=== PATIENT | female | born 1940 | race Caucasian/White ===

== ENCOUNTER 2019-02-19 18:24 | Emergency (ER) | payer OTHER ==
[2019-02-19] MEDS ORDERED: FENTANYL CITR 100 MCG/2 ML ONE (19:33)
--- NOTE | 2019-02-19 19:38 | RAD REPORT ---
EXAM DESCRIPTION: RAD - Knee Right 3 View - 02/19/2019 7:27 pm CLINICAL HISTORY: PAIN COMPARISON: <Comparisons> FINDINGS: No acute fracture or dislocation seen. No joint effusion evident. Vascular calcification n oted.
--- NOTE | 2019-02-19 19:40 | RAD REPORT ---
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 No fracture or dislocation. No significant joint effusion. Atherosclerosis.
--- NOTE | 2019-02-19 20:20 | RAD REPORT ---
EXAM DESCRIPTION: CT - CTFB CLINICAL HISTORY: FACIAL PAIN Fall, trauma to face with pain COMPARISON: No comparisons TECHNIQUE: Axial 2 mm thick images of the face were obtained with sagittal and coronal reconstructio n images. All CT scans are performed using dose optimization technique as appropriate and may include automated exposure control or mA/KV adjustment according to patient size. FINDINGS: Soft tissue swelling is seen adjacent to the left zygoma and zygomatic arch. Subtle buckli ng of the zygomatic arch and lateral orbital rim is present which is suspicious for a minimal fractur e. A fracture is seen involving the posterolateral wall of the left maxillary antrum inferiorly with moderate hemorrhagic fluid in the left maxillary antrum.The right sphenoid sinus also demonstrates mo derate thick fluid, however has a more typical appearance for chronic sinus disease.The mandible is i ntact. IMPRESSION: Minimal nondisplaced fracture of the left zygomatic arch and left lateral orbital rim iniguez spected. Mildly inwardly displaced fracture of the posterolateral inferior maxillary sinus wall with moderate hemorrhagic fluid in the left maxillary antrum.
--- NOTE | 2019-02-19 20:45 | RAD REPORT ---
EXAM DESCRIPTION: CT - Head C Spine Cap Wo Con - 02/19/2019 7:57 pm CLINICAL HISTORY: Trauma, head and neck injury. Chest, abdomen and pelvis pain. Fall injury, pain to upper back and bilateral hips COMPARISON: No comparisons TECHNIQUE: CT head without contrast. CT cervical spine without contrast with coronal and sagittal reformatted images. CT chest, abdomen and pelvis without contrast with coronal and sagittal reformatted images of the spi ne. All CT scans are performed using dose optimization technique as appropriate and may include automated exposure control or mA/KV adjustment according to patient size. FINDINGS: CT HEAD WITHOUT CONTRAST: No intracranial hemorrhage, hydrocephalus or extra-axial fluid collection. Moderate brain atrophy. No areas of brain edema or midline shift. Fluid is present in the left maxillary antrum suspicious for hemorrhage. Please refer to dedicated CT facial bone study. The calvarium is intact. CT CERVICAL SPINE WITHOUT CONTRAST: No fracture or subluxation. The prevertebral soft tissues are normal in thickness. CT CHEST, ABDOMEN, PELVIS WITHOUT CONTRAST: NOTE: Lack of contrast is a significant limitation in the assessment of trauma related findings. Spec ifically, solid organ, vascular and bowel evaluation is significantly limited. Diffuse COPD is present with areas of scarring in both lung bases in the right apex.No mediastinal he matoma.No pneumothorax or pericardial/pleural fluid. No evidence of intra-abdominal visceral injury, free fluid or free air is seen within the above detai led limitations. Numerous gallstones are present gallbladder. Several right renal calculi are seen wi thout hydronephrosis. Prominent diverticulosis coli without diverticulitis. Acute fracture is not seen. Multiple compression deformities are seen in the lumbar spine, the majori ty of these have a chronic appearance and were present on the 2017 comparative plain radiograph. IMPRESSION: Multiple chronic appearing compression deformities throughout the lumbar spine. If furth er assessment of the lumbar spine fractures is needed clinically, MR imaging would be recommended for followup. Hemorrhagic fluid is apparent in the left maxillary antrum likely indicating subtle facial bone fract ure is present. Please refer to dedicated CT face study for further detail.
--- NOTE | 2019-02-19 21:25 | EDPHYS ---
Physician Documentation [facility] Name: Judah Caceres Age: 79 yrs Sex: Female : 1940 Arrival Date: 02/19/2019 Time: 18:36 Bed 27 Private MD: ED Physician Crispin Ferris HPI: 02/19 19:05 This 79 yrs old Female presents to ER via EMS with complaints of fall injury. pm1 19:05 Details of fall: The patient fell from an upright position, while walking. Onset: The pm1 symptoms/episode began/occurred just prior to arrival, today. Associated injuries: The patient sustained injury to the head, contusion, upper back injury, pain, injury to the chest, specifically the mid-sternal area, tenderness, right iliac crest and left iliac crest, abrasion, tenderness. The patient has not recently seen a physician. Patient was walking out of the shower and she tripped and landed forward. Presenting with bilateral knee pain, abrasion and pain to bilateral iliac crest, chest pain from landing on her chest, upper back pain, and bruising to left eye and cheek. Historical: - Allergies: 18:47 Codeine; rv 18:47 Sulfa (Sulfonamide Antibiotics); rv - Home Meds: 18:47 Xarelto 10 mg oral tab 1 tab once daily [Active]; tramadol 50 mg Oral tab 1 tab every 4 rv hours [Active]; spironolactone 25 mg Oral tab 1 tab 4 times per day [Active]; glimepiride 2 mg Oral tab 1 tab once daily [Active]; - PMHx: 18:47 Diabetes - NIDDM; back injury; rv - PSHx: 18:47 Appendectomy; Tonsillectomy; rv - Immunization history:: Adult Immunizations up to date. - Social history:: Smoking status: Patient/guardian denies using tobacco. - Ebola Screening: : No symptoms or risks identified at this time. ROS: 19:05 Constitutional: Negative for fever, chills, and weight loss, Eyes: Negative for injury, pm1 pain, redness, and discharge, ENT: Negative for injury, pain, and discharge, Neck: Negative for injury, pain, and swelling. 19:05 Respiratory: Negative for shortness of breath, cough, wheezing, and pleuritic chest pain, Abdomen/GI: Negative for abdominal pain, nausea, vomiting, diarrhea, and constipation. 19:05 : Negative for injury, bleeding, discharge, and swelling. 19:05 Neuro: Negative for headache, weakness, numbness, tingling, and seizure. 19:05 Cardiovascular: Positive for chest pain from the fall. No chest pain, shortness of breath, or chest pain equivalents prior to fall, Negative for edema, palpitations. 19:05 Back: Positive for of the thoracic area, pain. 19:05 MS/extremity: Positive for pain, of the right knee and left knee, Negative for decreased range of motion, deformity, paresthesias, swelling. 19:05 Skin: Positive for abrasion(s), of the left iliac crest and right iliac crest. Exam: 19:05 Constitutional: This is a well developed, well nourished patient who is awake, alert, pm1 and in no acute distress. 19:05 Eyes: Pupils equal round and reactive to light, extra-ocular motions intact. Lids and lashes normal. Conjunctiva and sclera are non-icteric and not injected. Cornea within normal limits. Periorbital areas with no swelling, redness, or edema. ENT: Nares patent. No nasal discharge, no septal abnormalities noted. Tympanic membranes are normal and external auditory canals are clear. Oropharynx with no redness, swelling, or masses, exudates, or evidence of obstruction, uvula midline. Mucous membranes moist. Neck: Trachea midline, no thyromegaly or masses palpated, and no cervical lymphadenopathy. Supple, full range of motion without nuchal rigidity, or vertebral point tenderness. No Meningismus. 19:05 Cardiovascular: Regular rate and rhythm with a normal S1 and S2. No gallops, murmurs, or rubs. Normal PMI, no JVD. No pulse deficits. Respiratory: Lungs have equal breath sounds bilaterally, clear to auscultation and percussion. No rales, rhonchi or wheezes noted. No increased work of breathing, no retractions or nasal flaring. Abdomen/GI: Soft, non-tender, with normal bowel sounds. No distension or tympany. No guarding or rebound. No evidence of tenderness throughout. 19:05 Head/face: Exam is negative for kay signs, raccoon eyes, Noted is no obvious of injury or deformity except contusion, of the left cheek and left eye. 19:05 Chest/axilla: Inspection: normal, no deformity, no ecchymosis, no evidence of flail chest, Palpation: crepitus, is not appreciated, tenderness, that is mild, of the mid-sternal area, that totally reproduces the patient's complaints. 19:05 Back: normal spinal alignment noted, vertebral tenderness, is appreciated at thoracic spine. 19:05 Skin: Appearance: normal except for affected area, injury, abrasion(s), very small abrasion noted, of the left iliac crest and right iliac crest. 19:05 Neuro: Orientation: is normal, Motor: is normal, moves all fours, Sensation: is normal, no obvious gross deficits, Gait: is steady, at a normal pace, without difficulty. Vital Signs: 19:07 BP 111 / 46; Pulse 93; Resp 19; Temp 98.4(O); Pulse Ox 97% ; lt1 20:00 BP 123 / 56; Pulse 92; Resp 16; Pulse Ox 96% ; rv 20:00 BP 116 / 56; Pulse 93; Resp 16; Pulse Ox 93% on R/A; rv 20:25 Pulse Ox 99% on 2 lpm NC; rv 22:21 BP 119 / 56; Pulse 93; Resp 16; Temp 98.3; Pulse Ox 99% ; rv MDM: 18:59 Patient medically screened. pm1 21:19 Data reviewed: vital signs. Data interpreted: Pulse oximetry: on room air is 99 %. pm1 Interpretation: normal. Counseling: I had a detailed discussion with the patient and/or guardian regarding: the historical points, exam findings, and any diagnostic results supporting the discharge/admit diagnosis, radiology results, the need for outpatient follow up, an ENT specialist, to return to the emergency department if symptoms worsen or persist or if there are any questions or concerns that arise at home. 02/19 18:55 Order name: Glucose, Ancillary Testing; Complete Time: 18:59 EDMS 02/19 19:04 Order name: CT Facial Bones W/O Con; Complete Time: 20:27 pm1 02/19 19:04 Order name: Knee Right 3 View XRAY; Complete Time: 19:48 pm1 02/19 19:04 Order name: Knee Left 3 View XRAY; Complete Time: 19:48 pm1 02/19 19:04 Order name: CT Traumagram (Head C Spine CAP wo con); Complete Time: 21:05 pm1 EC:06 Rate is 89 beats/min. Rhythm is regular. No Q waves. T waves are Normal. No ST changes pm1 noted. Clinical impression: Normal ECG. Administered Medications: 19:26 Drug: fentaNYL (PF) 25 mcg Route: IVP; Site: right antecubital; rv 20:26 Follow up: Response: Pain is decreased rv Disposition: 02/19/19 21:24 Discharged to Home. Impression: Maxillary fracture, unspecified - mildly displaced fracture of left posterolateral inferior maxillary sinus wall, Fall on same level from slipping, tripping and stumbling, Contusion of left knee, Contusion of right knee, Contusion of unspecified front wall of thorax, Zygomatic fracture, unspecified - Minimal nondisplaced fracture left zygomatic arch and left lateral orbital rim. - Condition is Stable. - Discharge Instructions: Contusion, Fall Prevention in the Home. - Prescriptions for Augmentin 875- 125 mg Oral Tablet - take 1 tablet by ORAL route every 12 hours for 10 days; 20 tablet. Tramadol 50 mg Oral Tablet - take 1 tablet by ORAL route every 8 hours as needed; 20 tablet. - Medication Reconciliation Form, Thank You Letter, Antibiotic Education, Prescription Opioid Use form. - Follow up: Emergency Department; When: As needed; Reason: Worsening of condition. Follow up: Peyton Jaimes MD; When: 2 - 3 days; Reason: Recheck today's complaints, Continuance of care, Re-evaluation by your physician. - Problem is new. - Symptoms have improved. Addendum: 02/21/2019 06:29 Co-signature as Attending Physician, Crispin Ferris MD I agree with the assessment and k dr plan of care. Signatures: Dispatcher [employer] EDMS Crispin Ferris MD MD kdr Mickail, Joel, PA PA jmm Boogie Cerda, MEDICAL ASSISTING PROGRAM DIRECTOR MEDICAL ASSISTING PROGRAM DIRECTOR pm1 Yair Moreau RN RN rv Corrections: (The following items were deleted from the chart) 02/19 22:22 21:24 02/19/2019 21:24 Discharged to Home. Impression: Maxillary fracture, unspecified rv - mildly displaced fracture of left posterolateral inferior maxillary sinus wallFall on same level from slipping, tripping and stumbling; Contusion of left knee; Contusion of right knee; Contusion of unspecified front wall of thorax; Zygomatic fracture, unspecified - Minimal nondisplaced fracture left zygomatic arch and left lateral orbital rim. Condition is Stable. Forms are Medication Reconciliation Form, Thank You Letter, Antibiotic Education, Prescription Opioid Use. Follow up: Emergency Department; When: As needed; Reason: Worsening of condition. Follow up: Peyton Jaimes; When: 2 - 3 days; Reason: Recheck today's complaints, Continuance of care, Re-evaluation by your physician. Problem is new. Symptoms have improved. pm1
--- NOTE | 2019-02-19 21:25 | ER ---
Nurse's Notes [facility] Name: Judah Caceres Age: 79 yrs Sex: Female : 1940 Arrival Date: 02/19/2019 Time: 18:36 Bed 27 Private MD: Diagnosis: Fall on same level from slipping, tripping and stumbling;Contusion of left knee;Contusion of right knee;Contusion of unspecified front wall of thorax;Zygomatic fracture, unspecified-Minimal nondisplaced fracture left zygomatic arch and left lateral orbital rim;Maxillary fracture, unspecified-mildly displaced fracture of left posterolateral inferior maxillary sinus wall Presentation: 02/19 18:36 Presenting complaint: Patient states: complains of back pain, worse than the usual. EMS rv states: patient had a shower and walking out of the bathroom when she tripped and hit her right side of the face. no LOC. patient takes Xarelto. No Dizziness, N/V. history of chronic back pain. Transition of care: patient was not received from another setting of care. Onset of symptoms was February 19, 2019 at 18:00. Risk Assessment: Do you want to hurt yourself or someone else? Patient reports no desire to harm self or others. Initial Sepsis Screen: Does the patient meet any 2 criteria? No. Patient's initial sepsis screen is negative. Does the patient have a suspected source of infection? No. Patient's initial sepsis screen is negative. Care prior to arrival: None. 18:36 Method Of Arrival: EMS: [facility] rv 18:36 Acuity: AMY 3 rv Triage Assessment: 19:00 General: Appears in no apparent distress. uncomfortable, Behavior is calm, cooperative. rv 19:00 Pain: Complains of pain in face and back. EENT: No signs and/or symptoms were reported rv regarding the EENT system. Neuro: Level of Consciousness is awake, alert, obeys commands, Oriented to person, place, time, situation. Cardiovascular: Patient's skin is warm and dry. Respiratory: Airway is patent. GI: No signs and/or symptoms were reported involving the gastrointestinal system. : No signs and/or symptoms were reported regarding the genitourinary system. Derm: Bruising that is dark purple, on left eye. Musculoskeletal: Reports pain in back. Historical: - Allergies: 18:47 Codeine; rv 18:47 Sulfa (Sulfonamide Antibiotics); rv - Home Meds: 18:47 Xarelto 10 mg oral tab 1 tab once daily [Active]; tramadol 50 mg Oral tab 1 tab every 4 rv hours [Active]; spironolactone 25 mg Oral tab 1 tab 4 times per day [Active]; glimepiride 2 mg Oral tab 1 tab once daily [Active]; - PMHx: 18:47 Diabetes - NIDDM; back injury; rv - PSHx: 18:47 Appendectomy; Tonsillectomy; rv - Immunization history:: Adult Immunizations up to date. - Social history:: Smoking status: Patient/guardian denies using tobacco. - Ebola Screening: : No symptoms or risks identified at this time. Screenin:59 Abuse screen: Denies threats or abuse. Denies injuries from another. Nutritional rv screening: No deficits noted. Tuberculosis screening: No symptoms or risk factors identified. Fall Risk None identified. Assessment: 19:56 Reassessment: Patient appears in no apparent distress at this time. Patient and/or rv family updated on plan of care and expected duration. Pain level reassessed. Patient is alert, oriented x 3, equal unlabored respirations, skin warm/dry/pink. patient brought back to room from CT scan. Vital Signs: 19:07 BP 111 / 46; Pulse 93; Resp 19; Temp 98.4(O); Pulse Ox 97% ; lt1 20:00 BP 123 / 56; Pulse 92; Resp 16; Pulse Ox 96% ; rv 20:00 BP 116 / 56; Pulse 93; Resp 16; Pulse Ox 93% on R/A; rv 20:25 Pulse Ox 99% on 2 lpm NC; rv 22:21 BP 119 / 56; Pulse 93; Resp 16; Temp 98.3; Pulse Ox 99% ; rv ED Course: 18:36 Patient arrived in ED. rv 18:39 Triage completed. rv 18:48 Boogie Cerda NP is PHCP. pm1 18:48 Crispin Ferris MD is Attending Physician. pm1 19:00 Maintain EMS IV. Dressing intact. Good blood return noted. Site clean \T\ dry. Gauge \T\ rv site: g20 right AC. Flushed right antecubital 10ml NS. 19:00 Patient has correct armband on for positive identification. Placed in gown. Bed in low rv position. Call light in reach. Side rails up X2. Adult w/ patient. dinkey locomotive operator on. Pulse ox on. NIBP on. 19:13 Yair Moreau, RN is Primary Nurse. rv 19:25 Knee Right 3 View XRAY In Process Unspecified. EDMS 19:26 Knee Left 3 View XRAY In Process Unspecified. EDMS 19:41 CT completed. Patient tolerated procedure well. Patient moved back from CT. mw3 19:44 CT Facial Bones W/O Con In Process Unspecified. EDMS 19:57 CT Traumagram (Head C Spine CAP wo con) In Process Unspecified. EDMS 20:00 Arm band placed on Patient placed in an exam room, on a stretcher, on ladies suit operator, rv on pulse oximetry, Patient notified of wait time. 20:51 No provider procedures requiring assistance completed. IV discontinued, intact, rv bleeding controlled, No redness/swelling at site. Pressure dressing applied. 21:19 Peyton Jaimes MD is Referral Physician. pm1 Administered Medications: 19:26 Drug: fentaNYL (PF) 25 mcg Route: IVP; Site: right antecubital; rv 20:26 Follow up: Response: Pain is decreased rv Outcome: 21:24 Discharge ordered by MD. pm1 22:19 Discharged to home via wheelchair. rv 22:19 Condition: good 22:19 Discharge instructions given to patient, family, Instructed on discharge instructions, follow up and referral plans. medication usage, Demonstrated understanding of instructions, follow-up care, medications, Prescriptions given X 2. 22:22 Patient left the ED. rv Signatures: Dispatcher [employer] EDWY Boogie Cerda, DEE DEE TELEVISION REPAIRER pm1 Kristal Bell mw3 Yair Moreau, JEREMI RN rv Brisa Johnson lt1
--- NOTE | 2019-02-20 09:47 | EKG ---
Test Date: 2019-02-19 Test Time: 18:41:06 Cabinet Builder: JONHT MEASUREMENT RESULTS: Intervals: Rate: 89 [place]: 184 QRSD: 88 QT: 374 QTc: 455 [place]: P: 38 [place]: 184 QRS: -17 T: 35 INTERPRETIVE STATEMENTS: Normal sinus rhythm Normal ECG Compared to ECG 03/05/2015 16:35:40 Atrial premature complex(es) no longer present Left ventricular hypertrophy no longer present Electronically Signed On 02-20-19 09:46:44 CDT by Ryder Dutton
== END 2019-02-19 22:22 | disposition home or self-care (01) ==
LOC: ER 18:24
DX: S02.40DA Maxillary fracture, left side, initial encounter for closed fracture (principal); S02.609A Fracture of mandible, unspecified, initial encounter for closed fracture; S02.40FA Zygomatic fracture, left side, initial encounter for closed fracture; S02.82XA Fracture of other specified skull and facial bones, left side, initial encounter for closed fracture; W18.2XXA Fall in (into) shower or empty bathtub, initial encounter; E11.9 Type 2 diabetes mellitus without complications; Z79.01 Long term (current) use of anticoagulants; Z88.5 Allergy status to narcotic agent; Z88.2 Allergy status to sulfonamides
CPT/HCPCS: 70450; 70486; 71250; 72125; 76377; 82962; 93005; 96374; 99285; J3010

== ENCOUNTER 2019-02-20 14:06 | Inpatient (IN) | payer OTHER ==
[2019-02-20] MEDS ORDERED: FENTANYL CITR 100 MCG/2 ML ONE (14:56)
[2019-02-20] MEDS ORDERED: NA CHLORIDE 0.9% 1,000 ML ONE (14:56)
[2019-02-20] MEDS ORDERED: ONDANSETRON 4 MG/2 ML VIAL ONE (14:56)
[2019-02-20] MEDS ORDERED: FAMOTIDINE 20 MG/2 ML VIAL IV ONE (14:56)
[2019-02-20] MEDS ORDERED: CEFTRIAXONE/SWI 1gm 1 GM/10 ML SYR ONE (14:57)
[2019-02-20 15:28] LABS: Absolute Lymphocytes (CBC) 1.4 K/uL (0.7-4.9); Absolute Monocytes 0.7 K/uL (0.1-1.3); Absolute Neutrophil 3.3 K/uL (1.8-8.0); Basophils % 0.9 % (0-1.3); Eosinophils % 4.6 % (0-4.4); Hematocrit 41.2 % (36.0-45.0); Lymphocytes % 25.4 % (15.3-44.8); MPV 7.8 fL (7.6-11.3); Monocytes % 11.8 % (3.3-12.3); RBC Red Blood Cell Count 4.35 M/uL (3.86-4.86)
[2019-02-20 15:29] LABS: Protime INR 1.09
[2019-02-20 15:52] LABS: ALT/SGPT 19 U/L (12-78); AST/SGOT 20 U/L (15-37); Albumin 3.4 g/dL (3.4-5.0); Alkaline Phosphatase 77 U/L (45-117); BUN Blood Urea Nitrogen 19 mg/dL (7-18); Bicarbonate 30 mmol/L (21-32); Bilirubin Direct 0.2 mg/dL (0-0.2); Bilirubin Total 0.7 mg/dL (0.2-1.0); Glucose Level 171 mg/dL (74-106); Lipase 53 U/L (73-393); Magnesium 2.1 mg/dL (1.8-2.4); NT PRO-BNP 81 pg/mL (<450); Potassium 3.8 mmol/L (3.5-5.1); Protein, Total 6.9 g/dL (6.4-8.2); Sodium Level 138 mmol/L (136-145); Troponin (Emerg Dept Use Only) < 0.02 ng/mL (0.0-0.045)
--- NOTE | 2019-02-20 16:34 | ER ---
Nurse's Notes [facility] Name: Judah Caceres Age: 79 yrs Sex: Female : 1940 Arrival Date: 02/20/2019 Time: 14:07 Bed 4 Private MD: Unknown, Unknown Diagnosis: Chest pain on breathing;Strain of muscle and tendon of front wall of thorax;Strain of muscle and tendon of back wall of thorax;Unspecified fracture of facial bones-zygoma, maxillary antrum, left;Type 2 diabetes mellitus;Vomiting Presentation: 02/20 14:13 Presenting complaint: Child states: She was here last night after a fall and hitting la1 her head. This morning she has been vomiting and having some blood coming out of her nose. Also C/O of pain in chest when breathing. Transition of care: patient was not received from another setting of care. Mechanism of Injury: resulted from a fall, last nightr. Onset of symptoms was February 19, 2019. Risk Assessment: Do you want to hurt yourself or someone else? Patient reports no desire to harm self or others. Initial Sepsis Screen: Does the patient meet any 2 criteria? No. Patient's initial sepsis screen is negative. Does the patient have a suspected source of infection? No. Patient's initial sepsis screen is negative. Care prior to arrival: None. 14:13 Method Of Arrival: Wheelchair la1 14:13 Acuity: AMY 3 la1 Historical: - Allergies: 14:16 Codeine; la1 14:16 Sulfa (Sulfonamide Antibiotics); la1 - Home Meds: 17:25 glimepiride 2 mg Oral tab 1 tab once daily [Active]; spironolactone 25 mg Oral tab 1 la1 tab 4 times per day [Active]; tramadol 50 mg Oral tab 1 tab every 4 hours [Active]; Xarelto 10 mg Oral tab 1 tab once daily [Active]; - PMHx: 14:16 Back injury; Diabetes - NIDDM; la1 - Immunization history:: Adult Immunizations up to date. - Social history:: Smoking status: Patient/guardian denies using tobacco. - Ebola Screening: : No symptoms or risks identified at this time. Screenin:19 Abuse screen: Denies threats or abuse. Nutritional screening: No deficits noted. la1 Tuberculosis screening: No symptoms or risk factors identified. Fall Risk Fall in past 12 months (25 points). No secondary diagnosis (0 pts). IV access (20 points). Ambulatory Aid- Crutches/Cane/Walker (15 pts). Gait- Weak (10 pts.). Mental Status- Oriented to own ability (0 pts). Total Graham Fall Scale indicates High Risk Score (45 or more points). Family Present and informed to notify staff if the need to leave the bedside. Assessment: 14:17 General: Appears in no apparent distress. Behavior is calm, cooperative. Pain: la1 Complains of pain in chest, head, face. Neuro: Level of Consciousness is awake, alert, obeys commands, Oriented to person, place, time, situation. Cardiovascular: Capillary refill < 3 seconds Patient's skin is warm and dry. Respiratory: Airway is patent Respiratory effort is even, unlabored, Respiratory pattern is regular, symmetrical. GI: Reports nausea, vomiting. Musculoskeletal: bruising noted to face. Pt had CT traumagram without head bleed. Vomiting began this morning. 17:16 Reassessment: Patient appears in no apparent distress at this time. No changes from la1 previously documented assessment. Patient and/or family updated on plan of care and expected duration. Pain level reassessed. Vital Signs: 14:16 Pulse 100; Resp 16; Pulse Ox 88% on R/A; la1 14:22 BP 141 / 67; la1 14:22 Pulse Ox 97% on 2 lpm NC; la1 14:58 Temp 97.5(O); la1 15:38 BP 134 / 66; Pulse 97; Resp 16; Pulse Ox 98% on 2 lpm NC; la1 16:57 BP 124 / 60; Pulse 99; Resp 16; Pulse Ox 98% on 2 lpm NC; la1 17:26 BP 116 / 54; Pulse 98; Resp 16; Pulse Ox 98% on 2 lpm NC; la1 [place] Coma Score: 14:13 Eye Response: spontaneous(4). Verbal Response: oriented(5). Motor Response: obeys la1 commands(6). Total: 15. ED Course: 14:07 Patient arrived in ED. ag5 14:07 Unknown, Unknown is Private Physician. ag5 14:07 Adolph Wilkerson MD is Attending Physician. mikey 14:15 Triage completed. la1 14:16 Arm band placed on right wrist. la1 14:19 Placed in gown. Bed in low position. Call light in reach. la1 14:56 Baldemar Rivero, RN is Primary Nurse. la1 14:56 Inserted saline lock: 22 gauge in left antecubital area, using aseptic technique. Blood la1 collected. 15:05 XRAY Chest (1 view) In Process Unspecified. EDMS 16:21 CT Head Brain wo Cont In Process Unspecified. EDMS 16:25 CT Chest, Abdomen, Pelvis - W/Contrast In Process Unspecified. EDMS 16:25 CT completed. Patient tolerated procedure well. Patient moved back from CT. mw3 16:29 Geoff Pierre MD is Hospitalizing Provider. mikey 18:11 No provider procedures requiring assistance completed. Patient admitted, IV remains in la1 place. Administered Medications: 15:20 Drug: NS 0.9% 500 ml Route: IV; Rate: bolus; Site: left antecubital; la1 16:05 Follow up: IV Status: Completed infusion la1 15:20 Not Given (Other Intervention Used): Rocephin - (cefTRIAXone) 1 grams IVPB once over 30 la1 mins; (mix in 50 mL NS) 15:22 Drug: Zofran 4 mg Route: IVP; Site: left antecubital; la1 15:41 Follow up: Response: No adverse reaction la1 15:22 Drug: fentaNYL (PF) 25 mcg Route: IVP; Site: left antecubital; la1 15:40 Follow up: Response: No adverse reaction; Pain is decreased la1 15:23 Drug: Pepcid 20 mg Route: IVP; Site: left antecubital; la1 15:40 Follow up: Response: No adverse reaction la1 15:23 Drug: Rocephin 1 grams Route: IV; Rate: calculated rate; Site: left antecubital; la1 15:41 Follow up: IV Status: Completed infusion la1 16:05 Drug: NS 0.9% 1000 ml Route: IV; Rate: 125 ml/hr; Site: left antecubital; la1 17:17 Follow up: IV Status: Infusion continued upon admission la1 16:53 Drug: NS 0.9% 500 ml Route: IV; Rate: bolus; Site: left antecubital; la1 16:53 Follow up: IV Status: Infusion continued upon admission la1 17:17 Follow up: IV Status: Completed infusion la1 17:50 Drug: Mucomyst - Acetylcysteine 600 mg Route: PO; la1 18:11 Follow up: Response: No adverse reaction la1 Outcome: 16:33 Decision to Hospitalize by Provider. mikey 18:11 Admitted to Tele accompanied by tech, via wheelchair, room 427, with chart. la1 18:11 Condition: stable 18:11 Instructed on the need for admit. 18:12 Patient left the ED. la1 Signatures: Dispatcher [employer] EDMS Adolph Wilkerson MD MD cha Attema, Lee RN RN la1 Kristal Bell mw3 Elsa Meyer ag5 Corrections: (The following items were deleted from the chart) 14:22 14:16 Pulse 100bpm; Resp 16bpm; Pulse Ox 96% RA; la1 la1
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
[2019-02-20] MEDS ORDERED: ACETYLCYST 6,000 MG/30 ML VIAL ONE (16:36)
--- NOTE | 2019-02-20 16:45 | RAD REPORT ---
EXAM DESCRIPTION: CT - Head Brain Wo Cont - 02/20/2019 4:21 pm CLINICAL HISTORY: Headache COMPARISON: February 19 TECHNIQUE: Computed axial tomography of the head was obtained. IV contrast was not requested. All CT scans are performed using dose optimization technique as appropriate and may include automated exposure control or mA/KV adjustment according to patient size. FINDINGS: An intracranial bleed is not seen . The ventricles are normal in caliber. No extra-axial fluid collection is noted. Mild low-density areas within periventricular, deep and sub cortical white matter likely represent ischemic changes secondary to small vessel disease. Fracture involving the left maxillary wall again demonstrated. Blood is present within the left maxil carleen sinus. Fluid is present within the sphenoid sinus IMPRESSION: No acute intracranial abnormality is seen. If patient's symptoms persist MRI of the bra in would be recommended.
--- NOTE | 2019-02-20 16:59 | RAD REPORT ---
EXAM DESCRIPTION: CT - Chest Abdomen Pelvis W Cont - 02/20/2019 4:25 pm CLINICAL HISTORY: Chest and abdominal pain status post fall COMPARISON: CT February 19, 2019 TECHNIQUE: Computed axial tomography of the chest, abdomen and pelvis was obtained. 100 cc Isovue-30 0 was administered intravenously. Oral contrast was not requested. This limits evaluation of bowel. All CT scans are performed using dose optimization technique as appropriate and may include automated exposure control or mA/KV adjustment according to patient size. FINDINGS: A pleural effusion is not present. A pulmonary contusion is not seen. A mediastinal hematoma is not present. The liver, spleen, pancreas, adrenals, kidneys and bladder do not demonstrate a traumatic injury. Gallstones. Nonobstructing right renal calculus. Old compression fractures lumbar spine Cortical irregularity involves the anterior aspect of the mid sternum. IMPRESSION: Cortical irregularity involving the anterior aspect of the sternum. Given the lack of so ft tissue swelling this probably is chronic. Clinical correlation is needed to see if the patient has point tenderness to suggest an acute fracture. No acute traumatic injury involving the abdomen/pelvis. .
[2019-02-20] MEDS ORDERED: ACETYLCYST 20% 800 MG/4 ML VIAL PO ONE (17:00)
--- NOTE | 2019-02-20 17:02 | RAD REPORT ---
EXAM DESCRIPTION: Imelda Single View02/20/2019 3:07 pm CLINICAL HISTORY: Chest pain COMPARISON: February 03, 2019 FINDINGS: The lungs appear clear of acute infiltrate. The heart is normal size IMPRESSION: No acute abnormalities displayed
[2019-02-20] MEDS ORDERED: GLUCAGON 1 MG/VIAL IM PRN (17:55)
[2019-02-20] MEDS ORDERED: D50W 25 GM/50 ML SYRINGE IV PRN (17:55)
[2019-02-20] MEDS ORDERED: ACETAMINOPHEN 325 MG TABLET PO PRN (17:55)
[2019-02-20] MEDS ORDERED: FENTANYL CITR 100 MCG/2 ML IV PRN (17:55)
[2019-02-20] MEDS ORDERED: ONDANSETRON 4 MG/2 ML VIAL IV PRN (17:55)
[2019-02-20] MEDS: NA CHLORIDE 0.9% 1,000 ML IV SCH ×2 (19:04→22:34)
[2019-02-20] MEDS: IPRATROPIUM BROM 0.5MG/2.5ML NEB SCH (19:35)
[2019-02-20] MEDS: ALBUTEROL 2.5 MG/3 ML NEB SOL NEB SCH (19:35)
[2019-02-20] MEDS: INSULIN -REGULAR HUMAN 50 UNIT/0.5 ML ML SQ SCH (20:35)
[2019-02-20 21:29] VITALS: BMI 24.1
[2019-02-20] MEDS: FAMOTIDINE 20 MG/2 ML VIAL IV SCH (22:33)
[2019-02-21] MEDS: IPRATROPIUM BROM 0.5MG/2.5ML NEB SCH ×4 (01:50→20:00)
[2019-02-21] MEDS: ALBUTEROL 2.5 MG/3 ML NEB SOL NEB SCH ×4 (01:50→20:00)
[2019-02-21 04:44] LABS: Absolute Lymphocytes (CBC) 2.3 K/uL (0.7-4.9); Absolute Monocytes 0.6 K/uL (0.1-1.3); Absolute Neutrophil 2.1 K/uL (1.8-8.0); Eosinophils % 4.1 % (0-4.4); Hematocrit 35.9 % (36.0-45.0); Lymphocytes % 43.4 % (15.3-44.8); MPV 7.8 fL (7.6-11.3); Monocytes % 11.2 % (3.3-12.3); Potassium 3.5 mmol/L (3.5-5.1); RBC Red Blood Cell Count 3.77 M/uL (3.86-4.86)
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
--- NOTE | 2019-02-21 06:29 | EKG ---
Test Date: 2019-02-20 Test Time: 15:32:01 Glass Worker: TR MEASUREMENT RESULTS: Intervals: Rate: 96 [place]: 202 QRSD: 90 QT: 352 QTc: 444 [place]: P: 57 [place]: 202 QRS: -19 T: 68 INTERPRETIVE STATEMENTS: Normal sinus rhythm Possible Anterior infarct, age undetermined Abnormal ECG Compared to ECG 02/19/2019 18:41:06 Myocardial infarct finding now present Electronically Signed On 02-21-19 06:28:52 CDT by Ryder Dutton
[2019-02-21] MEDS: INSULIN -REGULAR HUMAN 50 UNIT/0.5 ML ML SQ SCH ×4 (07:30→21:00)
[2019-02-21] MEDS ORDERED: TRAMADOL HCL 50 MG TAB PO PRN (08:00)
[2019-02-21] MEDS ORDERED: METHOCARBAMOL 500 MG TAB PO PRN (08:00)
--- NOTE | 2019-02-21 08:37 | RAD REPORT ---
EXAM DESCRIPTION: RAD - Chest Single View - 02/21/2019 6:32 am CLINICAL HISTORY: Chest Pain Chest pain. COMPARISON: Chest Single View dated 02/20/2019; Chest Pa And Lat (2 Views) dated 02/03/2019; CHEST SING LE VIEW dated 03/05/2015; CHEST SINGLE VIEW dated 10/15/2014; Chest Abdomen Pelvis W Cont dated 9 FINDINGS: Portable technique limits examination quality. Mild interstitial opacities bilaterally. The heart is normal in size. No displaced fractures. IMPRESSION: Mild interstitial pneumonitis versus interstitial pulmonary edema.
[2019-02-21] MEDS: CEFTRIAXONE/SWI 1gm 1 GM/10 ML SYR IVP SCH (09:00)
[2019-02-21] MEDS: methylPREDNISolone 4 MG TAB PO SCH (10:05)
[2019-02-21] MEDS: FAMOTIDINE 20 MG/2 ML VIAL IV SCH ×2 (10:05→20:32)
[2019-02-21] MEDS: SPIRONOLACTONE 25 MG TABLET PO SCH (10:08)
--- NOTE | 2019-02-21 12:16 | EKG ---
Test Date: 2019-02-21 Test Time: 07:33:40 Paper Hanger: ARIAN MEASUREMENT RESULTS: Intervals: Rate: 93 LA: 200 QRSD: 92 QT: 360 QTc: 447 Marland: P: 44 LA: 200 QRS: -19 T: 8 INTERPRETIVE STATEMENTS: Normal sinus rhythm Normal ECG Compared to ECG 02/20/2019 15:32:01 Myocardial infarct finding no longer present Electronically Signed On 02-21-19 12:15:56 CDT by Ryder Dutton
[2019-02-21] MEDS ORDERED: ATORVASTATIN 20 MG TAB PO SCH (21:00)
[2019-02-22] MEDS: ALBUTEROL 2.5 MG/3 ML NEB SOL NEB SCH ×2 (02:00→08:00)
[2019-02-22] MEDS: IPRATROPIUM BROM 0.5MG/2.5ML NEB SCH ×2 (02:00→08:00)
[2019-02-22 04:25] VITALS: O2SAT 94
--- NOTE | 2019-02-22 05:10 | HP ---
Date of Admission: 02/20/2019 Chief Complaint: Fall. History Of Present Illness: This is a 79-year-old female patient, who lives at home by herself. She is in process of moving to [facility]. The patient says that she fell down at home and she does not know actually how she fell, but she was in the shower and as she was trying to get out of the shower, she lost her balance and fell down. She fell forward and her chest area jacobo lyn ended up hitting against some metal frame of the shower on the floor. She came into the emergenc y room. She also hit her head. CAT scan per trauma protocol was done in the emergency room. This w as on 02/19/2019 and CAT scan revealed presence of fracture of the facial bone as well as some possib ility of blood in the maxillary sinus. She was discharged to go home. The patient came back to the emergency room yesterday with some nosebleed type of problem. Along with that, significant pain in h er sternal area and pain on the left side of her face. She has experienced extreme difficulty with h er activities of daily life. Normally, she uses a walker, but with this fall and injury, she has not been able to do even those kind of activities including getting up and moving around with a walker o n her own like she normally did prior to this fall. Denies any fever, chills, nausea, vomiting. Aft er she came into emergency room yesterday, CAT scan of the chest done in the emergency room, which re vealed abnormality consistent with fracture of the sternal bone. The patient was admitted to the [facility] with IV pain medication. Past Medical History: Significant for type 2 diabetes mellitus, hypertension, long-term anticoagulat ion therapy due to hypercoagulable state with prior history of DVT, osteoarthritis at multiple sites, hyperlipidemia, hypertension, rheumatoid arthritis, on chronic steroid therapy for rheumatoid arthri tis, restless leg syndrome, polymyalgia rheumatica. 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 Allergies: ALLERGIC TO CEFACLOR ARE CAUSING DIARRHEA AND ABDOMINAL CRAMPS, CEPHALEXIN, DETAILS UNKNO WN; CODEINE CAUSING VOMITING; DEMEROL, WHICH IS MEPERIDINE, CAUSING VOMITING; NONSTEROIDAL ANTI-INFLA MMATORY MEDICATION CAUSING DIARRHEA AND ABDOMINAL CRAMPS; SULFA, DETAILS UNKNOWN. Family History: Significant for hypertension, pacemaker, DVT, coronary artery disease. Social History: Negative for smoking or alcohol use. Medications: 1.Caltrate plus D 1 tablet 2 times a day. 2.Glimepiride 2 mg 1 tablet by mouth daily with breakfast. 3.Imodium A-D 2 mg and she takes 1 tablet by mouth 2 times a day as needed for diarrhea. 4.Medrol 4 mg and she takes 1 tablet by mouth daily. 5.Methocarbamol 500 mg, takes 1 tablet by mouth 3 times a day. 6.Nexium oaok-cga-qfgcujl 22.3 mg 1 capsule by mouth daily. 7.Simvastatin 40 mg p.o. daily in the evening time. 8.Spironolactone 25 mg, she takes 2 tablets by mouth daily. 9.Xarelto 10 mg by mouth daily. 10.Tylenol 500 mg takes 2 tablets by mouth 2 times a day as needed. Physical Examination: Vital Signs: Initial vital signs when she came into emergency room, oxygen saturation 88%, respirato ry rate 16, pulse rate 100, height 5 feet 5 inches, weight 145 pounds. Last vital signs this morning , temperature 98.6, pulse 102, respiratory rate 14, blood pressure 116/54, oxygen saturation 95% on 2 L nasal cannula oxygen. General: Awake, alert, oriented, not in distress. HEENT: Head atraumatic, normocephalic. Conjunctivae nonerythematous. Sclerae white. Mouth: No th gavin or edema noted. Ears/Nose: No mass, lesion, discharge noted. On face examination, the patient has extensive bruising on the left side of the face. Neck: Supple. No JVD, lymph nodes, bruit, thyromegaly noted. Lungs: Bilateral good equal air entry. Clear to auscultation. No rhonchi. No rales. Heart: Normal heart sounds. No murmur or gallop. Abdomen: Soft. Bowel sounds normal. No guarding, rigidity, tenderness, mass, hepatosplenomegaly, d istention, or bruit noted. Extremities: No leg edema. No calf tenderness. Skin: No rash, ulcer, cellulitis. Lymphatics: No lymph node enlargement in neck, supraclavicular, infraclavicular region. Neurologic: No focal neurological deficit. Chest: The patient has extreme tenderness in the lower center sternal area and mild bruising noted. External Genitalia: Deferred. Rectal: Deferred. Laboratory Data: Yesterday, white count 5.7, hemoglobin 13.6, platelets 177. This morning, white co unt 5.3, hemoglobin 12, platelets 169. Yesterday, sodium 138, potassium 3.8, chloride 102, bicarb 30 , BUN 19, creatinine 0.96, glucose 171. Liver function tests unremarkable. Troponin less than 0.02. This morning, sodium 142, potassium 3.5, chloride 106, bicarb 27, BUN 12, creatinine 0.90, glucose 132. Chest x-ray, no acute abnormality noted. CAT scan of chest, abdomen, pelvis with contrast show ing irregularity involving anterior aspect of the sternum. CAT scan of the brain, no evidence of acu te intracranial changes. 02/19/2019, her CAT scan of the face shows minimal nondisplaced fracture of left zygomatic arch and left lateral orbital rim and mildly inwardly displaced fracture of the poste rolateral inferior maxillary sinus wall with moderate hemorrhagic fluid in the left maxillary antrum. Impression: 1.Fracture, sternum. 2.Fracture, left maxillary sinus, zygomatic arch, and orbital wall. 3.Hypoxia. 4.Chronic steroid therapy. 5.Rheumatoid arthritis. 6.Polymyalgia rheumatica. 7.Type 2 diabetes mellitus. 8.Hypercoagulable state. 9.Hypotension. 10.Hyperlipidemia. 11.Osteoarthritis, multiple sites. Plan: We will go ahead and admit the patient to hospital for further evaluation and management of th is problem. The patient is appropriate for inpatient and is expected to spend 2 midnights in [facility]. The patient is at increased risk of having pneumonia and we will monitor her closely in the [facility] for any need of surgical implication. Aggressive pain management will be provided per order with pain medication. Home medications will be continued per order. Diabetes will be managed with slidi ng scale insulin. We will consult Physical Therapy to start ambulating the patient and consultation was requested from Dr. Brown, general surgeon, and Dr. Jaimes from ENT service. It was recommend ed to patient that upon discharge from the hospital, she should go to assisted care facility instead of going back home and she informs me that, that is exactly what she has in her mind and she already has her room at this facility and her family already has moved her furniture, so she should be ready to go there upon discharge from the hospital. I will see her tomorrow for followup. ARSALAN/MARIA LUISA Voice ID: [id number]
[2019-02-22] MEDS: INSULIN -REGULAR HUMAN 50 UNIT/0.5 ML ML SQ SCH ×2 (07:30→11:30)
[2019-02-22] MEDS ORDERED: MAGNESIUM HYDROXIDE 8% 30 ML PO ONE (08:20)
[2019-02-22] MEDS: SPIRONOLACTONE 25 MG TABLET PO SCH (09:27)
[2019-02-22] MEDS: FAMOTIDINE 20 MG/2 ML VIAL IV SCH (09:28)
[2019-02-22] MEDS: methylPREDNISolone 4 MG TAB PO SCH (09:28)
[2019-02-22] MEDS: CEFTRIAXONE/SWI 1gm 1 GM/10 ML SYR IVP SCH (09:35)
--- NOTE | 2019-02-22 11:12 | P.PN ---
Subjective Date of Service: 02/21/19 Subjective: Tolerating diet, Improving Review of Systems 10-point ROS is otherwise unremarkable General: Fever (no) Eyes: Vision Change (no), As per HPI ENT: Ear Discharge (o), Nose Pain (n), Nose Discharge (o) Respiratory: Cough (no), Shortness of Breath (no), Hemoptysis (no) Cardiovascular: Chest Pain (no) Gastrointestinal: Nausea (no), Abdominal Pain (no), Diarrhea (no), No Distention , Constipation (n), Hematochezia (no) Genitourinary: Dysuria (no) Integumentary: As per HPI Physical Examination - Vital Signs Temperature: 98.0 F Blood Pressure: 121/62 Pulse: 91 Respirations: 18 Pulse Ox (%): 90 - Physical Exam General: Alert, Oriented x3 HEENT: PERRLA, EOMI Gastrointestinal: Soft and benign, No masses, No rebound, No guarding Musculoskeletal: No erythema, No tenderness, No warmth Integumentary: No erythema, No warmth, No cyanosis Neurological: Normal speech Assessment And Plan - Plan diet f/u official Ct results fall precautions
--- NOTE | 2019-02-22 11:22 | P.PN ---
Subjective Date of Service: 02/22/19 Subjective: Tolerating diet, Ambulating, Improving, Doing well Review of Systems 10-point ROS is otherwise unremarkable Physical Examination - Vital Signs Temperature: 98.0 F Blood Pressure: 121/62 Pulse: 91 Respirations: 18 Pulse Ox (%): 90 - Physical Exam General: Alert, In no apparent distress, Oriented x3, Cooperative HEENT: PERRLA, EOMI, Sclerae nonicteric Neck: Supple Respiratory: Normal air movement Gastrointestinal: Soft and benign, No rebound, No guarding Musculoskeletal: No erythema, No tenderness, No warmth Integumentary: No rashes Neurological: Normal speech Assessment And Plan - Plan f/u office one week f/u with her ENT or [facility] fall precautions
[2019-02-22 11:43] VITALS: BP 129/58; TEMP 97.8
--- NOTE | 2019-02-22 17:24 | P.CNS ---
Date of Consult: 02/22/19 Consulted regarding facial fractures. Patient was discharged prior to in- person visit. I reviewed her CT findings - there was no indicated for surgery on the minimally displaced fractures. I attempted to call the patient via telephone and relayed my opinion via voicemail.
--- NOTE | 2019-02-23 02:13 | DS ---
Date of Discharge: 02/22/2019 Disposition: Discharged to go to [facility]. Physical Examination: HEENT: Unremarkable. Lungs: Clear to auscultation. Heart: Sounds normal. Abdomen: Soft. Bowel sounds normal. No guarding, rigidity, tenderness, distention. Extremities: No leg edema. Laboratory Data: Labs done during this hospitalization upon admission, white count 5.7, hemoglobin 1 3.6, platelets 177. Yesterday, white count 5.3, hemoglobin 12, platelets 161. On admission, sodium 138, potassium 3.8, chloride 102, bicarb 30, BUN 19, creatinine 0.96, glucose 171. Liver function te sts unremarkable. Yesterday, sodium 142, potassium 3.5, chloride 106, bicarb 27, BUN 12, creatinine 0.90, glucose 132. Discharge Medications And Instructions: 1.Continue prior home medication except do not take any Xarelto for next 5 days and then resume Xare lto 10 mg daily. 2.Follow up at my office in 1 week. 3.The patient to use incentive spirometer 10 times every hour. Hospital Course: A 79-year-old female patient who was living at home, fell down as she was trying to get out of the shower and she came into emergency room. Please look at dictated H and P for more de tails. After she was evaluated in the ER, she was admitted to the hospital. The patient has fractur e of her sternum and facial bones. She did require IV pain medications for pain management. Incenti ve spirometer was ordered and she was encouraged to use that on at least while she is awake. Physica l Therapy was consulted. ENT consultation was requested from Dr. Jaimes, who was not available, but she will review the patient's CAT scan films and then if she needs to see the patient on outpatient basis for followup, then she will advise to do so. The patient had some constipation issue during hospitalization and milk of magnesia was ordered time x1 dose. On her outpatient basis, she was i n the process of moving into [facility] and she informed me that her family eric grande has moved all of her furniture, so I recommended to her that she should go to this facility upon discharge instead of going home and the patient informed me that that is exactly what her family told her and she will do so. Social Service consultation was requested to help make arrangements for [facility] and home physical therapy. Final Diagnoses: 1.Fracture, sternum. 2.Fracture, left maxillary sinus, zygomatic arch, and orbital wall hypoxia. 3.Chronic steroid therapy. 4.Rheumatoid arthritis. 5.Hypercoagulable state. 6.Polymyalgia rheumatica. 7.Type 2 diabetes mellitus. 8.Hyperlipidemia. 9.Osteoarthritis, multiple sites. ARSALAN/MODL Voice ID: [id number] Report ID: [id number]
== END 2019-02-22 12:04 | disposition home health service (06) | DRG 565 ==
LOC: ER 14:06 → ERHOLD 16:35 → 4TH 17:44
PROVIDERS: ADMIT Internal Medicine; ATTEND Internal Medicine
DX: S22.20XA Unspecified fracture of sternum, initial encounter for closed fracture (principal); S02.40DA Maxillary fracture, left side, initial encounter for closed fracture; S02.40FA Zygomatic fracture, left side, initial encounter for closed fracture; S02.82XA Fracture of other specified skull and facial bones, left side, initial encounter for closed fracture; D68.59 Other primary thrombophilia; W18.2XXA Fall in (into) shower or empty bathtub, initial encounter; Y93.E1 Activity, personal bathing and showering; Y92.012 Bathroom of single-family (private) house as the place of occurrence of the external cause; R09.02 Hypoxemia; M06.9 Rheumatoid arthritis, unspecified; M35.3 Polymyalgia rheumatica; E11.9 Type 2 diabetes mellitus without complications; I95.9 Hypotension, unspecified; E78.5 Hyperlipidemia, unspecified; M15.9 Polyosteoarthritis, unspecified; G25.81 Restless legs syndrome; K59.00 Constipation, unspecified; Z79.01 Long term (current) use of anticoagulants; Z79.52 Long term (current) use of systemic steroids; Z86.718 Personal history of other venous thrombosis and embolism; Z88.6 Allergy status to analgesic agent; Z88.1 Allergy status to other antibiotic agents; Z88.5 Allergy status to narcotic agent; Z88.2 Allergy status to sulfonamides
CPT/HCPCS: 36415; 70450; 70486; 71045; 71250; 71260; 72125; 74177; 76377; 80048; 80076; 82962; 83690; 83735; 83880; 84484; 85025; 85610; 87086; 87088; 93005; 96361; 96365; 96374; 96375; 97162; 99285; J0696; J2405; J3010; J7030; J7509; Q9967

== ENCOUNTER 2019-04-27 14:44 | Emergency (ER) | payer OTHER ==
--- NOTE | 2019-04-27 16:01 | RAD REPORT ---
EXAM DESCRIPTION: RAD - Knee Left 3 View - 04/27/2019 3:52 pm CLINICAL HISTORY: Left knee pain status post injury FINDINGS: No fracture or dislocation is seen. Osteoporosis. Osteoarthritis. If patient continues have symptoms to suggest an occult fracture, ligamentous or meniscal injury then MRI would recommended
--- NOTE | 2019-04-27 16:06 | ER ---
Nurse's Notes 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 Reports abrasion to aj left knee and left elbow. 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 Care prior to arrival: None. Mechanism of Injury: Fall from standing position. Trauma event details: Injury occurred in the [facility], Injury occurred: at home. Injury occurred: April 27, 2019. 14:51 Acuity: AMY 4 aj 14:51 Method Of Arrival: Wheelchair aj 14:56 Transition of care: patient was not received from another setting of care. Onset of tw2 symptoms was April 27, 2019. Risk Assessment: Do you want to hurt yourself or someone else? Patient reports no desire to harm self or others. Initial Sepsis Screen: Does the patient meet any 2 criteria? No. Patient's initial sepsis screen is negative. Does the patient have a suspected source of infection? No. Patient's initial sepsis screen is negative. Trauma Activation: Not Applicable Physician: ED Physician; Name: ; Notified At: ; Arrived At: Physician: General Surgeon; Name: ; Notified At: ; Arrived At: Physician: Radiology; Name: ; Notified At: ; Arrived At: Physician: Respiratory; Name: ; Notified At: ; Arrived At: Physician: Lab; Name: ; Notified At: ; Arrived At: Historical: - Allergies: 14:53 Codeine; aj 14:53 Sulfa (Sulfonamide Antibiotics); aj - Home Meds: 14:54 glimepiride 2 mg Oral tab 1 tab once daily [Active]; tramadol 50 mg Oral tab 1 tab aj every 4 hours [Active]; spironolactone 25 mg Oral tab 1 tab 4 times per day [Active]; Xarelto 10 mg Oral tab 1 tab once daily [Active]; - PMHx: 14:54 Back injury; Diabetes - NIDDM; aj - Immunization history: Last tetanus immunization: - up to date. - Social history:: Smoking status: Patient/guardian denies using tobacco. - Ebola Screening: : Patient negative for fever greater than or equal to 101.5 degrees Fahrenheit, and additional compatible Ebola Virus Disease symptoms Patient denies exposure to infectious person Patient denies travel to an Ebola-affected area in the 21 days before illness onset No symptoms or risks identified at this time. Screenin:56 Abuse screen: Denies threats or abuse. Nutritional screening: No deficits noted. tw2 Tuberculosis screening: No symptoms or risk factors identified. Fall Risk Secondary diagnosis (15 points) impaired mobility. Primary Survey: 14:51 NO uncontrolled hemorrhage observed. A: Airway: patent. Breathing/Chest: Respiratory aj pattern: regular, Respiratory effort: spontaneous, unlabored. Circulation: Skin color: pink. Disability Alert. 14:57 Exposure/Environment: All clothing and personal items were removed. Forensic evidence tw2 collection is not deemed to be indicated at this time. Items placed in patient belonging bag. 15:48 Reassessment Breathing/Chest Respiratory pattern Regular Respiratory effort Spontaneous wh Breath sounds Clear Chest inspection Symmetrical. Assessment: 14:51 General: Appears in no apparent distress. comfortable, Behavior is calm, cooperative, aj appropriate for age. Pain: Complains of pain in palmar aspect of left forearm and left knee. 15:48 Reassessment: Patient appears in no apparent distress at this time. Patient and/or wh family updated on plan of care and expected duration. Pain level reassessed. Patient is alert, oriented x 3, equal unlabored respirations, skin warm/dry/pink. Patient denies pain at this time. Vital Signs: 14:51 BP 119 / 80; Pulse 97; Resp 16; Temp 97.7; Pulse Ox 98% on R/A; Weight 63.5 kg; Height aj 5 ft. 5 in. (165.10 cm); 15:52 BP 115 / 59; Pulse 99; Resp 18; Pulse Ox 97% on R/A; wh 14:51 Body Mass Index 23.30 (63.50 kg, 165.10 cm) aj Dermott Coma Score: 14:51 Eye Response: spontaneous(4). Verbal Response: oriented(5). Motor Response: obeys aj commands(6). Total: 15. Trauma Score (Adult): 14:51 Eye Response: spontaneous(1); Verbal Response: oriented(1); Motor Response: obeys aj commands(2); Systolic BP: > 89 mm Hg(4); Respiratory Rate: 10 to 29 per min(4); Dermott Score: 15; Trauma Score: 12 ED Course: 14:48 Patient arrived in ED. as 14:52 Triage completed. aj 14:54 Shakira Lafleur FNP-C is [facility]. kb 14:54 Adolph Wilkesron MD is Attending Physician. kb 14:54 Arm band placed on left wrist. aj 14:56 Bed in low position. Call light in reach. Adult w/ patient. tw2 14:56 Patient maintains SpO2 saturation greater than 95% on room air. tw2 14:57 Thermoregulation: warm blanket given to patient. tw2 15:08 Tanya Bustillos is Primary Nurse. 15:53 Knee Left 3 View XRAY In Process Unspecified. EDMS Administered Medications: 16:15 Drug: Tetanus-Diphtheria Toxoid Adult 0.5 ml {Biological Scientist: [email or web address]. Exp: hb 12/11/2020. Lot #: [id number]. } Route: IM; Site: left deltoid; Outcome: 16:05 Discharge ordered by . kb 16:41 Patient left the ED. Signatures: Dispatcher [employer] EDMS Shakira Lafleur FNP-C FNP-Ckb Myers, Amanda, Terri Noble RN, Heather, RN RN hb Wise, Tara, RN RN [facility] Tanya Bustillos
--- NOTE | 2019-04-27 16:06 | EDPHYS ---
Physician Documentation [facility] Name: Judah Caceres Age: 79 yrs Sex: Female : 1940 Arrival Date: 04/27/2019 Time: 14:48 Bed 13 Private MD: ED Physician Adolph Wilkerson HPI: 04/27 15:37 This 79 yrs old Female presents to ER via Wheelchair with complaints of Fall kb Injury. 15:37 Details of fall: The patient fell from an upright position. Onset: The symptoms/episode kb began/occurred just prior to arrival. Associated injuries: The patient sustained left knee, ecchymosis, painful injury, swelling, left forearm, skin tear. Severity of symptoms: At their worst the symptoms were moderate, in the emergency department the symptoms are unchanged. The patient has not experienced similar symptoms in the past. The patient has not recently seen a physician. Pt states she was walking through the hallway quickly because she was in a hurry to get to [facility] and she tripped over the threshold and fell. Came to ER because the nursing staff were concerned about her knee swelling. Pt also has a skin tear to right forearm/elbow. Historical: - Allergies: 14:53 Codeine; aj 14:53 Sulfa (Sulfonamide Antibiotics); aj - Home Meds: 14:54 glimepiride 2 mg Oral tab 1 tab once daily [Active]; tramadol 50 mg Oral tab 1 tab aj every 4 hours [Active]; spironolactone 25 mg Oral tab 1 tab 4 times per day [Active]; Xarelto 10 mg Oral tab 1 tab once daily [Active]; - PMHx: 14:54 Back injury; Diabetes - NIDDM; aj - Immunization history: Last tetanus immunization: - up to date. - Social history:: Smoking status: Patient/guardian denies using tobacco. - Ebola Screening: : Patient negative for fever greater than or equal to 101.5 degrees Fahrenheit, and additional compatible Ebola Virus Disease symptoms Patient denies exposure to infectious person Patient denies travel to an Ebola-affected area in the 21 days before illness onset No symptoms or risks identified at this time. ROS: 15:37 Constitutional: Negative for fever, chills, and weight loss, ENT: Negative for injury, kb pain, and discharge, Neck: Negative for injury, pain, and swelling, Cardiovascular: Negative for chest pain, palpitations, and edema, Respiratory: Negative for shortness of breath, cough, wheezing, and pleuritic chest pain, Abdomen/GI: Negative for abdominal pain, nausea, vomiting, diarrhea, and constipation, Back: Negative for injury and pain, Neuro: Negative for headache, weakness, numbness, tingling, and seizure. 15:37 MS/extremity: Positive for injury or acute deformity, ecchymosis, pain, swelling, tenderness, of the left knee. 15:37 Skin: Positive for of the left forearm, skintear. Exam: 15:37 Constitutional: This is a well developed, well nourished patient who is awake, alert, kb and in no acute distress. Head/Face: Normocephalic, atraumatic. Chest/axilla: Normal chest wall appearance and motion. Nontender with no deformity. No lesions are appreciated. Cardiovascular: Regular rate and rhythm with a normal S1 and S2. No gallops, murmurs, or rubs. Normal PMI, no JVD. No pulse deficits. Respiratory: Lungs have equal breath sounds bilaterally, clear to auscultation and percussion. No rales, rhonchi or wheezes noted. No increased work of breathing, no retractions or nasal flaring. Abdomen/GI: Soft, non-tender, with normal bowel sounds. No distension or tympany. No guarding or rebound. No evidence of tenderness throughout. Neuro: Awake and alert, GCS 15, oriented to person, place, time, and situation. Cranial nerves II-XII grossly intact. Motor strength 5/5 in all extremities. Sensory grossly intact. Cerebellar exam normal. Normal gait. 15:37 Musculoskeletal/extremity: Extremities: grossly normal except: noted in the left knee: ecchymosis, pain, swelling, tenderness, ROM: intact in all extremities, Circulation is intact in all extremities. Sensation intact. 15:37 Skin: injury, skin tear left forearm. Vital Signs: 14:51 BP 119 / 80; Pulse 97; Resp 16; Temp 97.7; Pulse Ox 98% on R/A; Weight 63.5 kg; Height aj 5 ft. 5 in. (165.10 cm); 15:52 BP 115 / 59; Pulse 99; Resp 18; Pulse Ox 97% on R/A; wh 14:51 Body Mass Index 23.30 (63.50 kg, 165.10 cm) aj [place] Coma Score: 14:51 Eye Response: spontaneous(4). Verbal Response: oriented(5). Motor Response: obeys aj commands(6). Total: 15. Trauma Score (Adult): 14:51 Eye Response: spontaneous(1); Verbal Response: oriented(1); Motor Response: obeys aj commands(2); Systolic BP: > 89 mm Hg(4); Respiratory Rate: 10 to 29 per min(4); Roxy Score: 15; Trauma Score: 12 MDM: 14:54 Patient medically screened. kb 16:04 Data reviewed: vital signs, nurses notes. Data interpreted: Pulse oximetry: on room air kb is 97 %. Interpretation: normal. Counseling: I had a detailed discussion with the patient and/or guardian regarding: the historical points, exam findings, and any diagnostic results supporting the discharge/admit diagnosis, radiology results, the need for outpatient follow up, a family practitioner, to return to the emergency department if symptoms worsen or persist or if there are any questions or concerns that arise at home. 04/27 15:10 Order name: Knee Left 3 View XRAY; Complete Time: 16:04 kb 04/27 15:10 Order name: Wound Care; Complete Time: 15:24 kb Administered Medications: 16:15 Drug: Tetanus-Diphtheria Toxoid Adult 0.5 ml {Help Desk Operator: App[employer]. Exp: hb 12/11/2020. Lot #: [id number]. } Route: IM; Site: left deltoid; Disposition: 04/28 09:12 Co-signature as Attending Physician, Adolph Wilkerson MD I agree with the assessment and mikey plan of care. Disposition: 04/27/19 16:05 Discharged to Home. Impression: Fall on same level from slipping, tripping and stumbling, Pain in left knee, Abrasion of left forearm - skin tear. - Condition is Stable. - Discharge Instructions: Skin Tear Care, [id number], Fall Prevention in the Home, [id number], Knee Pain, [id number]. - Medication Reconciliation Form, Thank You Letter, Antibiotic Education, Prescription Opioid Use form. - Follow up: Emergency Department; When: As needed; Reason: Worsening of condition. Follow up: Private Physician; When: 2 - 3 days; Reason: Recheck today's complaints, Continuance of care, Re-evaluation by your physician. Signatures: Dispatcher [employer] Shakira August, CAIN-Ema BARLOW-Kellee Blanco, RN Adolph Gong MD MD cha Baxter, Heather, RN RN hb Corrections: (The following items were deleted from the chart) 04/27 16:41 16:05 04/27/2019 16:05 Discharged to Home. Impression: Fall on same level from hb slipping, tripping and stumbling; Pain in left knee; Abrasion of left forearm - skin tear. Condition is Stable. Forms are Medication Reconciliation Form, Thank You Letter, Antibiotic Education, Prescription Opioid Use. Follow up: Emergency Department; When: As needed; Reason: Worsening of condition. Follow up: Private Physician; When: 2 - 3 days; Reason: Recheck today's complaints, Continuance of care, Re-evaluation by your physician. kb
[2019-04-27] MEDS ORDERED: TETANUS & DIPHTHERIA TOX,ADULT 0.5 ML VIAL ONE (16:13)
[2019-04-27 16:54] VITALS: TEMP 97.7
[2019-04-27 16:55] VITALS: BP 115/59; O2SAT 97
== END 2019-04-27 16:41 | disposition home or self-care (01) ==
LOC: ER 14:44
DX: M25.562 Pain in left knee (principal); S50.812A Abrasion of left forearm, initial encounter; W01.0XXA Fall on same level from slipping, tripping and stumbling without subsequent striking against object, initial encounter; Y93.01 Activity, walking, marching and hiking; Z23 Encounter for immunization; E11.9 Type 2 diabetes mellitus without complications; Z79.01 Long term (current) use of anticoagulants; Z88.5 Allergy status to narcotic agent; Z88.2 Allergy status to sulfonamides
CPT/HCPCS: 90471; 90714; 99284

== ENCOUNTER 2019-05-17 10:52 | Emergency (ER) | payer OTHER ==
--- NOTE | 2019-05-17 11:28 | RAD REPORT ---
EXAM DESCRIPTION: CT - CTHCSPWOC - 05/17/2019 11:15 am CLINICAL HISTORY: Fall, head and neck injury COMPARISON: None. TECHNIQUE: Axial 5 mm thick images of the head were obtained. Axial 2 mm thick images of the cervic al spine were obtained with sagittal and coronal reconstruction images generated and reviewed. All CT scans are performed using dose optimization technique as appropriate and may include automated exposure control or mA/KV adjustment according to patient size. FINDINGS: No intracranial hemorrhage, mass, edema or acute intracranial finding. No acute cortical based infarc tion. Moderate severity atrophy and chronic ischemic changes are present. Ventricles are in proportio n to volume loss. No extra-axial fluid collections. Mastoid air cells are clear. Chronic right-sided sphenoid sinusitis present. No globe or orbit abnormality seen. Patient has a small scalp hematoma le ft parietal region with underlying bone intact. No foreign body. Cervical body height and alignment are normal. No significant disc space narrowing. No fracture or ac annemarie bony abnormality. Central canal detail is inherently limited. Facet joint degenerative change is mild for age. No foraminal stenosis. No paraspinal mass or hematoma. Patient has dense calcification around the right carotid bulb and proximal right internal carotid art marzena likely clinically significant stenosis. This can be followed with outpatient carotid sonography a s warranted. IMPRESSION: Atrophy and chronic ischemic changes are present with no acute intracranial finding seen . Cervical spine degenerative change present without acute finding seen. Dense right carotid calcification was cysts affected stenosis. Follow-up outpatient carotid sonograph y may be helpful. Negative CT cervical spine examination for acute or significant finding.
--- NOTE | 2019-05-17 11:32 | RAD REPORT ---
EXAM DESCRIPTION: CT - Thorax Wo Con - 05/17/2019 11:15 am CLINICAL HISTORY: Fall, left-sided rib and shoulder pain COMPARISON: CT chest February 2019 TECHNIQUE: Axial 5 mm thick images of the chest were obtained without IV contrast. All CT scans are performed using dose optimization technique as appropriate and may include automated exposure control or mA/KV adjustment according to patient size. FINDINGS: No suspicious mass or infiltrate of the lung parenchyma. Stranding is seen in each posteri or gutter. This pattern is similar or slightly less pronounced than the comparison. Patient could hav e fibrotic change, minimal interstitial edema or a combination. No pleural effusion or pleural based mass. No pneumothorax or pulmonary contusion. No abnormal mediastinal or hilar masses or lymphadenopathy seen. No gross aortic or pulmonary artery finding suspected. Assessment is limited in the absence of IV contrast. No pericardial effusion. There is an oblique fracture through the lateral aspect of the left clavicle at the AC joint. No scap giuseppe fracture seen. No fracture or dislocation of the proximal left humerus. The clavicle fracture lina ws no significant displacement. No pathologic changes seen. No displaced rib fractures are present in the mid and upper chest. Inferior most aspect of the ribcag e is not imaged. The lateral left fifth rib as a very subtle cortical contour change that may be mini mal fracture. No chest wall mass or abnormal axillary lymphadenopathy. IMPRESSION: No pneumothorax, pulmonary contusion or emergent CT chest finding. Left clavicle is fractured near the AC joint. This is further detailed on separate shoulder report. Possible nondisplaced fracture lateral left fifth rib.
[2019-05-17 12:05] LABS: Absolute Lymphocytes (CBC) 1.4 K/uL (0.7-4.9); Basophils % 0.5 % (0-1.3); Hematocrit 36.3 % (36.0-45.0); Lymphocytes % 31.3 % (15.3-44.8); MPV 7.7 fL (7.6-11.3); RBC Red Blood Cell Count 3.78 M/uL (3.86-4.86)
--- NOTE | 2019-05-17 12:07 | RAD REPORT ---
EXAM DESCRIPTION: RAD - Humerus Left - 05/17/2019 12:00 pm CLINICAL HISTORY: Fall, left shoulder and left arm pain COMPARISON: None. FINDINGS: No fracture of the humerus identified. There is no dislocation or periosteal reaction not ed. No foreign body or other soft tissue abnormality. Clavicle finding is separately detailed. IMPRESSION: Negative left humerus examination.
[2019-05-17 12:09] LABS: Protime INR 1.5
--- NOTE | 2019-05-17 12:09 | RAD REPORT ---
EXAM DESCRIPTION: RAD - Shoulder Left 2 View - 05/17/2019 12:00 pm CLINICAL HISTORY: Fall, left shoulder pain COMPARISON: CT imaging same date TECHNIQUE: Internal and external rotation views of the left shoulder were obtained. FINDINGS: Oblique fracture is present through the lateral aspect of the left clavicle. This extends in close proximity to the articular surface of the clavicle head. Main shaft of the clavicle is displ aced superiorly. Articular surface of the clavicle head maintains positioning to the AC joint. No pat hologic bone process. Degenerative changes are present along the undersurface of the acromion. No fra cture or dislocation of the humeral head. IMPRESSION: Oblique fracture through the lateral aspect of the clavicle. The shaft of the clavicle i s displaced approximately 1 shaft width superior to the lateral fracture fragment.
[2019-05-17 12:15] LABS: Potassium 4.1 mmol/L (3.5-5.1)
--- NOTE | 2019-05-17 12:51 | ER ---
Nurse's Notes [facility] Name: Judah Caceres Age: 79 yrs Sex: Female : 1940 Arrival Date: 05/17/2019 Time: 11:02 Bed 2 Private MD: Diagnosis: Fracture of one rib, left side;Fracture of lateral end of clavicle Presentation: 05/17 11:00 Presenting complaint: EMS states: Pt slipped and fell in the shower. Pt c/o pain to aa5 left shoulder, left scapula, and left lateral aspect of chest. EMS reports pt takes Xarelto, negative LOC. 11:00 Acuity: AMY 2 aa5 11:00 Care prior to arrival: Medication(s) given: Toradol 30 mg IVP IV initiated. 20 GA, in aa5 the right antecubital area, Glucose check: 215. 11:00 Mechanism of Injury: Fall from standing position. Trauma event details: Injury occurred aa5 in the [facility], Injury occurred: at home. Injury occurred: May 17, 2019. 11:00 Method Of Arrival: EMS: [facility] aa5 11:00 Transition of care: patient was received from another setting of care (long-term care [facility] facility), [facility]. Onset of symptoms was May 17, 2019. 11:00 Risk Assessment: Do you want to hurt yourself or someone else? Patient reports no aa5 desire to harm self or others. Initial Sepsis Screen: Does the patient meet any 2 criteria? No. Patient's initial sepsis screen is negative. Does the patient have a suspected source of infection? No. Patient's initial sepsis screen is negative. Trauma Activation: Alert Physician: ED Physician; Name: ; Notified At: ; Arrived At: Physician: General Surgeon; Name: ; Notified At: ; Arrived At: Physician: Radiology; Name: ; Notified At: ; Arrived At: Physician: Respiratory; Name: ; Notified At: ; Arrived At: Physician: Lab; Name: ; Notified At: ; Arrived At: Historical: - Allergies: 11:00 Codeine; aa5 11:00 Sulfa (Sulfonamide Antibiotics); aa5 11:00 Amoxicillin; aa5 11:00 Cephalexin; aa5 11:00 Cefaclor; aa5 11:00 Meperidine; aa5 - Home Meds: 11:21 esomeprazole magnesium 20 mg oral cpDR once daily [Active]; glimepiride 2 mg Oral tab aa5 once daily [Active]; methylprednisolone 4 mg Oral DsPk daily [Active]; simvastatin 40 mg Oral tab once daily [Active]; spironolactone 25 mg Oral tab once daily [Active]; Xarelto 10 mg Oral tab 1 tab once daily [Active]; zinc sulfate 220 mg oral tab daily [Active]; calcium vitamin D3 [Active]; methocarbamol 500 mg Oral tab 3 times a day as needed for muscle spasms [Active]; tramadol 50 mg Oral tab every 6 hours for Pain [Active]; - PMHx: 11:00 Back injury; Diabetes - NIDDM; aa5 11:00 DVT; Hypertension; aa5 - PSHx: 11:00 back sx; Tonsillectomy; Appendectomy; aa5 - Ebola Screening: : No symptoms or risks identified at this time. - Family history:: not pertinent. - Hospitalizations: : No recent hospitalization is reported. Screenin:02 Abuse screen: Denies threats or abuse. Nutritional screening: No deficits noted. aa5 Tuberculosis screening: No symptoms or risk factors identified. Fall Risk Fall in past 12 months (25 points). IV access (20 points). Total Graham Fall Scale indicates High Risk Score (45 or more points). Fall prevention measures have been instituted. Side Rails Up X 2 Placed Close to Nursing Station. Primary Survey: 11:00 NO uncontrolled hemorrhage observed. A: The patient is alert. Breathing/Chest: Chest aa5 inspection: symmetrical rise and fall of the chest. Circulation: Skin color: pink. Disability Alert. Exposure/Environment: A warming method has been applied: A warm blanket has been provided to the patient. 11:45 Reassessment Airway Airway Patent Breathing/Chest Respiratory pattern Regular aa5 Respiratory effort Spontaneous Unlabored Chest inspection Symmetrical Circulation Color [place] Disability Alert. Secondary Survey: 11:00 HEENT: Head Other Hematoma noted to left side of head. Gastrointestinal: No deficits aa5 noted. : No deficits noted. Musculoskeletal: Reports pain in left shoulder. Assessment: 11:02 General: Appears uncomfortable, Behavior is calm, cooperative. Pain: Complains of pain aa5 in left lateral posterior chest, left scapular area, and left shoulder Pain does not radiate. Pain currently is 5 out of 10 on a pain scale. Quality of pain is described as sharp, Is continuous, Aggravated by repositioning, Noted to be resistant to movement. Neuro: Level of Consciousness is awake, alert, obeys commands, Oriented to person, place, time, situation, Moves all extremities. Speech is normal, Facial symmetry appears normal, Pupils are PERRLA. EENT: No signs and/or symptoms were reported regarding the EENT system. Cardiovascular: Capillary refill < 3 seconds is brisk in bilateral fingers Patient's skin is warm and dry. Respiratory: Airway is patent Respiratory effort is even, unlabored, Respiratory pattern is regular, symmetrical, Breath sounds are clear bilaterally. GI: No signs and/or symptoms were reported involving the gastrointestinal system. : No signs and/or symptoms were reported regarding the genitourinary system. Derm: Skin is pink, warm \T\ dry. Hematoma noted to left parietal area. Musculoskeletal: Bony deformity noted of left shoulder. 11:03 Reassessment: Pt taken to radiology via stretcher . aa5 11:45 Reassessment: Patient is alert, oriented x 3, equal unlabored respirations, skin aa5 warm/dry/pink. Pt back from radiology via stretcher. . Pain: Pain currently is 3 out of 10 on a pain scale. 12:40 Reassessment: Dr. Jorge at bedside . aa5 12:50 Reassessment: Patient is alert, oriented x 3, equal unlabored respirations, skin aa5 warm/dry/pink. Vital Signs: 11:01 BP 148 / 79; Pulse 97; Resp 18 S; Temp 97.9(O); Pulse Ox 97% on R/A; aa5 12:00 BP 123 / 68; Pulse 92; Resp 16 S; Pulse Ox 97% on R/A; Pain 3/10; aa5 13:00 BP 135 / 65; Pulse 93; Resp 16 S; Temp 98.0(TE); Pulse Ox 96% on R/A; Pain 3/10; aa5 [place] Coma Score: 11:01 Eye Response: spontaneous(4). Verbal Response: oriented(5). Motor Response: obeys aa5 commands(6). Total: 15. 12:00 Eye Response: spontaneous(4). Verbal Response: oriented(5). Motor Response: obeys aa5 commands(6). Total: 15. 13:00 Eye Response: spontaneous(4). Verbal Response: oriented(5). Motor Response: obeys aa5 commands(6). Total: 15. Trauma Score (Adult): 11:01 Eye Response: spontaneous(1); Verbal Response: oriented(1); Motor Response: obeys aa5 commands(2); Systolic BP: > 89 mm Hg(4); Respiratory Rate: 10 to 29 per min(4); Roxy Score: 15; Trauma Score: 12 12:00 Eye Response: spontaneous(1); Verbal Response: oriented(1); Motor Response: obeys aa5 commands(2); Systolic BP: > 89 mm Hg(4); Respiratory Rate: 10 to 29 per min(4); Roxy Score: 15; Trauma Score: 12 13:00 Eye Response: spontaneous(1); Verbal Response: oriented(1); Motor Response: obeys aa5 commands(2); Systolic BP: > 89 mm Hg(4); Respiratory Rate: 10 to 29 per min(4); Roxy Score: 15; Trauma Score: 12 ED Course: 11:00 Patient arrived in ED. aa5 11:00 Arm band placed on Patient placed in an exam room, on a stretcher. aa5 11:00 Patient has correct armband on for positive identification. Placed in gown. Bed in low aa5 position. Call light in reach. Side rails up X2. 11:02 Jessee Jorge MD is Attending Physician. rn 11:02 Patient maintains SpO2 saturation greater than 95% on room air. Thermoregulation: warm aa5 blanket given to patient. 11:03 Mary Ennis, RN is Primary Nurse. aa5 11:04 Triage completed. aa5 11:21 CT Head C Spine In Process Unspecified. EDMS 11:21 CT Chest Wo Con In Process Unspecified. EDMS 11:52 Initial lab(s) drawn, by me, sent to lab. jb1 12:04 XRAY Shoulder LEFT 2 view In Process Unspecified. EDMS 12:04 XRAY Humerus LEFT In Process Unspecified. EDMS 13:20 No provider procedures requiring assistance completed. IV discontinued, intact, aa5 bleeding controlled, No redness/swelling at site. Pressure dressing applied. Administered Medications: No medications were administered Intake: 12:50 Pt assisted with bedpan aa5 Output: 12:50 Urine: 200ml (Voided); Total: 200ml. aa5 12:50 Pt assisted with bedpan aa5 Outcome: 12:50 Discharge ordered by . rn 12:50 Patient's length of stay in the Emergency Department was greater than 2 hours. Due to aa5 awaiting lab results. Pt was taken to radiology for extended amount of time and blood was drawn after pt came back from radiology. Patient's length of stay extended due to 13:20 Discharged to home via wheelchair, with family, via [place] transportation aa5 13:20 Condition: stable 13:20 Discharge instructions given to patient, family, Instructed on discharge instructions, follow up and referral plans. medication usage, Incentive spirometer use Demonstrated understanding of instructions, follow-up care, medications, Incentive spirometer use Prescriptions given X 1. 13:41 Patient left the ED. aa5 Signatures: Dispatcher [employer] EDMS [employer] jb1 Jessee Joreg MD MD rn Calderon, Audri, RN RN aa5 Corrections: (The following items were deleted from the chart) 11:03 11:02 Patient arrived in ED. aa5 aa5 11:13 11:00 Presenting complaint: EMS states: Pt slipped and fell in the shower. Pt c/o pain aa5 to left shoulder, left scapula, and left lateral aspect of chest. aa5 11:28 11:02 Derm: Skin is pink, warm \T\ dry. aa5 aa5 11:47 11:02 Pain: Complains of pain in left lateral posterior chest, left scapular area, and aa5 left shoulder Pain does not radiate. Pain Quality of pain is described as sharp, Is continuous, Aggravated by repositioning, Noted to be resistant to movement, aa5 11:48 11:02 Reassessment: Pt taken to radiology via stretcher . aa5 aa5
--- NOTE | 2019-05-17 12:52 | EDPHYS ---
Physician Documentation [facility] Name: Judah Caceres Age: 79 yrs Sex: Female : 1940 Arrival Date: 05/17/2019 Time: 11:02 Bed 2 Private MD: ED Physician Jessee Jorge HPI: 05/17 11:18 This 79 yrs old Female presents to ER via EMS with complaints of Fall Injury. rn 11:18 Details of fall: The patient fell from an upright position, while standing. Onset: The rn symptoms/episode began/occurred just prior to arrival. Associated injuries: The patient sustained injury to the head, injury to the chest, left shoulder. Severity of symptoms: At their worst the symptoms were moderate, in the emergency department the symptoms are unchanged. The patient has experienced similar episodes in the past. Reports multiple falls recently, today in shower, fell while trying to get out, slipped, on xarelto, hit head but no LOC or vomiting. Reports majority of pain to left shoulder with painful ROM. EMS states was using affected arm to try and get up. Denies abd or pelvic pain.. Historical: - Allergies: 11:00 Codeine; aa5 11:00 Sulfa (Sulfonamide Antibiotics); aa5 11:00 Amoxicillin; aa5 11:00 Cephalexin; aa5 11:00 Cefaclor; aa5 11:00 Meperidine; aa5 - Home Meds: 11:21 esomeprazole magnesium 20 mg oral cpDR once daily [Active]; glimepiride 2 mg Oral tab aa5 once daily [Active]; methylprednisolone 4 mg Oral DsPk daily [Active]; simvastatin 40 mg Oral tab once daily [Active]; spironolactone 25 mg Oral tab once daily [Active]; Xarelto 10 mg Oral tab 1 tab once daily [Active]; zinc sulfate 220 mg oral tab daily [Active]; calcium vitamin D3 [Active]; methocarbamol 500 mg Oral tab 3 times a day as needed for muscle spasms [Active]; tramadol 50 mg Oral tab every 6 hours for Pain [Active]; - PMHx: 11:00 Back injury; Diabetes - NIDDM; aa5 11:00 DVT; Hypertension; aa5 - PSHx: 11:00 back sx; Tonsillectomy; Appendectomy; aa5 - Ebola Screening: : No symptoms or risks identified at this time. - Family history:: not pertinent. - Hospitalizations: : No recent hospitalization is reported. ROS: 11:18 Constitutional: Negative for fever, chills, and weight loss, Eyes: Negative for injury, rn pain, redness, and discharge, ENT: No oral trauma Neck: Negative for injury, pain, and swelling, Cardiovascular: Negative for chest pain, palpitations, and edema, Respiratory: Negative for shortness of breath, cough, wheezing, and pleuritic chest pain, Abdomen/GI: Negative for abdominal pain, nausea, vomiting, diarrhea, and constipation, Back: Negative for injury and pain, : Negative for injury, bleeding, discharge, and swelling, MS/Extremity: + left shoulder injury and pain Skin: Negative for injury, rash, and discoloration, Neuro: Negative for headache, weakness, numbness, tingling, and seizure. Exam: 11:18 Constitutional: This is a well developed, well nourished patient who is awake, alert, rn and in no acute distress. Head/Face: Normocephalic, atraumatic. Eyes: Pupils equal round and reactive to light, extra-ocular motions intact. Lids and lashes normal. Conjunctiva and sclera are non-icteric and not injected. Cornea within normal limits. Periorbital areas with no swelling, redness, or edema. ENT: No oral trauma Neck: Trachea midline, no thyromegaly or masses palpated, and no cervical lymphadenopathy. Supple, full range of motion without nuchal rigidity, or vertebral point tenderness. No Meningismus. Chest/axilla: Normal chest wall appearance and motion. No crepitus, + left lateral rib tenderness. Cardiovascular: Regular rate and rhythm. No pulse deficits. Respiratory: Lungs have equal breath sounds bilaterally, clear to auscultation. No increased work of breathing, no retractions or nasal flaring. Abdomen/GI: soft, non-tender Back: No spinal tenderness. No costovertebral tenderness. Full range of motion. MS/ Extremity: Pulses equal, no cyanosis. Neurovascular intact. + painful ROM left shoulder and scapula, + tenderness along left collarbone. Humerus present in glenoid. No elbow/wrist/hand tenderness or deformity. Able to flex knees/legs up towards abdomen without pain. Neuro: Awake and alert, GCS 15. Motor strength 5/5 in all extremities. Sensory grossly intact. Cerebellar exam normal. Vital Signs: 11:01 BP 148 / 79; Pulse 97; Resp 18 S; Temp 97.9(O); Pulse Ox 97% on R/A; aa5 12:00 BP 123 / 68; Pulse 92; Resp 16 S; Pulse Ox 97% on R/A; Pain 3/10; aa5 13:00 BP 135 / 65; Pulse 93; Resp 16 S; Temp 98.0(TE); Pulse Ox 96% on R/A; Pain 3/10; aa5 Sibley Coma Score: 11:01 Eye Response: spontaneous(4). Verbal Response: oriented(5). Motor Response: obeys aa5 commands(6). Total: 15. 12:00 Eye Response: spontaneous(4). Verbal Response: oriented(5). Motor Response: obeys aa5 commands(6). Total: 15. 13:00 Eye Response: spontaneous(4). Verbal Response: oriented(5). Motor Response: obeys aa5 commands(6). Total: 15. Trauma Score (Adult): 11:01 Eye Response: spontaneous(1); Verbal Response: oriented(1); Motor Response: obeys aa5 commands(2); Systolic BP: > 89 mm Hg(4); Respiratory Rate: 10 to 29 per min(4); Sibley Score: 15; Trauma Score: 12 12:00 Eye Response: spontaneous(1); Verbal Response: oriented(1); Motor Response: obeys aa5 commands(2); Systolic BP: > 89 mm Hg(4); Respiratory Rate: 10 to 29 per min(4); Sibley Score: 15; Trauma Score: 12 13:00 Eye Response: spontaneous(1); Verbal Response: oriented(1); Motor Response: obeys aa5 commands(2); Systolic BP: > 89 mm Hg(4); Respiratory Rate: 10 to 29 per min(4); Roxy Score: 15; Trauma Score: 12 MDM: 11:02 Patient medically screened. rn 12:47 Differential diagnosis: closed head injury, contusion, fracture, sprain, strain. Data rn reviewed: vital signs, nurses notes, radiologic studies, CT scan, plain films, and as a result, I will discharge patient. Counseling: I had a detailed discussion with the patient and/or guardian regarding: the historical points, exam findings, and any diagnostic results supporting the discharge/admit diagnosis, radiology results, the need for outpatient follow up, to return to the emergency department if symptoms worsen or persist or if there are any questions or concerns that arise at home. Special discussion: I discussed with the patient/guardian in detail that at this point there is no indication for admission to the hospital. It is understood, however, that if the symptoms persist or worsen the patient needs to return immediately for re-evaluation. ED course: Pt improved, + distal clavicle fracture, questionable left lateral rib fracture, will dc home with sling, lives at assisted living facility and has assistance to shower and get around.. 05/17 11:04 Order name: CBC with Diff; Complete Time: 12:32 rn 05/17 11:04 Order name: Basic Metabolic Panel; Complete Time: 12:32 05/17 11:04 Order name: CT Head C Spine; Complete Time: 12: 05/17 11:04 Order name: CT Chest Wo Con; Complete Time: 12: 05/17 11:04 Order name: Protime (+inr); Complete Time: 12:11 05/17 11:04 Order name: Ptt, Activated; Complete Time: 12:11 05/17 11:04 Order name: XRAY Shoulder LEFT 2 view; Complete Time: 12:11 05/17 11:04 Order name: XRAY Humerus LEFT; Complete Time: 12:11 05/17 11:04 Order name: IV Start; Complete Time: 11:26 05/17 12:52 Order name: Sling; Complete Time: 13:41 05/17 12:54 Order name: INCENTIVE SPIROMETRY 05/17 13:17 Order name: RC INCENTIVE SPIROMETRY EDMS Administered Medications: No medications were administered Disposition: 05/17/19 12:50 Discharged to Home. Impression: Fracture of one rib, left side, Fracture of lateral end of clavicle. - Condition is Stable. - Discharge Instructions: Clavicle Fracture, Rib Fracture. - Prescriptions for Tramadol 50 mg Oral Tablet - take 1 tablet by ORAL route every 8-12 hours As needed as needed; 20 tablet. - Medication Reconciliation Form, Thank You Letter, Antibiotic Education, Prescription Opioid Use form. - Follow up: Private Physician; When: As needed; Reason: Recheck today's complaints, Re-evaluation by your physician. - Problem is new. - Symptoms have improved. Signatures: Dispatcher [employer] EDJessee Avalos MD MD rn Calderon, Audri, RN RN aa5 Corrections: (The following items were deleted from the chart) 12:59 11:18 Constitutional: This is a well developed, well nourished patient who is awake, rn alert, and in no acute distress. Head/Face: Normocephalic, atraumatic. Eyes: Pupils equal round and reactive to light, extra-ocular motions intact. Lids and lashes normal. Conjunctiva and sclera are non-icteric and not injected. Cornea within normal limits. Periorbital areas with no swelling, redness, or edema. ENT: No oral trauma Neck: Trachea midline, no thyromegaly or masses palpated, and no cervical lymphadenopathy. Supple, full range of motion without nuchal rigidity, or vertebral point tenderness. No Meningismus. Chest/axilla: Normal chest wall appearance and motion. No crepitus, + left lateral rib tenderness. Cardiovascular: Regular rate and rhythm. No pulse deficits. Respiratory: Lungs have equal breath sounds bilaterally, clear to auscultation. No increased work of breathing, no retractions or nasal flaring. Abdomen/GI: soft, non-tender Back: No spinal tenderness. No costovertebral tenderness. Full range of motion. MS/ Extremity: Pulses equal, no cyanosis. Neurovascular intact. + painful ROM left shoulder and scapula, + tenderness along left collarbone. Humerus present in glenoid. No elbow/wrist/hand tenderness or deformity. Neuro: Awake and alert, GCS 15. Motor strength 5/5 in all extremities. Sensory grossly intact. Cerebellar exam normal. rn 13:41 12:50 05/17/2019 12:50 Discharged to Home. Impression: Fracture of one rib, left side; aa5 Fracture of lateral end of clavicle. Condition is Stable. Forms are Medication Reconciliation Form, Thank You Letter, Antibiotic Education, Prescription Opioid Use. Follow up: Private Physician; When: As needed; Reason: Recheck today's complaints, Re-evaluation by your physician. Problem is new. Symptoms have improved. rn
== END 2019-05-17 13:41 | disposition home or self-care (01) ==
LOC: ER 10:52
DX: S42.032A Displaced fracture of lateral end of left clavicle, initial encounter for closed fracture (principal); S22.32XA Fracture of one rib, left side, initial encounter for closed fracture; W19.XXXA Unspecified fall, initial encounter; Y93.E1 Activity, personal bathing and showering; Y92.9 Unspecified place or not applicable; Z79.01 Long term (current) use of anticoagulants; Z88.1 Allergy status to other antibiotic agents; Z88.2 Allergy status to sulfonamides; Z88.3 Allergy status to other anti-infective agents; Z88.5 Allergy status to narcotic agent; Z88.8 Allergy status to other drugs, medicaments and biological substances; Z86.718 Personal history of other venous thrombosis and embolism; I10 Essential (primary) hypertension; E11.9 Type 2 diabetes mellitus without complications
CPT/HCPCS: 36415; 70450; 71250; 72125; 80048; 85025; 85610; 85730; 99284

== ENCOUNTER 2021-02-09 00:31 | Emergency (ER) | payer OTHER ==
[2021-02-09 01:15] LABS: Absolute Lymphocytes (CBC) 3.2 K/uL (0.7-4.9); Basophils % 0.5 % (0-1.3); Hematocrit 37.1 % (36.0-45.0); Lymphocytes % 38.8 % (15.3-44.8); MPV 7.6 fL (7.6-11.3); RBC Red Blood Cell Count 3.93 M/uL (3.86-4.86)
[2021-02-09 01:19] LABS: Protime INR 1.74
[2021-02-09 01:33] LABS: ALT/SGPT 20 U/L (12-78); AST/SGOT 18 U/L (15-37); Albumin 3.5 g/dL (3.4-5.0); Alkaline Phosphatase 60 U/L (45-117); BUN Blood Urea Nitrogen 22 mg/dL (7-18); Bicarbonate 33 mmol/L (21-32); Bilirubin Direct < 0.1 mg/dL (0-0.2); Bilirubin Total 0.4 mg/dL (0.2-1.0); Glucose Level 102 mg/dL (74-106); Magnesium 2.1 mg/dL (1.8-2.4); NT PRO-BNP 113 pg/mL (<450); Potassium 3.9 mmol/L (3.5-5.1); Protein, Total 6.9 g/dL (6.4-8.2); Sodium Level 142 mmol/L (136-145); Troponin (Emerg Dept Use Only) < 0.02 ng/mL (0.0-0.045)
[2021-02-09] MEDS ORDERED: ACETAMINOPHEN 500 MG TAB ONE (02:33)
--- NOTE | 2021-02-09 03:25 | EDPHYS ---
Physician Documentation [facility] Name: Judah Caceres Age: 81 yrs Sex: Female : 1940 Arrival Date: 02/09/2021 Time: 00:39 Bed 3 Private MD: ED Physician Torrey Dean HPI: 02/09 02:17 This 81 yrs old Female presents to ER via EMS with complaints of Fall Injury. [facility] 02:17 Details of fall: The patient fell from an upright position, while walking. Onset: The [facility] symptoms/episode began/occurred today. Associated injuries: The patient sustained injury to the head, contusion, tenderness, right forearm and left forearm, abrasion, left knee, abrasion, contusion, painful injury, right lower leg, abrasion. Severity of symptoms: At their worst the symptoms were moderate, earlier today, in the emergency department the symptoms have improved, moderately. Historical: - Allergies: 00:40 Sulfa (Sulfonamide Antibiotics); jb4 00:40 Meperidine; jb4 00:40 Codeine; jb4 00:40 Cephalexin; jb4 00:40 Cefaclor; jb4 00:40 Amoxicillin; jb4 - Home Meds: 00:40 calcium vitamin D3 [Active]; glimepiride 2 mg Oral tab 1 tab once daily [Active]; jb4 methocarbamol 500 mg Oral tab 3 times a day as needed for muscle spasms [Active]; glimepiride 2 mg Oral tab once daily [Active]; spironolactone 25 mg Oral tab 1 tab 4 times per day [Active]; spironolactone 25 mg Oral tab once daily [Active]; simvastatin 40 mg Oral tab once daily [Active]; tramadol 50 mg Oral tab every 6 hours for Pain [Active]; zinc sulfate 220 mg Oral tab daily [Active]; tramadol 50 mg Oral tab 1 tab every 4 hours [Active]; methylprednisolone 4 mg Oral DsPk daily [Active]; esomeprazole magnesium 20 mg Oral cpDR once daily [Active]; Xarelto 10 mg Oral tab 1 tab once daily [Active]; - PMHx: 00:40 Back injury; DVT; Hypertension; Diabetes - NIDDM; jb4 - PSHx: 00:40 back sx; Tonsillectomy; Appendectomy; jb4 - Immunization history:: Adult Immunizations up to date. ROS: 02:17 Constitutional: Negative for fever, chills, and weight loss, Eyes: Negative for injury, mh7 pain, redness, and discharge, ENT: Negative for injury, pain, and discharge, Neck: Negative for injury, pain, and swelling, Cardiovascular: Negative for chest pain, palpitations, and edema, Respiratory: Negative for shortness of breath, cough, wheezing, and pleuritic chest pain, Abdomen/GI: Negative for abdominal pain, nausea, vomiting, diarrhea, and constipation, Back: Negative for injury and pain, : Negative for injury, bleeding, discharge, and swelling, Neuro: Negative for headache, weakness, numbness, tingling, and seizure, Psych: Negative for depression, anxiety, suicide ideation, homicidal ideation, and hallucinations, Allergy/Immunology: Negative for hives, rash, and allergies, Endocrine: Negative for neck swelling, polydipsia, polyuria, polyphagia, and marked weight changes. Exam: 02:17 Constitutional: This is a well developed, well nourished patient who is awake, alert, mh7 and in no acute distress. 02:17 Eyes: Pupils equal round and reactive to light, extra-ocular motions intact. Lids and lashes normal. Conjunctiva and sclera are non-icteric and not injected. Cornea within normal limits. Periorbital areas with no swelling, redness, or edema. ENT: Nares patent. No nasal discharge, no septal abnormalities noted. Tympanic membranes are normal and external auditory canals are clear. Oropharynx with no redness, swelling, or masses, exudates, or evidence of obstruction, uvula midline. Mucous membranes moist. Neck: Trachea midline, no thyromegaly or masses palpated, and no cervical lymphadenopathy. Supple, full range of motion without nuchal rigidity, or vertebral point tenderness. No Meningismus. 02:17 Cardiovascular: Regular rate and rhythm with a normal S1 and S2. No gallops, murmurs, or rubs. Normal PMI, no JVD. No pulse deficits. Respiratory: Lungs have equal breath sounds bilaterally, clear to auscultation and percussion. No rales, rhonchi or wheezes noted. No increased work of breathing, no retractions or nasal flaring. Abdomen/GI: Soft, non-tender, with normal bowel sounds. No distension or tympany. No guarding or rebound. No evidence of tenderness throughout. Back: No spinal tenderness. No costovertebral tenderness. Full range of motion. Neuro: Awake and alert, GCS 15, oriented to person, place, time, and situation. Cranial nerves II-XII grossly intact. Motor strength 5/5 in all extremities. Sensory grossly intact. Cerebellar exam normal. Normal gait. Psych: Awake, alert, with orientation to person, place and time. Behavior, mood, and affect are within normal limits. 02:17 Head/face: Noted is contusion, that is superficial, of the scalp, tenderness, that is mild, of the scalp. 02:17 Chest/axilla: Inspection: abrasion, that is mild, of the anterior aspect of left upper chest Palpation: tenderness, that is mild, of the anterior aspect of left upper chest, that totally reproduces the patient's complaints, Axilla: are normal, Lymph nodes: lymphadenopathy is not appreciated. 03:17 Musculoskeletal/extremity: Extremities: noted in the left knee: contusion, tenderness, mh7 noted in the left forearm and right forearm: abrasion, skin tears, noted in the right lower leg: abrasion, skin tear, ROM: intact in all extremities, Circulation is intact in all extremities. Pulses: are normal with no appreciated deficits, Perfusion: the patient is normally perfused throughout, Perfusion: the extremity is normally perfused throughout, Calf tenderness, is absent, Edema, is not appreciated, Sensation intact. Compartment Syndrome exam of affected extremity: is normal. no numbness, no tingling, no sensation deficit, no palor, no weak pulses, Joints: the left knee displays tenderness, Weight bearing: can bear weight with assistance only, uses walker, Tendon exam: specific tendon testing normal through active and passive range of motion Calves: are non-tender, have equal circumference. 03:17 Skin: injury, abrasion(s), small abrasion noted, of the right forearm and left forearm and right lower leg, multiple skin tears on upper and lower extremities. Vital Signs: 00:40 BP 135 / 71; Pulse 85; Resp 16; Temp 97.0(TE); Pulse Ox 100% on R/A; Weight 63.5 kg jb4 (R); Height 5 ft. 6 in. (167.64 cm); Pain 8/10; 01:00 BP 134 / 76; Pulse 89; Resp 16; Pulse Ox 98% on R/A; jb4 02:00 BP 120 / 52; Pulse 84; Resp 16; Pulse Ox 99% on R/A; jb4 02:45 BP 124 / 76; Pulse 88; Resp 19; Pulse Ox 97% on R/A; jb4 00:40 Body Mass Index 22.60 (63.50 kg, 167.64 cm) jb4 Roxy Coma Score: 00:40 Eye Response: spontaneous(4). Verbal Response: oriented(5). Motor Response: obeys jb4 commands(6). Total: 15. 02:00 Eye Response: spontaneous(4). Verbal Response: oriented(5). Motor Response: obeys jb4 commands(6). Total: 15. 02:45 Eye Response: spontaneous(4). Verbal Response: oriented(5). Motor Response: obeys jb4 commands(6). Total: 15. Trauma Score (Adult): 00:40 Eye Response: spontaneous(1); Verbal Response: oriented(1); Motor Response: obeys jb4 commands(2); Systolic BP: > 89 mm Hg(4); Respiratory Rate: 10 to 29 per min(4); Roxy Score: 15; Trauma Score: 12 02:00 Eye Response: spontaneous(1); Verbal Response: oriented(1); Motor Response: obeys jb4 commands(2); Systolic BP: > 89 mm Hg(4); Respiratory Rate: 10 to 29 per min(4); Balko Score: 15; Trauma Score: 12 02:45 Eye Response: spontaneous(1); Verbal Response: oriented(1); Motor Response: obeys jb4 commands(2); Systolic BP: > 89 mm Hg(4); Respiratory Rate: 10 to 29 per min(4); Balko Score: 15; Trauma Score: 12 MDM: 03:17 Differential diagnosis: abrasion, closed head injury, contusion, fracture, laceration. [facility] Data reviewed: vital signs, nurses notes, EMS record, [facility] records, old medical records, lab test result(s), cardiac enzymes, CBC, electrolytes, EKG, radiologic studies, CT scan, plain films. Data interpreted: Pulse oximetry: on room air is 100 %. Interpretation: normal. Counseling: I had a detailed discussion with the patient and/or guardian regarding: the historical points, exam findings, and any diagnostic results supporting the discharge/admit diagnosis, lab results, radiology results, the need for outpatient follow up, to return to the emergency department if symptoms worsen or persist or if there are any questions or concerns that arise at home. Response to treatment: the patient's symptoms have markedly improved after treatment. 03:25 Patient medically screened. [facility] 02/09 00:51 Order name: Basic Metabolic Panel [facility] 02/09 00:51 Order name: CBC with Diff; Complete Time: 03:04 [facility] 02/09 00:51 Order name: LFT's; Complete Time: 03:04 [facility] 02/09 00:51 Order name: Magnesium; Complete Time: 03:04 [facility] 02/09 00:51 Order name: NT PRO-BNP; Complete Time: 03:04 [facility] 02/09 00:51 Order name: PT-INR; Complete Time: 03:04 [facility] 02/09 00:51 Order name: Troponin (emerg Dept Use Only); Complete Time: 03:04 [facility] 02/09 00:51 Order name: XRAY Chest (1 view) [facility] 02/09 00:51 Order name: Basic Metabolic Panel; Complete Time: 03:04 [facility] 02/09 00:53 Order name: CT Traumagram (Head C Spine CAP wo con) [facility] 02/09 00:53 Order name: Forearm Left XRAY [facility] 02/09 00:53 Order name: Forearm Right XRAY [facility] 02/09 00:53 Order name: Tib Fib Right XRAY [facility] 02/09 00:53 Order name: Knee Left 3 View XRAY [facility] 02/09 00:51 Order name: EKG; Complete Time: 00:51 [facility] 02/09 00:51 Order name: Cardiac monitoring; Complete Time: 01:14 [facility] 02/09 00:51 Order name: EKG - Nurse/Tech; Complete Time: :14 [facility] 02/09 00:51 Order name: IV Saline Lock; Complete Time: 01:15 [facility] 02/09 00:51 Order name: Labs collected and sent; Complete Time: 01:15 [facility] 02/09 00:51 Order name: O2 Per Protocol; Complete Time: 00:54 [facility] 02/09 00:51 Order name: O2 Sat Monitoring; Complete Time: 00:54 7 Administered Medications: 03:06 Not Given (Patient Refused): Tylenol 1000 mg PO once rr5 Disposition: 02/09/21 03:25 Discharged to Home. Impression: Fall-Mechanical, Head Contusion, Upper Extremity Abrasions, Lower Extremity Abrasions, Upper Extremity Skin Tears, Lower Extremity Skin Tears, Chest Contusion, Knee Contusion. - Condition is Stable. - Discharge Instructions: Contusion, [id number], Chest Contusion, [id number], Abrasion, [id number], Fall Prevention in the Home, [id number], Facial or Scalp Contusion, [id number]. - Medication Reconciliation Form, Thank You Letter, Antibiotic Education, Prescription Opioid Use form. - Follow up: Private Physician; When: 1 - 2 days; Reason: Worsening of condition, Recheck today's complaints, Continuance of care, Re-evaluation by your physician. - Problem is new. - Symptoms have improved. Signatures: Dispatcher [employer] [facility] Ahsan Austin RN RN jb4 Torrey Dean MD MD mh7 David Mike RN rr5 Corrections: (The following items were deleted from the chart) 03:42 03:25 02/09/2021 03:25 Discharged to Home. Impression: Fall-Mechanical; Head Contusion; jb4 Upper Extremity Abrasions, Lower Extremity Abrasions; Upper Extremity Skin Tears, Lower Extremity Skin Tears; Chest Contusion; Knee Contusion. Condition is Stable. Forms are Medication Reconciliation Form, Thank You Letter, Antibiotic Education, Prescription Opioid Use. Follow up: Private Physician; When: 1 - 2 days; Reason: Worsening of condition, Recheck today's complaints, Continuance of care, Re-evaluation by your physician. Problem is new. Symptoms have improved. 7
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
[2021-02-09 03:47] VITALS: TEMP 97
[2021-02-09 03:50] VITALS: BP 120/52; O2SAT 99
--- NOTE | 2021-02-09 10:53 | RAD REPORT ---
EXAM DESCRIPTION: RAD - Tib Fib Right - 02/09/2021 2:08 am CLINICAL HISTORY: trauma Fall, pain COMPARISON: <Comparisons> FINDINGS: The bones are demineralized. No acute fracture seen. Moderate atherosclerosis. Moderate po sterior and plantar calcaneal spurs.
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
--- NOTE | 2021-02-09 10:56 | RAD REPORT ---
EXAM DESCRIPTION: RAD - Forearm Left - 02/09/2021 1:58 am CLINICAL HISTORY: trauma COMPARISON: No comparisons FINDINGS: Diffuse osteopenia is seen. Moderate radiocarpal arthritic changes are noted. No acute fra cture or dislocation.
--- NOTE | 2021-02-09 10:58 | RAD REPORT ---
EXAM DESCRIPTION: RAD - Forearm Right - 02/09/2021 1:59 am CLINICAL HISTORY: trauma COMPARISON: <Comparisons> FINDINGS: Moderate radiocarpal joint arthritic changes are present. The bones are demineralized. No acute fracture or dislocation seen.
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
--- NOTE | 2021-02-10 17:34 | RAD REPORT ---
EXAM DESCRIPTION: CT Head and Cervical Spine Without Intravenous Contrast CLINICAL HISTORY: The patient is 81 years old and is Female; trauma TECHNIQUE: Axial computed tomography images of the head/brain and cervical spine without intravenous contrast. Sagittal and coronal reformatted images were created and reviewed. This CT exam was pe rformed using one or more of the following dose reduction techniques: automated exposure control, a djustment of the mA and/or kV according to patient size, and/or use of iterative reconstruction techn ique. COMPARISON: No relevant prior studies available. FINDINGS: BRAIN: There is diffuse cerebral atrophy present, consistent with this patient's age. There is patchy hypoattenuation of the deep white matter which is non-specific, but most likely owing to chronic small vessel ischemic change in a patient of this age group. No intracranial hemorrhage , mass effect, or midline shift is seen. There are no extra-axial fluid collections. VENTRICLES: Unremarkable. No ventriculomegaly. SKULL: No acute fracture. SINUSES: Near complete opacification of the right sphenoid sinus is present. MASTOID AIR CELLS: Unremarkable as visualized. No mastoid effusion. VERTEBRAE: The vertebral body heights and alignment are maintained. No acute fracture. DISCS/SPINAL CANAL/NEURAL FORAMINA: Intervertebral disc space narrowing with osteophyte formation is present most prominent at C5-C6. The remaining intervertebral disc spaces are maintained. No sign ificant canal stenosis is noted. SOFT TISSUES: The soft tissues are normal. LUNG APICES: The lung apices are clear. IMPRESSION: 1. Age-related atrophy and chronic white matter ischemic changes, with no evidence of an acute intracranial abnormality. 2. Right sphenoid opacification. 3. No fracture or malalignment of the cervical spine. EXAM DESCRIPTION: CT Chest, Abdomen and Pelvis Without Intravenous Contrast CLINICAL HISTORY: The patient is 81 years old and is Female; trauma TECHNIQUE: Axial computed tomography images of the chest, abdomen and pelvis without intravenous con trast. Sagittal and coronal reformatted images were created and reviewed. This CT exam was perfor med using one or more of the following dose reduction techniques: automated exposure control, adjus tment of the mA and/or kV according to patient size, and/or use of iterative reconstruction technique . COMPARISON: No relevant prior studies available. FINDINGS: CHEST: LUNGS: Minimal dependent densities in the lung bases are present. Scarring of the right lung ap ex is present. PLEURAL SPACE: Calcified pleural plaque along the right lower lobe is present. No significant e ffusion. No pneumothorax. HEART: No cardiomegaly. No pericardial effusion. ABDOMEN: LIVER: Few hepatic granuloma are present. GALLBLADDER AND BILE DUCTS: The gallbladder is distended with calcified gallstones. PANCREAS: The pancreas is atrophic. No ductal dilation. SPLEEN: Several splenic granuloma are present. ADRENALS: Unremarkable. No mass. KIDNEYS AND URETERS: A right intrarenal calcification is present. Extrarenal pelvis on the left i s present. There is no hydronephrosis or hydroureter of either kidney. No obstructing renal or ureter al calculus is seen. STOMACH AND BOWEL: The stomach is decompressed. The small bowel is normal in caliber. Stool is pr esent throughout colon. Scattered colonic diverticula are noted without surrounding inflammation. The re is no mucosal thickening or evidence of bowel obstruction. PELVIS: APPENDIX: No findings to suggest acute appendicitis. BLADDER: The bladder is not well distended. REPRODUCTIVE: Unremarkable as visualized. CHEST, ABDOMEN and PELVIS: INTRAPERITONEAL SPACE: Unremarkable. No significant fluid collection. No free air. BONES/JOINTS: Healed distal left clavicle fracture is noted. Several healed left-sided rib fractu res are present. Multilevel degenerative change of the spine is present. There is no evidence of acut e fracture of the visualized axial and appendicular skeleton. Extensive intervertebral disc space n arrowing with vacuum disc phenomenon of the lower thoracic and lumbar spine is present. There is no a cute fracture of the visualized axial and appendicular skeleton. Evidence of chronic compression defo rmities from L1 to L4 is present. Evidence of a healed mid sternal body fracture with deformity of th e sternum is noted. SOFT TISSUES: The soft tissues are normal. VASCULATURE: Atherosclerosis of the vasculature is present. The vessels are normal in caliber. No aortic aneurysm. LYMPH NODES: Calcified mediastinal hilar lymph nodes are present. IMPRESSION: 1. No evidence of solid organ injury or traumatic bony findings on this noncontrasted CT of the chest, abdomen, and pelvis . 2. Cholelithiasis without evidence to suggest cholecystitis. Electronically signed by: Catherine Parmar MD 02/09/2021 2:04 AM CDT Due to temporary technical issues with the PACS/Fluency reporting system, reports are being signed by the in house radiologists without review as a courtesy to insure prompt reporting. The interpreting radiologist is fully responsible for the content of the report.
== END 2021-02-09 03:42 | disposition home or self-care (01) ==
LOC: ER 00:31
DX: S00.03XA Contusion of scalp, initial encounter (principal); S80.02XA Contusion of left knee, initial encounter; S20.212A Contusion of left front wall of thorax, initial encounter; S20.312A Abrasion of left front wall of thorax, initial encounter; S50.812A Abrasion of left forearm, initial encounter; S50.811A Abrasion of right forearm, initial encounter; S80.811A Abrasion, right lower leg, initial encounter; W19.XXXA Unspecified fall, initial encounter; Z86.718 Personal history of other venous thrombosis and embolism; I10 Essential (primary) hypertension; E11.9 Type 2 diabetes mellitus without complications; Z79.01 Long term (current) use of anticoagulants; Z79.84 Long term (current) use of oral hypoglycemic drugs
CPT/HCPCS: 36415; 70450; 71045; 71250; 72125; 80048; 80076; 83735; 83880; 84484; 85025; 85610; 99284; G0390

== ENCOUNTER 2021-02-10 12:28 | Emergency (ER) | payer OTHER ==
[2021-02-10 13:35] LABS: Absolute Lymphocytes (CBC) 1.8 K/uL (0.7-4.9); Basophils % 0.5 % (0-1.3); Hematocrit 38.2 % (36.0-45.0); Lymphocytes % 24.8 % (15.3-44.8); MPV 7.8 fL (7.6-11.3); RBC Red Blood Cell Count 4.04 M/uL (3.86-4.86)
--- NOTE | 2021-02-10 13:49 | RAD REPORT ---
EXAM DESCRIPTION: RAD - Knee Left 3 View - 02/10/2021 1:38 pm CLINICAL HISTORY: Left knee pain status post injury FINDINGS: No fracture or dislocation is seen.
[2021-02-10 13:53] LABS: Potassium 4.2 mmol/L (3.5-5.1)
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
[2021-02-10] MEDS ORDERED: ACETAMINOPHEN 500 MG TAB ONE (14:35)
--- NOTE | 2021-02-10 15:02 | EDPHYS ---
Physician Documentation [facility] Name: Judah Caceres Age: 81 yrs Sex: Female : 1940 Arrival Date: 02/10/2021 Time: 12:32 Bed 17 Private MD: ED Physician Viridiana Aguirre HPI: 02/10 12:42 This 81 yrs old Female presents to ER via EMS with complaints of Fall Injury. ma2 12:42 Details of fall: The patient fell from an upright position. Onset: The symptoms/episode ma2 began/occurred suddenly, 1 day(s) ago. Severity of symptoms: At their worst the symptoms were mild, in the emergency department the symptoms are unchanged. The patient has experienced similar episodes in the past. tripped and fell . - Immunization history:: Adult Immunizations up to date. - Social history:: Patient/guardian denies using alcohol, street drugs, The patient lives with family, Smoking status: unknown. - Family history:: not pertinent. ROS: 12:42 Constitutional: Negative for fever, chills, and weight loss. ma2 12:42 All other systems are negative. Exam: 12:42 Constitutional: This is a well developed, well nourished patient who is awake, alert, ma2 and in no acute distress. Head/Face: Normocephalic, atraumatic. Eyes: Pupils equal round and reactive to light, extra-ocular motions intact. Lids and lashes normal. Conjunctiva and sclera are non-icteric and not injected. Cornea within normal limits. Periorbital areas with no swelling, redness, or edema. ENT: Nares patent. No nasal discharge, no septal abnormalities noted. Tympanic membranes are normal and external auditory canals are clear. Oropharynx with no redness, swelling, or masses, exudates, or evidence of obstruction, uvula midline. Mucous membranes moist. Neck: Trachea midline, no thyromegaly or masses palpated, and no cervical lymphadenopathy. Supple, full range of motion without nuchal rigidity, or vertebral point tenderness. No Meningismus. Chest/axilla: Normal chest wall appearance and motion. Nontender with no deformity. No lesions are appreciated. Cardiovascular: Regular rate and rhythm with a normal S1 and S2. No gallops, murmurs, or rubs. Normal PMI, no JVD. No pulse deficits. Respiratory: Lungs have equal breath sounds bilaterally, clear to auscultation and percussion. No rales, rhonchi or wheezes noted. No increased work of breathing, no retractions or nasal flaring. Abdomen/GI: Soft, non-tender, with normal bowel sounds. No distension or tympany. No guarding or rebound. No evidence of tenderness throughout. Skin: Warm, dry with normal turgor. Normal color with no rashes, no lesions, and no evidence of cellulitis. MS/ Extremity: Pulses equal, no cyanosis. Neurovascular intact. Full, normal range of motion. Neuro: Awake and alert, GCS 15, oriented to person, place, time, and situation. Cranial nerves II-XII grossly intact. Motor strength 5/5 in all extremities. Sensory grossly intact. Cerebellar exam normal. Normal gait. Vital Signs: 12:34 BP 126 / 58; Pulse 81; Resp 15; Temp 98.3(O); Pulse Ox 95% on R/A; dh3 12:51 BP 126 / 58; Pulse 80; Resp 16; Pulse Ox 96% on R/A; vg1 14:21 BP 138 / 67; Pulse 83; Resp 16; Pulse Ox 95% on R/A; vg1 MDM: 12:40 Patient medically screened. [facility] 12:42 Differential diagnosis: contusion, fracture, laceration. Data reviewed: vital signs, ca2 nurses notes. Counseling: I had a detailed discussion with the patient and/or guardian regarding: the historical points, exam findings, and any diagnostic results supporting the discharge/admit diagnosis, the presence of at least one elevated blood pressure reading (>120/80) during this emergency department visit, the need for outpatient follow up. Response to treatment: the patient's symptoms have markedly improved after treatment. 13:29 ED course: i offered to call her pcp and admit for frequent fall. patient insist on fab going back to half-way and declined admission,. 15:01 ED course: patient declined pain medicine or pain prescription, i offered to call dr. fab art and request admission.however she want to go back to rehab.. she understands return precaution and . 02/10 12:41 Order name: Basic Metabolic Panel; Complete Time: 14:16 fab 02/10 12:41 Order name: CBC with Diff; Complete Time: 14:16 ca2 02/10 12:41 Order name: CT Traumagram (Head C Spine CAP W Con); Complete Time: 14:31 ma2 02/10 12:41 Order name: Knee Left 3 View XRAY; Complete Time: 14:16 ma2 02/10 12:41 Order name: Labs collected and sent; Complete Time: 13:19 ma2 02/10 12:43 Order name: Dressing - Wound; Complete Time: 15:13 ma2 Administered Medications: 14:21 Not Given (Patient Refused; Patient only wanted one tablet. Provider notified): Tylenol vg1 1000 mg PO once 14:21 Drug: Tylenol 500 mg Route: PO; vg1 15:13 Follow up: Response: No adverse reaction vg1 Disposition: 02/10/21 15:01 Discharged to Home. Impression: Fracture of one rib - right seventh . - Condition is Stable. - Discharge Instructions: Rib Fracture, [id number]. - Medication Reconciliation Form, Thank You Letter, Antibiotic Education, Prescription Opioid Use form. - Follow up: Geoff Art MD; When: 48 Hours; Reason: Continuance of care. Signatures: Dispatcher [employer] EDMS Viridiana Aguirre MD MD ma2 Ny Silverio RN RN vg1 Naya Parisi RN RN tr6 Corrections: (The following items were deleted from the chart) 15:28 15:01 02/10/2021 15:01 Discharged to Home. Impression: Fracture of one rib - right vg1 seventh . Condition is Stable. Forms are Medication Reconciliation Form, Thank You Letter, Antibiotic Education, Prescription Opioid Use. Follow up: Geoff Art; When: 48 Hours; Reason: Continuance of care. ma2
--- NOTE | 2021-02-10 15:02 | ER ---
Nurse's Notes [facility] Name: Judah Caceres Age: 81 yrs Sex: Female : 1940 Arrival Date: 02/10/2021 Time: 12:32 Bed 17 Private MD: Diagnosis: Fracture of one rib-right seventh Presentation: 02/10 12:32 Chief complaint: EMS states: pt was discharged last night from ED for several falls tr6 within the past couple days. pt back again for a fall in the bathroom. pt reports that she did hit her head. pt on eliquis. knot noted to right flank and abrasion to right elbow. Coronavirus screen: Client denies travel out of the [place] in the last 14 days. Ebola Screen: Patient negative for fever greater than or equal to 101.5 degrees Fahrenheit, and additional compatible Ebola Virus Disease symptoms Patient denies exposure to infectious person. Patient denies travel to an Ebola-affected area in the 21 days before illness onset. Initial Sepsis Screen: Does the patient meet any 2 criteria? No. Patient's initial sepsis screen is negative. Does the patient have a suspected source of infection? No. Patient's initial sepsis screen is negative. Risk Assessment: Do you want to hurt yourself or someone else? Patient reports no desire to harm self or others. Onset of symptoms is unknown. 12:32 Method Of Arrival: EMS: [facility] tr6 12:32 Acuity: AMY 3 tr6 - Immunization history:: Adult Immunizations up to date. - Social history:: Patient/guardian denies using alcohol, street drugs, The patient lives with family, Smoking status: unknown. - Family history:: not pertinent. Screenin:35 Abuse screen: Denies threats or abuse. Denies injuries from another. Nutritional tr6 screening: No deficits noted. Tuberculosis screening: No symptoms or risk factors identified. Fall Risk None identified. Fall in past 12 months (25 points). Assessment: 12:36 Reassessment: MD Carmona at bedside. tr6 12:48 General: Appears in no apparent distress. uncomfortable, Behavior is calm, cooperative. vg1 Pain: Complains of pain in Right lower back, Right rib, Right elbow Pain currently is 3 out of 10 on a pain scale. Pain began 1 hour ago. Neuro: Level of Consciousness is awake, alert, obeys commands, Oriented to person, place, time, situation, Denies headache. Cardiovascular: Patient's skin is warm and dry. Respiratory: Airway is patent Respiratory effort is even, unlabored. GI: : No signs and/or symptoms were reported regarding the genitourinary system. EENT: No signs and/or symptoms were reported regarding the EENT system. Derm: Bruising that is dark purple, on left eye, right arm, left arm. Musculoskeletal: Capillary refill < 3 seconds, in bilateral fingers. 14:11 Reassessment: Received VO from Dr Aguirre to administer Tylenol 1g PO x1. vg1 14:21 Reassessment: Patient appears in no apparent distress at this time. No changes from vg1 previously documented assessment. Patient and/or family updated on plan of care and expected duration. Pain level reassessed. Patient is alert, oriented x 3, equal unlabored respirations, skin warm/dry/pink. Pt son at bedside. Vital Signs: 12:34 BP 126 / 58; Pulse 81; Resp 15; Temp 98.3(O); Pulse Ox 95% on R/A; dh3 12:51 BP 126 / 58; Pulse 80; Resp 16; Pulse Ox 96% on R/A; vg1 14:21 BP 138 / 67; Pulse 83; Resp 16; Pulse Ox 95% on R/A; vg1 ED Course: 12:32 Patient arrived in ED. tr6 12:34 Triage completed. tr6 12:35 Arm band placed on right wrist. tr6 12:35 Patient has correct armband on for positive identification. Fall risk band placed. tr6 Placed in gown. Bed in low position. Call light in reach. Side rails up X2. perfume and toilet water maker on. Pulse ox on. NIBP on. Door closed. Noise minimized. Lights dimmed. Warm blanket given. 12:35 No provider procedures requiring assistance completed. tr6 12:40 Ny Silverio, RN is Primary Nurse. vg1 12:40 Viridiana Aguirre MD is Attending Physician. ma2 13:16 Radiology exam delayed due to IV insertion attempt and/or patient not having bq appropriate IV at this time. 13:24 Initial lab(s) drawn, by me, sent to lab. Inserted saline lock: 22 gauge in left vg1 antecubital area, using aseptic technique. Blood collected. 13:38 Knee Left 3 View XRAY In Process Unspecified. EDMS 13:43 Inserted saline lock: 20 gauge in right antecubital area, using aseptic technique. dh3 14:02 CT Traumagram (Head C Spine CAP W Con) In Process Unspecified. EDMS 15:01 Geoff Pierre MD is Referral Physician. ma2 15:28 IV discontinued, intact, bleeding controlled, No redness/swelling at site. Pressure vg1 dressing applied. Administered Medications: 14:21 Not Given (Patient Refused; Patient only wanted one tablet. Provider notified): Tylenol vg1 1000 mg PO once 14:21 Drug: Tylenol 500 mg Route: PO; vg1 15:13 Follow up: Response: No adverse reaction vg1 Outcome: 15:01 Discharge ordered by . ma2 15:28 Discharged to home via wheelchair. vg1 15:28 Condition: stable 15:28 Discharge instructions given to patient, family, Instructed on discharge instructions, follow up and referral plans. Demonstrated understanding of instructions, follow-up care. 15:28 Patient left the ED. vg1 Signatures: Dispatcher [employer] EDMS Gloria Esquivel Deanna dh3 Viridiana Aguirre MD MD ma2 Ny Silverio, RN RN vg1 Naya Parisi, JEREMI RN tr6
[2021-02-10 15:42] VITALS: TEMP 98.3
[2021-02-10 15:45] VITALS: BP 138/67; O2SAT 95
== END 2021-02-10 15:28 | disposition home or self-care (01) ==
LOC: ER 12:28
DX: S22.31XA Fracture of one rib, right side, initial encounter for closed fracture (principal); M25.562 Pain in left knee; W01.0XXA Fall on same level from slipping, tripping and stumbling without subsequent striking against object, initial encounter; Z91.81 History of falling
CPT/HCPCS: 85025; 80048; 36415; 70450; 72125; 71260; 74177; 73562; Q9967; 99284

== ENCOUNTER 2021-02-11 19:56 | Inpatient (IN) | payer OTHER ==
[2021-02-11 20:30] LABS: Absolute Lymphocytes (CBC) 2.6 K/uL (0.7-4.9); Basophils % 0.8 % (0-1.3); Hematocrit 36.6 % (36.0-45.0); Lymphocytes % 27.2 % (15.3-44.8); MPV 7.9 fL (7.6-11.3); RBC Red Blood Cell Count 3.92 M/uL (3.86-4.86)
[2021-02-11 20:46] LABS: Albumin 3.3 g/dL (3.4-5.0); Bilirubin Total 0.7 mg/dL (0.2-1.0); Potassium 3.8 mmol/L (3.5-5.1); Protein, Total 6.7 g/dL (6.4-8.2)
[2021-02-11] MEDS ORDERED: MORPHINE 4 MG/ML SYR ONE (20:55)
[2021-02-11] MEDS ORDERED: ONDANSETRON 4 MG/2 ML VIAL ONE (20:55)
[2021-02-11] MEDS ORDERED: ACETAMINOPHEN 500 MG TAB ONE (21:18)
--- NOTE | 2021-02-11 21:24 | EDPHYS ---
Physician Documentation [facility] Name: Judah Caceres Age: 81 yrs Sex: Female : 1940 Arrival Date: 02/11/2021 Time: 20:03 Bed 18 Private MD: ED Physician Wally Gonzalez HPI: 02/12 04:42 This 81 yrs old Female presents to ER via EMS with complaints of Fall Injury. tw4 04:42 Details of fall: The patient fell from an upright position, while standing. Onset: The tw4 symptoms/episode began/occurred just prior to arrival, today. Associated injuries: The patient sustained injury to the head, contusion, hematoma, upper back injury, pain, injury to the low back, pain, left leg, abrasion, contusion, obvious fracture. Historical: - Allergies: 02/11 20:31 Amoxicillin; jm8 20:31 Cephalexin; jm8 20:31 Codeine; jm8 20:31 Cefaclor; jm8 20:31 Meperidine; jm8 20:31 Sulfa (Sulfonamide Antibiotics); jm8 - Home Meds: 20:31 calcium vitamin D3 [Active]; esomeprazole magnesium 20 mg Oral cpDR once daily jm8 [Active]; glimepiride 2 mg Oral tab 1 tab once daily [Active]; glimepiride 2 mg Oral tab once daily [Active]; methocarbamol 500 mg Oral tab 3 times a day as needed for muscle spasms [Active]; methylprednisolone 4 mg Oral DsPk daily [Active]; simvastatin 40 mg Oral tab once daily [Active]; spironolactone 25 mg Oral tab 1 tab 4 times per day [Active]; spironolactone 25 mg Oral tab once daily [Active]; tramadol 50 mg Oral tab 1 tab every 4 hours [Active]; tramadol 50 mg Oral tab every 6 hours for Pain [Active]; Xarelto 10 mg Oral tab 1 tab once daily [Active]; zinc sulfate 220 mg Oral tab daily [Active]; - PMHx: 20:31 Back injury; Diabetes - NIDDM; Hypertension; DVT; COPD; jm8 - PSHx: 20:31 Unable to obtain; jm8 - Immunization history:: Adult Immunizations up to date. - Social history:: Smoking status: Patient denies any tobacco usage or history of. - Immunization history: Last tetanus immunization: - up to date. ROS: 02/12 04:42 Constitutional: Negative for fever, chills, and weight loss, Eyes: Negative for injury, tw4 pain, redness, and discharge, Cardiovascular: Negative for chest pain, palpitations, and edema, Respiratory: Negative for shortness of breath, cough, wheezing, and pleuritic chest pain, Abdomen/GI: Negative for abdominal pain, nausea, vomiting, diarrhea, and constipation, Skin: Negative for injury, rash, and discoloration, Neuro: Negative for headache, weakness, numbness, tingling, and seizure. MS/extremity: Positive for injury or acute deformity, decreased range of motion, tenderness, Negative for injury or acute deformity, abrasion, bite. Exam: 04:42 Constitutional: This is a well developed, well nourished patient who is awake, alert, tw4 and in no acute distress. Chest/axilla: Normal chest wall appearance and motion. Nontender with no deformity. No lesions are appreciated. Cardiovascular: Regular rate and rhythm with a normal S1 and S2. No gallops, murmurs, or rubs. Normal PMI, no JVD. No pulse deficits. 04:42 Head/face: Noted is contusion, of the forehead, hematoma, that is mild. Vital Signs: 02/11 21:06 BP 102 / 90; Pulse 102; Resp 16; Temp 98; Pulse Ox 97% on R/A; Weight 68.04 kg; Height jm8 5 ft. 2 in. (157.48 cm); Pain 10/10; 22:53 BP 117 / 54; Pulse 97; Resp 16; Pulse Ox 97% on R/A; jm8 21:06 Body Mass Index 27.44 (68.04 kg, 157.48 cm) jm8 Roxy Coma Score: 21:09 Eye Response: spontaneous(4). Verbal Response: oriented(5). Motor Response: obeys jm8 commands(6). Total: 15. Trauma Score (Adult): 21:09 Eye Response: spontaneous(1); Verbal Response: oriented(1); Motor Response: obeys jm8 commands(2); Systolic BP: > 89 mm Hg(4); Respiratory Rate: 10 to 29 per min(4); May Score: 15; Trauma Score: 12 MDM: 20:12 Patient medically screened. tw4 02/12 04:42 Differential diagnosis: abrasion, closed head injury, contusion. Data reviewed: vital tw4 signs, nurses notes. Data interpreted: Pulse oximetry: Interpretation: normal. Counseling: I had a detailed discussion with the patient and/or guardian regarding: the historical points, exam findings, and any diagnostic results supporting the discharge/admit diagnosis. Special discussion: I discussed with the patient/guardian in detail that at this point there is no indication for admission to the hospital. It is understood, however, that if the symptoms persist or worsen the patient needs to return immediately for re-evaluation. 02/11 20:14 Order name: CBC with Diff [facility] 02/11 20:14 Order name: CMP [facility] 02/11 20:14 Order name: Type And Screen [facility] 02/11 20:15 Order name: CBC with Automated Diff EDMS 02/11 20:15 Order name: Comprehensive Metabolic Panel MS 02/11 20:15 Order name: Type and Screen EDMS 02/11 21:49 Order name: Basic Metabolic Panel EDMS 02/11 21:49 Order name: Basic Metabolic Panel EDMS 02/11 21:49 Order name: CBC with Automated Diff EDMS 02/11 21:49 Order name: CBC with Automated Diff EDMS 02/11 20:08 Order name: CT C Spine [facility] 02/11 20:08 Order name: CT Lumbar Spine Wo Con [facility] 02/11 20:08 Order name: CT Thoracic Spine Wo Cont [facility] 02/11 20:08 Order name: Pelvis XRAY [facility] 02/11 20:08 Order name: Tib Fib Left XRAY [facility] 02/11 20:16 Order name: CT Traumagram (Head C Spine CAP wo con) [facility] 02/11 20:16 Order name: Labs collected and sent; Complete Time: 20:27 [facility] 02/11 23:02 Order name: SARS-COV-2 RT PCR EDMS Administered Medications: 02/11 20:58 Not Given (Patient Refused): morphine 4 mg IVP once; RASS on ADMIN: Combtv4, Very jm8 Agttd3, Agttd2, Rstlss1, AlertClm0, Drwsy-1, Lt Sdtn-2, Mod Sdtn-3, Dp Sdtn-4, UnArsble-5 20:58 Not Given (Patient Refused): Zofran (Ondansetron) 4 mg IVP once; over 2 minutes jm8 20:59 Drug: Tylenol 1000 mg Route: PO; jm8 21:29 Follow up: Response: No adverse reaction; Pain is decreased jm8 Disposition: 02/11/21 21:23 Hospitalization ordered by Kiara Pierre for Observation. Preliminary diagnosis are Contusion of other part of head, SKIN AVULSION LEFT LEG, MECHANICAL FALL, Weakness, Dementia in other diseases classified elsewhere. - Bed requested for Telemetry/MedSurg (Inpatient). - Status is Observation. jm8 - Condition is Stable. - Problem is new. - Symptoms have improved. Signatures: Dispatcher [employer] EDLyubov Cardona RN RN mw Williams, Irene, RN RN iw Wadley, Terrence, MD MD tw4 Stewart Patel mw2 Jorge Kearns RN RN jm8 Corrections: (The following items were deleted from the chart) 20:14 20:08 Head Brain W/ Wo Con+CT.RAD.BRZ ordered. EDMS EDMS 20:16 20:16 BASIC METABOLIC PANEL+C.LAB.BRZ ordered. EDMS EDMS 20:18 20:14 Head Brain Wo Cont ordered. EDMS EDMS 20:30 20:16 CBC+H.LAB.BRZ ordered. EDMS EDMS 20:30 20:16 TYPE AND SCREEN+BB.LAB.BRZ ordered. EDWI EDMS 21:36 21:23 Hospitalization Ordered by David Jorge MD for Inpatient Admission. Preliminary iw diagnosis is Contusion of other part of head; SKIN AVULSION LEFT LEG; MECHANICAL FALL; Weakness; Dementia in other diseases classified elsewhere. Bed requested for Telemetry/MedSurg (Inpatient). Status is Inpatient Admission. Condition is Stable. Problem is new. Symptoms have improved. tw4 21:38 21:14 CORONAVIRUS+MR.LAB.BRZ ordered. EDMS EDMS 21:43 21:36 02/11/2021 21:23 Hospitalization Ordered by David Jorge MD for Observation. tw4 Preliminary diagnosis is Contusion of other part of head; SKIN AVULSION LEFT LEG; MECHANICAL FALL; Weakness; Dementia in other diseases classified elsewhere. Bed requested for Telemetry/MedSurg (Inpatient). Status is Observation. Condition is Stable. Problem is new. Symptoms have improved. iw 23:11 21:43 02/11/2021 21:23 Hospitalization Ordered by A Ignacio IRWIN for Observation. mw Preliminary diagnosis is Contusion of other part of head; SKIN AVULSION LEFT LEG; MECHANICAL FALL; Weakness; Dementia in other diseases classified elsewhere. Bed requested for Telemetry/MedSurg (Inpatient). Status is Observation. Condition is Stable. Problem is new. Symptoms have improved. tw4 02/12 00:15 02/11 23:11 02/11/2021 21:23 Hospitalization Ordered by A Ignacio IRWIN for Observation. jm8 Preliminary diagnosis is Contusion of other part of head; SKIN AVULSION LEFT LEG; MECHANICAL FALL; Weakness; Dementia in other diseases classified elsewhere. Bed requested for Telemetry/MedSurg (Inpatient). Status is Observation. Condition is Stable. Problem is new. Symptoms have improved. mw
--- NOTE | 2021-02-11 21:24 | ER ---
Nurse's Notes [facility] Name: Judah Caceres Age: 81 yrs Sex: Female : 1940 Arrival Date: 02/11/2021 Time: 20:03 Bed 18 Private MD: Diagnosis: Contusion of other part of head;SKIN AVULSION LEFT LEG;MECHANICAL FALL;Weakness;Dementia in other diseases classified elsewhere Presentation: 02/11 20:11 Chief complaint: EMS states: they called out for fall. Patient has been falling more jm8 and more lately. Seen earlier this week for fall. Complains of leg pain. Patient from [facility], [place], operated by [facility]. Care prior to arrival: Cervical collar in place. Placed on backboard. Mechanism of Injury: Fall. Trauma event details: Injury occurred in the [facility], Injury occurred: at home. Injury occurred: February 11, 2021. 20:11 Acuity: AMY 3 jm8 20:11 Method Of Arrival: EMS: [facility] 8 21:10 Coronavirus screen: Client denies travel out of the [place] in the last 14 days. Ebola jm8 Screen: Patient negative for fever greater than or equal to 101.5 degrees Fahrenheit, and additional compatible Ebola Virus Disease symptoms Patient denies exposure to infectious person. Patient denies travel to an Ebola-affected area in the 21 days before illness onset. Initial Sepsis Screen: Does the patient have a suspected source of infection?. Initial Sepsis Screen: Does the patient meet any 2 criteria? No. Patient's initial sepsis screen is negative. Risk Assessment: Do you want to hurt yourself or someone else? Patient reports no desire to harm self or others. Onset of symptoms was February 11, 2021. Triage Assessment: 21:11 General: Appears in no apparent distress. uncomfortable, Behavior is calm, cooperative, jm8 appropriate for age. Pain: Complains of pain in left leg, right arm Pain currently is 10 out of 10 on a pain scale. Quality of pain is described as aching, Pain began suddenly, Aggravated by increased activity, repositioning, weight bearing. EENT: No deficits noted. No signs and/or symptoms were reported regarding the EENT system. Neuro: No deficits noted. Level of Consciousness is awake, alert, obeys commands, Oriented to person, place, time. Cardiovascular: No deficits noted. Respiratory: No deficits noted. Airway is patent Trachea midline Respiratory effort is even, unlabored, Respiratory pattern is regular, symmetrical. GI: No deficits noted. No signs and/or symptoms were reported involving the gastrointestinal system. : No deficits noted. No signs and/or symptoms were reported regarding the genitourinary system. Derm: No deficits noted. No signs and/or symptoms reported regarding the dermatologic system. Musculoskeletal: No deficits noted. No signs and/or symptoms reported regarding the musculoskeletal system. Trauma Activation: Not Applicable Physician: ED Physician; Name: ; Notified At: ; Arrived At: Physician: General Surgeon; Name: ; Notified At: ; Arrived At: Physician: Radiology; Name: ; Notified At: ; Arrived At: Physician: Respiratory; Name: ; Notified At: ; Arrived At: Physician: Lab; Name: ; Notified At: ; Arrived At: Historical: - Allergies: 20:31 Amoxicillin; 8 20:31 Cephalexin; 8 20:31 Codeine; 8 20:31 Cefaclor; jm8 20:31 Meperidine; 8 20:31 Sulfa (Sulfonamide Antibiotics); jm8 - Home Meds: 20:31 calcium vitamin D3 [Active]; esomeprazole magnesium 20 mg Oral cpDR once daily jm8 [Active]; glimepiride 2 mg Oral tab 1 tab once daily [Active]; glimepiride 2 mg Oral tab once daily [Active]; methocarbamol 500 mg Oral tab 3 times a day as needed for muscle spasms [Active]; methylprednisolone 4 mg Oral DsPk daily [Active]; simvastatin 40 mg Oral tab once daily [Active]; spironolactone 25 mg Oral tab 1 tab 4 times per day [Active]; spironolactone 25 mg Oral tab once daily [Active]; tramadol 50 mg Oral tab 1 tab every 4 hours [Active]; tramadol 50 mg Oral tab every 6 hours for Pain [Active]; Xarelto 10 mg Oral tab 1 tab once daily [Active]; zinc sulfate 220 mg Oral tab daily [Active]; - PMHx: 20:31 Back injury; Diabetes - NIDDM; Hypertension; DVT; COPD; jm8 - PSHx: 20:31 Unable to obtain; jm8 - Immunization history:: Adult Immunizations up to date. - Social history:: Smoking status: Patient denies any tobacco usage or history of. - Immunization history: Last tetanus immunization: - up to date. Screenin:31 Abuse screen: Denies threats or abuse. Denies injuries from another. Nutritional 8 screening: No deficits noted. Tuberculosis screening: No symptoms or risk factors identified. Fall Risk Fall in past 12 months (25 points). IV access (20 points). Primary Survey: 21:07 NO uncontrolled hemorrhage observed. A: The patient is alert. Airway: patent. jm8 Breathing/Chest: Respiratory pattern: regular, Respiratory effort: spontaneous, unlabored. Circulation: Pulses: palpable right radial artery, right brachial artery, left brachial artery, bilateral radial, brachial, femoral, popliteal, posterior tibial and and dorsalis pedis arteries.. Skin color: pink, Skin temperature: warm. Disability Alert. Exposure/Environment: All clothing and personal items were removed. There is no evidence of uncontrolled external bleeding. Obvious injury(ies) are noted at this time: left eye hematoma, right arm skin tears, left leg skin tears. Reassessment Airway Airway Patent Breathing/Chest Respiratory pattern Regular Respiratory effort Spontaneous Circulation Color [place] Temperature Warm Disability Alert. Assessment: 21:28 Reassessment: see triage asssessment. [facility] Vital Signs: 21:06 BP 102 / 90; Pulse 102; Resp 16; Temp 98; Pulse Ox 97% on R/A; Weight 68.04 kg; Height jm8 5 ft. 2 in. (157.48 cm); Pain 10/10; 22:53 BP 117 / 54; Pulse 97; Resp 16; Pulse Ox 97% on R/A; jm8 21:06 Body Mass Index 27.44 (68.04 kg, 157.48 cm) jm8 Roxy Coma Score: 21:09 Eye Response: spontaneous(4). Verbal Response: oriented(5). Motor Response: obeys jm8 commands(6). Total: 15. Trauma Score (Adult): 21:09 Eye Response: spontaneous(1); Verbal Response: oriented(1); Motor Response: obeys jm8 commands(2); Systolic BP: > 89 mm Hg(4); Respiratory Rate: 10 to 29 per min(4); [place] Score: 15; Trauma Score: 12 ED Course: 20:03 Patient arrived in ED. mw2 20:12 Wally Gonzalez MD is Attending Physician. tw4 20:13 Triage completed. jm8 20:26 CT Traumagram (Head C Spine CAP wo con) In Process Unspecified. EDMS 20:41 Pelvis XRAY In Process Unspecified. EDMS 20:41 Tib Fib Left XRAY In Process Unspecified. EDMS 21:00 Inserted saline lock: 20 gauge in right antecubital area, using aseptic technique. jm8 21:10 Arm band placed on right wrist. jm8 21:11 Patient maintains SpO2 saturation greater than 95% on room air. Thermoregulation: warm 8 blanket given to patient. 21:13 Patient has correct armband on for positive identification. Placed in gown. Bed in low jm8 position. Call light in reach. Side rails up X2. Adult w/ patient. 21:21 David Jorge MD is Hospitalizing Provider. tw4 21:43 Kiara Pierre MD is Hospitalizing Provider. tw4 02/12 00:12 No provider procedures requiring assistance completed. Patient admitted, IV remains in [facility] place. intact. Administered Medications: 02/11 20:58 Not Given (Patient Refused): morphine 4 mg IVP once; RASS on ADMIN: Combtv4, Very jm8 Agttd3, Agttd2, Rstlss1, AlertClm0, Drwsy-1, Lt Sdtn-2, Mod Sdtn-3, Dp Sdtn-4, UnArsble-5 20:58 Not Given (Patient Refused): Zofran (Ondansetron) 4 mg IVP once; over [address] [facility] 20:59 Drug: Tylenol 1000 mg Route: PO; 8 21:29 Follow up: Response: No adverse reaction; Pain is decreased [facility] Intake: 21:09 PO: 0ml; Total: 0ml. [facility] Outcome: 21:23 Decision to Hospitalize by Provider. tw4 02/12 00:13 Admitted to Med/surg accompanied by nurse, via stretcher, with chart, Report called to [facility] Jennifer Condition: good Instructed on the need for admit. 00:14 Patient's length of stay in the Emergency Department was greater than [address] [facility] on bed upstairsPatient's length of stay extended due to 00:15 Patient left the ED. jm8 Signatures: Dispatcher [employer] EDMS Carlos, Wally, MD MD tw4 Stewart Patel mw2 Jorge Kearns RN RN jm8 Corrections: (The following items were deleted from the chart) 02/11 21:32 20:11 Chief complaint: EMS states: they called out for fall. Patient has been falling jm8 more and more lately. Complains of leg pain. Patient from [facility], [place], operated by [facility] jm8
[2021-02-11] MEDS ORDERED: ACETAMINOPHEN 500 MG TAB PO PRN (21:48)
[2021-02-12 01:37] VITALS: BMI 23.6
[2021-02-12 03:29] LABS: Absolute Lymphocytes (CBC) 2.4 K/uL (0.7-4.9); Basophils % 0.5 % (0-1.3); Hematocrit 32.6 % (36.0-45.0); Lymphocytes % 30.7 % (15.3-44.8); MPV 7.7 fL (7.6-11.3)
[2021-02-12 03:39] LABS: Potassium 3.5 mmol/L (3.5-5.1)
[2021-02-12] MEDS ORDERED: LOPERAMIDE HCL 2 MG CAPSULE PO PRN (07:38)
[2021-02-12] MEDS ORDERED: TRAMADOL HCL 50 MG TAB PO PRN (07:38)
[2021-02-12] MEDS ORDERED: ACETAMINOPHEN 500 MG TAB PO PRN (07:49)
[2021-02-12 08:28] LABS: Urine Appearance CLEAR (Clear); Urine Bilirubin NEGATIVE (Negative); Urine Blood NEGATIVE (Negative); Urine Color YELLOW (Yellow); Urine Glucose NEGATIVE (Negative); Urine Protein NEGATIVE (Negative); Urine Specific Gravity 1.015 (1.005-1.030); Urine Urobilinogen 0.2 mg/dL (0.2-1.0)
[2021-02-12 08:43] LABS: Urine Bacteria NONE SEEN /HPF (<20); Urine RBC <5 /HPF (NONE SEEN)
[2021-02-12] MEDS: CALCIUM CARB 500MG/VIT D 200 IU TAB PO SCH ×2 (09:00→20:56)
[2021-02-12] MEDS: RIVAROXABAN 10 MG TABLET PO SCH (09:36)
[2021-02-12] MEDS: SPIRONOLACTONE 25 MG TABLET PO SCH (09:36)
[2021-02-12] MEDS: methylPREDNISolone 4 MG TAB PO SCH (10:36)
--- NOTE | 2021-02-12 11:36 | RAD REPORT ---
EXAM DESCRIPTION: CT - Head C Spine Cap Wo Con - 02/11/2021 8:29 pm CLINICAL HISTORY: Trauma, head and neck injury. Chest, abdomen and pelvis pain. fall COMPARISON: Head C Spine Cap W Con dated 02/10/2021; Head C Spine Cap Wo Con dated 02/09/2021; Head C Spine Cap Wo Con dated 02/19/2019 TECHNIQUE: CT head without contrast. CT cervical spine without contrast with coronal and sagittal reformatted images. CT chest, abdomen and pelvis without contrast with coronal and sagittal reformatted images of the [facility] [place]. All CT scans are performed using dose optimization technique as appropriate and may include automated exposure control or mA/KV adjustment according to patient size. FINDINGS: CT HEAD WITHOUT CONTRAST: No intracranial hemorrhage, hydrocephalus or extra-axial fluid collection. No areas of brain edema o r midline shift. Opacification of the right sphenoid sinus noted. The paranasal sinuses and mastoids are otherwise siena ar. The calvarium is intact. CT CERVICAL SPINE WITHOUT CONTRAST: No fracture or subluxation. The prevertebral soft tissues are normal in thickness. CT CHEST, ABDOMEN, PELVIS WITHOUT CONTRAST: NOTE: Lack of contrast is a significant limitation in the assessment of trauma related findings. Spec ifically, solid organ, vascular and bowel evaluation is significantly limited. The lungs are clear.No pneumothorax or pericardial/pleural fluid. No evidence of intra-abdominal visceral injury, free fluid or free air is seen within the above detai led limitations. Cholelithiasis. Contrast from previous CT noted in the left genitourinary system and bladder. Signifi cant diverticulosis is present of the sigmoid colon without diverticulitis. No acute fracture seen. Multiple wedge compression fractures of the lumbar spine. IMPRESSION: Negative for acute traumatic findings within the above detailed limitations.
--- NOTE | 2021-02-12 11:37 | RAD REPORT ---
EXAM DESCRIPTION: RAD - Pelvis - 02/11/2021 8:42 pm CLINICAL HISTORY: PAIN COMPARISON: No comparisons FINDINGS: Mild arthritic changes are present in both hips. No acute fracture is seen. Contrast is pr esent in the urinary bladder.
--- NOTE | 2021-02-12 11:38 | RAD REPORT ---
EXAM DESCRIPTION: RAD - Tib Fib Left - 02/11/2021 8:42 pm CLINICAL HISTORY: PAIN COMPARISON: No comparisons FINDINGS: The bones are osteopenic. Mild vascular atherosclerosis. No fracture or dislocation seen. Small suprapatellar joint effusion. Moderate posterior and plantar calcaneal spurs.
[2021-02-12] MEDS ORDERED: ATORVASTATIN 20 MG TAB PO SCH (21:00)
--- NOTE | 2021-02-12 21:45 | HP ---
Date of Admission: 02/12/2021 Chief Complaint: Multiple falls. History Of Present Illness: This is a very pleasant 81-year-old female patient, who lives at [facility], came to emergency room 3 times over a period of last 3 days. Every time she fell down at the facility, she was sent to emergency room for further evaluation and her first fall was on February 09, then second fall on February 10, and third fall was on February 11. With each fall, she had visit to emergency room and multiple x-rays and CAT scan of the head, C-spine, chest, abdomen, pelvis was done 3 different times and each time there was no acute internal injury. Only injury that was detected was right 7th rib fracture with one of this imaging study, otherwise no fracture or internal trauma detected. After the last visit to emergency room yesterday, she was admitted to the hospital and I was contacted at that time requesting admission and I have reviewed all these multiple ER visit records and workup done in the emergency room. When I asked the patient exactly what happened she fall down, she really cannot provide any details. She says that every time she fell down, she was trying to get out of the bed or stand. She is not quite sure exactly what she was doing and how she fell down, but this was not result of tripping over something as best as she recollects. There was no loss of consciousness. Medication list reviewed. Allergies: TO CEPHALEXIN, CODEINE, DEMEROL, CECLOR, NSAIDS, AND SULFA. Review of Systems: Musculoskeletal: Generalized pain with these multiple falls. Dermatology: Has skin tear over both upper and lower extremity. All other systems reviewed and negative. Medications: Tylenol 500 mg takes 2 tablets 2 times a day as needed, Caltrate plus D 1 tablet 2 times a day, Nexium 20 mg daily, glimepiride 2 mg daily in morning with breakfast, loperamide 2 mg 2 times a day as needed for diarrhea, methocarbamol 500 mg 3 times a day as needed for back pain, methylprednisolone 4 mg daily, Xarelto 10 mg daily, simvastatin 40 mg daily in the evening, spironolactone 25 mg daily, tramadol 50 mg 4 times a day as needed for arthritis pain. Past Medical History: Significant for restless leg syndrome, type 2 diabetes mellitus, hypertension, mixed hyperlipidemia, gastroesophageal reflux disease, osteoarthritis at multiple sites, rheumatoid arthritis, polymyalgia rheumatica, history of DVT of leg, and hypercoagulable state. Past Surgical History: Tonsillectomy, appendectomy, back surgery, removal of Vogel neuroma. Family History: Father , had heart disease. Mother , had Alzheimer disease and DVT. Brother had coronary artery disease. Son with hypertension and daughter with hypertension. Social History: Negative for smoking and alcohol use. Physical Examination: Vital Signs: This morning when I saw her; her temperature 97.1, pulse 75, respiratory rate 16, blood pressure 112/53, oxygen saturation 94%. Height 5 feet 5 inches, weight 142 pounds. General: Awake, alert, oriented, not in distress. HEENT: Head atraumatic, normocephalic. Conjunctivae nonerythematous. Sclerae white. Mouth, no thrush or edema noted. Ears/Nose, no mass, lesion, discharge noted. Neck: Supple. No JVD, lymph nodes, bruit, thyromegaly noted. Chest: She has some tenderness over the right lower chest area. Lungs: Bilateral good equal air entry. Clear to auscultation. No rhonchi. No rales. Heart: Normal heart sounds, no murmur or gallop. Abdomen: Soft, bowel sounds normal. No guarding, rigidity, tenderness, mass, hepatosplenomegaly, distention, or bruit noted. Extremities: No leg edema. No calf tenderness. Skin: The patient has multiple laceration over both upper and both lower extremity and laceration over right lower extremity, has Steri-Strips present. There is no active bleeding, discharge. No evidence of any cellulitis around the laceration site. She also has multiple areas of bruising on both upper and lower extremities. There was no joint deformity. Range of motion of multiple joints normal. Lymphatics: No lymph node enlargement in neck, supraclavicular, infraclavicular region. Neuro: No focal neurological deficit. Chest: Unremarkable. External Genitalia: Deferred. Rectal: Deferred. Laboratory Data: Yesterday; white count 9.4, hemoglobin 12.2, platelets 153. Today; white count 7.7, hemoglobin 11.1, platelets 129. Yesterday; sodium 139, potassium 3.8, chloride 103, bicarb 32, BUN 21, creatinine 1.27, glucose 177. Liver function tests unremarkable. Today; sodium 144, potassium 3.5, chloride 105, bicarb 34, BUN 17, creatinine 0.93, glucose 114. Hemoglobin A1c 7.2, TSH 1.13. Urinalysis unremarkable. COVID-19 test negative. CAT scan of the head, chest, abdomen, pelvis, and cervical spine; no acute injury noted. X-ray of tibia and fibula; no fracture. X-ray of pelvis; changes of arthritis, but no fracture. Impression: 1. Right 7th rib fracture. 2. Skin tear, multiple, bilateral upper and lower extremities. 3. Contusion, multiple, bilateral upper and lower extremities. 4. Type 2 diabetes mellitus. 5. Osteoarthritis, multiple sites. 6. Rheumatoid arthritis. 7. Polymyalgia rheumatica. 8. Hypercoagulable state. 9. Chronic anticoagulation therapy. 10. Gastroesophageal reflux disease. 11. Hypertension. 12. Mixed hyperlipidemia. 13. Restless leg syndrome. Plan: We will go ahead and admit the patient to hospital for further evaluation and management of this problem. The patient is appropriate for inpatient and is expected to spend 2 midnights in hospital. We will go ahead and consult neurologist. She has seen Dr. Higginbotham on outpatient basis. We will request consultation from him because of her multiple falls. There is no evidence of any infection anywhere. We will consult Physical Therapy, Occupational Therapy, and home medications will be continued per order. Diabetes will be managed with sliding scale insulin and I will see her tomorrow for followup. We will provide topical care to multiple skin tear areas and I will see her in the morning for followup. We will consult Social Service for discharge planning to see if the patient will be able to return back to [facility] [place] or she will need to go to care home facility. All these details were discussed with the patient. ARSALAN/MODL Voice ID: [id number] JUANA
--- NOTE | 2021-02-12 21:53 | CON ---
Date of Consultation: 02/12/2021 Reason: Fall. History: An 81-year-old lady, whom I had seen last year before DANA for memory problems and a julia p was ordered, but then ROBERTOLISA hit and problem was lost to follow up. We have not seen her back. She lives at [facility] per the patient. She has a history of DVT, memory difficulties/dementia, diabetes , hypertension, COPD. She has had multiple falls and she has the ecchymosis to confirm multiple fall s as she has multiple ecchymoses of varying ages on the arms, legs, and head, and after falling esdras childress was brought to the ER because she had a skin tear on the left leg as well. Traumagram, CT head , spine, abdomen, pelvis, no fractures, no cervical fracture. The patient has been intermittently co nfused as well, although she is actually pleasant and able to relate to me parts of the history and t ells me she is in the hospital and knows where she normally resides and knows that her daughter just left less than hour ago. It is the frequent falls and the memory problem that bring us into the case . Consultation was requested. Past Medical History: As alluded to. Medications: Normally, tramadol, aldactone, simvastatin, Xarelto, glimepiride, Nexium. Allergies: CEPHALOSPORINS, CODEINE, NONSTEROIDALS, SULFA, DEMEROL. Social History: Lives in [facility] and normally does require assistance with activities of daily christiano ng. Family History: Noncontributory. Review of Systems: General: Chronically ill. Eyes: Negative. Ears, Nose, Throat: No dysarthria. No dysphagia. Cardiovascular: History of hypertension. Pulmonary: History of COPD. GI: Negative. : Negative. Musculoskeletal: Arthralgias. Neurologic: As noted. Psychiatric: Negative. Endocrine: Diabetes. Physical Examination: Vital Signs: Temperature 97.5, pulse 96, respirations 17, blood pressure 150/65. General: Pleasant, elderly lady, lying in bed, not in any distress. Heart: Sinus rhythm. No carotid bruits. Orthostatics are negative. Neurologic: She is awake, alert, pleasant, conversant. Pupils reactive. Ocular motion full. Visua l hebert full. Facial strength and sensation normal. Tongue protrudes evenly. Soft palate elevates symmetrically bilaterally. Extremity strength greater than 4+. Sensation intact. Reflexes 2/4. T oes are neutral. Pertinent Laboratory Data: Imaging as noted. CBC revealed hemoglobin 11.1, platelets 129. Creatini ne 0.93. TSH normal. SARS negative. Impression: Dementia, frequent falls. Plan: We will repeat the brain MRI, which demonstrated atrophy, chronic ischemic change back in 2019 . MRI of cervical spine as well as B12 level. Try and sort through the reason for the falls might b e medication, spondylitic myelopathy, progressive dementia, new stroke, etc. Thank you for the consult. We will continue to follow with you. MAKSIM/MARIA LUISA Voice ID: [id number] Report ID: [id number]
[2021-02-13] MEDS ORDERED: PANTOPRAZOLE 40MG TABLET PO SCH (06:30)
[2021-02-13] MEDS: RIVAROXABAN 10 MG TABLET PO SCH (08:54)
[2021-02-13] MEDS: methylPREDNISolone 4 MG TAB PO SCH (08:54)
[2021-02-13] MEDS: SPIRONOLACTONE 25 MG TABLET PO SCH (08:54)
[2021-02-13] MEDS: CALCIUM CARB 500MG/VIT D 200 IU TAB PO SCH (08:54)
[2021-02-13 09:49] VITALS: O2SAT 92
--- NOTE | 2021-02-13 12:05 | RAD REPORT ---
EXAM DESCRIPTION: MRI - Brain Wo Cont - 02/13/2021 9:55 am CLINICAL HISTORY: dementia, falls Headache, drowsiness COMPARISON: Brain Wo Cont dated 10/14/2019; Head C Spine Cap W Con dated 02/10/2021; Head C Spine Cap Wo Con dated 02/11/2021 TECHNIQUE: Multi-sequence, multiplanar MR imaging of the brain was performed without contrast. FINDINGS: No intracranial hemorrhage, hydrocephalus or extra-axial fluid collections.Mild generalize d brain atrophy with mild periventricular and deep white matter chronic microvascular ischemic change s. No edema or shift of midline structures. No findings to suspect brain mass. DWI is negative for ac [place] CVA. Midline structures are normally formed. Right sphenoid sinus is opacified. Mild opacification both mastoid air cells also noted. IMPRESSION: Negative for acute CVA or other acute intracranial abnormality. Mild generalized brain atrophy.
--- NOTE | 2021-02-13 12:22 | RAD REPORT ---
EXAM DESCRIPTION: MRI - C Spine Wo Cont- 02/13/2021 10:01 am CLINICAL HISTORY: r/o myelopathy Neck pain, radiculopathy, myelopathy COMPARISON: No comparisons FINDINGS: Cervical vertebral bodies are normal in height and alignment. No suspicious marrow edema or marrow replacing process. No fracture or traumatic subluxation. The craniocervical junction is normal. C2-3 level: 3 mm central disc herniation is present slightly attenuating the anterior subarachnoid sp inge. C3-4 level: Small posterior osteophyte/disc complex is present mildly attenuating the anterior subara chnoid space. C4-5 level: Small posterior osteophyte/disc complex is present mildly attenuating the anterior subara chnoid space. C5-6 level: Small endplate osteophyte with central, left paracentral disc herniation present. This at tenuates the anterior subarachnoid space and results in mild canal and left foraminal narrowing. C6-7 level: Small posterior osteophyte/ disc complex is present attenuating the anterior subarachnoid space. Right-sided uncovertebral spurring mildly narrows the right exit foramen. C7-T1 level: 2 mm anterolisthesis is present, likely degenerative in nature. No significant canal or foraminal stenosis. There is subtle left hemicord elevated T2/IR signal at the C5-6 level. IMPRESSION: Moderate spondylosis is present most notable at C5-6 as detailed above. There is subtle cord edema suspected left hemicord at this level.
[2021-02-13 16:07] VITALS: BP 128/63; TEMP 97.6
--- NOTE | 2021-02-14 13:35 | DS ---
Date of Discharge: 02/13/2021 Disposition: Discharged to go back to [facility]. Physical Examination: HEENT: Unremarkable. Lungs: Clear to auscultation. Heart: Sounds normal. Abdomen: Soft. Bowel sounds normal. No guarding, rigidity, tenderness, distention. Extremities: No leg edema. Skin: Shows multiple bruises over multiple body regions including her face, upper and lower extremit y, and multiple skin tears over both upper and lower extremities. No evidence of any cellulitis. Discharge Medications And Instructions: 1.Continue all prior home medications. 2.Follow up at my office and follow up with Dr. Higginbotham next week. 3.Home health nurse to provide daily dressing changes per instructions. 4.Physical therapy and occupational therapy to be provided with home health care services. 5.Fall precautions. Hospital Course: This is an 81-year-old pleasant female patient, living at [facility], who had 3 falls over a period of 3 days and visit to emergency room on a day-to-day basis after each fall and after the third visit, she was admitted to the hospital. Please see dictated H and P for more information. The patient's CAT scan was unremarkable. No internal injury and only injury that she had with all this fall was a fracture of the right 7th rib. She had multiple skin tears and bruises. No intracra nial injury. No acute intrathoracic or abdominal finding. After her admission to the hospital, Phys ical Therapy and Occupational Therapy were consulted and also consulted her neurologist, Dr. Higginbotham be cause of her multiple falls. Orthostatic vital sign changes reviewed, no significant drop in the blo od pressure. Dr. Higginbotham ordered MRI of brain, which came back unremarkable. MRI of cervical spine sh owed some abnormality and he did communicate with the patient's daughter and gave us his okay for dis charge. Social Service was consulted for home health care arrangements and the patient lives at [facility] and [facility] is willing to take her back. Final Diagnoses: 1.Right 7th rib fracture. 2.Skin tear, multiple, bilateral upper and lower extremity. 3.Contusion, multiple, bilateral upper and lower extremity and face. 4.Type 2 diabetes mellitus. 5.Osteoarthritis, multiple sites. 6.Rheumatoid arthritis. 7.Polymyalgia rheumatica. 8.Hypercoagulable state. 9.Chronic anticoagulation therapy. 10.Chronic steroid therapy. 11.Gastroesophageal reflux disease. 12.Hypertension. 13.Mixed hyperlipidemia. 14.Restless leg syndrome. 15.Anemia, unspecified. 16.Thrombocytopenia. 17.Volume depletion. Laboratory Data: Upon admission; white count 9.4, hemoglobin 12.2, and a platelet count 153. Yester day; white count 7.7, hemoglobin 11.1, and a platelet count of 129. Upon admission; sodium 139, pota ssium 3.8, chloride 103, bicarb 32, BUN 21, creatinine 1.27, glucose 177. Liver function tests unrem arkable. TSH 1.1. Hemoglobin A1c 7.2. Vitamin B12 286. Repeat BUN yesterday 17, creatinine 0.93. ARSALAN/MODL Voice ID: [id number] Report ID: [id number]
== END 2021-02-13 18:35 | disposition home health service (06) | DRG 206 ==
LOC: ER 19:56 → ERHOLD 21:44 → 4TH 02-12
PROVIDERS: ADMIT Internal Medicine; ATTEND Internal Medicine
DX: S22.31XA Fracture of one rib, right side, initial encounter for closed fracture (principal); D68.59 Other primary thrombophilia; I10 Essential (primary) hypertension; J44.9 Chronic obstructive pulmonary disease, unspecified; E11.9 Type 2 diabetes mellitus without complications; K21.9 Gastro-esophageal reflux disease without esophagitis; M19.90 Unspecified osteoarthritis, unspecified site; M06.9 Rheumatoid arthritis, unspecified; M35.3 Polymyalgia rheumatica; D64.9 Anemia, unspecified; E78.2 Mixed hyperlipidemia; G25.81 Restless legs syndrome; F03.90 Unspecified dementia, unspecified severity, without behavioral disturbance, psychotic disturbance, mood disturbance, and anxiety; D69.6 Thrombocytopenia, unspecified; E86.9 Volume depletion, unspecified; W18.30XA Fall on same level, unspecified, initial encounter; Z88.1 Allergy status to other antibiotic agents; Z91.81 History of falling; Z90.49 Acquired absence of other specified parts of digestive tract; Z86.718 Personal history of other venous thrombosis and embolism; Z79.52 Long term (current) use of systemic steroids; Z79.899 Other long term (current) drug therapy; Z79.01 Long term (current) use of anticoagulants; Z79.84 Long term (current) use of oral hypoglycemic drugs; Z88.8 Allergy status to other drugs, medicaments and biological substances; Z88.5 Allergy status to narcotic agent; Z20.822 Contact with and (suspected) exposure to COVID-19
CPT/HCPCS: 36415; 70450; 70551; 71045; 71250; 71260; 72125; 72141; 72170; 74177; 80048; 80053; 80076; 81001; 82607; 82947; 83036; 83735; 83880; 84443; 84484; 85025; 85610; 86850; 86900; 86901; 87086; 87088; 97116; 97161; 97530; 99284; 99285; G0390; J2405; J7509; Q9967; U0003

== ENCOUNTER 2021-04-15 18:40 | Emergency (ER) | payer OTHER ==
--- NOTE | 2021-04-15 19:20 | RAD REPORT ---
EXAM DESCRIPTION: CT - CTHCSPWOC - 04/15/2021 6:58 pm CLINICAL HISTORY: fall, head injury COMPARISON: CT head and cervical April 2019 TECHNIQUE: Axial 5 mm thick images of the head were obtained. Axial 2 mm thick images of the cervic al spine were obtained with sagittal and coronal reconstruction images generated and reviewed. All CT scans are performed using dose optimization technique as appropriate and may include automated exposure control or mA/KV adjustment according to patient size. FINDINGS: No intracranial hemorrhage, mass, edema or acute intracranial finding. No cortical edema o r sulcal effacement. An acute cortical based infarction is not identifiable. Patient does have modera te severity atrophy and moderate severity chronic ischemic change. Ventricles are in proportion to th e amount of volume loss. No extra-axial fluid collections. Mastoid air cells are clear. Chronic right -sided sphenoid sinusitis noted. No air leak fluid level in the sinus. No globe or orbit abnormality seen. Moderate-sized right frontal/supraorbital scalp hematoma present. Underlying bone and sinus are intact. Cervical body height and alignment are normal. C5-6 disc space narrowing seen posterior endplate spur ring. No significant bony foraminal encroachment. No fracture or acute bony abnormality. Central can al detail is inherently limited. No paraspinal mass or hematoma. IMPRESSION: Right frontal/ periorbital scalp hematoma with underlying bone, sinus an orbit intact. Moderate severity atrophy and chronic ischemic change similar to comparison. No acute intracranial fi nding. Cervical spine degenerative change similar to comparison. Acute findings seen
[2021-04-15 19:29] LABS: Basophils % 0.9 % (0-1.3); Hematocrit 35.5 % (36.0-45.0); Lymphocytes % 39.9 % (15.3-44.8); MPV 7.7 fL (7.6-11.3); Protime INR 1.78; RBC Red Blood Cell Count 3.74 M/uL (3.86-4.86)
--- NOTE | 2021-04-15 19:32 | RAD REPORT ---
EXAM DESCRIPTION: RAD - Chest Single View - 04/15/2021 7:17 pm CLINICAL HISTORY: syncope COMPARISON: Portable February 09 TECHNIQUE: AP portable chest image was obtained 04/15/2021 7:17 pm . FINDINGS: Lungs are clear. Interstitial pattern matches comparison. Heart and vasculature are normal . No measurable pleural effusion and no pneumothorax. No acute bony abnormality seen. No acute aortic findings suspected. IMPRESSION: No acute cardiopulmonary process. No significant change from comparison study.
[2021-04-15 19:45] LABS: ALT/SGPT 16 U/L (12-78); AST/SGOT 15 U/L (15-37); Albumin 3.1 g/dL (3.4-5.0); Alkaline Phosphatase 68 U/L (45-117); BUN Blood Urea Nitrogen 25 mg/dL (7-18); Bicarbonate 32 mmol/L (21-32); Bilirubin Direct 0.1 mg/dL (0-0.2); Bilirubin Total 0.3 mg/dL (0.2-1.0); Glucose Level 198 mg/dL (74-106); NT PRO-BNP 247 pg/mL (<450); Potassium 3.8 mmol/L (3.5-5.1); Protein, Total 6.3 g/dL (6.4-8.2); Sodium Level 140 mmol/L (136-145); Troponin (Emerg Dept Use Only) < 0.02 ng/mL (0.0-0.045)
--- NOTE | 2021-04-16 07:59 | EKG ---
Test Date: 2021-04-15 Test Time: 19:33:04 Generator Man: LIBBY MEASUREMENT RESULTS: Intervals: Rate: 107 GA: QRSD: 82 QT: 350 QTc: 467 [place]: P: GA: QRS: -2 T: 44 INTERPRETIVE STATEMENTS: Atrial fibrillation with rapid ventricular response Possible Anterior infarct, age undetermined Abnormal ECG Compared to ECG 02/09/2021 01:10:45 Sinus rhythm no longer present Myocardial infarct finding still present Electronically Signed On 04-16-21 07:57:40 CDT by Kai Manzano
--- NOTE | 2021-04-16 12:39 | EKG ---
Test Date: 2021-04-15 Test Time: 21:23:03 Community Organizer: DONAVAN MEASUREMENT RESULTS: Intervals: Rate: 97 GA: 200 QRSD: 86 QT: 374 QTc: 474 [place]: P: 79 GA: 200 QRS: 13 T: 58 INTERPRETIVE STATEMENTS: Sinus rhythm with marked sinus arrhythmia Otherwise normal ECG Compared to ECG 04/15/2021 19:33:04 Atrial fibrillation no longer present Myocardial infarct finding no longer present Electronically Signed On 04-16-21 12:37:36 CDT by Kai Manzano
--- NOTE | 2021-04-16 17:42 | EDPHYS ---
Physician Documentation [facility] Name: Judah Caceres Age: 81 yrs Sex: Female : 1940 Arrival Date: 04/15/2021 Time: 18:48 Bed 17 Private MD: ED Physician Jessee Jorge HPI: 04/15 22:36 This 81 yrs old Female presents to ER via EMS with complaints of fall. jmm 22:36 Details of fall: The patient fell from an upright position, while walking. Onset: The jmm symptoms/episode began/occurred acutely, just prior to arrival. Associated injuries: The patient sustained injury to the head. An 81-year-old female with history of COPD, diabetes mellitus, dementia the presents emerge department after a mechanical fall which occurred just prior to arrival. Daughter states that the patient is easily off balance and was leaning forward and fell forward while getting out of the bathroom. Patient denies loss of consciousness. Denies chest pain, denies shortness of breath.. Historical: - Allergies: 19:00 Cefaclor; ap3 19:00 codeine sulfate; ap3 19:00 Keflex; ap3 19:00 Meperidine; ap3 19:00 NSAIDS; ap3 19:00 Sulfa (Sulfonamide Antibiotics); ap3 - Home Meds: 19:06 Glimepiride Oral [Active]; memantine oral [Active]; methylprednisolone 4 mg Oral tab ap3 [Active]; simvastatin 40 mg Oral tab [Active]; spironolactone 25 mg Oral tab [Active]; Xarelto 10 mg oral tab [Active]; - PMHx: 19:00 Chronic obstructive lung disease; Diabetes mellitus; Dementia; ap3 - Social history:: Smoking status: Patient denies any tobacco usage or history of. ROS: 22:36 Constitutional: Negative for fever, chills, and weight loss, Cardiovascular: Negative jmm for chest pain, palpitations, and edema, Respiratory: Negative for shortness of breath, cough, wheezing, and pleuritic chest pain. 22:36 Neuro: Positive for headache. 22:36 All other systems are negative. Exam: 22:36 Constitutional: This is a well developed, well nourished patient who is awake, alert, jmm and in no acute distress. 22:36 Eyes: EOMI, no conjunctival erythema appreciated ENT: Moist Mucus Membranes Neck: Trachea midline, Supple Chest/axilla: Normal chest wall appearance and motion. Cardiovascular: Regular rate and rhythm. No edema appreciated Respiratory: Normal respirations, no respiratory distress appreciated Abdomen/GI: Non distended, soft Back: Normal ROM Skin: General appearance color normal MS/ Extremity: Moves all extremities, no obvious deformities appreciated, no edema noted to the lower extremities 22:36 Head/face: Right frontal hematoma noted. 22:36 Neuro: Orientation: is normal, Mentation: is normal, Memory: is normal. Vital Signs: 18:54 BP 140 / 68; Pulse 91; Resp 17; ap3 19:46 BP 145 / 68; Pulse 100; Resp 18 S; Pulse Ox 97% on R/A; ad5 20:34 BP 123 / 65; Pulse 93; Resp 17 S; Pulse Ox 98% on R/A; ad5 21:41 Pulse 100; Resp 16 S; Pulse Ox 96% ; ad5 MDM: 18:56 Patient medically screened. adnte 22:33 Data reviewed: vital signs, nurses notes. Counseling: I had a detailed discussion with dante the patient and/or guardian regarding: the historical points, exam findings, and any diagnostic results supporting the discharge/admit diagnosis, lab results, radiology results, the need for outpatient follow up, the need for further work-up and treatment in the hospital, to return to the emergency department if symptoms worsen or persist or if there are any questions or concerns that arise at home. Refusal of service: The patient/guardian displays adequate decision making capability and despite a detailed discussion of alternatives, benefits, risks, and consequences refuses: Admission to the hospital for further work-up and treatment. 04/15 18:48 Order name: Basic Metabolic Panel; Complete Time: 19:54 [facility] 04/15 18:48 Order name: CBC with Diff; Complete Time: 19:34 [facility] 04/15 18:48 Order name: LFT's; Complete Time: 19:54 [facility] 04/15 18:48 Order name: Magnesium; Complete Time: 19:54 [facility] 04/15 18:48 Order name: NT PRO-BNP; Complete Time: 19:54 [facility] 04/15 18:48 Order name: PT-INR; Complete Time: 19:39 [facility] 04/15 18:48 Order name: Troponin (emerg Dept Use Only); Complete Time: 19:54 [facility] 04/15 18:48 Order name: XRAY Chest (1 view); Complete Time: 19:34 [facility] 04/15 18:48 Order name: EKG; Complete Time: 18:49 [facility] 04/15 18:48 Order name: Cardiac monitoring; Complete Time: 19:46 [facility] 04/15 18:48 Order name: EKG - Nurse/Tech; Complete Time: 20:58 [facility] 04/15 18:48 Order name: IV Saline Lock; Complete Time: 19:06 [facility] 04/15 18:48 Order name: Labs collected and sent; Complete Time: 19:06 [facility] 04/15 18:49 Order name: CT Head C Spine; Complete Time: 19:23 [facility] 04/15 18:48 Order name: O2 Per Protocol; Complete Time: 19:06 [facility] 04/15 18:48 Order name: O2 Sat Monitoring; Complete Time: 19:06 [facility] 04/15 20:31 Order name: EKG - Nurse/Tech; Complete Time: 20:58 [facility] Administered Medications: No medications were administered Disposition: 04/16 06:03 Co-signature as Attending Physician, Jessee Jorge MD. rn Disposition Summary: 04/15/21 22:34 Discharge Ordered Location: Home [facility] Condition: Stable [facility] Diagnosis - Head Injury [facility] - Fall [facility] Followup: [facility] - With: Private Physician - When: 2 - 3 days - Reason: Recheck today's complaints, Continuance of care, Re-evaluation by your physician Discharge Instructions: - Discharge Summary Sheet [facility] - Head Injury, Adult [facility] - Fall Prevention in the Home, Adult [facility] Forms: - Medication Reconciliation Form [facility] - Thank You Letter [facility] - Antibiotic Education [facility] - Prescription Opioid Use [facility] Signatures: Dispatcher [employer] EDMS Isiah Sainz PA PA [facility] Jessee Jorge MD MD rn Kellee Palma RN RN ap3 Corrections: (The following items were deleted from the chart) 04/15 19:06 18:58 Allergies: Cefaclor; ap3 ap3 19:06 18:58 Allergies: Codeine; ap3 ap3 19:06 18:58 Allergies: meperidine; ap3 ap3 19: 18:58 Home Meds: tramadol 50 mg Oral tab 1 tab every 4 hours [Inactive]; ap3 ap3 19: 18:58 Home Meds: spironolactone 25 mg Oral tab 1 tab 4 times per day [Inactive]; ap3 ap3 : 18:58 Home Meds: glimepiride 2 mg Oral tab 1 tab once daily [Inactive]; ap3 ap3 : 18:58 Home Meds: esomeprazole magnesium 20 mg Oral cpDR once daily [Inactive]; ap3 ap3 : 18:58 Home Meds: methylprednisolone 4 mg Oral DsPk daily [Inactive]; ap3 ap3 : 18:58 Home Meds: simvastatin 40 mg Oral tab once daily [Inactive]; ap3 ap3 : 18:58 Home Meds: zinc sulfate 220 mg Oral tab daily [Inactive]; ap3 ap3 19: 18:58 Home Meds: calcium vitamin D3 [Inactive]; ap3 ap3 : 18:58 Home Meds: methocarbamol 500 mg Oral tab 3 times a day as needed for muscle ap3 spasms [Inactive]; ap3 : 18:58 PMHx: Back injury; ap3 ap3 : 18:58 PMHx: COPD; ap3 ap3 : 18:58 PMHx: Diabetes - NIDDM; ap3 ap3 : 18:58 PMHx: DVT; ap3 ap3
--- NOTE | 2021-04-16 17:42 | ER ---
Nurse's Notes [facility] Name: Judah Caceres Age: 81 yrs Sex: Female : 1940 Arrival Date: 04/15/2021 Time: 18:48 Bed 17 Private MD: Diagnosis: Head Injury;Fall Presentation: 04/15 18:54 Chief complaint: EMS states: patient had an unwitnessed fall at [facility]. unknown if ap3 patient had any LOC. it is reported patient is on blood thinners. Coronavirus screen: At this time, the client does not indicate any symptoms associated with coronavirus-19. Ebola Screen: No symptoms or risks identified at this time. Initial Sepsis Screen: Does the patient meet any 2 criteria? No. Patient's initial sepsis screen is negative. Does the patient have a suspected source of infection? No. Patient's initial sepsis screen is negative. Risk Assessment: Do you want to hurt yourself or someone else? Patient reports no desire to harm self or others. Onset of symptoms was April 15, 2021. 18:54 Method Of Arrival: EMS: [facility] ap3 18:54 Acuity: AMY 3 ap3 Triage Assessment: 18:56 General: Appears. ap3 Historical: - Allergies: 19:00 Cefaclor; ap3 19:00 codeine sulfate; ap3 19:00 Keflex; ap3 19:00 Meperidine; ap3 19:00 NSAIDS; ap3 19:00 Sulfa (Sulfonamide Antibiotics); ap3 - Home Meds: 19:06 Glimepiride Oral [Active]; memantine oral [Active]; methylprednisolone 4 mg Oral tab ap3 [Active]; simvastatin 40 mg Oral tab [Active]; spironolactone 25 mg Oral tab [Active]; Xarelto 10 mg oral tab [Active]; - PMHx: 19:00 Chronic obstructive lung disease; Diabetes mellitus; Dementia; ap3 - Social history:: Smoking status: Patient denies any tobacco usage or history of. Screenin:56 Abuse screen: Denies threats or abuse. Nutritional screening: No deficits noted. ap3 Tuberculosis screening: No symptoms or risk factors identified. Fall Risk Fall in past 12 months (25 points). Secondary diagnosis (15 points) dementia, IV access (20 points). Ambulatory Aid- Crutches/Cane/Walker (15 pts). Gait- Weak (10 pts.). Mental Status- Overestimates/Forgets Limitations (15 pts.). Total Graham Fall Scale indicates High Risk Score (45 or more points). Fall prevention measures have been instituted. Side Rails Up X 2 Placed Close to Nursing Station Frequent Obs/Assessments Occuring Family Present and informed to notify staff if the need to leave the bedside As available patient and family educated on Fall Prevention Program and Strategies. Assessment: 18:56 General: Appears in no apparent distress. comfortable, Behavior is calm, cooperative, ap3 appropriate for age. Pain: Complains of pain in forehead Pain does not radiate. Neuro: Level of Consciousness is awake, alert, obeys commands, Oriented to person, place, situation, Sub Master are equal bilaterally Gait is unsteady, Speech is normal. Cardiovascular: Denies chest pain, shortness of breath, Capillary refill < 3 seconds. Respiratory: Airway is patent Respiratory effort is even, unlabored, Respiratory pattern is regular, symmetrical. GI: No signs and/or symptoms were reported involving the gastrointestinal system. : No signs and/or symptoms were reported regarding the genitourinary system. EENT: No signs and/or symptoms were reported regarding the EENT system. Derm: Wound noted forehead Wound is head contusion from unwitnessed fall. 19:15 Reassessment: Patient appears in no apparent distress at this time. Patient and/or ad5 family updated on plan of care and expected duration. Pain level reassessed. Patient is alert, oriented x 3, equal unlabored respirations, skin warm/dry/pink. Pt up to restroom via wheelchair, steady/slow gait noted. Pt reports pain to R forehead, denies other c/o at this time. Repositioned back into ED stretcher for comfort, daughter at bedside. Pt VSS. Will continue to monitor. 20:34 Reassessment: Patient appears in no apparent distress at this time. No changes from ad5 previously documented assessment. Patient and/or family updated on plan of care and expected duration. Pain level reassessed. 21:41 Reassessment: Patient appears in no apparent distress at this time. No changes from ad5 previously documented assessment. Patient and/or family updated on plan of care and expected duration. Pain level reassessed. 22:30 Reassessment: Patient appears in no apparent distress at this time. No changes from ad5 previously documented assessment. Pt up to restroom via wheelchair. Repositioned back into room for comfort. VS remain stable. NAD noted, will continue to monitor. Vital Signs: 18:54 BP 140 / 68; Pulse 91; Resp 17; ap3 19:46 BP 145 / 68; Pulse 100; Resp 18 S; Pulse Ox 97% on R/A; ad5 20:34 BP 123 / 65; Pulse 93; Resp 17 S; Pulse Ox 98% on R/A; ad5 21:41 Pulse 100; Resp 16 S; Pulse Ox 96% ; ad5 ED Course: 18:48 Patient arrived in ED. em1 18:48 Isiah Sainz PA is PHCP. [facility] 18:48 Jessee Jorge MD is Attending Physician. [facility] 18:52 Kellee Palma, JEREMI is Primary Nurse. ap3 18:56 Triage completed. ap3 18:58 CT Head C Spine In Process Unspecified. EDMS 18:58 Arm band placed on right wrist. ap3 18:58 Patient has correct armband on for positive identification. Bed in low position. Call ap3 light in reach. Side rails up X2. Pulse ox on. NIBP on. Door closed. Noise minimized. 19:17 XRAY Chest (1 view) In Process Unspecified. EDMS 20:47 Wound care: to abrasion, located on R forehead was cleaned with soap and water, dressed ad5 with non-adherent bandage. 22:49 No provider procedures requiring assistance completed. IV discontinued, intact, ad5 bleeding controlled, No redness/swelling at site. Pressure dressing applied. Administered Medications: No medications were administered Outcome: 22:34 Discharge ordered by . [facility] 22:50 Discharged to snf. Report called to receiving staff at [facility] ad5 22:50 Condition: stable 22:50 Discharge instructions given to patient, family, Instructed on discharge instructions, follow up and referral plans. wound care, Demonstrated understanding of instructions, follow-up care, wound care. 22:50 Patient left the ED. ad5 Signatures: Dispatcher [employer] EDMS Isiah Sainz PA PA Navdeep Torres em1 Kellee Palma, JEREMI RN ap3 Raudel Youssef ad5 Corrections: (The following items were deleted from the chart) 19:06 18:58 Allergies: Cefaclor; ap3 ap3 19: 18:58 Allergies: Codeine; ap3 ap3 19: 18:58 Allergies: meperidine; ap3 ap3 19: 18:58 Home Meds: tramadol 50 mg Oral tab 1 tab every 4 hours [Inactive]; ap3 ap3 19:06 18:58 Home Meds: spironolactone 25 mg Oral tab 1 tab 4 times per day [Inactive]; ap3 ap3 19: 18:58 Home Meds: glimepiride 2 mg Oral tab 1 tab once daily [Inactive]; ap3 ap3 19: 18:58 Home Meds: esomeprazole magnesium 20 mg Oral cpDR once daily [Inactive]; ap3 ap3 19: 18:58 Home Meds: methylprednisolone 4 mg Oral DsPk daily [Inactive]; ap3 ap3 19:06 18:58 Home Meds: simvastatin 40 mg Oral tab once daily [Inactive]; ap3 ap3 19: 18:58 Home Meds: zinc sulfate 220 mg Oral tab daily [Inactive]; ap3 ap3 19: 18:58 Home Meds: calcium vitamin D3 [Inactive]; ap3 ap3 19:06 18:58 Home Meds: methocarbamol 500 mg Oral tab 3 times a day as needed for muscle ap3 spasms [Inactive]; ap3 19:06 18:58 PMHx: Back injury; ap3 ap3 19:06 18:58 PMHx: COPD; ap3 ap3 19: 18:58 PMHx: Diabetes - NIDDM; ap3 ap3 19: 18:58 PMHx: DVT; ap3 ap3 19:47 19:15 Reassessment: Patient appears in no apparent distress at this time. Patient ad5 and/or family updated on plan of care and expected duration. Pain level reassessed. Patient is alert, oriented x 3, equal unlabored respirations, skin warm/dry/pink. Pt up to restroom via wheelchair, steady/slow gait noted. Pt reports pain to L forehead, denies other c/o at this time. Repositioned back into ED stretcher for comfort, daughter at bedside. Pt VSS. Will continue to monitor. ad5
[2021-04-17 14:44] VITALS: BP 123/65
[2021-04-17 14:46] VITALS: O2SAT 96
== END 2021-04-15 22:50 | disposition home or self-care (01) ==
LOC: ER 18:40
DX: S00.83XA Contusion of other part of head, initial encounter (principal); W18.30XA Fall on same level, unspecified, initial encounter; Y93.01 Activity, walking, marching and hiking; E11.9 Type 2 diabetes mellitus without complications; J44.9 Chronic obstructive pulmonary disease, unspecified; F03.90 Unspecified dementia, unspecified severity, without behavioral disturbance, psychotic disturbance, mood disturbance, and anxiety; Z79.01 Long term (current) use of anticoagulants; Z88.1 Allergy status to other antibiotic agents; Z88.2 Allergy status to sulfonamides; Z88.5 Allergy status to narcotic agent; Z88.6 Allergy status to analgesic agent; Z88.8 Allergy status to other drugs, medicaments and biological substances
CPT/HCPCS: 36415; 70450; 71045; 72125; 80048; 80076; 83735; 83880; 84484; 85025; 85610; 93005

== ENCOUNTER 2021-07-25 07:39 | Day surgery (SDC) | payer OTHER ==
[2021-07-09 16:49] LABS: Absolute Lymphocytes (CBC) 2.3 K/uL (0.7-4.9); Basophils % 0.4 % (0-1.3); Hematocrit 36.3 % (36.0-45.0); Lymphocytes % 32.8 % (15.3-44.8); MPV 7.5 fL (7.6-11.3); RBC Red Blood Cell Count 3.92 M/uL (3.86-4.86)
[2021-07-09 17:00] LABS: Potassium 3.9 mmol/L (3.5-5.1)
[~2021-07-25 07:39] MED LIST: HEPARIN 500 UNIT/5 ML SYR IV ONE
[2021-07-25] MEDS ORDERED: HYDROCORTISONE SUC 100 MG INJ ONE (08:11)
[2021-07-25] MEDS ORDERED: CEFAZOLIN/NS 1gm 0 GM/0 ML BAG ONE (08:11)
[2021-07-25] MEDS: NA CHLORIDE 0.9% 1,000 ML ONE (08:27)
[2021-07-25] MEDS ORDERED: propofoL 200 MG/20 ML VIAL IV ONE ×2 (08:41→09:32)
[2021-07-25] MEDS ORDERED: FENTANYL CITR 100 MCG/2 ML ONE (08:41)
[2021-07-25] MEDS ORDERED: BUPIVACAINE 0.5% PF 10 ML VIAL ONE (08:42)
[2021-07-25] MEDS ORDERED: LIDOCAINE 1% MPF 30 ML VIAL ONE ×2 (08:42→08:46)
[2021-07-25] MEDS ORDERED: ONDANSETRON 4 MG/2 ML VIAL ONE (08:42)
[2021-07-25] MEDS ORDERED: CIPROFLOXACIN 400mg IV 400 MG/200 ML BAG IV ONE (08:48)
[2021-07-25 10:38] VITALS: BP 126/56; TEMP 97.7; O2SAT 96
[2021-07-25] MEDS ORDERED: SUCCINYLCHOLINE 20 MG/ML (10 ML) IV ONE (11:20)
--- NOTE | 2021-07-25 20:55 | OP ---
Date of Procedure: 07/25/2021 Surgeon: Beny Suarez MD Rn Psychiatric: SALEEM Holloway. Preoperative Diagnoses: Right forearm ulcerated mass x2, rule out skin cancer. Postoperative Diagnoses: Right forearm ulcerated mass x2, rule out skin cancer. Procedures Performed: 1.Wide excision of right distal forearm skin cancer 8 x 4 cm with layered closure. 2.Wide excision of right proximal forearm skin cancer 6 x 3 cm with layered closure. Estimated Blood Loss: Minimal. Specimen: Right distal forearm and right distal proximal ulcerated masses. Frozen section revealed skin cancer most likely a basal cell on the proximal and mixed basal cell and squamous cell on the di stal. The margins were clear. Finding: As above. Anesthesia: MAC. Complications: None. Disposition: The patient tolerated the procedure in stable condition and taken to Recovery in good g eneral condition. Procedure In Detail: The patient was brought to the OR and placed in supine position. MAC anesthesi a begun. The patient was prepped and draped in the usual sterile fashion. Lidocaine 1% infiltrated locally. A 15-blade was used to make an 8 x 4 cm in the distal forearm around this ulcerated mass th at was approximately 3 cm in diameter. There was raised subcutaneous tissue divided, entire mass exc ised and sent to Pathology. 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 Vy ins free. Wound irrigated. Bleeding controlled with cautery. Her skin was very friable and very th in. Because of her steroid use and it was very difficult to approximate the wound, flaps were create d. Zero chromic was used to approximate subcutaneous tissue, but the skin was very friable; however, 5-0 nylon was used to remove the loosely approximate the skin with slight opening of the wound to av oid too much tension and the skin would tear easily. Subsequently, a 6 x 3 cm incision was made on t he proximal forearm around ulcerated mass that was approximately 2 cm in diameter. Subcutaneous tiss ue divided and the entire lesion excised and sent to Pathology for frozen section, appeared to be a b caterina cell carcinoma with margins free. Then, flaps were created. Wound irrigated. Bleeding control led with cautery and then 0 chromic used to approximate for subcutaneous tissue and 5-0 nylon used to loosely close the skin. Sterile dressing applied. The patient was awakened and taken to recovery r oom in good general condition. Discharge Note: The patient will go to Day Surgery and home when stable. Disposition: Home. Condition: Stable. Discharge Instructions: Resume home medications and diet. Activity as tolerated. No heavy lifting. Keep dressing clean and dry, did not change dressings. Sponge bath only. Ultracet 1 tablet p.o. q .4 p.r.n. pain. Follow up wound healing center 2 weeks. CUCO/MARIA LUISA Voice ID: [id number] Report ID: [id number]
== END 2021-07-25 11:40 | disposition home or self-care (01) ==
LOC: OR 07:39
PROVIDERS: ATTEND Surgery
PROC: 0JBG0ZZ Excision of Right Lower Arm Subcutaneous Tissue and Fascia, Open Approach (ICD-10-PCS; principal; 2021-07-25 09:00)
DX: C44.612 Basal cell carcinoma of skin of right upper limb, including shoulder (principal)
CPT/HCPCS: 85025; 80048; 36415; 82947; 88331 ×2; 88332; 88305; 11606 ×2; J2704 ×2; J0330; J3010; J1642; J7030; J1720; J2405; J0744; J0690

== ENCOUNTER 2021-07-28 19:43 | Inpatient (IN) | payer OTHER ==
[2021-07-28 20:22] LABS: Absolute Lymphocytes (CBC) 2.1 K/uL (0.7-4.9); Basophils % 0.4 % (0-1.3); Hematocrit 36.9 % (36.0-45.0); Lymphocytes % 16.6 % (15.3-44.8); MPV 7.6 fL (7.6-11.3); RBC Red Blood Cell Count 3.96 M/uL (3.86-4.86)
[2021-07-28 20:30] LABS: Protime INR 1.86
[2021-07-28 20:46] LABS: AST/SGOT 19 U/L (15-37); Albumin 2.8 g/dL (3.4-5.0); Alkaline Phosphatase 65 U/L (45-117); BUN Blood Urea Nitrogen 17 mg/dL (7-18); Bicarbonate 30 mmol/L (21-32); Bilirubin Direct 0.1 mg/dL (0-0.2); Bilirubin Total 0.5 mg/dL (0.2-1.0); Creatine Phosphokinase 40 U/L (26-192); Glucose Level 163 mg/dL (74-106); Magnesium 1.9 mg/dL (1.8-2.4); NT PRO-BNP 764 pg/mL (<450); Potassium 3.6 mmol/L (3.5-5.1); Protein, Total 6.5 g/dL (6.4-8.2); Sodium Level 140 mmol/L (136-145); Troponin (Emerg Dept Use Only) < 0.02 ng/mL (0.0-0.045)
[2021-07-28 20:53] LABS: ALT/SGPT 21 U/L (12-78)
--- NOTE | 2021-07-28 21:11 | RAD REPORT ---
EXAM DESCRIPTION: CT - Head C Spine Cap Wo Con - 07/28/2021 8:36 pm TECHNIQUE: Computed axial tomography of the head and cervical spine was obtained. Coronal and sagitt al reconstruction was performed Computed axial tomography of the chest, abdomen and pelvis was obtained. Contrast was not requested. All CT scans are performed using dose optimization technique as appropriate and may include automated exposure control or mA/KV adjustment according to patient size. CLINICAL HISTORY: Head and neck injury with chest and abdominal pain status post fall COMPARISON: January 2021 FINDINGS: An intracranial bleed is not seen. The ventricles are normal in caliber. An extra-axial fluid collection is not noted. . Fluid within the sinuses/mastoids is not seen. Chronic sphenoid opacification A cervical fracture is not seen. No dislocation is noted. The evaluation of mediastinum, yeimy, vessels, solid organs and bowel are limited secondary to the lac k of contrast administration. A mediastinal hematoma is not noted. A pleural effusion is not seen. A lung contusion is not present. Old sternal fracture. Old left clavicular fracture. The liver,spleen, pancreas, adrenals,kidneys and bladder do not demonstrate a traumatic injury. Cholelithiasis without gallbladder wall thickening. Old lumbar vertebral fractures. IMPRESSION: 1. No acute intracranial abnormality is seen. 2. A cervical fracture is not visualized. If the patient continues have symptoms to suggest intracran ial/spinal cord pathology MRI be recommended 3. No acute traumatic abnormality involving the chest/abdomen/pelvis.
--- NOTE | 2021-07-28 21:13 | RAD REPORT ---
EXAM DESCRIPTION: Imelda Single View07/28/2021 8:58 pm CLINICAL HISTORY: Chest pain COMPARISON: March 2021 FINDINGS: The lungs appear clear of acute infiltrate. The heart is normal size. Old left clavicular fracture IMPRESSION: No acute abnormalities displayed
--- NOTE | 2021-07-28 21:14 | RAD REPORT ---
EXAM DESCRIPTION: RAD -Hand Left 3 View - 07/28/2021 8:59 pm CLINICAL HISTORY: Left hand pain status post injury FINDINGS: No fracture or dislocation is seen.
[2021-07-28] MEDS ORDERED: METOPROLOL TARTRATE 5 MG/5 ML INJ IV ONE (21:26)
--- NOTE | 2021-07-28 21:36 | EDPHYS ---
Physician Documentation [facility] Name: Judah Caceres Age: 81 yrs Sex: Female : 1940 Arrival Date: 07/28/2021 Time: 19:46 Bed 8 Private MD: ED Physician Torrey Dean HPI: 07/28 20:00 This 81 yrs old Female presents to ER via EMS with complaints of Fall Injury, mh7 Head Injury-Adult. 20:00 Details of fall: The patient fell from an upright position, while standing. Onset: The mh7 symptoms/episode began/occurred today. Associated injuries: The patient sustained injury to the head, contusion. Severity of symptoms: At their worst the symptoms were moderate, earlier today, in the emergency department the symptoms have improved, markedly. 20:00 Patient found on floor at assisted living center. She does not remember events mh7 surrounding fall. EMS noted that she had atrial fibrillation at scene.. Historical: - Allergies: 19:56 Cefaclor; em 19:56 codeine sulfate; em 19:56 Keflex; em 19:56 meperidine; em 19:56 NSAIDS; em 19:56 Sulfa (Sulfonamide Antibiotics); em - Home Meds: 07/29 00:14 Glimepiride Oral [Active]; memantine Oral [Active]; methylprednisolone 4 mg Oral tab mr2 [Active]; simvastatin 40 mg Oral tab [Active]; Xarelto 10 mg Oral tab [Active]; - PMHx: 07/28 19:56 Chronic obstructive lung disease; Dementia; diabetes mellitus; em - Immunization history: Last tetanus immunization: unknown. - Social history:: Smoking status: Patient denies any tobacco usage or history of. ROS: 20:00 Constitutional: Negative for fever, chills, and weight loss, Eyes: Negative for injury, mh7 pain, redness, and discharge, ENT: Negative for injury, pain, and discharge, Neck: Negative for injury, pain, and swelling, Respiratory: Negative for shortness of breath, cough, wheezing, and pleuritic chest pain, Abdomen/GI: Negative for abdominal pain, nausea, vomiting, diarrhea, and constipation, Back: Negative for injury and pain, : Negative for injury, bleeding, discharge, and swelling, Neuro: Negative for headache, weakness, numbness, tingling, and seizure, Psych: Negative for depression, anxiety, suicide ideation, homicidal ideation, and hallucinations, Allergy/Immunology: Negative for hives, rash, and allergies, Endocrine: Negative for neck swelling, polydipsia, polyuria, polyphagia, and marked weight changes, Hematologic/Lymphatic: Negative for swollen nodes, abnormal bleeding, and unusual bruising. Exam: 20:00 Constitutional: This is a well developed, well nourished patient who is awake, alert, mh7 and in no acute distress. Head/Face: Normocephalic, atraumatic. Eyes: Pupils equal round and reactive to light, extra-ocular motions intact. Lids and lashes normal. Conjunctiva and sclera are non-icteric and not injected. Cornea within normal limits. Periorbital areas with no swelling, redness, or edema. ENT: Nares patent. No nasal discharge, no septal abnormalities noted. Tympanic membranes are normal and external auditory canals are clear. Oropharynx with no redness, swelling, or masses, exudates, or evidence of obstruction, uvula midline. Mucous membranes moist. Neck: Trachea midline, no thyromegaly or masses palpated, and no cervical lymphadenopathy. Supple, full range of motion without nuchal rigidity, or vertebral point tenderness. No Meningismus. Chest/axilla: Normal chest wall appearance and motion. Nontender with no deformity. No lesions are appreciated. 20:00 Respiratory: Lungs have equal breath sounds bilaterally, clear to auscultation and percussion. No rales, rhonchi or wheezes noted. No increased work of breathing, no retractions or nasal flaring. Abdomen/GI: Soft, non-tender, with normal bowel sounds. No distension or tympany. No guarding or rebound. No evidence of tenderness throughout. Back: No spinal tenderness. No costovertebral tenderness. Full range of motion. 20:00 Neuro: Awake and alert, GCS 15, oriented to person, place, time, and situation. Cranial nerves II-XII grossly intact. Motor strength 5/5 in all extremities. Sensory grossly intact. Cerebellar exam normal. Normal gait. Psych: Awake, alert, with orientation to person, place and time. Behavior, mood, and affect are within normal limits. 20:00 Cardiovascular: Rate: tachycardic, Rhythm: irregularly irregular, Pulses: no pulse deficits are appreciated, Heart sounds: normal, normal S1and S2, Edema: is not appreciated, JVD: is not appreciated. 20:00 Musculoskeletal/extremity: Extremities: noted in the left hand: abrasion, ROM: intact in all extremities, Circulation is intact in all extremities. Sensation intact. Compartment Syndrome exam of affected extremity: is normal. no pain, no numbness, no tingling, no sensation deficit, no palor, no weak pulses, Joints: All joints appear normal with full range of motion. Tendon exam: specific tendon testing normal through active and passive range of motion 20:00 Skin: injury, abrasion(s), small abrasion noted, of the left hand. Vital Signs: 19:50 BP 198 / 89; Pulse 122; Resp 20; Temp 98.9; Pulse Ox 98% on R/A; em 07/29 00:07 BP 112 / 65; Pulse 90; Resp 17; Temp 98.3; Pulse Ox 97% on R/A; mr2 Martell Coma Score: 07/28 19:50 Eye Response: spontaneous(4). Verbal Response: oriented(5). Motor Response: obeys em commands(6). Total: 15. Trauma Score (Adult): 19:50 Eye Response: spontaneous(1); Verbal Response: oriented(1); Motor Response: obeys em commands(2); Systolic BP: > 89 mm Hg(4); Respiratory Rate: 10 to 29 per min(4); Martell Score: 15; Trauma Score: 12 MDM: 21:34 Differential diagnosis: abrasion, closed head injury, contusion, fracture, sprain. mh7 Differential diagnosis: Fall, syncope, atrial fibrillation with RVR. Data reviewed: vital signs, nurses notes, EMS record, old medical records, lab test result(s), cardiac enzymes, CBC, electrolytes, EKG, radiologic studies, CT scan, plain films. Data interpreted: Pulse oximetry: on room air is 98 %. Interpretation: normal. Counseling: I had a detailed discussion with the patient and/or guardian regarding: the historical points, exam findings, and any diagnostic results supporting the discharge/admit diagnosis, the presence of at least one elevated blood pressure reading (>120/80) during this emergency department visit, lab results, radiology results, the need for further work-up and treatment in the hospital. Response to treatment: the patient's symptoms have markedly improved after treatment. 21:36 Patient medically screened. [facility] 07/28 19:50 Order name: Basic Metabolic Panel; Complete Time: 21:15 07/28 19:50 Order name: CBC with Diff; Complete Time: 21:15 07/28 19:50 Order name: LFT's; Complete Time: 21:15 07/28 19:50 Order name: Magnesium; Complete Time: 21:15 07/28 19:50 Order name: NT PRO-BNP; Complete Time: 21:15 07/28 19:50 Order name: PT-INR; Complete Time: 21:15 07/28 19:50 Order name: Troponin (emerg Dept Use Only); Complete Time: 21:15 07/28 20:23 Order name: CPK [facility] 07/28 20:26 Order name: Creatine Phosphokinase; Complete Time: 21:15 [facility] 07/28 21:38 Order name: COVID-19 SARS RT PCR (Document "Date of Onset" if Symptomatic); Complete tt3 Time: 00:04 07/28 21:45 Order name: CBC with Automated Diff [facility] 07/28 21:45 Order name: CBC with Automated Diff [facility] 07/28 21:45 Order name: Comprehensive Metabolic Panel [facility] 07/28 19:50 Order name: XRAY Chest (1 view); Complete Time: 21:15 07/28 19:50 Order name: EKG; Complete Time: 19:51 07/28 19:50 Order name: Cardiac monitoring; Complete Time: 20:04 07/28 19:50 Order name: EKG - Nurse/Tech; Complete Time: 20:04 07/28 19:50 Order name: IV Saline Lock; Complete Time: 20:04 07/28 19:50 Order name: Labs collected and sent; Complete Time: 20:04 07/28 20:16 Order name: CT Traumagram (Head C Spine CAP wo con); Complete Time: 21:15 [facility] 07/28 20:16 Order name: Hand Left 3 View XRAY; Complete Time: 21:19 [facility] 07/28 21:45 Order name: 60g Consistent Carbohydrate (ADA 1800/2000) [facility] 07/28 21:45 Order name: Comprehensive Metabolic Panel [facility] 07/28 21:45 Order name: Troponin I [facility] 07/28 21:45 Order name: Troponin I [facility] 07/28 21:45 Order name: Troponin I [facility] 07/28 19:50 Order name: O2 Per Protocol; Complete Time: 20:04 07/28 19:50 Order name: O2 Sat Monitoring; Complete Time: 20:04 07/28 21:20 Order name: Urine Dipstick-Ancillary (obtain specimen) [facility] Administered Medications: 21:31 Drug: Lopressor (metoprolol) 5 mg Route: IVP; Site: left antecubital; mr2 23:02 Drug: Eliquis (apixaban) 5 mg Route: PO; mr2 23:02 Drug: Toprol XL 25 mg Route: PO; mr2 Disposition Summary: 07/28/21 21:36 Hospitalization Ordered Hospitalization Status: Inpatient Admission [facility] Provider: Kiara Pierre Location: Telemetry/MedSurg (Inpatient) [facility] Condition: Stable [facility] Problem: new [facility] Symptoms: have improved [facility] Bed/Room Type: Standard [facility] Room Assignment: 208(07/28/21 23:28) Diagnosis - Fall, Possible Syncope [facility] - Unspecified atrial fibrillation [facility] Forms: - Medication Reconciliation Form [facility] - SBAR form [facility] Signatures: Dispatcher [employer] [facility] Lyubov Hirsch RN RN James Clifford RN Torrey Salvador MD MD [facility] Yobani Barraza RN RN mr2 Corrections: (The following items were deleted from the chart) 20:26 20:24 Creatine Phosphokinase ordered. [facility] 23:28 21:36 [facility]
--- NOTE | 2021-07-28 21:36 | ER ---
Nurse's Notes [facility] Name: Judah Caceres Age: 81 yrs Sex: Female : 1940 Arrival Date: 07/28/2021 Time: 19:46 Bed 8 Private MD: Diagnosis: Fall, Possible Syncope;Unspecified atrial fibrillation Presentation: 07/28 19:50 Chief complaint: EMS states: called out for a fall and was found on the floor, pt does em not remember falling, unknown LOC or injury to the head, on scene pt was found to have Afib, assisted living does not have any history on pt, pt is A\T\Ox1 on scene, pt was placed in c-collar and backboard for transportation, pt reports back pain, given 50 mcg fentanyl BOBBIN STRIPPER, pt is A\T\O x 3 on arrival. Care prior to arrival: Cervical collar in place. Placed on backboard. Mechanism of Injury: Fall an unknown distance. Trauma event details: Injury occurred in the [facility]. 19:50 Acuity: AMY 2 em 19:50 Method Of Arrival: EMS: [facility] em 20:00 Care prior to arrival: None. mr2 20:00 Coronavirus screen: Vaccine status: Patient reports receiving the 2nd dose of the covid mr2 vaccine. Ebola Screen: No symptoms or risks identified at this time. Initial Sepsis Screen: Does the patient meet any 2 criteria? No. Patient's initial sepsis screen is negative. Does the patient have a suspected source of infection? No. Patient's initial sepsis screen is negative. Risk Assessment: Do you want to hurt yourself or someone else? Patient reports no desire to harm self or others. Onset of symptoms was July 28, 2021. Trauma Activation: Physician: ED Physician; Name: yasmeen; Notified At: ; Arrived At: Physician: General Surgeon; Name: ; Notified At: ; Arrived At: Physician: Radiology; Name: ; Notified At: ; Arrived At: Physician: Respiratory; Name: ; Notified At: ; Arrived At: Physician: Lab; Name: ; Notified At: ; Arrived At: Historical: - Allergies: 19:56 Cefaclor; em 19:56 codeine sulfate; em 19:56 Keflex; em 19:56 meperidine; em 19:56 NSAIDS; em 19:56 Sulfa (Sulfonamide Antibiotics); em - Home Meds: 07/29 00:14 Glimepiride Oral [Active]; memantine Oral [Active]; methylprednisolone 4 mg Oral tab mr2 [Active]; simvastatin 40 mg Oral tab [Active]; Xarelto 10 mg Oral tab [Active]; - PMHx: 07/28 19:56 Chronic obstructive lung disease; Dementia; diabetes mellitus; em - Immunization history: Last tetanus immunization: unknown. - Social history:: Smoking status: Patient denies any tobacco usage or history of. Screenin:50 Abuse screen: no apparent signs noted. Tuberculosis screening: No symptoms or risk em factors identified. 07/29 00:13 Nutritional screening: No deficits noted. Fall Risk. mr2 Primary Survey: 07/28 19:50 NO uncontrolled hemorrhage observed. Breathing/Chest: Respiratory pattern: regular. em Circulation: Skin color: pink. Disability Alert. Exposure/Environment: There is no evidence of uncontrolled external bleeding. 20:30 Reassessment Breathing/Chest Respiratory pattern Regular. mr2 Secondary Survey: 20:00 HEENT: No deficits noted. Gastrointestinal: No deficits noted. : No deficits noted. mr2 Musculoskeletal: No deficits noted. Assessment: 19:50 General: Appears in no apparent distress. uncomfortable, Behavior is calm, cooperative. em Pain: Complains of pain in back. Neuro: Level of Consciousness is awake, alert. Cardiovascular: Capillary refill < 3 seconds Patient's skin is warm and dry. Respiratory: Airway is patent Respiratory effort is even, unlabored, Respiratory pattern is regular, symmetrical. Derm: Skin is fragile, is thin, Skin is pink, warm \T\ dry. small skin tear noted to the left wrist and bandage applied to right forearm BOBBIN STRIPPER, pt reports pain in right forearm. Vital Signs: 19:50 BP 198 / 89; Pulse 122; Resp 20; Temp 98.9; Pulse Ox 98% on R/A; em 07/29 00:07 BP 112 / 65; Pulse 90; Resp 17; Temp 98.3; Pulse Ox 97% on R/A; mr2 Roxy Coma Score: 07/28 19:50 Eye Response: spontaneous(4). Verbal Response: oriented(5). Motor Response: obeys em commands(6). Total: 15. Trauma Score (Adult): 19:50 Eye Response: spontaneous(1); Verbal Response: oriented(1); Motor Response: obeys em commands(2); Systolic BP: > 89 mm Hg(4); Respiratory Rate: 10 to 29 per min(4); [place] Score: 15; Trauma Score: 12 ED Course: 19:46 Patient arrived in ED. cf2 19:47 Torrey Dean MD is Attending Physician. 7 19:50 Patient has correct armband on for positive identification. Placed in gown. Bed in low em position. Call light in reach. Side rails up X2. 19:52 Yobani Barraza, JEREMI is Primary Nurse. mr2 19:54 Triage completed. em 19:56 Arm band placed on. em 20:00 Inserted Patient admitted, IV remains in place. mr2 20:00 Thermoregulation: warm blanket given to patient. mr2 20:04 Basic Metabolic Panel Sent. dc2 20:04 CBC with Diff Sent. dc2 20:04 LFT's Sent. dc2 20:04 Magnesium Sent. dc2 20:04 NT PRO-BNP Sent. dc2 20:04 PT-INR Sent. dc2 20:04 Troponin (emerg Dept Use Only) Sent. dc2 20:04 XRAY Chest (1 view) Sent. dc2 20:30 Patient maintains SpO2 saturation greater than 95% on room air. mr2 20:36 CT Traumagram (Head C Spine CAP wo con) In Process Unspecified. EDMS 20:58 XRAY Chest (1 view) In Process Unspecified. EDMS 20:58 Hand Left 3 View XRAY In Process Unspecified. EDMS 21:35 Kiara Pierre MD is Hospitalizing Provider. 7 11 00:11 No provider procedures requiring assistance completed. mr2 Administered Medications: 07/28 21:31 Drug: Lopressor (metoprolol) 5 mg Route: IVP; Site: left antecubital; mr2 23:02 Drug: Eliquis (apixaban) 5 mg Route: PO; mr2 23:02 Drug: Toprol XL 25 mg Route: PO; mr2 Intake: 20:45 PO: 0ml; Total: 0ml. mr2 Output: 20:45 Urine: 150ml (Voided); Total: 150ml. mr2 Outcome: 21:36 Decision to Hospitalize by Provider. mh7 21:36 Admitted to Med/surg mr2 21:36 Condition: stable 21:36 Patient's length of stay was not longer than 2 hours. mr2 07/29 00:45 Patient left the ED. tt3 Signatures: Dispatcher [employer] EDJames Villegas, RN RN Dominik Pickett 2 Torrey Dean MD MD 7 Musa Boo tt3 Yobani Barraza RN RN 2 Crystal Whyte RN RN co2
[2021-07-28] MEDS ORDERED: ONDANSETRON 4 MG/2 ML VIAL IV PRN (21:39)
[2021-07-28] MEDS ORDERED: ACETAMINOPHEN 500 MG TAB PO PRN (21:39)
[2021-07-28] MEDS ORDERED: MORPHINE 2 MG/ML SYR IV PRN (21:39)
[2021-07-28] MEDS ORDERED: NA CHLORIDE 0.9% 1,000 ML IV SCH (22:00)
[2021-07-29 03:39] VITALS: BMI 20.1
[2021-07-29 05:29] LABS: Absolute Lymphocytes (CBC) 2.2 K/uL (0.7-4.9); Basophils % 0.5 % (0-1.3); Hematocrit 34.4 % (36.0-45.0); Lymphocytes % 20.3 % (15.3-44.8); MPV 7.7 fL (7.6-11.3)
[2021-07-29 05:47] LABS: Albumin 2.4 g/dL (3.4-5.0); Bilirubin Total 0.6 mg/dL (0.2-1.0); Potassium 3.4 mmol/L (3.5-5.1)
[2021-07-29] MEDS ORDERED: POTASSIUM CL SA 10 MEQ TAB PO ONE (06:59)
[2021-07-29] MEDS: INSULIN -REGULAR HUMAN 50 UNIT/0.5 ML ML SQ SCH ×4 (07:30→21:00)
[2021-07-29] MEDS: MEMANTINE HCL 10 MG TABLET PO SCH ×2 (08:45→20:59)
[2021-07-29] MEDS: PANTOPRAZOLE 40MG TABLET PO SCH (08:45)
[2021-07-29] MEDS: RIVAROXABAN 15 MG TABLET PO SCH (08:46)
[2021-07-29] MEDS ORDERED: SPIRONOLACTONE 25 MG TABLET PO SCH (09:00)
[2021-07-29] MEDS: methylPREDNISolone 4 MG TAB PO SCH (10:03)
[2021-07-29] MEDS ORDERED: RIVAROXABAN 15 MG TABLET PO SCH (17:00)
[2021-07-29] MEDS: METOPROLOL TAR 25 MG TAB PO SCH (17:35)
--- NOTE | 2021-07-29 18:25 | EKG ---
Test Date: 2021-07-28 Test Time: 20:06:33 Grant Specialist: KETTY MEASUREMENT RESULTS: Intervals: Rate: 113 ID: QRSD: [id number] QT: 344 QTc: 471 [place]: P: ID: [id number] T: 53 INTERPRETIVE STATEMENTS: Atrial fibrillation with rapid ventricular response Junctional ST depression, probably normal Abnormal ECG Compared to ECG 04/15/2021 21:23:03 ST (T wave) deviation now present Sinus rhythm no longer present Sinus arrhythmia no longer present Electronically Signed On 07-29-21 18:23:33 [employer]URING [employer] by Kai Manzano
[2021-07-29] MEDS: ATORVASTATIN 20 MG TAB PO SCH (20:59)
[2021-07-30] MEDS: PANTOPRAZOLE 40MG TABLET PO SCH (06:01)
[2021-07-30] MEDS: METOPROLOL TAR 25 MG TAB PO SCH ×2 (06:01→17:45)
[2021-07-30] MEDS: INSULIN -REGULAR HUMAN 50 UNIT/0.5 ML ML SQ SCH ×4 (07:30→20:32)
[2021-07-30] MEDS: MEMANTINE HCL 10 MG TABLET PO SCH ×2 (09:00→20:32)
[2021-07-30] MEDS: methylPREDNISolone 4 MG TAB PO SCH (09:00)
[2021-07-30] MEDS: RIVAROXABAN 15 MG TABLET PO SCH (09:15)
--- NOTE | 2021-07-30 09:53 | RAD REPORT ---
EXAM DESCRIPTION: RAD - Chest Single View - 07/30/2021 8:20 am CLINICAL HISTORY: R/O CHF Chest pain. COMPARISON: Chest Single View dated 07/28/2021; Chest Single View dated 04/15/2021; Chest Single View dated 02/09/2021; Chest Single View dated 02/21/2019 FINDINGS: Portable technique limits examination quality. The lungs are grossly clear. The heart is normal in size. No displaced fractures. IMPRESSION: No acute intrathoracic process suspected.
--- NOTE | 2021-07-30 15:12 | HP ---
Date of Admission: 07/28/2021 Chief Complaint: Fall. History Of Present Illness: This is an 81-year-old female patient, who lives at [facility] re Living, was found on the floor for unknown amount of time. The patient was brought into the emerg ency room. She denies any pain anywhere from this, and we really do not know whether she fell down o r she just got down on the floor and could not get up. After she arrived in emergency room, she was found to have atrial fibrillation with rapid ventricular rate. Hemodynamically, she was stable. The patient was admitted to the hospital for further evaluation and management of this problem. She was given anticoagulation therapy last night as well as one dose of IV Lopressor was given in ER and met oprolol 25 mg p.o. x1 dose was ordered, to be given last night when ER physician contacted me. Also advised the ER physician to give Eliquis 5 mg p.o. x1 dose, last night. The patient denies any chest pain, shortness of breath. No nausea, vomiting, diarrhea. Allergies: SULFA, CEPHALEXIN, CODEINE, DEMEROL, AND NONSTEROIDAL ANTI-INFLAMMATORY MEDICATIONS THAT IS NSAIDS. NSAIDS CAUSES DIARRHEA AND CAUSES NAUSEA AND VOMITING. DEMEROL ALSO CAUSES NAUSEA AND VO MITING. Medications: She takes tramadol 50 mg four times a day as needed for pain; spironolactone 25 mg robert y; simvastatin 40 mg daily; in the evening time, Xarelto 10 mg daily; methylprednisolone 4 mg daily; methocarbamol 500 mg three times a day as needed for back pain; Memantine 5 mg two times a day; Imodi um one tablet 2 times a day as needed for diarrhea; glimepiride 2 mg one tablet by mouth daily in mor mitchell with breakfast; Nexium 20 mg daily; Caltrate+D one tablet 2 times a day; Tylenol as needed. Review of Systems: Cardiovascular: As mentioned above. Constitutional: As mentioned above. RESEARCH ANTHROPOLOGIST: Impaired memory. All other systems reviewed and negative. Past Medical History: Significant for restless leg syndrome; type 2 diabetes mellitus; hypertension; mixed hyperlipidemia; gastroesophageal reflux disease; osteoarthritis at multiple sites; rheumatoid arthritis; polymyalgia rheumatica; prior history of DVT of leg and hypercoagulable state for which dayo moraes is on chronic anticoagulation therapy. Past Surgical History: Tonsillectomy, appendectomy, back surgery, and removal of Vogel's neuroma. Family History: Father , had heart disease. Mother , had Alzheimer's disease and DVT. Brot her, coronary artery disease. Son has hypertension and daughter also has hypertension. Social History: Negative for smoking and alcohol use. Immunization History: Her first dose of COVID-19 vaccine was on September 27, 2020, and second dose on October 18, 2020. Physical Examination: Vital Signs: Temperature 96.8, pulse is 71, respiratory rate 19, blood pressure 115/55, oxygen satur ation 100%. Height 5 feet 6 inches, weight 125 pounds. General: Awake, alert, oriented, not in distress. HEENT: Head atraumatic, normocephalic. Conjunctivae nonerythematous. Sclerae white. Mouth, no thr ush or edema noted. Ears/Nose, no mass, lesion, discharge noted. Neck: Supple. No JVD, lymph nodes, bruit, thyromegaly noted. Lungs: Bilateral good equal air entry. Clear to auscultation. No rhonchi. No rales. Heart: Normal heart sounds, no murmur or gallop. Abdomen: Soft, bowel sounds normal. No guarding, rigidity, tenderness, mass, hepatosplenomegaly, dis tention, or bruit noted. Extremities: Right upper extremity has surgical dressing present, which was done by Dr. Suarez for re moval of skin cancer. No leg edema. No calf tenderness. Skin: No rash, ulcer, cellulitis. Lymphatics: No lymph node enlargement in neck, supraclavicular, infraclavicular region. Neuro: No focal neurological deficit. Chest: Unremarkable. External Genitalia: Deferred. Rectal: Deferred. Labs: Yesterday, white count 12.7, hemoglobin 12, platelets 146. Today, white count 10.9, hemoglobi n 11.5, platelets 130. Yesterday, sodium 140, potassium 3.6, chloride 106, bicarb 30, BUN 17, creati nine 1.03, glucose 163. Liver function tests unremarkable. Troponin less than 0.02. This morning, sodium 141, potassium 3.4, chloride 106, bicarb 30, BUN 15, creatinine 0.87, glucose 95. Liver funct ion tests unremarkable. COVID-19 test negative. INR 1.86. CAT scan of the head, C-spine, chest, ab domen, pelvis per Trauma protocol, shows no acute intracranial abnormality. No evidence of cervical fracture. No acute traumatic abnormality involving chest, abdomen, or pelvis. X-ray of left hand, n o evidence of fracture. Chest x-ray, no acute cardiopulmonary changes. Impression: 1.Atrial fibrillation with rapid ventricular rate, new onset. 2.Hypertension. 3.Mixed hyperlipidemia. 4.Type 2 diabetes mellitus. 5.Gastroesophageal reflux disease. 6.Osteoarthritis, multiple sites. 7.Chronic steroid therapy. 8.Polymyalgia rheumatica. 9.Hypercoagulable state, primary. 10.Rheumatoid arthritis. 11.Chronic anticoagulation therapy. We will admit the patient to hospital for further evaluation and management of this problem. [facility] and is expected to spend 2 midnights in hospital. She takes Xarelt o at home which is 10 mg due to her multiple episodes of DVT and primary hypercoagulable state and si nce she has been on chronic anticoagulation, she has not had any recurrence of DVT. Her creatinine c learance is between 37-40 and she would qualify for Xarelto 15 mg daily dose for atrial fibrillation because of creatinine clearance being less than 55. So what we will do is increase the dose of Xarel to from her usual 10 mg daily maintenance dose up to 15 mg daily. We will use beta arabella for rate control. Consult Cardiology, and echocardiogram was ordered. Dr. Manzano called and informed me graham crowe after echocardiogram was done that her ejection fraction is around 45% and from his point of view, the patient can go home at any time. As of this afternoon, she was still in atrial fibrillation wit h rapid ventricular rate with heart rate between 110-120, and we will go ahead and try to have better control over her heart rate with beta arabella therapy. Continue anticoagulation therapy. Home medi cations will be continued per order, except will discontinue her spironolactone and use metoprolol 25 mg two times a day. I will see her tomorrow for followup. Possible discharge to go home tomorrow d epending on her condition. ARSALAN/MODL Voice ID: [id number]
[2021-07-30] MEDS: ATORVASTATIN 20 MG TAB PO SCH (20:30)
--- NOTE | 2021-07-30 20:42 | PN ---
Date of Progress Note: 07/30/2021 Subjective: The patient was seen this morning for followup. She was lying in bed, not in any distre ss. Denies any complaints overnight. Objective: Vital Signs: Reviewed. HEENT: Unremarkable. Lungs: Clear to auscultation. Heart: Heart sounds normal. Abdomen: Soft. Bowel sounds normal. No guarding, rigidity, tenderness, distention. Extremities: No leg edema. Impression: 1.Paroxysmal atrial fibrillation and congestive heart failure. 2.Type 2 diabetes mellitus. 3.Acute respiratory failure secondary to congestive heart failure. 4.Hypoxia. Plan: The patient was on oxygen 3 L/minute nasal cannula oxygen when I saw her this morning. I redu gladys her oxygen down to 1 L and oxygen saturation after about 30-40 minutes on 1 L nasal cannula was 9 4% and after another 30-40 minutes when we discontinued her oxygen completely, her saturation dropped down to 87%. This is what happened last night as well. So with this in mind, the patient was place d back on oxygen at 2 L per minute nasal cannula oxygen and Social Service was consulted requesting t o make arrangements for home oxygen upon discharge. The patient will need to use oxygen 2 L/minute n caterina cannula all the time. Her echocardiogram had shown an ejection fraction 45%. Repeat chest x-ra y done today came back unremarkable. We will continue current anticoagulation therapy and metoprolol and I will see her tomorrow for followup, possible discharge to go home tomorrow. ARSALAN/MODL Voice ID: [id number] Report ID: [id number]
[2021-07-31] MEDS: METOPROLOL TAR 25 MG TAB PO SCH (05:30)
[2021-07-31] MEDS: PANTOPRAZOLE 40MG TABLET PO SCH (05:30)
--- NOTE | 2021-07-31 06:53 | ECHO ---
HEIGHT: 5 ft 6 in WEIGHT: 125 lb 0 oz DATE OF STUDY: 07/29/[address]: Geoff Pierre MD 2-DIMENSIONAL: YES M.MODE: YES DOPPLER: YES COLOR FLOW: YES TDS: PORTABLE: DEFINITY: BUBBLE STUDY: DIAGNOSIS: ATRIAL FIBRILLATION CARDIAC HISTORY: CATHERIZATION: NO SURGERY: NO PROSTHETIC VALVE: NO PACEMAKER: NO MEASUREMENTS (cm) DIASTOLIC (NORMALS) SYSTOLIC (NORMALS) IVSd 1.0 (0.6-1.2) LA Diam 3.0 (1.9-4.0) LVEF 44% LVIDd 4.2 (3.5-5.7) LVIDs 3.3 (2.0-3.5) %FS 22% LVPWd 1.1 (0.6-1.2) Ao Diam 2.8 (2.0-3.7) 2 DIMENSIONAL ASSESSMENT: RIGHT ATRIUM: LEFT ATRIUM: NORMAL RIGHT VENTRICLE: NORMAL LEFT VENTRICLE: NORMAL TRICUSPID VALVE: NORMAL MITRAL VALVE: MITRAL ANNULAR CALCIFICATION PULMONIC VALVE: NORMAL AORTIC VALVE: SCLEROSIS PERICARDIAL EFFUSION: NONE AORTIC ROOT: NORMAL LEFT VENTRICULAR WALL MOTION: NORMAL DOPPLER/COLOR FLOW: NORMAL COMMENTS: MITRAL ANNULAR CALCIFICATION. AORTIC SCLEROSIS - NO STENOSIS. NORMAL LEFT VENTRICULAR SIZE AND FUNCTION. NO THROMBUS TECHNOLOGIST: RIKKI EDEN
[2021-07-31] MEDS ORDERED: FUROSEMIDE 20 MG/ 2ML VIAL IV ONE (07:22)
[2021-07-31] MEDS: INSULIN -REGULAR HUMAN 50 UNIT/0.5 ML ML SQ SCH ×2 (07:30→12:41)
[2021-07-31] MEDS: methylPREDNISolone 4 MG TAB PO SCH (08:45)
[2021-07-31] MEDS: RIVAROXABAN 15 MG TABLET PO SCH (08:45)
[2021-07-31] MEDS: MEMANTINE HCL 10 MG TABLET PO SCH (08:45)
[2021-07-31 08:55] LABS: Magnesium 2.1 mg/dL (1.8-2.4); Potassium 4.2 mmol/L (3.5-5.1)
[2021-07-31 12:34] VITALS: BP 136/63; TEMP 97.4
[2021-07-31 16:19] VITALS: O2SAT 94
--- NOTE | 2021-08-01 18:47 | DS ---
Date of Discharge: 07/31/2021 Disposition: Discharged to go to [facility]. Physical Examination: HEENT: Unremarkable. Lungs: Bilateral good equal air entry with presence of rales noted in lower lung hebert. Not using any accessory muscles of respiration. Heart: Sounds normal. Abdomen: Soft, bowel sounds normal. No guarding, rigidity, tenderness, or distention. Extremities: No leg edema. Discharge Medications And Instructions: 1.Continue all prior home medication except stop spironolactone and stop Xarelto 10 mg. 2.Start taking following new medications: a.Xarelto 15 mg daily with evening meal. b.Metoprolol tartrate 25 mg take 1 tablet by mouth 2 times a day. c.Furosemide 20 mg by mouth daily. d.Potassium chloride 20 mEq by mouth daily. e.Use oxygen 2 L/minute nasal cannula all the time. f.Followup at my office on 08/05/2021. Call office for appointment. Laboratory Data: Labs done during this hospitalization: Today, sodium 142, potassium 4.2, chloride 107, bicarb 29, BUN 23, creatinine 0.87, glucose 158, proBNP 955. On 07/29/2021, potassium was 3.4. Her TSH 1.06 done during this hospitalization. Serum albumin 2.4. Initial white count 12.7, hemogl obin 12, platelets 146. Repeat white count 10.9, hemoglobin 11.5, platelets 134. Hospital Course: This is an 81-year-old female patient who was admitted to the hospital after she wa s brought into emergency room from [facility]. Please see dictated H and P for more info rmation. The patient was found on the floor for unknown amount of time at the assisted care facility and after she was brought into emergency room, she was noted to have new onset atrial fibrillation w ith rapid ventricular rate. Cardiology consultation was obtained from Dr. Manzano. Her echocardiogr am done during this hospitalization revealed low ejection fraction of 45%. She normally takes Xarelt o 10 mg daily as her maintenance medication for hypercoagulable state, but in view of this atrial fib rillation, we increased the dose to 15 mg daily. The patient does qualify for 15 mg dose of Xarelto on basis of her creatinine clearance. Physical therapy was consulted. The patient was started on me toprolol and Dr. Baradhi did not have any other intervention. The patient's heart rate came under mu ch better control with metoprolol. Her room air oxygen saturation was low at 87%. So the patient wa s placed back on her oxygen at 2 L/minute nasal cannula oxygen, and we did request Social Service to make arrangements for home ox. The patient was discharged to go home in stable condition. Final Diagnoses: 1.Atrial fibrillation, paroxysmal. 2.Anemia, unspecified. 3.Thrombocytopenia. 4.Hypokalemia. 5.Congestive heart failure, chronic, systolic. 6.Hypertension. 7.Mixed hyperlipidemia. 8.Type 2 diabetes mellitus. 9.Gastroesophageal reflux disease. 10.Osteoarthritis, multiple sites. 11.Hypercoagulable state. 12.Chronic anticoagulation therapy. 13.Chronic steroid therapy. 14.Polymyalgia rheumatica. 15.Rheumatoid arthritis. ARSALAN/MODL Voice ID: [id number] Report ID: [id number]
--- NOTE | 2021-08-03 18:33 | CON ---
Date of Consultation: 07/29/2021 Reason For Consultation: Possible TIA. History Of Present Illness: Ms. Caceres is 81, really has history of COPD, dementia, and diabetes, cam e in with a possible TIA. There is an echocardiogram, which was done before I saw her showed an ejec tion fraction of 44% with some aortic sclerosis, no thrombus, some mild mitral annular calcification. Ms. Caceres had recently had a right forearm ulcerated mass that was excised by Dr. Suarez on 07/25/20 21. She denied any syncope or palpitation or chest pain. Denied any shortness of breath, nausea, vo miting, or diaphoresis. Past Medical History: As stated above. Allergies: TO CODEINE, KEFLEX, DEMEROL, STEROIDS, SULFA, AND CEFACLOR. Review of Systems: Negative. Social History: Negative. Family History: Noncontributory. Physical Examination: Vital Signs: Stable. She was afebrile. HEENT: Negative. Neck: Supple without any bruit. Chest: Clear. Cardiac: Revealed a regular rhythm and rate with an aortic sclerosis, murmur. Abdomen: Benign. Extremities: Revealed no clubbing, cyanosis, or edema. Diagnostic Data: Fairly unremarkable except for her echocardiogram showed some mild decrease in ejec tion fraction and some aortic sclerosis. I will discuss the case further with Dr. Pierre but I suspect they do not have any recommendation excep t for aspirin and maybe a statin. She had COPD, which is stable. We will be happy to see her in the office as an outpatient. MARY/MARIA LUISA Voice ID: [id number] Report ID: [id number]
== END 2021-07-31 16:10 | disposition home health service (06) | DRG 308 ==
LOC: ER 19:43 → 2ND 21:38
PROVIDERS: ADMIT Internal Medicine; ATTEND Internal Medicine
DX: I48.0 Paroxysmal atrial fibrillation (principal); J96.01 Acute respiratory failure with hypoxia; D68.59 Other primary thrombophilia; I50.22 Chronic systolic (congestive) heart failure; I11.0 Hypertensive heart disease with heart failure; M19.90 Unspecified osteoarthritis, unspecified site; J44.9 Chronic obstructive pulmonary disease, unspecified; D69.6 Thrombocytopenia, unspecified; E78.2 Mixed hyperlipidemia; E87.6 Hypokalemia; M06.9 Rheumatoid arthritis, unspecified; D64.9 Anemia, unspecified; M35.3 Polymyalgia rheumatica; K21.9 Gastro-esophageal reflux disease without esophagitis; E11.9 Type 2 diabetes mellitus without complications; S00.93XA Contusion of unspecified part of head, initial encounter; W18.30XA Fall on same level, unspecified, initial encounter; Z88.1 Allergy status to other antibiotic agents; Z88.8 Allergy status to other drugs, medicaments and biological substances; Z79.84 Long term (current) use of oral hypoglycemic drugs; Z79.01 Long term (current) use of anticoagulants; Z79.899 Other long term (current) drug therapy; Z86.718 Personal history of other venous thrombosis and embolism; Z79.890 Hormone replacement therapy; Z20.822 Contact with and (suspected) exposure to COVID-19
CPT/HCPCS: 36415; 70450; 71045; 71250; 72125; 80048; 80053; 80076; 82550; 82947; 83735; 83880; 84443; 84484; 85025; 85610; 93005; 93306; 94760; 96374; 97116; 97161; 97530; 99285; J1940; J7030; J7509; U0003

== ENCOUNTER 2021-08-01 13:28 | Inpatient (IN) | payer OTHER ==
[2021-08-01] MEDS ORDERED: CEFTRIAXONE 1000 MG/VIAL ONE (14:09)
[2021-08-01] MEDS ORDERED: NA CHLORIDE 0.9% 1,000 ML ONE (14:09)
--- NOTE | 2021-08-01 14:20 | RAD REPORT ---
EXAM DESCRIPTION: CT - Head Brain Wo Cont - 08/01/2021 2:07 pm CLINICAL HISTORY: CONFUSED COMPARISON: Knee Left 2 View dated 11/08/2018; Knee Left 2 View dated 03/28/2016Head Brain Wo Cont date d 02/20/2019 TECHNIQUE: Axial 5 mm thick images of the head were obtained without IV contrast. All CT scans are performed using dose optimization technique as appropriate and may include automated exposure control or mA/KV adjustment according to patient size. FINDINGS: No intracranial hemorrhage, mass, edema or shift of mid-line structures. No acute cortical based infarction. No cortical edema or sulcal effacement. Prominent atrophy is present. Ventricles a re in proportion to volume loss. Volume loss does appear to have progressed slightly since 2019. Vent ricles remain in proportion to the volume loss. Cerebral chronic ischemic change similar to compariso n. Arterial and physiologic calcifications are present. Mastoid air cells and visualized portions of the paranasal sinuses are clear. No acute bony findings. Exam has motion degradation limitation. IMPRESSION: No hemorrhage, mass or acute intracranial finding. Significant atrophy changes are present and have shown progression from 2019. Ventricles remain in pr oportion to volume loss. Moderate chronic ischemic change in the cerebral white matter.
[2021-08-01 14:23] LABS: Absolute Lymphocytes (CBC) 0.5 K/uL (0.7-4.9); Basophils % 0.5 % (0-1.3); Hematocrit 39.9 % (36.0-45.0); Lymphocytes % 4.1 % (15.3-44.8); MPV 7.5 fL (7.6-11.3); RBC Red Blood Cell Count 4.33 M/uL (3.86-4.86)
[2021-08-01 14:33] LABS: Protime INR 1.54
--- NOTE | 2021-08-01 14:50 | RAD REPORT ---
EXAM DESCRIPTION: RAD - Chest Single View - 08/01/2021 2:22 pm CLINICAL HISTORY: CONGESTION COMPARISON: July 30, July 28 TECHNIQUE: AP portable chest image was obtained 08/01/2021 2:22 pm . FINDINGS: Lung volumes remain low. Interstitial increased opacification noted. There is some patchy alveolar opacities present in the lung bases. Exam is distorted by rotation. Heart and vasculature ar e normal. No measurable pleural effusion and no pneumothorax. No acute bony abnormality seen. No acut e aortic findings suspected. IMPRESSION: Patchy bibasilar interstitial and airspace opacities are present. This may be all are pa rtly due to shallow inspiration atelectasis. Early lung base pneumonia is possible and needs correlation with clinical and laboratory findings. Fo llow-up can be obtained as warranted.
[2021-08-01 14:53] LABS: ALT/SGPT 20 U/L (12-78); AST/SGOT 14 U/L (15-37); Albumin 2.7 g/dL (3.4-5.0); Alkaline Phosphatase 86 U/L (45-117); Amylase 17 U/L (25-115); BUN Blood Urea Nitrogen 26 mg/dL (7-18); Bicarbonate 34 mmol/L (21-32); Bilirubin Direct 0.2 mg/dL (0-0.2); Bilirubin Total 0.6 mg/dL (0.2-1.0); Creatine Phosphokinase 39 U/L (26-192); Glucose Level 235 mg/dL (74-106); Lipase 30 U/L (73-393); Potassium 4.1 mmol/L (3.5-5.1); Protein, Total 7.5 g/dL (6.4-8.2); Sodium Level 137 mmol/L (136-145); Troponin (Emerg Dept Use Only) < 0.02 ng/mL (0.0-0.045)
[2021-08-01 14:57] LABS: Urine Blood Negative (Negative); Urine Glucose 1+ (Negative); Urine Protein Trace (Negative); Urine pH 6.5 (5.0-7.0)
[2021-08-01 15:10] LABS: CKMB Creatine Kinase MB < 1.0 ng/mL (1.0-3.6)
[2021-08-01 15:37] LABS: Urine Bacteria <20 /HPF (<20); Urine RBC <5 /HPF (NONE SEEN)
[2021-08-01] MEDS ORDERED: METOPROLOL TARTRATE 5 MG/5 ML INJ IV ONE ×2 (16:14→16:28)
--- NOTE | 2021-08-01 16:14 | EDPHYS ---
Physician Documentation [facility] Name: Judah Caceres Age: 81 yrs Sex: Female : 1940 Arrival Date: 08/01/2021 Time: 13:29 Bed 8 Private MD: Kiara Pierre C ED Physician Viridiana Aguirre HPI: 08/01 14:50 This 81 yrs old Female presents to ER via EMS with complaints of Altered ma2 Mental Status. 14:50 The patient presents with confusion. Onset: The symptoms/episode began/occurred ma2 gradually, 1 day(s) ago. Associated signs and symptoms: Pertinent negatives: blurred vision, combativeness, diaphoresis, dizziness, headache. Current symptoms: In the emergency department the patient's symptoms are unchanged from the initial presentation. The patient has experienced similar episodes in the past. Historical: - Allergies: 13:37 Cefaclor; ss 13:37 codeine sulfate; ss 13:37 Keflex; ss 13:37 meperidine; ss 13:37 NSAIDS; ss 13:37 Sulfa (Sulfonamide Antibiotics); ss - PMHx: 13:37 Chronic obstructive lung disease; Dementia; diabetes mellitus; ss - Immunization history:: Adult Immunizations unknown. - Social history:: Smoking status: unknown. ROS: 14:51 Constitutional: Negative for fever, chills, and weight loss. ma2 14:51 Unable to obtain ROS due to altered mental status. Exam: 14:51 Constitutional: This is a well developed, well nourished patient who is awake, however ma2 nonverbal, not in any respiratory distress, not in pain. Head/Face: Normocephalic, atraumatic. Eyes: Pupils equal round and reactive to light, extra-ocular motions intact. Lids and lashes normal. Conjunctiva and sclera are non-icteric and not injected. Cornea within normal limits. Periorbital areas with no swelling, redness, or edema. ENT: Nares patent. No nasal discharge, no septal abnormalities noted. Tympanic membranes are normal and external auditory canals are clear. Oropharynx with no redness, swelling, or masses, exudates, or evidence of obstruction, uvula midline. Mucous membranes moist. Neck: Trachea midline, no thyromegaly or masses palpated, and no cervical lymphadenopathy. Supple, full range of motion without nuchal rigidity, or vertebral point tenderness. No Meningismus. Chest/axilla: Normal chest wall appearance and motion. Nontender with no deformity. No lesions are appreciated. Cardiovascular: Regular rate and rhythm with a normal S1 and S2. No gallops, murmurs, or rubs. Normal PMI, no JVD. No pulse deficits. Respiratory: Lungs have equal breath sounds bilaterally, clear to auscultation and percussion. No rales, rhonchi or wheezes noted. No increased work of breathing, no retractions or nasal flaring. Abdomen/GI: Soft, non-tender, with normal bowel sounds. No distension or tympany. No guarding or rebound. No evidence of tenderness throughout. Back: No spinal tenderness. No costovertebral tenderness. Full range of motion. Skin: Patient has left antecubital area redness, there is no swelling, abscess or warmth, that area is nontender,. Warm, dry with normal turgor. Normal color with no rashes, no lesions, and no evidence of cellulitis. MS/ Extremity: Pulses equal, no cyanosis. Neurovascular intact. Full, normal range of motion. Neuro: Awake and alert, awake, however she is nonverbal, does not follow commands. Unable to do neuro exam, however moving all extremities. Vital Signs: 13:35 BP 129 / 71; Pulse 108; Resp 18; Pulse Ox 98% on 4 lpm NC; ss 14:00 BP 147 / 69; Pulse 105; Resp 22; Pulse Ox 97% ; jl7 15:30 BP 154 / 100; Pulse 127; Resp 19; Temp 97.8(TE); Pulse Ox 98% ; jl7 16:10 BP 136 / 72; Pulse 120; Resp 25; Pulse Ox 97% on 2 lpm NC; jl7 17:00 BP 135 / 57; Pulse 96; Resp 20; Pulse Ox 99% on 2 lpm NC; jl7 17:57 BP 114 / 58; Pulse 99; Resp 24; Pulse Ox 95% on 2 lpm NC; jl7 MDM: 13:32 Patient medically screened. ma2 14:51 Differential Diagnosis: electrolyte abnormality, hypoglycemia, intracranial bleed, ma2 overdose, pneumonia, UTI, volume depletion. 16:12 Data reviewed: vital signs, nurses notes. Counseling: I had a detailed discussion with ma2 the patient and/or guardian regarding: the historical points, exam findings, and any diagnostic results supporting the discharge/admit diagnosis, the presence of at least one elevated blood pressure reading (>120/80) during this emergency department visit, the need for outpatient follow up. Response to treatment: the patient's symptoms have markedly improved after treatment. 08/01 13:31 Order name: Amylase, Serum [facility] 08/01 13:31 Order name: Basic Metabolic Panel [facility] 08/01 13:31 Order name: Blood Culture Adult (2) [facility] 08/01 13:31 Order name: C-Reactive Protein; Complete Time: 15:23 [facility] 08/01 13:31 Order name: CBC with Diff [facility] 08/01 13:31 Order name: CPK; Complete Time: 15:23 [facility] 08/01 13:31 Order name: Ckmb; Complete Time: 15:23 [facility] 08/01 13:31 Order name: LFT's; Complete Time: 15:23 [facility] 08/01 13:31 Order name: Lactate [facility] 08/01 13:31 Order name: Lipase; Complete Time: 15:23 [facility] 08/01 13:31 Order name: Procalcitonin; Complete Time: 15:23 [facility] 08/01 13:31 Order name: Protime (+inr); Complete Time: 15:23 [facility] 08/01 13:31 Order name: Ptt, Activated; Complete Time: 15:23 [facility] 08/01 13:31 Order name: Troponin (emerg Dept Use Only); Complete Time: 15:23 [facility] 08/01 13:31 Order name: Urine Microscopic Only; Complete Time: 16:09 [facility] 08/01 13:31 Order name: SARS-COV-2 RT PCR (Document "Date of Onset" if Symptomatic); Complete Time: [facility] 15:08/01 13:32 Order name: Amylase; Complete Time: 15:23 [facility] 08/01 13:32 Order name: Basic Metabolic Panel; Complete Time: 15:23 [facility] 08/01 14:02 Order name: Glucose, Ancillary Testing; Complete Time: 15:23 [facility] 08/01 14:56 Order name: Urine Dipstick-Ancillary; Complete Time: 15:23 [facility] 08/01 16:47 Order name: Basic Metabolic Panel [facility] 08/01 16:47 Order name: Basic Metabolic Panel [facility] 08/01 16:47 Order name: CBC with Automated Diff [facility] 08/01 16:47 Order name: CBC with Automated Diff [facility] 08/01 16:47 Order name: NT PRO-BNP [facility] 08/01 16:47 Order name: NT PRO-BNP [facility] 08/01 16:47 Order name: Troponin I [facility] 08/01 16:47 Order name: Troponin I [facility] 08/01 17:12 Order name: CBC Smear Scan [facility] 08/01 13:31 Order name: Chest Single View XRAY; Complete Time: 15:23 ma2 08/01 13:31 Order name: Accucheck; Complete Time: 14:07 ma2 08/01 13:31 Order name: Cardiac monitoring; Complete Time: 14:07 ma2 08/01 13:31 Order name: EKG - Nurse/Tech; Complete Time: 16:25 ma2 08/01 13:31 Order name: IV Saline Lock - Large Bore; Complete Time: 14:57 ma2 08/01 13:31 Order name: Labs collected and sent; Complete Time: 14:57 ma2 08/01 13:31 Order name: O2 Per Protocol; Complete Time: 14:57 ma2 08/01 13:31 Order name: O2 Sat Monitoring; Complete Time: 14:57 ma2 08/01 13:31 Order name: Urine Dipstick-Ancillary (obtain specimen); Complete Time: 14:57 ma2 08/01 13:31 Order name: CT Head Brain wo Cont [facility] 08/01 16:47 Order name: CONS Physician Consult [facility] 08/01 16:47 Order name: Regular [facility] Administered Medications: 14:20 Drug: NS 0.9% 1000 ml Route: IV; Rate: 1 bolus; Site: right antecubital; kd3 15:20 Follow up: Response: No adverse reaction; IV Status: Completed infusion; IV Intake: jl7 1000ml 14:20 Drug: Rocephin (cefTRIAXone) 1 grams Route: IV; Rate: calculated rate; Site: right kd3 antecubital; 14:25 Follow up: Response: No adverse reaction; IV Status: Completed infusion jl7 16:16 Drug: Metoprolol 5 mg Route: IVP; Site: right antecubital; jl7 16:30 Drug: Metoprolol 5 mg Route: IVP; Site: right antecubital; jl7 17:00 Drug: Metoprolol 5 mg Route: IVP; Site: right antecubital; 7 17:58 Follow up: Response: No adverse reaction jl7 17:50 Drug: Zosyn (piperacillin-tazobactam) 2.25 grams Route: IVPB; Infused Over: 60 mins; jl7 Site: right antecubital; 17:58 Follow up: Response: No adverse reaction; IV Status: Infusion continued upon admission jl7 Disposition Summary: 08/01/21 16:14 Hospitalization Ordered Hospitalization Status: Inpatient Admission ma2 Provider: Kiara Pierre Location: Telemetry/MedSurg (Inpatient) ma2 Condition: Stable ma2 Problem: new ma2 Symptoms: are unchanged ma2 Bed/Room Type: Standard [facility] Room Assignment: 208(08/01/21 17:34) kj1 Diagnosis - Unspecified atrial fibrillation ma2 - Pneumonia in diseases classified elsewhere ma2 - Altered mental status, unspecified ma2 Forms: - Medication Reconciliation Form ma2 - SBAR form ma2 Signatures: Dispatcher [employer] EDMS Mariajose Ferrell RN RN Camila Henriquez RN RN jl7 Viridiana Aguirre MD MD ma2 Rox Lafleur1 Mariah Rosales 3 Corrections: (The following items were deleted from the chart) 13:55 13:32 SARS-COV-2 RT PCR+[id number] ordered. EDAL EDMS 17:34 16:14 ma2 kj1
--- NOTE | 2021-08-01 16:14 | ER ---
Nurse's Notes [facility] Name: Judah Caceres Age: 81 yrs Sex: Female : 1940 Arrival Date: 08/01/2021 Time: 13:29 Bed 8 Private MD: Kiara Pierre C Diagnosis: Unspecified atrial fibrillation;Pneumonia in diseases classified elsewhere;Altered mental status, unspecified Presentation: 08/01 13:35 Chief complaint: Patient states: "AMS all day" Pt was recently discharged from [facility]. "Usually walks and talks, but she hasn't been talking much all day. Her oxygen on RA was in the 80's". Coronavirus screen: Client denies travel out of the [place] in the last 14 days. Ebola Screen: Patient denies exposure to infectious person. Patient denies travel to an Ebola-affected area in the 21 days before illness onset. Initial Sepsis Screen: Does the patient meet any 2 criteria? HR > 90 bpm. No. Patient's initial sepsis screen is negative. Does the patient have a suspected source of infection? No. Patient's initial sepsis screen is negative. Risk Assessment: Do you want to hurt yourself or someone else? Patient reports no desire to harm self or others. Onset of symptoms is unknown. 13:35 Method Of Arrival: EMS: [facility] 13:35 Acuity: AMY 3 ss Historical: - Allergies: 13:37 Cefaclor; ss 13:37 codeine sulfate; ss 13:37 Keflex; ss 13:37 meperidine; 13:37 NSAIDS; 13:37 Sulfa (Sulfonamide Antibiotics); ss - PMHx: 13:37 Chronic obstructive lung disease; Dementia; diabetes mellitus; ss - Immunization history:: Adult Immunizations unknown. - Social history:: Smoking status: unknown. Screenin:00 Abuse screen: Denies threats or abuse. Denies injuries from another. Nutritional jl7 screening: No deficits noted. Tuberculosis screening: No symptoms or risk factors identified. Fall Risk No fall in past 12 months (0 pts). Secondary diagnosis (15 points) dementia, IV access (20 points). Ambulatory Aid- None/Bed Rest/Nurse Assist (0 pts). Gait- Weak (10 pts.). Mental Status- Overestimates/Forgets Limitations (15 pts.). Total Graham Fall Scale indicates High Risk Score (45 or more points). Fall prevention measures have been instituted. Side Rails Up X 2 Placed Close to Nursing Station Frequent Obs/Assessments Occuring Family Present and informed to notify staff if the need to leave the bedside As available patient and family educated on Fall Prevention Program and Strategies. Assessment: 13:45 General: Appears in no apparent distress. uncomfortable, Behavior is calm, cooperative, jl7 quiet. Pain: Unable to use pain scale. Patient is disoriented. Neuro: Level of Consciousness is awake, alert, obeys commands, Oriented to person. Cardiovascular: Patient's skin is warm and dry. Rhythm is atrial fibrillation. Respiratory: Airway is patent Respiratory effort is even, unlabored, Respiratory pattern is regular, symmetrical. Derm: Skin is pink, warm \\T\\ dry. Wound noted left antecubital area Wound is Skin red and warm on palpation with small scab with purulent drainage noted. ERD notified, no new orders received. 15:00 Reassessment: Patient appears in no apparent distress at this time. No changes from jl7 previously documented assessment. Patient and/or family updated on plan of care and expected duration. Pain level reassessed. 16:00 Reassessment: Patient appears in no apparent distress at this time. No changes from jl7 previously documented assessment. Patient and/or family updated on plan of care and expected duration. Pain level reassessed. 17:00 Reassessment: Patient appears in no apparent distress at this time. No changes from jl7 previously documented assessment. Patient and/or family updated on plan of care and expected duration. Pain level reassessed. Vital Signs: 13:35 BP 129 / 71; Pulse 108; Resp 18; Pulse Ox 98% on 4 lpm NC; ss 14:00 BP 147 / 69; Pulse 105; Resp 22; Pulse Ox 97% ; jl7 15:30 BP 154 / 100; Pulse 127; Resp 19; Temp 97.8(TE); Pulse Ox 98% ; jl7 16:10 BP 136 / 72; Pulse 120; Resp 25; Pulse Ox 97% on 2 lpm NC; jl7 17:00 BP 135 / 57; Pulse 96; Resp 20; Pulse Ox 99% on 2 lpm NC; jl7 17:57 BP 114 / 58; Pulse 99; Resp 24; Pulse Ox 95% on 2 lpm NC; jl7 ED Course: 13:29 Patient arrived in ED. am2 13:29 Kiara Pierre MD is Private Physician. am2 13:29 Viridiana Aguirre MD is Attending Physician. ma2 13:37 Triage completed. ss 13:37 Arm band placed on right wrist. ss 14:00 Patient has correct armband on for positive identification. Bed in low position. Call jl7 light in reach. Side rails up X2. senior manager quality assurance on. Pulse ox on. NIBP on. Warm blanket given. 14:06 Camila Tyson, JEREMI is Primary Nurse. jl7 14:06 CT Head Brain wo Cont In Process Unspecified. EDMS 14:22 Chest Single View XRAY In Process Unspecified. EDMS 14:30 Initial lab(s) drawn, by ne, sent to lab. Inserted saline lock: 22 gauge in right jl7 antecubital area, using aseptic technique. Blood collected. 15:00 Prince cath inserted, using sterile technique, 16 Fr., by ne, balloon inflated, to jl gravity drainage, urine specimen collected. returned clear yellow urine. Patient tolerated well. 15:00 Urine collected: Prince catheter specimen, clear, Amount Returned: 400mL. jl7 16:14 Kiara Pierre MD is Hospitalizing Provider. ma2 18:03 No provider procedures requiring assistance completed. Patient admitted, IV remains in jl7 place. intact, No redness/swelling at site. Administered Medications: 14:20 Drug: NS 0.9% 1000 ml Route: IV; Rate: 1 bolus; Site: right antecubital; 3 15:20 Follow up: Response: No adverse reaction; IV Status: Completed infusion; IV Intake: jl7 1000ml 14:20 Drug: Rocephin (cefTRIAXone) 1 grams Route: IV; Rate: calculated rate; Site: right kd3 antecubital; 14:25 Follow up: Response: No adverse reaction; IV Status: Completed infusion jl7 16:16 Drug: Metoprolol 5 mg Route: IVP; Site: right antecubital; jl7 16:30 Drug: Metoprolol 5 mg Route: IVP; Site: right antecubital; jl7 17:00 Drug: Metoprolol 5 mg Route: IVP; Site: right antecubital; jl7 17:58 Follow up: Response: No adverse reaction jl7 17:50 Drug: Zosyn (piperacillin-tazobactam) 2.25 grams Route: IVPB; Infused Over: 60 mins; 7 Site: right antecubital; 17:58 Follow up: Response: No adverse reaction; IV Status: Infusion continued upon admission 7 Intake: 15:20 IV: 1000ml; Total: 1000ml. 7 Outcome: 16:14 Decision to Hospitalize by Provider. al2 18:03 Admitted to Tele accompanied by tech, family with patient, via stretcher, room 208, jl7 with oxygen, with chart. 18:03 Condition: stable 18:03 Discharge instructions given to patient, family, Instructed on the need for admit, Demonstrated understanding of instructions. 18:24 Patient left the ED. [facility] Signatures: Dispatcher [employer] EDMariajose Agrawal, JEREMI BLOOD Camila Tyson RN RN jl7 Kellee Berman Mohammad, MD MD al2 Mariah Rosales 3
[2021-08-01] MEDS ORDERED: ALBUTEROL 2.5 MG/3 ML NEB SOL NEB PRN (16:44)
[2021-08-01] MEDS ORDERED: IPRATROPIUM BROM 0.5MG/2.5ML NEB PRN (16:44)
[2021-08-01] MEDS ORDERED: ONDANSETRON 4 MG/2 ML VIAL IV PRN (16:44)
[2021-08-01 17:12] LABS: Blood Morphology Comment NOT SEEN (NOT SEEN); Platelet Estimate ADEQ; White Blood Cell Scan OK (OK)
[2021-08-01] MEDS ORDERED: NA CHLORIDE 0.9% 0 ML ONE (17:17)
[2021-08-01] MEDS ORDERED: PIPERACIL/TAZO 2.25 GM VIAL IV ONE (17:17)
[2021-08-01] MEDS: PIPER TAZO 2.25 GM in NA CHLORIDE 0.9% 50 ML IV SCH (18:00)
[2021-08-01] MEDS ORDERED: FUROSEMIDE 20 MG/ 2ML VIAL IV ONE (19:26)
[2021-08-01] MEDS: METOPROLOL TAR 25 MG TAB PO SCH (20:31)
[2021-08-01 21:09] VITALS: BMI 27.4
[2021-08-01] MEDS ORDERED: RIVAROXABAN 15 MG TABLET PO ONE (22:15)
[2021-08-02] MEDS: PIPER TAZO 2.25 GM in NA CHLORIDE 0.9% 50 ML IV SCH (00:46)
[2021-08-02 03:52] LABS: Absolute Lymphocytes (CBC) 0.7 K/uL (0.7-4.9); Basophils % 0.4 % (0-1.3); Hematocrit 35.4 % (36.0-45.0); Lymphocytes % 6.1 % (15.3-44.8); MPV 7.7 fL (7.6-11.3); RBC Red Blood Cell Count 3.85 M/uL (3.86-4.86)
[2021-08-02 04:19] LABS: Potassium 3.7 mmol/L (3.5-5.1)
[2021-08-02] MEDS ORDERED: VANCOMYCIN/NS 1 gm 1 GM/250 ML BAG IVPB SCH (06:15)
[2021-08-02] MEDS ORDERED: VANCOMYCIN 1.75 GM in NA CHLORIDE 0.9% 500 ML IVPB ONE (07:00)
[2021-08-02] MEDS ORDERED: VANCOMYCIN 1.5 GM in NA CHLORIDE 0.9% 500 ML IVPB ONE (08:00)
--- NOTE | 2021-08-02 08:36 | HP ---
Date of Admission: 08/01/2021 Chief Complaint: Altered mental status. History Of Present Illness: This is 81-year-old female patient who was discharged to go to assisted care facility yesterday. During her last hospital admission, she was admitted to the hospital because of her problem with new onset atrial fibrillation with rapid ventricular rate and she did have some hypoxia due to congestive heart failure. Her ejection fraction on echocardiogram was 45% with according to this last hospital stay and echocardiogram. Yesterday when we released her, she was in her normal mental state. She has some confusion and memory problem, which is her baseline, but she was at her baseline awake, alert, answering simple questions, following commands and after she went to facility today she was sent back to the emergency room because of altered mental status. When she arrived to the emergency room, she was evaluated and admitted to the hospital with this problem. I went back to the hospital to check on her this evening. She was lying in bed with her eyes open, not in distress. She would look at me, but will not answer any question, does not follow any commands. There was no family member at bedside. Review of Systems: BREAD RACKER: As mentioned above. All other systems unable to review because patient is not able to answer any questions. Physical Examination: Vital signs: Temperature 100.3, pulse 88, respiratory rate 19, blood pressure 131/63, oxygen saturation 94%. Height 5 feet 4 inches, weight 160 pounds. General: Patient lying in bed, not in distress and not answering any questions, but keeping her eyes open and following me while I was in the room with her. HEENT: Head atraumatic, normocephalic. Conjunctivae nonerythematous. Sclerae white. Mouth, no thrush or edema noted. Ears/Nose, no mass, lesion, discharge noted. Neck: Supple. No JVD, lymph nodes, bruit, thyromegaly noted. Lungs: Bilateral good equal air entry. Clear to auscultation. No rhonchi. No rales. Heart: Normal heart sounds, no murmur or gallop. Abdomen: Soft, bowel sounds normal. No guarding, rigidity, tenderness, mass, hepatosplenomegaly, distention, or bruit noted. Extremities: Left upper extremity in the antecubital region has an indurated pink slightly warm to touch and tender area with a small puncture hole in the middle and this is where she had IV insertion during last hospital stay. Nursing staff had reported a small amount of purulent discharge earlier from this area. Skin: No rash, ulcer, cellulitis. Lymphatics: No lymph node enlargement in neck, supraclavicular, infraclavicular region. Neuro/BREAD RACKER: The patient is lying in bed, awake, but not oriented not answering any questions. Details BREAD RACKER exam is not possible. Chest: Unremarkable. External Genitalia: Deferred. Rectal: Deferred. Laboratory Data: White count 12.4, hemoglobin 13, platelets 154. Sodium 137, potassium 4.1, chloride 97, bicarb 34, BUN 26, creatinine 1.19, glucose 235. Lactic acid 2.1. Procalcitonin 0.50. Liver function tests unremarkable. Troponin less than 0.02. CRP 220. Second troponin 0.12. Urinalysis unremarkable. COVID-19 test negative. Chest x-ray shows patchy bibasilar airspace opacity, no acute cardiopulmonary changes. CAT scan of the brain, no acute intracranial changes, significant cerebral atrophy present. Impression: 1. Cellulitis, left upper extremity. 2. Pneumonia. 3. Congestive heart failure, chronic, systolic. 4. Atrial fibrillation, chronic. 5. Rule out stroke. 6. Anemia, unspecified. 7. Hypertension. 8. Mixed hyperlipidemia. 9. Type 2 diabetes mellitus. 10. Gastroesophageal reflux disease. 11. Osteoarthritis, multiple sites. 12. Hypercoagulable state. 13. Chronic anticoagulation therapy. 14. Chronic steroid therapy. 15. Polymyalgia rheumatica. 16. Rheumatoid arthritis. Plan: Admit patient to hospital for further evaluation and management of this problem. The patient is appropriate for inpatient and is expected to spend 2 midnights in hospital. We will go ahead and consult general surgeon for a left arm cellulitis problem and we need to rule out any possibility of abscess. Antibiotic will be given per order which is Zosyn for the cellulitis of left arm as well as pneumonia problem. We will give 1 dose of Lasix IV. Also, give metoprolol and anticoagulation therapy per order. I will see her tomorrow for followup. ARSALAN/MODL Voice ID: [id number]
[2021-08-02] MEDS ORDERED: METHYLPREDNISOLONE 40 MG INJ IV ONE (08:45)
[2021-08-02] MEDS ORDERED: GLUCAGON 1 MG/VIAL IM PRN (08:47)
[2021-08-02] MEDS ORDERED: D50W 25 GM/50 ML SYRINGE IV PRN (08:47)
[2021-08-02] MEDS: METOPROLOL TAR 25 MG TAB PO SCH (08:57)
[2021-08-02] MEDS: PIPER TAZO 3.375 GM in NA CHLORIDE 0.9% 100 ML IV SCH ×2 (08:59→17:06)
[2021-08-02] MEDS: methylPREDNISolone 4 MG TAB PO SCH (09:00)
[2021-08-02] MEDS: MEMANTINE HCL 10 MG TABLET PO SCH ×2 (09:03→20:28)
--- NOTE | 2021-08-02 09:10 | RAD REPORT ---
EXAM DESCRIPTION: MRI - Brain W/Wo Cont - 08/02/2021 8:56 am CLINICAL HISTORY: AMS, stroke-like symptoms COMPARISON: MRA Head Wo Cont dated 08/02/2021; MRA Neck W/Wo Cont dated 08/02/2021; Head Brain Wo Co nt dated 08/01/2021, CT Head August 01 TECHNIQUE: Sagittal and axial T1-weighted images were obtained. Axial PD/heavily T2-weighted and T2- FLAIR images were obtained along with axial DWI/ADC mapping sequences. Coronal heavily T2 weighted s equence obtained. Axial and coronal post-contrast T1-weighted images were also obtained. A 16 ml Mul tihance contrast following utilized. FINDINGS: No intracranial hemorrhage is present. No cortical edema or sulcal effacement. No mass les ion is present. Diffusion imaging shows a punctate 5 mm focus of signal abnormality in the left cereb ral convexity at the frontoparietal junction. There is corresponding diminished signal on ADC mapping . There is a 5-6 mm subtle or less pronounced area of increased signal on diffusion-weighted imaging in the lateral right maryellen. There is also subtle diminished signal on the corresponding ADC mapping se quence. Underlying moderate severity atrophy changes are present. Ventricles are in proportion to the volume loss. Chronic ischemic changes are present in the cerebral white matter. There is no edema or shift o f midline structures. No extra-axial fluid collections. Mathis-matter/white matter junction is preserve d. Signal voids are seen as a normal finding in the major intracranial vessels. Post-contrast imaging shows faint enhancement of the area of suspected infarction left cerebral hemis phere. No enhancement at the possible right-side pontine lesion. No dural thickening or abnormal dura l enhancement. There are no other areas of suspicious brain parenchymal enhancement. Mastoid air cells are clear. Chronic right sphenoid sinusitis. IMPRESSION: Punctate nonhemorrhagic acute/subacute infarction in the left cerebral hemisphere fronto parietal junction. Signal abnormality in the right lateral maryellen is suspected but less definitive for acute/subacute infa rction.
--- NOTE | 2021-08-02 09:14 | RAD REPORT ---
EXAM DESCRIPTION: MRI - MRA Head Wo Cont - 08/02/2021 8:44 am CLINICAL HISTORY: AMS, stroke-like symptoms COMPARISON: MRI brain same date TECHNIQUE: Axial and coronal 3D [id number] image acquisition was performed. 3D rotational images were generated with source and reconstruction images reviewed. Horizontal and vertical axis rotation al views generated using MIP protocol. FINDINGS: Minimal tortuosity of the vertebrobasilar vasculature noted. Distal vertebral and basilar arteries are otherwise unremarkable. No significant disease in the posterior cerebral artery distribu tions. No aneurysm or vascular malformation seen. No vasculitis or named branch occlusion. No measurable dis ease in the anterior cerebral arteries. There are minimal atherosclerotic changes in the M2/M3 branch es of each middle cerebral artery. Significant luminal narrowing is not seen. IMPRESSION: Minimal intracranial atherosclerotic changes are present. No named branch occlusion, vasculitis or other significant vascular finding.
--- NOTE | 2021-08-02 09:16 | RAD REPORT ---
EXAM DESCRIPTION: MRI - MRA Neck W/Wo Cont - 08/02/2021 8:53 am CLINICAL HISTORY: AMS, stroke-like symptoms COMPARISON: MRI brain same date, MRA head same date TECHNIQUE: MR angiography of the cervical vasculature performed. Coronal imaging plane acquisition u tilized. A 16 MultiHance contrast volume was utilized. Coronal reformatted images were generated and reviewed. Vertical axis 3D rotational projections obtained using maximum intensity projection protoco l. FINDINGS: Aortic arch is 3 vessel configuration with no origins stenosis. Vertebral artery origins a lso unremarkable. Left vertebral artery is dominant. No vertebral artery dissection or focal abnormal ity identifiable. Minimal atherosclerotic changes are seen in the proximal left common carotid artery without significant luminal narrowing. The left ICAs shows no significant atherosclerotic change. Th ere are no left-sided dissection or acute finding seen. Right common carotid artery is unremarkable. There are mild atherosclerotic changes seen in the bulb and proximal ICA on the right. This does not cause a significant degree of luminal narrowing. IMPRESSION: Right carotid bulb and proximal ICA atherosclerotic changes are present but do not cause significant luminal narrowing. No other significant findings.
--- NOTE | 2021-08-02 10:00 | RAD REPORT ---
EXAM DESCRIPTION: US - Extremity Nonvascular Complete - 08/02/2021 9:37 am CLINICAL HISTORY: rule out abscess, arm pain, thickened scan COMPARISON: No comparisons TECHNIQUE: Sonographic evaluation of the left forearm in the area of concern was performed. FINDINGS: There is no abscess or abnormal fluid collection in the soft tissues. The superficial ceph alic vein from the antecubital fossa to the mid forearm is enlarged and filled with thrombus. No deep venous thrombosis present in the area of concern. IMPRESSION: Superficial venous thrombosis in the cephalic vein mid forearm to antecubital fossa. No abscess in the soft tissues.
[2021-08-02] MEDS: INSULIN -REGULAR HUMAN 50 UNIT/0.5 ML ML SQ SCH ×3 (11:30→20:29)
[2021-08-02] MEDS: ACETAMINOPHEN 500 MG TAB PO PRN (11:53)
[2021-08-02] MEDS: GLUCERNA SHAKE 237 ML CAN PO SCH ×3 (13:19→20:29)
--- NOTE | 2021-08-02 13:48 | PN ---
Date of Progress Note: 08/02/2021 Subjective: The patient was seen this morning for followup. No new complaints or problems reported by the patient. Lying in bed, not in distress. Overall, she looks much better than yesterday. This morning when I saw her, she had just returned back from her MRI. She is more awake, alert. After s ome difficulty, she was able to recognize me and was able to tell me my name. She has significant ge neralized weakness, but denies any specific complaints. Objective: Vital Signs: Reviewed. HEENT: Unremarkable. Lungs: Clear to auscultation. Heart: Sounds normal. Abdomen: Soft. Bowel sounds normal. No guarding, rigidity, tenderness, distention. Extremity: No leg edema. NEWS GATHERING TECHNICIAN: Detailed NEWS GATHERING TECHNICIAN exam is not possible. The patient has significant generalized weakness. She is a ble to raise left upper extremity against gravity. She has difficulty raising right upper extremity against gravity, but she was able to do so to a minimal extent with difficulty. She is not able to r aise both lower extremities against gravity. Laboratory Data: This morning; white count 10.7, hemoglobin 11.5, platelets 140. Sodium 138, potass ium 3.7, chloride 99, bicarb 31, BUN 29, creatinine 1.21, glucose 213. ProBNP 6012. [facility] mm small nonhemorrhagic stroke in the frontal area and in maryellen. There is questionable stro ke. There is no evidence of any hemorrhage. Impression: 1.Sepsis. 2.Cellulitis, left arm. 3.Atrial fibrillation, chronic. 4.Stroke. 5.Type 2 diabetes mellitus. 6.Chronic systolic heart failure. Plan: We will go ahead and continue Zosyn and add vancomycin. Her blood culture this morning was re ported as gram-positive cocci in cluster and we will add vancomycin, follow up on culture results, an d then we will decide which particular antibiotic to continue down the line. Her left antecubital fo ssa shows improvement in overall area of induration, redness. Tenderness is still present, but overa ll it is much better than last night. No discharge or bleeding from the IV puncture site. We will c onsult Physical Therapy, Occupational Therapy. I ordered ultrasound of left upper extremity to look for any fluid collection that needs to be drained. I did try to call the patient's daughter and she was not available and her voicemail was full, so I was not able to leave any message for her. I will see her again tomorrow for followup. Continue anticoagulation therapy. Diabetes will be managed wi sliding scale insulin. ARSALAN/MODL Voice ID: [id number] Report ID: [id number]
--- NOTE | 2021-08-02 15:33 | CON ---
Date of Consultation: 08/02/2021 Reason For Service: Cellulitis of the antecubital fossa. History Of Present Illness: This is the case of an 81-year-old patient, recently discharged from the hospital and admitted to the hospital with weakness. During the process, the patient found to have cellulitis of the antecubital area and then workup was done for possible abscess and a surgical consu lt was obtained. Most of information is obtained from the daughter who is at bedside who is giving u s details that recently also she had surgical intervention, but in the opposite arm on that area, as per the patient's family is doing great. Normally she is a patient of Dr. Suarez. He is out of town at this moment. Review of Systems: Unable to be obtained. Has see H and P. Past Medical History: Includes COPD, dementia, diabetes. Allergies: INCLUDE CODEINE, CEFACLOR, KEFLEX, NSAIDS, SULFA. Social History: She does smoke. She does drink alcohol. Medications: Reviewed. Family History: Noncontributory. Physical Examination: General: The patient is awake, although mainly sleepy. Chest: Clear. Abdomen: Soft and depressible. Extremities: On the right forearm, the patient has some dressings that the family say as per Dr. Mateo taylor not to remove his dressings on as needed, but did not see any change in that area and there was no swelling of the arm. Over the left arm region, the patient has multiple bruises. There is an indur ation of the antecubital region, but no fluctuance present, no crepitus. Good peripheral pulses. Laboratory Data: Blood work shows a WBC count of 10 with hemoglobin of 11. INR is 1.54. Potassium 3.7. Ultrasound of the left antecubital fossa interpreted by Dr. Rodriguez as superficial venous throm bosis, but no abscess. Assessment: This is an 81-year-old patient with cellulitis of the antecubital fossa. No surgical in tervention planned at this moment for any abscess, although we are going to continue to look at her t o make sure no abscess developed. She stated that a day ago they were able to squeeze some pus out o f the area and then stopped producing pus and right now, we did not see any pus. We will follow the patient with you and give more recommendations as the case develops. DAVID/MODL Voice ID: [id number] Report ID: [id number]
[2021-08-02] MEDS ORDERED: NA CHLORIDE 0.9% 250 ML IV ONE (15:42)
[2021-08-02] MEDS: NA CHLORIDE 0.9% 1,000 ML IV SCH (16:31)
[2021-08-02] MEDS: RIVAROXABAN 15 MG TABLET PO SCH (17:06)
[2021-08-02] MEDS: ATORVASTATIN 20 MG TAB PO SCH (20:28)
--- NOTE | 2021-08-02 20:39 | EKG ---
Test Date: 2021-08-01 Test Time: 13:43:55 Gas Usage Meter Clerk: ROSANNE MEASUREMENT RESULTS: Intervals: Rate: 108 KS: 166 QRSD: 76 QT: 334 QTc: 447 Whitman: P: 88 KS: 166 QRS: 26 T: 52 INTERPRETIVE STATEMENTS: Sinus tachycardia with premature atrial complexes Possible Anterior infarct, age undetermined Abnormal ECG Compared to ECG 07/28/2021 20:06:33 Atrial premature complex(es) now present Myocardial infarct finding now present Atrial fibrillation no longer present ST (T wave) deviation no longer present Electronically Signed On 08-02-21 20:35:16 BAG WASHER by Kai Manzano
[2021-08-02] MEDS ORDERED: HOME MED 1 EA UNK (Simvastatin [Simvastatin] 40 MG Tablet) PO SCH (21:00)
[2021-08-03] MEDS: PIPER TAZO 3.375 GM in NA CHLORIDE 0.9% 100 ML IV SCH ×3 (00:32→16:47)
[2021-08-03] MEDS: NA CHLORIDE 0.9% 1,000 ML IV SCH ×2 (05:33→20:20)
[2021-08-03 06:14] LABS: Basophils % 0.1 % (0-1.3); Hematocrit 33.5 % (36.0-45.0); Lymphocytes % 10.5 % (15.3-44.8); MPV 8.1 fL (7.6-11.3)
[2021-08-03 06:29] LABS: Potassium 4.3 mmol/L (3.5-5.1)
[2021-08-03 06:30] LABS: Magnesium 2.3 mg/dL (1.8-2.4)
[2021-08-03] MEDS: INSULIN -REGULAR HUMAN 50 UNIT/0.5 ML ML SQ SCH ×4 (07:30→20:19)
[2021-08-03] MEDS: methylPREDNISolone 4 MG TAB PO SCH (09:13)
[2021-08-03] MEDS: MEMANTINE HCL 10 MG TABLET PO SCH ×2 (09:13→20:19)
[2021-08-03] MEDS: GLUCERNA SHAKE 237 ML CAN PO SCH ×4 (09:14→20:17)
--- NOTE | 2021-08-03 14:57 | PN ---
Date of Progress Note: 08/03/2021 Reason For Service: Cellulitis of the left arm. The patient is awake, alert, very communicative tod ay. She feels better. No shortness of breath. No chest pain. No fever. Review of Systems: Ten-points otherwise unremarkable. Physical Examination: Chest: Clear. Extremities: Left upper extremity, good capillary refill. No fluctuance or crepitus. Cellulitis im proved. The ultrasound was reviewed this time with the patient again and this time with the gentleman at [facility], who is a family member. Plan: Continue service by the Dr. Pierre. They do an excellent job with the antibiotics. If she deve lops an abscess or this mature, then we will proceed with an I and D, but is not needed at least for today. DAVID/MARIA LUISA Voice ID: [id number] Report ID: [id number]
--- NOTE | 2021-08-03 16:25 | CON ---
Date of Consultation: 08/02/2021 History Of Present Illness: Ms. Caceres is 81 years old. She was just discharged from the hospital 2 days ago, come back on 08/01/2021, with altered mental status and was readmitted to the hospital and I was reconsulted. I saw her on 08/02/2021. Ms. Caceres came in with pneumonia, altered mental status. No cardiac complaints, however, they ruled out for AR. Past Medical History: Includes COPD, dementia, and diabetes. Allergies: CEFACLOR, KEFLEX, CODEINE, DEMEROL, SULFA, AND NONSTEROIDAL ANTI-INFLAMMATORY AGENT. Review of Systems: Negative. Social History: Negative. Family History: Noncontributory. Medications: At home include Nexium, Amaryl, Xarelto, simvastatin, spironolactone, and Medrol. Physical Examination: She weighed 160 pounds. Vital Signs: Stable. Afebrile. Sinus rhythm when I saw her with occasional PAC. O2 saturation was 96% on 3 L. HEENT: Negative. Neck: Supple. No bruit. Chest: Reveals some rales both bases. Cardiac: Revealed regular rhythm and rate with aortic sclerosis, murmur. Abdomen: Benign. Extremities: Revealed no clubbing, cyanosis, or edema. Laboratory Data: Creatinine is 1.01. Hemoglobin was 11.5, white count was 12,000. INR was 1.54. H er GFR is 44. Her C-reactive protein was 220 with BNP of 6012. Troponin was 0.12. She was COVID ne gative. MRI of the brain and the neck showed no focal carotid stenosis. No vasculitis. Extremity u ltrasound showed superficial venous thrombosis in the cephalic vein, mid forearm, and antecubital fos sa. Impression And Plan: 1.Pneumonia. 2.Paroxysmal atrial fibrillation. Recent admission for paroxysmal atrial fibrillation. A slightly low ejection fraction, on Xarelto. We will continue that. She has cellulitis of the antecubital fos sa with superficial venous thrombosis. She does not require any surgical intervention has already be en seen by Dr. Brown. Continue antibiotics. Continue Xarelto. 3.Her other problems include chronic obstructive pulmonary disease, dementia, and diabetes seems to be stable. I am definitely not very concerned about her BNP and troponin, I think these are all elev ated secondary to demand ischemia. I will discuss the case further with Dr. Pierre, but I do not have any further cardiac recommendation at this point. MARY/MARIA LUISA Voice ID: [id number] Report ID: [id number]
[2021-08-03] MEDS: RIVAROXABAN 15 MG TABLET PO SCH (16:47)
[2021-08-03] MEDS ORDERED: VANCOMYCIN 1.25 GM in NA CHLORIDE 0.9% 250 ML IVPB SCH ×2 (19:00→20:00)
[2021-08-03] MEDS: ATORVASTATIN 20 MG TAB PO SCH (20:19)
[2021-08-04] MEDS: PIPER TAZO 3.375 GM in NA CHLORIDE 0.9% 100 ML IV SCH (00:10)
[2021-08-04] MEDS: INSULIN -REGULAR HUMAN 50 UNIT/0.5 ML ML SQ SCH ×4 (07:30→21:00)
[2021-08-04] MEDS: MEMANTINE HCL 10 MG TABLET PO SCH ×2 (09:27→21:38)
[2021-08-04] MEDS: Levofloxacin500mg IV 500 MG/100 ML BAG IV SCH (09:27)
[2021-08-04] MEDS: GLUCERNA SHAKE 237 ML CAN PO SCH ×4 (09:27→21:00)
[2021-08-04] MEDS: methylPREDNISolone 4 MG TAB PO SCH (09:28)
--- NOTE | 2021-08-04 10:45 | PN ---
Date of Progress Note: 08/04/2021 Subjective: The patient was seen for followup this morning. Overall, she is doing much better. Her mental status is much better, back to baseline. Awake, alert, answering questions, and following si mple commands. Objective: Vital Signs: Reviewed. HEENT: Unremarkable. Lungs: Clear to auscultation. Heart: Sounds normal. Abdomen: Soft. Bowel sounds normal. No guarding, rigidity, tenderness, or distention. Extremities: No leg edema. Left upper extremity antecubital fossa has small area of cord like feeli ng from thrombophlebitis. Overlying skin appears almost back to normal. No discharge. No bleeding from IV site which was infected as noted at the time of admission. DUMPSTER OPERATOR: The patient has weakness of right upper and right lower extremity with power about grade 4/5. Laboratory Data: White count 9.3, hemoglobin 10.8, platelets 135. Sodium 141, potassium 4.3, chlori de 106, bicarb 31, BUN 38, creatinine 0.91, glucose 226, magnesium 2.3. Blood culture growing gram-p ositive cocci. Impression: 1.Sepsis. 2.Cellulitis, left upper extremity. 3.Thrombophlebitis, left upper extremity. 4.Atrial fibrillation. 5.Stroke. 6.Anemia. 7.Type 2 diabetes mellitus. Plan: We will go ahead and continue current empiric antibiotics. Discontinue IV fluid. We will con tinue her anticoagulation therapy. Physical Therapy to work with the patient and I will see her rafia rrow for followup. Overall, the patient's condition has improved. I will see her tomorrow. Details were discussed with the patient's son, who was at bedside. Family has started to think about possibility of fdc placement that may bec ome necessary in the future. ARSALAN/MODL Voice ID: [id number] Report ID: [id number]
--- NOTE | 2021-08-04 10:54 | PN ---
Date of Progress Note: 08/04/2021 Subjective: The patient was seen this morning for followup. No new complaints or problems reported by her. Her son was with her at bedside. Objective: Vital Signs: Reviewed. HEENT: Unremarkable. Lungs: Clear to auscultation. Heart: Sounds normal. Abdomen: Soft. Bowel sounds normal. No guarding, rigidity, tenderness, or distention. Extremity: No leg edema. Neuro: Right upper and right lower extremity power grade 4/5, unchanged. Left upper extremity antec ubital fossa has a cord-like feeling, but no tenderness. No redness or discharge. Laboratory Data: All the blood cultures growing Staphylococcus aureus and it is sensitive to multipl e antibiotics except penicillin and Bactrim. It is sensitive to vancomycin, which the patient is cur rently on. Impression: 1.Sepsis. 2.Stroke. 3.Atrial fibrillation. 4.Diabetes mellitus. 5.Generalized weakness. 6.Debility. Plan: We will go ahead and continue current anticoagulation therapy. We will continue vancomycin, d iscontinue Zosyn, and start the patient on Levaquin. [facility] will [facility] tomorrow for followup. Remove Prince catheter. We will consult inpatient nasir ab. Son has informed me that at this point family has not decided about taking her to detention a nd they definitely would like to find out if the patient can go to inpatient rehab or not, so inpatient rehab consultation has been requested and I will see her tomorrow for foll owup. ARSALAN/MODL Voice ID: [id number] Report ID: [id number]
[2021-08-04] MEDS: ACETAMINOPHEN 500 MG TAB PO PRN (14:31)
[2021-08-04] MEDS: RIVAROXABAN 15 MG TABLET PO SCH (16:51)
[2021-08-04] MEDS: ATORVASTATIN 20 MG TAB PO SCH (21:38)
[2021-08-04] MEDS: VANCOMYCIN 1.25 GM in NA CHLORIDE 0.9% 250 ML IVPB SCH (21:38)
[2021-08-05 06:17] LABS: Absolute Lymphocytes (CBC) 1.8 K/uL (0.7-4.9); Basophils % 0.7 % (0-1.3); Hematocrit 33.5 % (36.0-45.0); Lymphocytes % 17.2 % (15.3-44.8); MPV 8.4 fL (7.6-11.3); RBC Red Blood Cell Count 3.69 M/uL (3.86-4.86)
[2021-08-05 06:23] LABS: BUN Blood Urea Nitrogen 17 mg/dL (7-18); Bicarbonate 32 mmol/L (21-32); Glucose Level 114 mg/dL (74-106); Magnesium 1.9 mg/dL (1.8-2.4); Potassium 3.9 mmol/L (3.5-5.1); Sodium Level 139 mmol/L (136-145)
[2021-08-05] MEDS: INSULIN -REGULAR HUMAN 50 UNIT/0.5 ML ML SQ SCH ×4 (07:30→20:39)
[2021-08-05] MEDS: methylPREDNISolone 4 MG TAB PO SCH (08:34)
[2021-08-05] MEDS: GLUCERNA SHAKE 237 ML CAN PO SCH ×4 (08:34→20:47)
[2021-08-05] MEDS: MEMANTINE HCL 10 MG TABLET PO SCH ×2 (08:34→20:45)
[2021-08-05] MEDS: Levofloxacin500mg IV 500 MG/100 ML BAG IV SCH (08:34)
[2021-08-05] MEDS: ACETAMINOPHEN 500 MG TAB PO PRN ×2 (08:38→14:27)
[2021-08-05] MEDS: RIVAROXABAN 15 MG TABLET PO SCH (16:25)
[2021-08-05] MEDS: ATORVASTATIN 20 MG TAB PO SCH (20:45)
[2021-08-05] MEDS: VANCOMYCIN 1.25 GM in NA CHLORIDE 0.9% 250 ML IVPB SCH (20:46)
--- NOTE | 2021-08-06 01:17 | PN ---
Date of Progress Note: 08/05/2021 Subjective: The patient was seen this morning for followup. No new complaints or problems reported by her lying in bed, sleeping, arousable, not in any distress. Objective: Vital Signs: Reviewed. HEENT: Unremarkable. Lungs: Clear to auscultation. Heart: Heart sounds normal. Abdomen: Soft, bowel sounds normal. No guarding, rigidity, tenderness, or distention. Extremities: No leg. Laboratory Data: White count 10.5, hemoglobin 11.1, platelets 150. Sodium 139, potassium 3.9, chlor hipolito 101, bicarb 32, BUN 17, creatinine 0.61, glucose 114, magnesium 1.9. Impression: 1.Stroke. 2.Sepsis. 3.Thrombophlebitis, left arm. 4.Chronic anticoagulation therapy. Plan: We will go ahead and continue current anticoagulation therapy. Continue current antibiotics. Physical therapy to continue to work with the patient and I will see her tomorrow for followup. The patient is on vancomycin and Pharmacy is managing the vancomycin dose. ARSALAN/MODL Voice ID: [id number] Report ID: [id number]
[2021-08-06] MEDS: INSULIN -REGULAR HUMAN 50 UNIT/0.5 ML ML SQ SCH ×4 (07:30→20:43)
[2021-08-06] MEDS: GLUCERNA SHAKE 237 ML CAN PO SCH ×4 (09:00→20:44)
[2021-08-06] MEDS: levoFLOXacin 500 MG TAB PO SCH (10:07)
[2021-08-06] MEDS: methylPREDNISolone 4 MG TAB PO SCH (10:07)
[2021-08-06] MEDS: MEMANTINE HCL 10 MG TABLET PO SCH ×2 (10:07→20:43)
[2021-08-06] MEDS: ACETAMINOPHEN 500 MG TAB PO PRN ×2 (10:33→16:21)
[2021-08-06] MEDS: RIVAROXABAN 15 MG TABLET PO SCH (18:14)
[2021-08-06] MEDS: VANCOMYCIN 1.25 GM in NA CHLORIDE 0.9% 250 ML IVPB SCH (20:42)
[2021-08-06] MEDS: ATORVASTATIN 20 MG TAB PO SCH (20:43)
--- NOTE | 2021-08-07 01:18 | PN ---
Date of Progress Note: 08/06/2021 Subjective: The patient was seen this morning for followup. She was lying in bed, not in any distre ss. No new complaints or problems reported by her. Objective: Vital Signs: Reviewed. HEENT: Unremarkable. Lungs: Clear to auscultation. Heart: Heart sounds normal. Abdomen: Soft. Bowel sounds normal. No guarding, rigidity, tenderness, distention. Extremities: No leg edema. 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 Left side is 5/5. Laboratory Data: Reviewed. Impression: 1.Stroke. 2.Atrial fibrillation. 3.Type 2 diabetes mellitus. 4.Sepsis, organism Staphylococcus. 5.Thrombophlebitis, left arm. 6.Generalized weakness. 7.Debility. Plan: We will continue current antibiotics. Physical Therapy to continue to work with the patient. I was notified today that the patient has been denied for inpatient rehab and over the weekend when I communicated with the patient's son, he wanted to consider a correction facility only if inpat ient rehab gets denied, but at the same time he told me that the patient's daughter does not agree wi th correction facility placement, so obviously family will need to make this decision as far as disposition is concerned. Meanwhile, I will continue current medical management. I did try to reach out to patient's daughter as she requested to talk to me this evening and she was not available. ARSALAN/MODL Voice ID: [id number] Report ID: [id number]
[2021-08-07 06:13] LABS: Absolute Lymphocytes (CBC) 2.1 K/uL (0.7-4.9); Basophils % 0.5 % (0-1.3); Hematocrit 32.8 % (36.0-45.0); RBC Red Blood Cell Count 3.58 M/uL (3.86-4.86)
[2021-08-07 06:29] LABS: Magnesium 2.1 mg/dL (1.8-2.4); Potassium 3.7 mmol/L (3.5-5.1)
[2021-08-07] MEDS: INSULIN -REGULAR HUMAN 50 UNIT/0.5 ML ML SQ SCH ×2 (07:30→11:24)
[2021-08-07 09:06] VITALS: O2SAT 95
[2021-08-07] MEDS: levoFLOXacin 500 MG TAB PO SCH (09:08)
[2021-08-07] MEDS: MEMANTINE HCL 10 MG TABLET PO SCH (09:08)
[2021-08-07] MEDS: GLUCERNA SHAKE 237 ML CAN PO SCH ×2 (09:09→12:09)
[2021-08-07] MEDS: methylPREDNISolone 4 MG TAB PO SCH (09:09)
[2021-08-07 13:01] VITALS: BP 107/54; TEMP 97.9
--- NOTE | 2021-08-08 10:22 | DS ---
Date of Discharge: 08/07/2021 Disposition: Discharged to go to care home. Physical Examination: HEENT: Unremarkable. Lungs: Clear to auscultation. Heart: Sounds normal. Abdomen: Soft. Bowel sounds normal. No guarding, rigidity, tenderness, or distention. Extremities: No leg edema. Neuro: Right upper and right lower extremity power is 4+/5, left upper and left lower extremity tatiana r 5/5. Speech is normal. Laboratory Data: Upon admission; white count 12.4, hemoglobin 13, platelets 154. Last white count t halina at 9.8, hemoglobin 10.7, platelets 205. Last chemistry today; sodium 139, potassium 3.7, chlori de 99, bicarb 34, BUN 20, creatinine 0.69, glucose 131, magnesium 2.1. Hospital Course: This is an 81-year-old pleasant female patient, who was admitted to the hospital af ter she was brought back to emergency room from [facility]. Her last hospital a dmission was due to atrial fibrillation. During her last hospital stay, she was also discharged to [facility] with oxygen. When the patient came into ER, she was evaluated. Her CAT scan of the head was negative. The patient had right-sided weakness and we did MRI of her brain per stroke protocol and M RI did show evidence of known hemorrhagic infarct in the left frontoparietal region and questionable infarct in maryellen. There was no evidence of bleeding. No evidence of cerebral edema. This acute stro ke was thought to be due to underlying atrial fibrillation. The patient was on chronic anticoagulati on therapy for many years and she was using Xarelto 10 mg daily prior to last admission, but at the t sophie of last admission, we discharged her to go home with increased dose of Xarelto 15 mg daily in vie w of atrial fibrillation and reduced creatinine clearance, so her appropriate dose will be 15 mg robert y. She was also discharged at that time with home oxygen. At this time with this stroke, other prob lems that we noted that the patient had thrombophlebitis of left arm and this area was involving left antecubital fossa. This is the area where she had IV site during her last hospital admission and wh en she first came into ER, nurse in ER noted that there was a small drop of purulent discharge from t IV site. Subsequently, we were not able to see any purulent discharge anymore and this area jacobo lyn has improved significantly to the extent that it is almost back to normal except a small area of cord-like feeling from thrombophlebitis. The area of superficial cellulitis that she had has complet vangie resolved. Blood culture that was done has grown Staphylococcus. Physical Therapy was consulted. The patient was given IV antibiotics which was vancomycin and she was also given Levaquin. She has remained afebrile. Hemodynamically remained stable. Inpatient Rehab was consulted, but the patient was denied because she was not able to do 3 hours of inpatient rehab therapy. The patient's family and the patient to go to care home facility. I did talk to patient's son over the weekend moe galiciaing this and today, I had a long discussion with the patient's daughter, talked to her for about al most 30 minutes discussing all the details including placement in care home facility and she wa s agreeable to do so. Social Service was consulted and they were able to make arrangements for the p atient to go to care home facility of family's choice and the patient was discharged in ___ Discharge Medications And Instructions: 1.Continue all prior home medications except stop Xarelto 10 mg daily and start Xarelto 15 mg daily. 2.Take Levaquin 500 mg daily for 10 days. 3.Consult Physical Therapy and Occupational Therapy at care home. 4.Fingerstick blood sugar a.c. and at bedtime with mild sliding scale. 5.Stop spironolactone. 6.Follow up with Dr. Suarez next week. Final Diagnoses: 1.Stroke. 2.Atrial fibrillation, chronic. 3.Chronic anticoagulation therapy. 4.Chronic steroid therapy. 5.Sepsis, organism Staphylococcus. 6.Superficial thrombophlebitis, left arm. 7.Cellulitis, left arm. 8.Generalized weakness. 9.Debility. 10.Type 2 diabetes mellitus. 11.Anemia, unspecified . ARSALAN/MODL Voice ID: [id number] Report ID: [id number]
== END 2021-08-07 15:35 | DRG 871 ==
LOC: ER 13:28 → ERHOLD 16:45 → 2ND 17:57
PROVIDERS: ADMIT Internal Medicine; ATTEND Internal Medicine
DX: A41.01 Sepsis due to Methicillin susceptible Staphylococcus aureus (principal); I63.9 Cerebral infarction, unspecified; J18.9 Pneumonia, unspecified organism; L03.114 Cellulitis of left upper limb; I48.20 Chronic atrial fibrillation, unspecified; G81.91 Hemiplegia, unspecified affecting right dominant side; I50.22 Chronic systolic (congestive) heart failure; D68.59 Other primary thrombophilia; I80.8 Phlebitis and thrombophlebitis of other sites; R53.81 Other malaise; I11.0 Hypertensive heart disease with heart failure; D64.9 Anemia, unspecified; E78.2 Mixed hyperlipidemia; E11.9 Type 2 diabetes mellitus without complications; K21.9 Gastro-esophageal reflux disease without esophagitis; M19.90 Unspecified osteoarthritis, unspecified site; M35.3 Polymyalgia rheumatica; M06.9 Rheumatoid arthritis, unspecified; Z20.822 Contact with and (suspected) exposure to COVID-19; Z79.52 Long term (current) use of systemic steroids; Z79.01 Long term (current) use of anticoagulants
CPT/HCPCS: 36415; 51702; 70450; 70544; 70549; 70553; 71045; 76881; 80048; 80076; 80202; 81003; 81015; 82150; 82550; 82553; 82947; 83605; 83690; 83735; 83880; 84145; 84484; 85025; 85610; 85730; 86140; 87040; 87077; 87186; 87205; 93005; 94760; 96361; 96374; 96375; 97110; 97112; 97116; 97161; 97530; 99285; A9577; J1940; J2543; J2920; J3370; J7030; J7040; J7050; J7509; U0003

== ENCOUNTER 2022-03-07 06:27 | Day surgery (SDC) | payer OTHER ==
--- NOTE | 2022-03-06 15:21 | RAD REPORT ---
EXAM DESCRIPTION: RAD - Chest Pa And Lat (2 Views) - 03/06/2022 3:12 pm CLINICAL HISTORY: pre op pending face mass removal COMPARISON: Chest Single View dated 08/01/2021; Chest Single View dated 07/30/2021; Chest Single View dated 07/28/2021; Chest Single View dated 04/15/2021 FINDINGS: Lines: None. Lungs: No evidence of edema or pneumonia. Pleural: No significant pleural effusions or pneumothorax. Cardiac: The heart size is within normal limits. Bones: No acute fractures. Other: IMPRESSION: No acute cardiopulmonary disease.
[2022-03-06 16:13] LABS: Absolute Lymphocytes (CBC) 1.5 K/uL (0.7-4.9); Hematocrit 38.4 % (36.0-45.0); Lymphocytes % 26.1 % (15.3-44.8); MPV 7.4 fL (7.6-11.3); RBC Red Blood Cell Count 4.08 M/uL (3.86-4.86)
[2022-03-06 16:16] LABS: Potassium 3.8 mmol/L (3.5-5.1)
[2022-03-07] MEDS ORDERED: CIPROFLOXACIN 400mg IV 400 MG/200 ML BAG IV ONE (06:39)
[2022-03-07] MEDS ORDERED: NA CHLORIDE 0.9% 1,000 ML ONE (06:39)
[2022-03-07] MEDS ORDERED: ONDANSETRON 4 MG/2 ML VIAL ONE (07:21)
[2022-03-07] MEDS ORDERED: FENTANYL CITR 100 MCG/2 ML ONE (07:21)
[2022-03-07] MEDS ORDERED: propofoL 200 MG/20 ML VIAL IV ONE ×4 (07:21→07:55)
[2022-03-07] MEDS ORDERED: LIDOCAINE 2% MPF 5 ML VIAL ONE (07:21)
[2022-03-07] MEDS ORDERED: Phenylephrine HCl 10 MG/ML 1 ML VIAL ONE (07:55)
[2022-03-07] MEDS ORDERED: NS 0.9% VIAL 20 ML ONE (07:56)
[2022-03-07] MEDS ORDERED: BUPIVACA 0.5%/EPI 0.0005%/PF 30 ML VIAL SQ ONE (08:03)
[2022-03-07] MEDS ORDERED: TRAMADOL 37.5mg/APAP 325mg PER TAB PO PRN (08:23)
--- NOTE | 2022-03-07 08:34 | P.OP ---
Date of Service: 03/07/22 Preop diagnosis: Right face mass Postop diagnosis: Same Procedure performed: Excision right face mass 3 x 3 cm Surgeon: Beny Suarez MD Account General Manager: Max DOAN Estimated blood loss: Minimal Specimen: Right Findings: Likely seborrheic keratosis Anesthesia: General Complications: None Drains: None Fluids and blood products: Nonapplicable Disposition: Day surgery Operative note: Patient brought to the OR and placed in the supine position. General anesthesia begun. Patient prepped and draped in usual sterile fashion. 15 blade used to excise this 3 x 3 cm raised brown mass. Mass was attached to the skin 1 x 1 cm. The wound and the remaining was partial-thickness in nature. Bleeding was controlled with cautery. Upon examination of the mass, it appeared to be a seborrheic keratosis. Therefore, frozen section was not needed. Sterile dressing applied and patient awakened. Patient taken to day surgery in good general condition. CC: Dr. Pierre's office
[2022-03-07 08:40] VITALS: BP 100/40; TEMP 96.3; O2SAT 97
--- NOTE | 2022-03-08 08:58 | EKG ---
Test Date: 2022-03-06 Test Time: 14:53:03 Sql Programmer: NATHALY MEASUREMENT RESULTS: Intervals: Rate: 86 RI: 208 QRSD: 90 QT: 370 QTc: 442 [place]: P: 43 RI: 208 QRS: -20 T: 55 INTERPRETIVE STATEMENTS: Sinus rhythm with premature atrial complexes Possible Anterior infarct, age undetermined Abnormal ECG Compared to ECG 08/01/2021 13:43:55 Sinus tachycardia no longer present Myocardial infarct finding still present Electronically Signed On 03-08-22 08:55:33 CDT by Kai Manzano
== END 2022-03-07 09:25 | disposition home or self-care (01) ==
LOC: OR 06:27
PROVIDERS: ATTEND Surgery
PROC: 0JB10ZZ Excision of Face Subcutaneous Tissue and Fascia, Open Approach (ICD-10-PCS; principal; 2022-03-07 07:30)
DX: L85.9 Epidermal thickening, unspecified (principal); Z20.822 Contact with and (suspected) exposure to COVID-19
CPT/HCPCS: 93005; 85025; 80048; 36415; 88305; 71046; 11443; U0003; J2704 ×3; J2370; J3010; J7030; J2405; J0744

== ENCOUNTER 2022-04-13 17:07 | Emergency (ER) | payer OTHER ==
[2022-04-13 18:25] LABS: Absolute Lymphocytes (CBC) 1.6 K/uL (0.7-4.9); Hematocrit 37.3 % (36.0-45.0); Lymphocytes % 28.6 % (15.3-44.8); MCV 92.8 fL (80-100); MPV 7.1 fL (7.6-11.3); RBC Red Blood Cell Count 4.02 M/uL (3.86-4.86)
[2022-04-13] MEDS ORDERED: NA CHLORIDE 0.9% 500 ML ONE (18:39)
[2022-04-13 18:42] LABS: Albumin 2.8 g/dL (3.4-5.0); Bilirubin Total 0.3 mg/dL (0.2-1.0); Potassium 4.2 mmol/L (3.5-5.1); Protein, Total 6.5 g/dL (6.4-8.2); Troponin High Sensitivity 8.7 pg/mL (<58.9)
--- NOTE | 2022-04-13 19:35 | RAD REPORT ---
EXAM DESCRIPTION: CTAbdomen Pelvis W Contrast - 04/13/2022 7:25 pm CLINICAL HISTORY: Nausea/vomiting COMPARISON: <Comparisons> TECHNIQUE: CT of the abdomen and pelvis was performed. All CT scans are performed using dose optimization technique as appropriate and may include automated exposure control or mA/KV adjustment according to patient size. FINDINGS: Lower chest: Calcified pleural plaques at the right lung base. Coronary artery calcificati ons. Liver: No acute abnormality or suspicious lesions. Biliary: Cholelithiasis. Stomach: No significant focal abnormality. Duodenum: No significant focal abnormality. Pancreas: No significant abnormality. Spleen: No significant abnormality. Adrenal: No suspicious lesions. Kidney/ureter: Moderate left-sided hydronephrosis. The ureter is decompressed. The obstruction may be at the left UPJ. 6 mm stone in the lower pole the right kidney. Retroperitoneum: No retroperitoneal adenopathy. Vascular: No aneurysm. Atherosclerosis. Bowel: Diverticulosis without diverticulitis. No appendicitis.. Peritoneum: No ascites or free air. Bladder: Grossly unremarkable. Reproductive: No adnexal masses. Bones: No acute fracture. Remote appearing compression fractures in the lumbar spine. Other: n/a IMPRESSION: 1. Interval development of left-sided hydronephrosis. No obstructing stone or mass is se en. The obstruction may be at the level of the UPJ. 2. Cholelithiasis without CT evidence of acute cholecystitis.
[2022-04-13 20:16] LABS: Urine Blood Trace-intact (Negative); Urine Glucose Negative (Negative); Urine Protein Negative (Negative)
[2022-04-13 20:37] LABS: Urine Bacteria None Seen /HPF (<20); Urine RBC <5 /HPF (None Seen)
--- NOTE | 2022-04-13 21:03 | ER ---
Nurse's Notes [facility] Name: Judah Caceres Age: 82 yrs Sex: Female : 1940 Arrival Date: 04/13/2022 Time: 17:38 Bed 20 Private MD: Diagnosis: Unspecified hydronephrosis;Nausea with vomiting, unspecified Presentation: 04/13 17:41 Chief complaint: EMS states: PER FAMILY REQUEST, PT SENT FROM [facility] FOR ACUTE NAUSEA/VOMITING. Coronavirus screen: At this time, the client does not indicate any symptoms associated with coronavirus-19. Ebola Screen: No symptoms or risks identified at this time. Initial Sepsis Screen: Does the patient meet any 2 criteria? No. Patient's initial sepsis screen is negative. Does the patient have a suspected source of infection? No. Patient's initial sepsis screen is negative. Risk Assessment: Do you want to hurt yourself or someone else? Patient reports no desire to harm self or others. Onset of symptoms was April 13, 2022. Care prior to arrival: Medication(s) given: zofran 4 mg, IV initiated. 20 GA, in the right antecubital area, Glucose check: 183. 17:41 Method Of Arrival: EMS: [facility] bp 17:41 Acuity: AMY 3 bp Triage Assessment: 17:43 General: Appears in no apparent distress. comfortable, Behavior is calm, cooperative, bp appropriate for age. Pain: Denies pain. EENT: No deficits noted. Neuro: Level of Consciousness is awake, obeys commands, Oriented to person, place, situation. Cardiovascular: No deficits noted. Respiratory: No deficits noted. GI: Reports nausea, vomiting. : No signs and/or symptoms were reported regarding the genitourinary system. Derm: No deficits noted. Musculoskeletal: No deficits noted. Historical: - Allergies: 17:43 Cefaclor; bp 17:43 codeine sulfate; bp 17:43 Keflex; bp 17:43 meperidine; bp 17:43 NSAIDS; bp 17:43 Sulfa (Sulfonamide Antibiotics); bp - PMHx: 17:43 Chronic obstructive lung disease; Dementia; diabetes mellitus; Atrial fibrillation; bp Cerebrovascular accident; - Immunization history:: Adult Immunizations up to date. - Social history:: Smoking status: Patient denies any tobacco usage or history of. Screenin:45 Abuse screen: Denies threats or abuse. Denies injuries from another. Nutritional bp screening: No deficits noted. Tuberculosis screening: No symptoms or risk factors identified. Fall Risk None identified. Assessment: 17:45 General: SEE TRIAGE NOTE. GI: Abdomen is non-distended, Reports nausea, vomiting. bp 19:02 Reassessment: No changes from previously documented assessment. Patient and/or family bp updated on plan of care and expected duration. Pain level reassessed. Vital Signs: 17:38 BP 127 / 71; Pulse 94; Resp 16; Temp 97.9(O); Pulse Ox 98% on R/A; Weight 54.43 kg (R); mb7 Height 5 ft. 6 in. (167.64 cm) (R); 19:00 BP 116 / 55; Pulse 88; Resp 15; Pulse Ox 100% ; bp 20:00 BP 121 / 61; Pulse 88; Resp 20; Pulse Ox 100% on R/A; bh1 17:38 Body Mass Index 19.37 (54.43 kg, 167.64 cm) mb7 ED Course: 17:38 Patient arrived in ED. bp 17:39 Patient has correct armband on for positive identification. Bed in low position. Call mb7 light in reach. Side rails up X 1. Door closed. Noise minimized. Warm blanket given. 17:39 Maintain EMS IV. Dressing intact. Good blood return noted. Site clean \T\ dry. Gauge \T\ mb 7 site: 20 gauge in right AC. 17:42 Peyton Swanson is Attending Physician. sd2 17:43 Triage completed. bp 17:43 Arm band placed on. bp 17:54 Tim Oden, RN is Primary Nurse. bp 19:16 Tim Oden, RN is Primary Nurse. bp 19:[address] via stretcher. bp 19:23 Attending Physician role handed off by Peyton Swanson ms3 19:23 Simon Coelho DO is Attending Physician. ms3 19:27 CT Abd/Pelvis - IV Contrast Only In Process Unspecified. EDMS 20:01 No apparent distress. Patient requests rest room assistance. bh1 20:18 Urine Microscopic Only Sent. bh1 21:18 No provider procedures requiring assistance completed. IV discontinued, intact, bh1 bleeding controlled, No redness/swelling at site. Administered Medications: 18:15 Drug: NS 0.9% 500 ml Route: IV; Rate: bolus; Site: right antecubital; bp 20:18 Follow up: Response: No adverse reaction; IV Status: Infusion continued [facility] Medication: 17:45 VIS not applicable for this client. bp Outcome: 21:02 Discharge ordered by . ms3 21:18 Discharged to home via wheelchair. [facility] 21:18 Condition: good 21:18 Discharge instructions given to family, Instructed on discharge instructions, follow up and referral plans. medication usage, Demonstrated understanding of instructions, follow-up care, medications, Prescriptions given X 1. 21:21 Discharge instructions given to [place] [id number] 21:23 Patient left the ED. [facility] Signatures: Dispatcher [employer] EDTim King, RN RN Simon Coelho DO DO ms3 Jasmyn Moody7 Peyton Swanson MD MD al2 Valerie Hsu RN RN [facility]
--- NOTE | 2022-04-13 21:03 | EDPHYS ---
Physician Documentation [facility] Name: Judah Caceres Age: 82 yrs Sex: Female : 1940 Arrival Date: 04/13/2022 Time: 17:38 Bed 20 Private MD: ED Physician Simon Coelho HPI: 04/13 17:50 This 82 yrs old Female presents to ER via EMS with complaints of Nausea/Vomiting. sd2 17:50 82 yo F presents via EMS with CC of nausea and vomiting starting today. Pt reports sd2 going out to eat seafood with her family last night but did not feel sick until this morning. She reports no one else in her family is sick either. [facility] She was given 4mg of Zofran by EMS prior to arrival and nausea is improving. She denies any associated fever, diarrhea or abdominal pain. Denies any urinary symptoms. Denies any CP or SOB. . Historical: - Allergies: 17:43 Cefaclor; bp 17:43 codeine sulfate; bp 17:43 Keflex; bp 17:43 meperidine; bp 17:43 NSAIDS; bp 17:43 Sulfa (Sulfonamide Antibiotics); bp - PMHx: 17:43 Chronic obstructive lung disease; Dementia; diabetes mellitus; Atrial fibrillation; bp Cerebrovascular accident; - Immunization history:: Adult Immunizations up to date. - Social history:: Smoking status: Patient denies any tobacco usage or history of. ROS: 17:50 Constitutional: Negative for fever, chills, and weight loss, Eyes: Negative for injury, sd2 pain, redness, and discharge, Cardiovascular: Negative for chest pain, palpitations, and edema, Respiratory: Negative for shortness of breath, cough, wheezing. : Negative for dysuria, urinary frequency, hesitancy, urgency and hematuria. MS/Extremity: Negative for injury and deformity, Skin: Negative for injury, rash, and discoloration, Neuro: Negative for headache, numbness and tingling. 17:50 Abdomen/GI: Positive for nausea and vomiting, Negative for abdominal pain, diarrhea, constipation, abdominal distension. Exam: 17:50 Constitutional: This is a well developed, well nourished patient who is awake, alert, sd2 and in no acute distress. Head/Face: Normocephalic, atraumatic. Chest/axilla: Normal chest wall appearance and motion. Nontender with no deformity. Cardiovascular: Regular rate and rhythm with a normal S1 and S2. No gallops, murmurs, or rubs. 2+ distal pulses. Respiratory: Lungs have equal breath sounds bilaterally, clear to auscultation and percussion. No rales, rhonchi or wheezes noted. No increased work of breathing, no retractions or nasal flaring. Abdomen/GI: Soft, non-tender, with normal bowel sounds. No guarding or rebound. No evidence of tenderness throughout. Skin: Warm, dry with normal turgor. Normal color with no rashes, no lesions, and no evidence of cellulitis. MS/ Extremity: Pulses equal, no cyanosis. Neurovascular intact. Full, normal range of motion. Ambulatory without difficulty. Psych: Awake, alert, with orientation to person, place and time. Behavior, mood, and affect are within normal limits. 19:37 ECG was reviewed by the Attending Physician. NSR, rate 87, no STEMI criteria sd2 Vital Signs: 17:38 BP 127 / 71; Pulse 94; Resp 16; Temp 97.9(O); Pulse Ox 98% on R/A; Weight 54.43 kg (R); mb7 Height 5 ft. 6 in. (167.64 cm) (R); 19:00 BP 116 / 55; Pulse 88; Resp 15; Pulse Ox 100% ; bp 20:00 BP 121 / 61; Pulse 88; Resp 20; Pulse Ox 100% on R/A; bh1 17:38 Body Mass Index 19.37 (54.43 kg, 167.64 cm) [facility] MDM: 17:43 Patient medically screened. sd2 17:48 Patient medically screened. sd2 17:50 Differential diagnosis: Gastritis, ACS, pancreatitis, GB pathology, diverticulitis, sd2 SBO, UTI, appendicitis among others. Data reviewed: vital signs, nurses notes. 19:36 Transition of care: After a detail discussion of the patient's case, care is sd2 transferred to [facility] . 04/13 17:50 Order name: CBC with Diff; Complete Time: 18:37 co2 04/13 17:50 Order name: CMP; Complete Time: 19:37 sd2 04/13 17:50 Order name: Lipase; Complete Time: 19:37 sd2 04/13 17:50 Order name: Troponin High Sensitivity; Complete Time: 19:37 sd2 04/13 17:50 Order name: Urine Microscopic Only; Complete Time: 20:56 sd04/13 20:16 Order name: Urine Dipstick-Ancillary; Complete Time: 20:56 EDNY 04/13 17:50 Order name: EKG - Nurse/Tech; Complete Time: 19:01 sd04/13 17:50 Order name: Urine Dipstick-Ancillary (obtain specimen); Complete Time: 20:18 sd2 04/13 17:50 Order name: CT Abd/Pelvis - IV Contrast Only; Complete Time: 19:37 sd2 Administered Medications: 18:15 Drug: NS 0.9% 500 ml Route: IV; Rate: bolus; Site: right antecubital; bp 20:18 Follow up: Response: No adverse reaction; IV Status: Infusion continued bh1 Disposition Summary: 04/13/22 21:02 Discharge Ordered Location: Home ms3 Condition: Stable ms3 Diagnosis - Unspecified hydronephrosis ms3 - Nausea with vomiting, unspecified ms3 Followup: ms3 - With: Private Physician - When: 2 - 3 days - Reason: Re-evaluation by your physician Discharge Instructions: - Discharge Summary Sheet ms3 - Nausea and Vomiting, Adult ms3 - Hydronephrosis ms3 Forms: - Medication Reconciliation Form ms3 - Thank You Letter ms3 - Antibiotic Education ms3 - Prescription Opioid Use ms3 Prescriptions: - ondansetron HCl 4 mg Oral tablet - take 1 tablet by ORAL route 4 times per day; 15 tablet; Refills: 0, Product cp Selection Permitted Signatures: Dispatcher [employer] EDTim King, RN RN bp Simon Coelho DO DO ms3 Peyton Swanson MD MD sd2 Valerie Hsu RN [facility]
[2022-04-13 21:40] VITALS: TEMP 97.9
[2022-04-13 21:54] VITALS: O2SAT 100
[2022-04-13 21:55] VITALS: BP 121/61
--- NOTE | 2022-04-14 09:26 | EKG ---
Test Date: 2022-04-13 Test Time: 18:42:53 Mortgage Funder: BP MEASUREMENT RESULTS: Intervals: Rate: 87 NE: 192 QRSD: 84 QT: 374 QTc: 450 [place]: P: 61 NE: 192 QRS: -18 T: 19 INTERPRETIVE STATEMENTS: Normal sinus rhythm Normal ECG Compared to ECG 03/06/2022 14:53:03 Atrial premature complex(es) no longer present Myocardial infarct finding no longer present Electronically Signed On 04-14-22 09:24:46 CDT by Kai Manzano
== END 2022-04-13 21:23 | disposition home or self-care (01) ==
LOC: ER 17:07
DX: N13.30 Unspecified hydronephrosis (principal); E11.9 Type 2 diabetes mellitus without complications; J44.9 Chronic obstructive pulmonary disease, unspecified; Z88.1 Allergy status to other antibiotic agents; Z88.2 Allergy status to sulfonamides; Z88.5 Allergy status to narcotic agent; Z88.6 Allergy status to analgesic agent; Z88.8 Allergy status to other drugs, medicaments and biological substances
CPT/HCPCS: 96361; 93005; 85025; 36415; 84484; 83690; 80053; 74177; 96360; 99284; Q9967; J7040; 81003; 81015

== ENCOUNTER 2022-07-28 21:05 | Emergency (ER) | payer OTHER ==
[2022-07-28 22:17] LABS: Absolute Lymphocytes (CBC) 1.9 K/uL (0.7-4.9); Hematocrit 37.1 % (36.0-45.0); Lymphocytes % 32.8 % (15.3-44.8); MCV 94.5 fL (80-100); MPV 7.5 fL (7.6-11.3); RBC Red Blood Cell Count 3.93 M/uL (3.86-4.86)
--- NOTE | 2022-07-28 22:43 | RAD REPORT ---
EXAM DESCRIPTION: CT - Abdomen Pelvis Wo Contrast - 07/28/2022 10:09 pm CLINICAL HISTORY: Abdominal Pain COMPARISON: Abdomen Pelvis W Contrast dated 04/13/2022 TECHNIQUE: Axial [address] imaging of the abdomen and pelvis was performed without IV contrast. No IV contrast was given because of allergy, abnormal renal function, patient refusal or physician re quest. No oral contrast administered. All CT scans are performed using dose optimization technique as appropriate and may include automated exposure control or mA/KV adjustment according to patient size. FINDINGS: Lung base calcified pleural plaquing seen. No cardiomegaly or pericardial effusion. The liver, spleen and pancreas show no suspicious findings on non-contrast imaging. Multi stone charity lithiasis noted. No acute gallbladder or biliary tree finding. Liver and spleen granulomatous calcifi cations are present. No right-sided hydronephrosis reconstructing calculus. Nonobstructing calyx calculi present on the ri ght. Left-sided pelvis and calyx dilatation present, less severe than seen on April 13 imaging. For ur eter is not dilated. No obstructing calculi. No significant adrenal finding. Isodense renal masses a nd pyelonephritis cannot be excluded in the absence of IV contrast. The urinary bladder is without si gnificant finding. Uterus and ovaries show no suspicious findings. Gastric higuera are accentuated by the limited intraluminal content. This is more pronounced in the ant rum. Duodenal C-loop assessment is limited. Ileum and jejunum show no suspicious findings. Large stoo l volume is present in the colon. Appendicitis is not suspected. Patient has very pronounced left-cliff ed diverticulosis without diverticulitis. No free air, free fluid or inflammatory stranding. No melecio ia, mass or bulky lymphadenopathy. Prominent disc and bone degenerative changes are present. Dense vascular calcifications are seen. Mul tiple chronic partial compression fracture deformities are noted. IMPRESSION: Multi stone cholelithiasis similar to prior imaging. No acute gallbladder or biliary flores e finding suspected. Gastric wall thickening particularly in the antrum. Antritis is not excluded in a patient with right- sided pain. Assessment is limited due to limited gastric lumen content. No acute right-sided finding. Left-sided pelvis and calyx dilatation is less pronounced than seen in March. Full assessment is limited is the absence of IV contrast.
[2022-07-28 23:05] LABS: Bilirubin Total 0.4 mg/dL (0.2-1.0); Potassium 4.4 mmol/L (3.5-5.1); Protein, Total 6.8 g/dL (6.4-8.2); Troponin High Sensitivity 13.8 pg/mL (<58.9)
--- NOTE | 2022-07-29 00:34 | EDPHYS ---
Physician Documentation [facility] Name: Judah Caceres Age: 82 yrs Sex: Female : 1940 Arrival Date: 07/28/2022 Time: 21:09 Bed 6 Private MD: ED Physician Nehal Brooke HPI: 07/28 21:56 This 82 yrs old Female presents to ER via EMS with complaints of Nausea/Vomiting. sp3 21:56 82-year-old female with past medical history listed below presents via EMS for chief sp3 complaint right-sided abdominal pain, nausea, vomiting. Patient states that she is had several episodes today. Similar episode in the past after potentially bad food intake. Currently she states that she feels better. Patient has dementia however she was able to answer review of systems and states that she currently has no headache, neck pain, chest pain, shortness of breath, back pain, rash, diarrhea fever, URI symptoms, or any other symptoms on ROS at this time.. Historical: - Allergies: 21:12 Cefaclor; ll3 21:12 codeine sulfate; ll3 21:12 Cephalexin; ll3 21:12 meperidine; ll3 21:12 Keflex; ll3 21:12 NSAIDS; ll3 21:12 Sulfa (Sulfonamide Antibiotics); ll3 - Home Meds: 21:12 atorvastatin 20 mg oral tab 1 tab once daily [Active]; glimepiride 2 mg Oral tab 1 tab ll3 once daily [Active]; Lasix 20 mg Oral tab 1 tab once daily [Active]; omeprazole 20 mg Oral cpDR 1 cap once daily [Active]; potassium chloride 10 mEq Oral cpER 1 cap once daily [Active]; trazodone 50 mg Oral tab 1 tab once daily [Active]; Xarelto 15 mg oral tab 1 tab once daily [Active]; Depakote 125 mg Oral TbEC 2 tabs 2 times per day [Active]; memantine 5 mg oral tab 1 tab 2 times per day [Active]; Risperdal 0.5 mg Oral tab 5 mg 2 times per day [Active]; acarbose 100 mg Oral tab 1 tab 3 times per day [Active]; - PMHx: 21:12 Atrial fibrillation; Anemia; diabetes mellitus; Hypercholesterolemia; Hypertensive ll3 disorder; Heart disease; Cerebrovascular accident; Chronic obstructive lung disease; Rheumatoid arthritis; Osteoarthritis; Dementia; - Immunization history:: Adult Immunizations up to date. - Social history:: Smoking status: . ROS: 22:00 Constitutional: Negative for fever, chills, and weight loss, Eyes: Negative for injury, sp3 pain, redness, and discharge, ENT: Negative for injury, pain, and discharge, Neck: Negative for injury, pain, and swelling, Cardiovascular: Negative for chest pain, palpitations, and edema, Respiratory: Negative for shortness of breath, cough, wheezing, and pleuritic chest pain, Back: Negative for injury and pain, MS/Extremity: Negative for injury and deformity, Skin: Negative for injury, rash, and discoloration, Neuro: Negative for headache, weakness, numbness, tingling, and seizure, Psych: Negative for depression, anxiety, suicide ideation, homicidal ideation, and hallucinations, Allergy/Immunology: Negative for hives, rash, and allergies, Endocrine: Negative for neck swelling, polydipsia, polyuria, polyphagia, and marked weight changes. 22:00 All other systems are negative. Exam: 22:00 Constitutional: This is a well developed, well nourished patient who is awake, alert, sp3 and in no acute distress. Head/Face: Normocephalic, atraumatic. Eyes: Pupils equal round and reactive to light, extra-ocular motions intact. Lids and lashes normal. Conjunctiva and sclera are non-icteric and not injected. Cornea within normal limits. Periorbital areas with no swelling, redness, or edema. ENT: Nares patent. No nasal discharge, no septal abnormalities noted. External auditory canals are clear. Oropharynx with no redness, swelling, or masses, exudates, or evidence of obstruction, uvula midline. Mucous membranes moist. Neck: Trachea midline, no thyromegaly or masses palpated, and no cervical lymphadenopathy. Supple, full range of motion without nuchal rigidity, or vertebral point tenderness. No Meningismus. Chest/axilla: Normal chest wall appearance and motion. Nontender with no deformity. No lesions are appreciated. Cardiovascular: Regular rate and rhythm with a normal S1 and S2. No gallops, murmurs, or rubs. Normal PMI, no JVD. No pulse deficits. Respiratory: Lungs have equal breath sounds bilaterally, clear to auscultation and percussion. No rales, rhonchi or wheezes noted. No increased work of breathing, no retractions or nasal flaring. Back: No spinal tenderness. No costovertebral tenderness. Full range of motion. Skin: Warm, dry with normal turgor. Normal color with no rashes, no lesions, and no evidence of cellulitis. MS/ Extremity: Pulses equal, no cyanosis. Neurovascular intact. Full, normal range of motion. 22:00 Abdomen/GI: Right lower quadrant tenderness without peritoneal signs. Remainder of abdominal exam is benign.. 23:37 ECG was reviewed by the Attending Physician. EKG demonstrates normal sinus rhythm at 92 sp3 bpm with occasional PACs, normal intervals, normal QRS, normal axis, nonspecific diffuse ST/T changes without evidence of ischemia. Vital Signs: 21:10 BP 125 / 68; Pulse 102; Resp 17; Temp 98.1(O); Pulse Ox 94% on R/A; ll3 22:27 BP 106 / 57; Pulse 89; Resp 16; Pulse Ox 94% on R/A; ll3 22:41 BP 99 / 57; Pulse 88; Pulse Ox 99% on R/A; kl 23:50 BP 99 / 62; Pulse 82; Resp 16; Temp 97.3(O); Pulse Ox 99% on R/A; Pain 0/10; kl MDM: 21:17 Patient medically screened. sp3 22:02 Data reviewed: vital signs, nurses notes. ED course: 82-year-old female with multiple sp3 medical problems now presents with nausea, vomiting, right-sided abdominal pain. Differential diagnosis includes foodborne illness, appendicitis, cholecystitis/biliary pathology, functional abdominal pain. I am not highly suspicious for WATER TENDER pathology, aortic/vascular pathology, kidney stone, pyelonephritis, sepsis, shock, mesenteric ischemia, or any other critical findings at this time. Will obtain CT scan of the abdomen/pelvis, laboratory values, urine analysis and treat with Zofran IV. If work-up is negative, patient will likely be discharged safely back to the senior care after p.o. challenge.. 07/29 00:32 ED course: Pt tolerating PO -- will d/c home at this time. . sp3 07/28 21:29 Order name: CBC with Diff; Complete Time: 23:47 sp3 07/28 21:29 Order name: CMP; Complete Time: 23:47 sp3 07/28 21:29 Order name: Lipase; Complete Time: 23:47 sp3 07/28 21:29 Order name: CT Abd/Pelvis - Without Contrast; Complete Time: 23:47 sp3 07/28 21:29 Order name: Troponin High Sensitivity; Complete Time: 23:47 sp3 07/28 21:29 Order name: IV Saline Lock; Complete Time: 22:19 sp3 07/28 21:29 Order name: Labs collected and sent; Complete Time: 22:19 sp3 07/28 21:30 Order name: EKG - Nurse/Tech; Complete Time: 22:40 sp3 07/28 23:48 Order name: PO challenge sp3 Administered Medications: 07/28 22:26 Not Given (Patient Refused): Zofran (Ondansetron) 4 mg IVP once; over 2 minutes ll3 Disposition Summary: 07/29/22 00:33 Discharge Ordered Location: Home sp3 Condition: Stable sp3 Diagnosis - Vomiting sp3 Followup: sp3 - With: Private Physician - When: Upon discharge from the Emergency Department - Reason: Recheck today's complaints Discharge Instructions: - Discharge Summary Sheet sp3 - Vomiting, Adult sp3 Forms: - Medication Reconciliation Form sp3 - Thank You Letter sp3 - Antibiotic Education sp3 - Prescription Opioid Use sp3 Prescriptions: - Zofran 4 mg Oral Tablet - take 1 tablet by ORAL route every 12 hours As needed; 6 tablet; Refills: 0, sp3 Product Selection Permitted Signatures: Dispatcher [employer] Elma Terrazas, RN RN Nehal Yang MD MD sp3 Adrián Gibson RN RN ll3
--- NOTE | 2022-07-29 00:34 | ER ---
Nurse's Notes [facility] Name: Judah Caceres Age: 82 yrs Sex: Female : 1940 Arrival Date: 07/28/2022 Time: 21:09 Bed 6 Private MD: Diagnosis: Vomiting Presentation: 07/28 21:10 Chief complaint: EMS states: Toned out for N/V and right sided pain. Coronavirus ll3 screen: nausea, vomiting. Ebola Screen: No symptoms or risks identified at this time. Initial Sepsis Screen: Does the patient meet any 2 criteria? No. Patient's initial sepsis screen is negative. Does the patient have a suspected source of infection? No. Patient's initial sepsis screen is negative. Risk Assessment: Do you want to hurt yourself or someone else? Patient reports no desire to harm self or others. Onset of symptoms was July 28, 2022 at 19:00. Care prior to arrival: Medication(s) given: zofran 4 mg, IV initiated. 20 GA, in the right forearm, Glucose check: 230. Transition of care: patient was received from another setting of care (long-term care facility), [facility]. 21:10 Method Of Arrival: EMS: [facility] ll3 21:10 Acuity: AMY 3 ll3 Triage Assessment: 21:12 General: Appears in no apparent distress. uncomfortable, Behavior is calm, cooperative. ll3 Pain: Denies pain. Neuro: Level of Consciousness is awake, alert, obeys commands, Oriented to person, place, situation. Respiratory: Respiratory effort is even, unlabored, Respiratory pattern is regular, symmetrical. 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 Derm: Skin is pink, warm \T\ dry. Historical: - Allergies: 21:12 Cefaclor; ll3 21:12 codeine sulfate; ll3 21:12 Cephalexin; ll3 21:12 meperidine; ll3 21:12 Keflex; ll3 21:12 NSAIDS; ll3 21:12 Sulfa (Sulfonamide Antibiotics); ll3 - Home Meds: 21:12 atorvastatin 20 mg oral tab 1 tab once daily [Active]; glimepiride 2 mg Oral tab 1 tab ll3 once daily [Active]; Lasix 20 mg Oral tab 1 tab once daily [Active]; omeprazole 20 mg Oral cpDR 1 cap once daily [Active]; potassium chloride 10 mEq Oral cpER 1 cap once daily [Active]; trazodone 50 mg Oral tab 1 tab once daily [Active]; Xarelto 15 mg oral tab 1 tab once daily [Active]; Depakote 125 mg Oral TbEC 2 tabs 2 times per day [Active]; memantine 5 mg oral tab 1 tab 2 times per day [Active]; Risperdal 0.5 mg Oral tab 5 mg 2 times per day [Active]; acarbose 100 mg Oral tab 1 tab 3 times per day [Active]; - PMHx: 21:12 Atrial fibrillation; Anemia; diabetes mellitus; Hypercholesterolemia; Hypertensive ll3 disorder; Heart disease; Cerebrovascular accident; Chronic obstructive lung disease; Rheumatoid arthritis; Osteoarthritis; Dementia; - Immunization history:: Adult Immunizations up to date. - Social history:: Smoking status: . Screenin/08 01:21 Abuse screen: Denies threats or abuse. Nutritional screening: No deficits noted. kl Tuberculosis screening: No symptoms or risk factors identified. Fall Risk No fall in past 12 months (0 pts). No secondary diagnosis (0 pts). Ambulatory Aid- Crutches/Cane/Walker (15 pts). Gait- Weak (10 pts.). Mental Status- Oriented to own ability (0 pts). Total Graham Fall Scale indicates Low Risk Score (25-44 pts). Fall prevention measures have been instituted. Side Rails Up X 2 Frequent Obs/Assesments occuring Family Present and informed to notify staff if they need to leave bedside. Assessment: 07/28 21:21 General: See triage assessment. GI: Abdomen is round non-distended. ll3 22:27 Reassessment: Denies nausea at this time Patient states symptoms have improved. ll3 23:30 Reassessment: Patient appears in no apparent distress at this time. Patient and/or kl family updated on plan of care and expected duration. Pain level reassessed. Patient is alert, oriented x 3, equal unlabored respirations, skin warm/dry/pink. Patient states feeling better. 07/29 00:15 Reassessment: Patient appears in no apparent distress at this time. Patient and/or kl family updated on plan of care and expected duration. Pain level reassessed. Patient states symptoms have improved. toleratd PO without difficulty. Vital Signs: 07/28 21:10 BP 125 / 68; Pulse 102; Resp 17; Temp 98.1(O); Pulse Ox 94% on R/A; ll3 22:27 BP 106 / 57; Pulse 89; Resp 16; Pulse Ox 94% on R/A; ll3 22:41 BP 99 / 57; Pulse 88; Pulse Ox 99% on R/A; kl 23:50 BP 99 / 62; Pulse 82; Resp 16; Temp 97.3(O); Pulse Ox 99% on R/A; Pain 0/10; kl ED Course: 21:09 Patient arrived in ED. wm 21:12 Triage completed. ll3 21:12 Nehal Brooke MD is Attending Physician. sp3 21:12 Arm band placed on Patient placed in an exam room, on a stretcher, on pulse oximetry. ll3 22:11 CT Abd/Pelvis - Without Contrast In Process Unspecified. EDMS 07/29 01:21 No provider procedures requiring assistance completed. IV discontinued, intact, kl bleeding controlled, No redness/swelling at site. Pressure dressing applied. 01:23 Patient has correct armband on for positive identification. kl Administered Medications: 07/28 22:26 Not Given (Patient Refused): Zofran (Ondansetron) 4 mg IVP once; over 2 minutes ll3 Medication: 07/29 01:23 VIS not applicable for this client. Outcome: 00:33 Discharge ordered by . sp3 01:22 Discharged to home via wheelchair, with family. kl 01:22 Condition: improved 01:22 Discharge instructions given to patient, family, Instructed on discharge instructions, follow up and referral plans. medication usage, Demonstrated understanding of instructions, follow-up care, medications, Prescriptions given X 1. 01:24 Patient left the ED. Signatures: Dispatcher [employer] EDLA Elma Gibson RN Jocelynn Mack Nehal Brooke MD MD sp3 Adrián Gibson RN RN ll3
[2022-07-29 02:16] VITALS: O2SAT 99
[2022-07-29 02:18] VITALS: BP 99/62; TEMP 97.3
--- NOTE | 2022-07-31 06:36 | EKG ---
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
== END 2022-07-29 01:24 | disposition home or self-care (01) ==
LOC: ER 21:05
DX: R11.10 Vomiting, unspecified (principal); I10 Essential (primary) hypertension; F03.90 Unspecified dementia, unspecified severity, without behavioral disturbance, psychotic disturbance, mood disturbance, and anxiety; I48.91 Unspecified atrial fibrillation; Z79.01 Long term (current) use of anticoagulants; Z88.1 Allergy status to other antibiotic agents; Z88.2 Allergy status to sulfonamides; Z88.5 Allergy status to narcotic agent; Z88.6 Allergy status to analgesic agent; Z88.8 Allergy status to other drugs, medicaments and biological substances
CPT/HCPCS: 36415; 74176; 80053; 83690; 84484; 85025; 93005; 99284

== ENCOUNTER 2022-10-30 07:04 | Observation (INO) | payer OTHER ==
[2022-10-30] MEDS ORDERED: ALBUTEROL 2.5 MG/3 ML NEB SOL ONE (07:42)
[2022-10-30] MEDS ORDERED: NA CHLORIDE 0.9% 500 ML ONE ×2 (07:43→09:25)
[2022-10-30] MEDS ORDERED: IPRATROPIUM BROM 0.5MG/2.5ML ONE (07:43)
[2022-10-30 07:49] LABS: Hematocrit 37.3 % (36.0-45.0); Lymphocytes % 41.8 % (15.3-44.8); MCV 97.1 fL (80-100); RBC Red Blood Cell Count 3.84 M/uL (3.86-4.86)
[2022-10-30 08:09] LABS: Albumin 2.9 g/dL (3.4-5.0); Bilirubin Total 0.7 mg/dL (0.2-1.0); Magnesium 2.2 mg/dL (1.6-2.4); Protein, Total 6.7 g/dL (6.4-8.2); Troponin High Sensitivity 22.7 pg/mL (<58.9)
--- NOTE | 2022-10-30 08:10 | RAD REPORT ---
EXAM DESCRIPTION: Imelda Single View10/30/2022 7:41 am CLINICAL HISTORY: Dyspnea COMPARISON: From 03/06/2022 and 08/01/2021 FINDINGS: The lungs are clear. Mild hyperlucency could reflect underlying mild changes of COPD. No pneumothorax or effusion. The cardiomediastinal contours are unremarkable. IMPRESSION: No acute cardiopulmonary process.
[2022-10-30 08:56] LABS: SARS-COV-2 RT PCR POSITIVE (NEGATIVE)
--- NOTE | 2022-10-30 09:02 | RAD REPORT ---
EXAM DESCRIPTION: CT - Chest For Pe Angio - 10/30/2022 8:43 am CLINICAL HISTORY: Dyspnea. Cough, shortness of breath for a week. Weakness and body aches. COMPARISON: 05/17/[address] abdomen and pelvis 07/28/2022 TECHNIQUE: Dynamically enhanced CT chest, obtained following administration of 75 mL Isovue 350 IV c ontrast. Coronal and sagittal reconstruction images were generated and reviewed. Exam utilizes a prot ocol for optimal evaluation of pulmonary arterial tree. All CT scans are performed using dose optimization technique as appropriate and may include automated exposure control or mA/KV adjustment according to patient size. FINDINGS: Pulmonary arteries are normal in caliber. No emboli or other suspicious finding. No acute or significant findings of the thoracic aorta. No mass or infiltrate in the lung parenchyma. Dependent subsegmental atelectatic changes. No pleural thickening or pleural effusion. No pneumothorax. No abnormal mediastinal or hilar masses or lymphadenopathy seen. No chest wall mass or abnormal axill iary lymphadenopathy. Evaluation of the upper abdominal structures reveals moderate left hydronephrosis, partially visualiz ed. This appears to be progressive since the prior exam. Numerous Layering gallstones again noted. No suspicious osseous lesions. Healed mid sternal body remote fracture, as well as a left distal shaf t clavicle fracture. Left lateral fourth and fifth rib healed fractures. IMPRESSION: No evidence of acute central pulmonary emboli. Dependent subsegmental bilateral atelectatic changes. Negative CT scan of the chest for other signifi cant findings. Evaluation of the upper abdominal structures reveals mild left hydronephrosis stomach partially visua lized. This appears to be progressive since the most recent prior abdominal CT of 07/28/2022. Please correlate clinically.
--- NOTE | 2022-10-30 09:19 | ER ---
Nurse's Notes [facility] Name: Judah Caceres Age: 82 yrs Sex: Female : 1940 Arrival Date: 10/30/2022 Time: 07:06 Bed 20 Private MD: Diagnosis: Dehydration;Covid Presentation: 10/30 07:09 Chief complaint: Patient states: Cough/SOB for 1 week. Covid + for 2 days. Feels weak ll1 achy, SOB. Family wanted her seen here, lives at [facility] in [place]. Coronavirus screen: Vaccine status: Patient reports receiving the 2nd dose of the covid vaccine. Client denies travel out of the [place] in the last 14 days. congestion, cough unrelated to allergies, fatigue, headache, muscle pain, shortness of breath, Client presents with at least one sign or symptom that may indicate coronavirus-19. Standard/surgical mask placed on the client. Ebola Screen: Patient denies travel to an Ebola-affected area in the 21 days before illness onset. No acute neurological deficit is noted. Initial Sepsis Screen: Does the patient meet any 2 criteria? No. Patient's initial sepsis screen is negative. Does the patient have a suspected source of infection? Yes: Productive cough/pneumonia. Risk Assessment: Do you want to hurt yourself or someone else? Patient reports no desire to harm self or others. Onset of symptoms was October 23, 2022. 07:09 Method Of Arrival: EMS: [facility] ll1 07:09 Acuity: AMY 3 ll1 16:08 The patients blood glucose was checked before arriving to the hospital and was found to ll1 be normal. Triage Assessment: 07:13 The onset of the patients symptoms was more than six hours ago. General: Appears ll1 uncomfortable, ill, Behavior is calm, cooperative, appropriate for age. Pain: Complains of pain in chest Quality of pain is described as aching. EENT: Reports nasal congestion. Neuro: Reports headache weakness. Respiratory: Reports shortness of breath cough that is. GI: Reports intolerance of fluids, intolerance of food. Musculoskeletal: Reports weakness in generalized. 16:07 The onset of the patients symptoms was October 30, 2022 at 16:07. ll1 Stroke Activation: Symptom onset > 6 hours Physician: Stroke Attending; Name: ; Notified At: ; Arrived At: Physician: Chief Stroke Resident; Name: ; Notified At: ; Arrived At: Physician: Stroke Resident; Name: ; Notified At: ; Arrived At: Physician: ED Attending; Name: ; Notified At: ; Arrived At: Physician: ED Resident; Name: ; Notified At: ; Arrived At: Historical: - Allergies: 07:09 Cefaclor; ll1 07:09 Cephalexin; ll1 07:09 codeine sulfate; ll1 07:09 Keflex; ll1 07:09 meperidine; ll1 07:09 NSAIDS; ll1 07:09 Sulfa (Sulfonamide Antibiotics); ll1 - PMHx: 07:09 Atrial fibrillation; osteoarthritis; Hypercholesterolemia; Hypertensive disorder; heart ll1 disease; Rheumatoid Arthritis; diabetes mellitus; Dementia; Chronic obstructive lung disease; Cerebrovascular accident; Anemia; - Immunization history:: Client reports receiving the 2nd dose of the Covid vaccine. - Social history:: Smoking status: Patient denies any tobacco usage or history of. - Family history:: not pertinent. Screenin:05 [facility] ED Fall Risk Assessment (Adult) Confusion or Disorientation Yes (5 pts) ll1 Impaired Gait Yes (1 pt) Mobility Assist Device Used Yes (1 pt) Score/Fall Risk Level 3 or more points = High Risk Oriented to surroundings, Maintained a safe environment, Educated pt \T\ family on fall prevention, incl call for assistance when getting out of bed, Hourly rounding (assess needs \T\ fall precautionary measures) done, Remained w/in arm's length of patient and in sight while toileting, Offered frequent toileting (1:1 observation), Utilized family, sitter, or virtual geospatial systems integrator as indicated. Abuse screen: Denies threats or abuse. Nutritional screening: No deficits noted. Tuberculosis screening: No symptoms or risk factors identified. Assessment: 07:55 Reassessment: No changes from previously documented assessment. Patient and/or family ll1 updated on plan of care and expected duration. Pain level reassessed. 08:20 Reassessment: No changes from previously documented assessment. Patient and/or family ll1 updated on plan of care and expected duration. Pain level reassessed. 09:10 Reassessment: No changes from previously documented assessment. Dr. Moura at 1 bedside. 09:30 Reassessment: No changes from previously documented assessment. ll1 10:20 Reassessment: No changes from previously documented assessment. Patient and/or family ll1 updated on plan of care and expected duration. Pain level reassessed. 12:00 Reassessment: No changes from previously documented assessment. Patient and/or family ll1 updated on plan of care and expected duration. Pain level reassessed. 13:19 Reassessment: No changes from previously documented assessment. Patient and/or family ll1 updated on plan of care and expected duration. Pain level reassessed. 15:10 Reassessment: No changes from previously documented assessment. ll1 16:05 Reassessment: No changes from previously documented assessment. Patient and/or family ll1 updated on plan of care and expected duration. Pain level reassessed. 16:05 VAN Scoring: Arm Drift: Patients demonstrates NO arm weakness. Patient is VAN Negative. ll1 The patient has not been NPO before screening. The patient is alert, and able to follow commands. The patient does not exhibit slurred or garbled speech. The patient is not exhibiting difficulty speaking. The patient does not exhibit difficulty understanding words. The patient is able to swallow own secretions with no drooling or need for suction. Patient tolerated one teaspoon of water. No drooling, immediate coughing, gurgling, or clearing of the throat was noted. The patient tolerated 90mL of water. No drooling, immediate coughing, gurgling, or clearing of the throat was noted. The patient passed the bedside swallow screening. Oral medications may be given as ordered. Contact Physician for further diet orders. 16:08 Provider notified of bedside swallow screening results: Jony Moura MD. Kristie ll1 (Tenecteplase) Screening: Indications: Treatment will start within 4.5 hours onset of symptoms: No. 16:27 Reassessment: No changes from previously documented assessment. Patient and/or family ll1 updated on plan of care and expected duration. Pain level reassessed. Vital Signs: 07:09 BP 142 / 76; Pulse 100; Resp 18; Temp 99.2; Pulse Ox 97% on R/A; Pain 4/10; ll1 08:19 BP 126 / 75; Pulse 97; Resp 18; Pulse Ox 100% ; ll1 10:21 BP 116 / 86; Pulse 103; Resp 18; Pulse Ox 97% on R/A; ll1 12:01 BP 113 / 56; Pulse 96; Resp 18; Pulse Ox 98% on R/A; ll1 13:19 BP 108 / 58; Pulse 86; Pulse Ox 96% on R/A; ll1 14:30 BP 123 / 57; Pulse 83; Pulse Ox 99% on R/A; ll1 16:03 BP 116 / 58; Pulse 88; Resp 17; Temp 97.4; Pulse Ox 96% on R/A; ll1 16:28 BP 119 / 56; Pulse 88; Resp 18; Pulse Ox 99% ; ll1 NIH Stroke Scale Scores: 16:05 NIHSS Score: 0 ll1 ED Course: 07:06 Patient arrived in ED. ll1 07:07 Jony Moura MD is Attending Physician. rt 07:08 Arm band placed on Patient placed in an exam room, on a stretcher. ll1 07:13 Triage completed. ll1 07:17 Diogo Gibson, JEREMI is Primary Nurse. ll1 07:43 Chest Single View XRAY In Process Unspecified. EDMS 07:51 COVID-19/FLU A+B Sent. ll1 08:45 CT Chest For PE Angio In Process Unspecified. EDMS 09:18 Viridiana Akins MD is Hospitalizing Provider. rt 10:13 Renal Ultrasound-Complete In Process Unspecified. EDMS 16:06 No provider procedures requiring assistance completed. Maintain EMS IV. Dressing ll1 intact. Good blood return noted. Site clean \T\ dry. Gauge \T\ site: 20 G L AC. 16:07 Patient has correct armband on for positive identification. Bed in low position. Call ll1 light in reach. Side rails up X2. Client placed on continuous cardiac and pulse oximetry monitoring. NIBP monitoring applied. sulfide head operator on. 16:07 Patient admitted, IV remains in place. ll1 Administered Medications: 07:51 Drug: DuoNeb (albuterol 2.5 mg, ipratropium 0.5 mg) (3:1) (2.5 mg - 0.5 mg) 3 ml Route: ll1 Nebulizer; 08:21 Follow up: Response: No adverse reaction; RASS: Alert and Calm (0) ll1 07:51 Drug: NS 0.9% 500 ml Route: IV; Rate: bolus; Site: left antecubital; 1 08:21 Follow up: Response: No adverse reaction; IV Status: Completed infusion; IV Intake: ll1 500ml 09:27 Drug: NS 0.9% 500 ml Route: IV; Rate: bolus; Site: left antecubital; 1 16:09 Follow up: Response: No adverse reaction; IV Status: Completed infusion; IV Intake: ll1 500ml Medication: 16:08 VIS not applicable for this client. 1 Point of Care Testin:07 n/a 103 by EMS [facility] Ranges: Intake: 08:21 IV: 500ml; Total: 500ml. ll1 16:09 IV: 500ml; Total: 1000ml. 1 Outcome: 09:18 Decision to Hospitalize by Provider. rt 16:07 Admitted to Med/surg accompanied by tech, via stretcher, room 222, with chart. 1 16:07 Condition: stable 16:07 Instructed on the need for admit. 16:27 Admitted to Med/surg Report called to Ines BLOOD on 1 16:35 Patient left the ED. 1 NIH Stroke Scale - NIH Stroke Score Date: 10/30/2022 Time: 16:05 Total Score = 0 1a. Level of Consciousness (LOC) - 0(Alert) 1b. Level of Consciousness (LOC) (Month \T\ Age) - 0(Both) 1c. LOC Commands (Open \T\ Closes Eyes/Hospice Clinical Manager) - 0(Both) 2. Best Gaze (Lateral Gaze Paresis) - 0(Normal) 3. Visual Field Loss - 0(No visual loss) 4. Facial Palsy - 0(Normal) 5a. Left Arm: Motor (10-second hold) - 0(No drift) 5b. Right Arm: Motor (10-second hold) - 0(No drift) 6a. Left Leg: Motor (5-second hold - always test supine) - 0(No drift) 6b. Right Leg: Motor (5-second hold - always test supine) - 0(No drift) 7. Limb Ataxia (finger/nose \T\ heel/coates - test with eyes open) - 0(Absent) 8. Sensory Loss (pinprick arms/legs/face) - 0(Normal) 9. Best Language: Aphasia (description/naming/reading) - 0(No aphasia) 10. Dysarthria (speech clarity - read or repeat words) - 0(Normal) 11. Extinction and Inattention (visual/tactile/auditory/spatial/personal) - 0(No abnormality) Initials: ll1 Signatures: Dispatcher [employer] Diogo Terrazas RN RN 1 Jony Moura MD MD rt Corrections: (The following items were deleted from the chart) 16:08 16:03 BP 116 / 58; Pulse 88bpm; Resp 17bpm; Pulse Ox 96% RA; [place] [id number] 16:27 16:07 Instructed on the need for admit, [place] [id number]
--- NOTE | 2022-10-30 09:19 | EDPHYS ---
Physician Documentation [facility] Name: Judah Caceres Age: 82 yrs Sex: Female : 1940 Arrival Date: 10/30/2022 Time: 07:06 Bed 20 Private MD: ED Physician Jony Moura HPI: 10/30 07:18 This 82 yrs old Female presents to ER via EMS with complaints of Weakness - not eating, rt Shortness Of Breath - covid +. 07:18 Onset: The symptoms/episode began/occurred 2 day(s) ago. Unable to obtain HPI due to rt baseline dementia. Patient with baseline dementia presents to the ED from residential for shortness of breath. She is reportedly COVID-positive, said symptoms for about 2 days. The patient only states that she has shortness of breath, however, is reported that she is not eating, has weakness. No further history could be obtained. Symptoms are moderate in severity, no other aggravating or alleviating factors.. Historical: - Allergies: 07:09 Cefaclor; ll1 07:09 Cephalexin; ll1 07:09 codeine sulfate; ll1 07:09 Keflex; ll1 07:09 meperidine; ll1 07:09 NSAIDS; ll1 07:09 Sulfa (Sulfonamide Antibiotics); ll1 - PMHx: 07:09 Atrial fibrillation; osteoarthritis; Hypercholesterolemia; Hypertensive disorder; heart ll1 disease; Rheumatoid Arthritis; diabetes mellitus; Dementia; Chronic obstructive lung disease; Cerebrovascular accident; Anemia; - Immunization history:: Client reports receiving the 2nd dose of the Covid vaccine. - Social history:: Smoking status: Patient denies any tobacco usage or history of. - Family history:: not pertinent. ROS: 07:19 Unable to obtain ROS due to baseline dementia. rt Exam: 07:19 Head/Face: Normocephalic, atraumatic. Eyes: Pupils equal round and reactive to light, rt extra-ocular motions intact. Lids and lashes normal. Conjunctiva and sclera are non-icteric and not injected. Cornea within normal limits. Periorbital areas with no swelling, redness, or edema. Neck: Trachea midline, no thyromegaly or masses palpated, and no cervical lymphadenopathy. Supple, full range of motion without nuchal rigidity, or vertebral point tenderness. No Meningismus. Chest/axilla: Normal chest wall appearance and motion. Nontender with no deformity. No lesions are appreciated. Cardiovascular: Regular rate and rhythm with a normal S1 and S2. No gallops, murmurs, or rubs. Normal PMI, no JVD. No pulse deficits. Respiratory: Lungs have equal breath sounds bilaterally, clear to auscultation and percussion. No rales, rhonchi or wheezes noted. No increased work of breathing, no retractions or nasal flaring. Abdomen/GI: Soft, non-tender, with normal bowel sounds. No distension or tympany. No guarding or rebound. No evidence of tenderness throughout. MS/ Extremity: Pulses equal, no cyanosis. Neurovascular intact. Full, normal range of motion. 07:19 Constitutional: The patient appears Thin, chronically ill-appearing 07:19 ENT: Dry mucous membranes. 07:19 Neuro: Confused, moves all 4 extremities equally. 07:37 ECG was reviewed by the Attending Physician. rt Vital Signs: 07:09 BP 142 / 76; Pulse 100; Resp 18; Temp 99.2; Pulse Ox 97% on R/A; Pain 4/10; ll1 08:19 BP 126 / 75; Pulse 97; Resp 18; Pulse Ox 100% ; ll1 10:21 BP 116 / 86; Pulse 103; Resp 18; Pulse Ox 97% on R/A; ll1 12:01 BP 113 / 56; Pulse 96; Resp 18; Pulse Ox 98% on R/A; ll1 13:19 BP 108 / 58; Pulse 86; Pulse Ox 96% on R/A; ll1 14:30 BP 123 / 57; Pulse 83; Pulse Ox 99% on R/A; ll1 16:03 BP 116 / 58; Pulse 88; Resp 17; Temp 97.4; Pulse Ox 96% on R/A; ll1 16:28 BP 119 / 56; Pulse 88; Resp 18; Pulse Ox 99% ; ll1 NIH Stroke Scale Scores: 16:05 NIHSS Score: 0 ll1 MDM: 07:07 Patient medically screened. rt 09:18 Data reviewed: vital signs, nurses notes. Consideration of Admission/Observation rt Patient was admitted/placed on observation. Management of patient was discussed with the following: Hospitalist: Agrees to admit. I considered the following discharge prescriptions or medication management in the emergency department Medications were administered in the Emergency Department. See MAR. Independent interpretation of the following test(s) in the Emergency Department X-Ray: My interpretation is No consolidation. Historians other than the Patient: Daughter/Son: States that patient is off of baseline. External Records Reviewed: Outpatient labs: Reviewed prior labs, creatinine above baseline. Care significantly affected by the following chronic conditions: Hypertension, Congestive Heart Failure, Chronic Obstructive Pulmonary Disease. Response to treatment: the patient's symptoms have mildly improved after treatment. 10/30 07:17 Order name: CBC with Diff; Complete Time: 08:12 rt 10/30 07:17 Order name: CMP; Complete Time: 08:12 rt 10/30 07:17 Order name: Troponin High Sensitivity; Complete Time: 08:12 rt 10/30 07:17 Order name: BNP; Complete Time: 08:12 rt 10/30 07:17 Order name: D-Dimer; Complete Time: 08:12 rt 10/30 07:17 Order name: Magnesium; Complete Time: 08:12 rt 10/30 07:17 Order name: Chest Single View XRAY; Complete Time: 08:12 rt 10/30 07:17 Order name: CPK; Complete Time: 08:12 rt 10/30 07:19 Order name: COVID-19/FLU A+B; Complete Time: 08:57 rt 10/30 09:45 Order name: Urinalysis W/Microscopic EDMS 10/30 15:24 Order name: CBC with Automated Diff EDMS 10/30 15:24 Order name: CBC with Automated Diff EDMS 10/30 15:24 Order name: Comprehensive Metabolic Panel EDMS 10/30 15:24 Order name: Comprehensive Metabolic Panel EDMS 10/30 07:17 Order name: EKG; Complete Time: 07:17 rt 10/30 07:17 Order name: EKG - Nurse/Tech; Complete Time: 07:35 rt 10/30 08:14 Order name: CT Chest For PE Angio; Complete Time: 09:06 rt 10/30 09:27 Order name: Renal Ultrasound-Complete; Complete Time: 12:46 EDMS 10/30 15:24 Order name: Regular EDMS EC:37 Rate is 98 beats/min. Rhythm is regular, Normal Sinus Rhythm with No ectopy. QRS [place] rt is Normal. TX interval is normal. QRS interval is normal. QT interval is normal. No Q waves. Clinical impression: NSR w/ Non-specific ST/T Changes. Administered Medications: 07:51 Drug: DuoNeb (albuterol 2.5 mg, ipratropium 0.5 mg) (3:1) (2.5 mg - 0.5 mg) 3 ml Route: ll1 Nebulizer; 08:21 Follow up: Response: No adverse reaction; RASS: Alert and Calm (0) 1 07:51 Drug: NS 0.9% 500 ml Route: IV; Rate: bolus; Site: left antecubital; ll1 08:21 Follow up: Response: No adverse reaction; IV Status: Completed infusion; IV Intake: ll1 500ml 09:27 Drug: NS 0.9% 500 ml Route: IV; Rate: bolus; Site: left antecubital; 1 16:09 Follow up: Response: No adverse reaction; IV Status: Completed infusion; IV Intake: ll1 500ml Point of Care Testin:07 n/a 103 by EMS 1 Ranges: Critical Glucose Levels:Adult <50 mg/dl or >400 mg/dl <40 mg/dl or >180 mg/dl Disposition Summary: 10/30/22 09:18 Hospitalization Ordered Hospitalization Status: Observation rt Provider: Viridiana Akins rt [facility] rt Condition: Stable rt Problem: new rt Symptoms: are unchanged rt Bed/Room Type: Standard rt Room Assignment: 222(10/30/22 15:56) em1 Diagnosis - Dehydration rt - Covid rt Forms: - Medication Reconciliation Form rt - SBAR form rt NIH Stroke Scale - NIH Stroke Score Date: 10/30/2022 Time: 16:05 Total Score = 0 1a. Level of Consciousness (LOC) - 0(Alert) 1b. Level of Consciousness (LOC) (Month \T\ Age) - 0(Both) 1c. LOC Commands (Open \T\ Closes Eyes/Community Mental Health Worker) - 0(Both) 2. Best Gaze (Lateral Gaze Paresis) - 0(Normal) 3. Visual Field Loss - 0(No visual loss) 4. Facial Palsy - 0(Normal) 5a. Left Arm: Motor (10-second hold) - 0(No drift) 5b. Right Arm: Motor (10-second hold) - 0(No drift) 6a. Left Leg: Motor (5-second hold - always test supine) - 0(No drift) 6b. Right Leg: Motor (5-second hold - always test supine) - 0(No drift) 7. Limb Ataxia (finger/nose \T\ heel/coates - test with eyes open) - 0(Absent) 8. Sensory Loss (pinprick arms/legs/face) - 0(Normal) 9. Best Language: Aphasia (description/naming/reading) - 0(No aphasia) 10. Dysarthria (speech clarity - read or repeat words) - 0(Normal) 11. Extinction and Inattention (visual/tactile/auditory/spatial/personal) - 0(No abnormality) Initials: ll1 Signatures: Dispatcher [employer] EDNavdeep Birch em1 Diogo Gibson, JEREMI RN ll1 Jony Moura MD MD rt Corrections: (The following items were deleted from the chart) 07:51 07:17 Accucheck Blood Glucose ordered. rt ll1 15:56 09:18 rt em1
--- NOTE | 2022-10-30 12:28 | RAD REPORT ---
EXAM DESCRIPTION: US - Renal Ultrasound-Complete - 10/30/2022 10:11 am CLINICAL HISTORY: LAITH Flank pain COMPARISON: ABDOMINAL EXAM LIMITED dated 10/15/2014 FINDINGS: There is mild increase in echogenicity of both kidneys. The right kidney measures 8.6 x 5.0 x 3.8 cm.. No hydronephrosis, focal mass or perinephric fluid. The left kidney measures 10.5 x 5.9 x 5.7 cm.. Severe left hydronephrosis. The urinary bladder is incompletely distended with mild debris noted. . IMPRESSION: Severe left hydronephrosis.
[2022-10-30] MEDS ORDERED: MORPHINE 2 MG/ML SYR IV PRN (15:18)
[2022-10-30] MEDS ORDERED: ACETAMINOPHEN 500 MG TAB PO PRN (15:18)
[2022-10-30] MEDS ORDERED: ONDANSETRON 4 MG/2 ML VIAL IV PRN (15:18)
[2022-10-30 17:36] VITALS: BMI 16.6
[2022-10-30] MEDS: HYDROCORTISONE SUC 100 MG INJ IV SCH (17:48)
[2022-10-30] MEDS: NA CHLORIDE 0.9% 1,000 ML IV SCH (17:48)
--- NOTE | 2022-10-31 05:51 | P.HP ---
Certification for Inpatient Patient admitted to: Observation With expected LOS: <2 Midnights Patient will require the following post-hospital care: None Practitioner: I am a practitioner with admitting privileges, knowledge of patient current condition, hospital course, and medical plan of care. Services: Services provided to patient in accordance with Admission requirements found in Title 42 Section 412.3 of the Code of Federal Regulations Patient History Date of Service: 10/30/22 Reason for admission: GENERALIZED WEAKNESS; DECREASED APPETITE; COVID -19; LAITH History of Present Illness: Patient is an 82-year-old female who presents [facility] the emergency room from [facility] with generalized weakness. Patient recently was diagnosed with COVID-19. She has been having cough and congestion. She has also been eating very poorly. She has a history of hydronephrosis of the left kidneys. She had a tag Lasix study done which showed decreased functioning of the left kidney. I spoke with Urology and at this point no intervention as the left kidney is not functioning well. Spoke with the son who stated that he would speak with his siblings. Th ey also do not want any aggressive measures at this point. Patient has dementia and lives at [facility]. Patient will be admitted for further evaluation. Would gently hydrate and anticipate discharge over the next 48 hours. Allergies cefaclor Allergy (Verified 03/06/22 14:39) Nausea/Vomiting cephalexin [From Keflex] Allergy (Verified 03/06/22 14:39) Nausea/Vomiting codeine Allergy (Verified 03/06/22 14:39) Nausea/Vomiting meperidine Allergy (Verified 03/06/22 14:39) Nausea/Vomiting NSAIDS (Non-Steroidal Anti-Inflamma Allergy (Verified 03/06/22 14:39) Nausea/Vomiting Sulfa (Sulfonamide Antibiotics) Allergy (Verified 03/06/22 14:39) Rash Home Medications: Acarbose [Precose] 100 mg PO TID 10/30/22 Acetaminophen 2 tab PO Q4H PRN 10/30/22 Ascorbic Acid [Vitamin C] 1 tab PO BID 10/30/22 Atorvastatin Calcium 20 mg PO BEDTIME 10/30/22 Calcium Carbonate/Vitamin D3 [Oscal 500 + Vit D 200 Iu Tab*] 1 tab PO DAILY 10/30/22 Divalproex Sodium [Depakote Sprinkle] 125 mg PO BID 10/30/22 Famotidine 20 mg PO BID 10/30/22 Furosemide [Lasix] 20 mg PO DAILY 10/30/22 Loratadine [Claritin] 10 mg PO BEDTIME PRN 10/30/22 Memantine HCl 5 mg PO BID 10/30/22 Multivitamin 1 each PO DAILY 10/30/22 Omeprazole 20 mg PO DAILY 10/30/22 Ondansetron [Zofran (Odt)*] 1 tab PO Q4H PRN 10/30/22 Polyethylene Glycol 3350 [Miralax] 17 gm PO DAILY PRN 10/30/22 Potassium Chloride 1 tab PO DAILY 10/30/22 Risperidone [Risperdal] 0.25 mg PO BID 10/30/22 Rivaroxaban [Xarelto] 15 mg PO BEDTIME 10/30/22 methylPREDNISolone [Medrol] 4 mg PO DAILY 10/30/22 - Past Medical/Surgical History Has patient received pneumonia vaccine in the past: Yes Diabetic: Yes -: NIDDM -: HIGH CHOLESTEROL -: DVT -: ARTHRITIS -: HTN -: RA -: BACK SURGERY -: APPENDECTOMY -: TONSILLECTOMY -: FOOT SURGERY -: skin surgery-nose - Family History Father Medical History: Heart disease Brother Medical History: Heart disease Mother Medical History: Stroke - Social History Smoking Status: Never smoker Alcohol use: No CD- Drugs: No Caffeine use: No Place of Residence: [facility] Review of Systems 10-point ROS is otherwise unremarkable Physical Examination - Vital Signs Temperature: 97.7 F Blood Pressure: 124/58 Pulse: 64 Respirations: 16 Pulse Ox (%): 95 - Physical Exam General: Alert, In no apparent distress, Demented HEENT: Atraumatic, PERRLA, Mucous membr. moist/pink, EOMI, Sclerae nonicteric Neck: Supple, 2+ carotid pulse no bruit, No LAD, Without JVD or thyroid abnormality Respiratory: Clear to auscultation bilaterally, Normal air movement Cardiovascular: Regular rate/rhythm, Normal S1 S2, No murmurs Gastrointestinal: Normal bowel sounds, Soft and benign, Non-distended, No tenderness Musculoskeletal: No clubbing, No swelling, No tenderness Integumentary: No rashes Neurological: Normal speech, Normal tone, Sensation intact, Cranial nerves 3-12 intact, Normal affect, Abnormal strength Lymphatics: No axilla or inguinal lymphadenopathy - Studies Laboratory Data (last 24 hrs) 10/30/22 07:30: Sodium 141, Potassium 4.0, BUN 27 H, Creatinine 1.30 H, Glucose 97, Magnesium 2.2, Total Bilirubin 0.7, AST 33, ALT 18, Alkaline Phosphatase 62 10/30/22 07:30: WBC 7.10, Hgb 12.4, Hct 37.3, Plt Count 130 L Assessment & Plan - Problems (Diagnosis) (1) Hydronephrosis, left Current Visit: Yes Status: Acute (2) Generalized weakness Current Visit: Yes Status: Acute (3) Dehydration Current Visit: Yes Status: Acute (4) Abnormal renal function Onset Date: 10/16/14 Current Visit: No Status: Acute (5) Diabetes mellitus Onset Date: 10/16/14 Current Visit: No Status: Acute (6) GERD (gastroesophageal reflux disease) Current Visit: No Status: Acute (7) Polymyalgia rheumatica Current Visit: No Status: Acute (8) Rheumatoid arthritis Current Visit: No Status: Acute (9) Dementia Current Visit: No Status: Chronic - Plan Plan: 1. Gently hydrate 2. Monitor renal function 3. Monitor nutritional intake 4. Low-dose prednisone 5. Spoke with Urology and no intervention at this time as recent Lasix tag scan did not reveal function of the left kidney which has hydronephrosis 6. Anticipate discharge over the next 24-48 hours. Discharge Plan: [facility] Plan to discharge in: 24 Hours - Advance Directives Does patient have a Living Will: No Does patient have a Durable POA for Healthcare: No - Code Status/Comfort Care Code Status Assessed: Yes Code Status: Full Code Critical Care: No Time Spent Managing PTS Care (In Minutes): 45
[2022-10-31 05:52] LABS: Absolute Lymphocytes (CBC) 1.6 K/uL (0.7-4.9); Hematocrit 31.6 % (36.0-45.0); Lymphocytes % 34.4 % (15.3-44.8); MPV 7.2 fL (7.6-11.3); RBC Red Blood Cell Count 3.29 M/uL (3.86-4.86)
[2022-10-31] MEDS ORDERED: ONDANSETRON 4 MG (ODT) TAB PO PRN (05:53)
[2022-10-31] MEDS ORDERED: ACETAMINOPHEN 325 MG TABLET PO PRN (05:53)
[2022-10-31] MEDS ORDERED: LORATADINE 10 MG TAB PO PRN (05:53)
[2022-10-31] MEDS: HYDROCORTISONE SUC 100 MG INJ IV SCH ×3 (06:01→22:41)
[2022-10-31 06:07] LABS: Albumin 2.3 g/dL (3.4-5.0); Bilirubin Total 0.4 mg/dL (0.2-1.0); Potassium 4.2 mmol/L (3.5-5.1); Protein, Total 5.4 g/dL (6.4-8.2)
[2022-10-31 07:21] LABS: Specific Gravity > 1.030 (1.005-1.030); Transitional Epithelial <5 /HPF (None Seen); Urine Bacteria None Seen /HPF (<20); Urine Bilirubin NEGATIVE (Negative); Urine Blood Negative (Negative); Urine Clarity Clear (Clear); Urine Color Yellow (Yellow); Urine Glucose TRACE (Negative); Urine Mucus Slight /HPF (None Seen); Urine Protein 1+ (Negative); Urine RBC <5 /HPF (None Seen); Urine Urobilinogen Normal (Normal)
[2022-10-31] MEDS ORDERED: HOME MED 1 EA UNK (Omeprazole [Omeprazole] 20 MG Capsule.Dr) PO SCH (09:00)
[2022-10-31] MEDS: ACARBOSE 100 MG PO SCH ×3 (09:00→20:08)
[2022-10-31] MEDS: CALCIUM CARB 500MG/VIT D 200 IU TAB PO SCH (09:52)
[2022-10-31] MEDS: MEMANTINE HCL 10 MG TABLET PO SCH ×2 (09:52→20:33)
[2022-10-31] MEDS: ASCORBIC ACID 500 MG TABLET PO SCH ×2 (09:52→20:34)
[2022-10-31] MEDS: methylPREDNISolone 4 MG TAB PO SCH (09:52)
[2022-10-31] MEDS: PANTOPRAZOLE 40MG TABLET PO SCH (09:53)
[2022-10-31] MEDS: POTASSIUM CL SA 10 MEQ TAB PO SCH (09:53)
[2022-10-31] MEDS: MULTIVITAMIN TAB PO SCH (09:53)
[2022-10-31] MEDS: DIVALPROEX NA 125 MG CAP PO SCH ×2 (09:54→20:33)
[2022-10-31] MEDS: FAMOTIDINE 20 MG TAB PO SCH ×2 (09:54→20:34)
[2022-10-31] MEDS: RISPERIDONE 0.25 MG TABLET PO SCH ×2 (09:54→20:34)
[2022-10-31] MEDS: NA CHLORIDE 0.9% 1,000 ML IV SCH ×2 (09:54→20:35)
[2022-10-31] MEDS: ENSURE HIGH PROTEIN 237 ML CAN PO SCH (16:30)
[2022-10-31] MEDS: RIVAROXABAN 15 MG TABLET PO SCH (20:32)
[2022-10-31] MEDS: ATORVASTATIN 20 MG TAB PO SCH (20:34)
--- NOTE | 2022-10-31 23:13 | P.PN ---
Subjective Date of Service: 10/31/22 Patient's renal function had improved. She was just here for dehydration. Plan was to discharge patient to the longterm this morning. However, the son was not able to pick her up till this afternoon. The longterm stated that patient had to be able to assist herself independently. Spoke to the family and they told me that the patient has not ambulated since July of 2021 when she had a stroke. She has been weak and debilitated and requires assistance for transfer. Await ahead and consult Physical therapy even though it was later in the day the physical therapist came to see the patient. We were able to get the patient to stand. She stood next to the bed on 3 different occasions. She should be able to transfer to a wheelchair. She is pretty much at her baseline. I had already spoken to Urology yesterday about the hydronephrosis and they stated that they had done a Lasix tag scan as an outpatient and that kidney with hydronephrosis is not functioning so no intervention was necessary. Patient's prognosis long-term is poor. She should be able to go back to [facility] n the morning. It has gotten later in the day and I will keep her overnight although she does not really meet criteria for inpatient hospitalization at this time. Apparently, the nursing facility has multiple patients with COVID. All the patients in the memory unit apparently have COVID and there are having a couple of nurses take care of those patients. This may be prohibiting the patient from going back to the longterm. Will discuss with the longterm in the morning regarding the situation at the longterm. Review of Systems 10-point ROS is otherwise unremarkable Physical Examination - Vital Signs Temperature: 97.3 F Blood Pressure: 128/60 Pulse: 65 Respirations: 16 Pulse Ox (%): 96 - Physical Exam General: Alert, In no apparent distress, Demented HEENT: Atraumatic, PERRLA, EOMI Neck: Supple, JVD not distended Respiratory: Clear to auscultation bilaterally, Normal air movement Cardiovascular: Regular rate/rhythm, Normal S1 S2 Gastrointestinal: Normal bowel sounds, No tenderness Musculoskeletal: No tenderness Integumentary: No rashes Neurological: Sensation intact, Cranial nerves 3-12 intact, Abnormal gait, Abnormal strength - Studies Medications List Reviewed: Yes Assessment & Plan - Problems (Diagnosis) (1) Hydronephrosis, left Current Visit: Yes Status: Acute (2) Generalized weakness Current Visit: Yes Status: Acute (3) Dehydration Current Visit: Yes Status: Acute (4) Abnormal renal function Onset Date: 10/16/14 Current Visit: No Status: Acute (5) Diabetes mellitus Onset Date: 10/16/14 Current Visit: No Status: Acute (6) GERD (gastroesophageal reflux disease) Current Visit: No Status: Acute (7) Polymyalgia rheumatica Current Visit: No Status: Acute (8) Rheumatoid arthritis Current Visit: No Status: Acute (9) Dementia Current Visit: No Status: Chronic - Plan Plan: 1. Recheck renal function in the AM 2. Continue steroids as history of PMR 3. Monitor nutritional intake; protein shake for supplementation 4. Decrease namenda and risperdal 5. Spoke with Urology and no intervention at this time as recent Lasix tag scan did not reveal function of the left kidney which has hydronephrosis 6. Anticipate discharge in AM Discharge Plan: [facility] Plan to discharge in: 24 Hours - Advance Directives Does patient have a Living Will: No Does patient have a Durable POA for Healthcare: No - Code Status/Comfort Care Code Status: Full Code Critical Care: No Time Spent Managing PTS Care (In Minutes): 60
[2022-11-01] MEDS: HYDROCORTISONE SUC 100 MG INJ IV SCH ×3 (05:54→23:00)
[2022-11-01 07:11] LABS: Absolute Lymphocytes (CBC) 1.6 K/uL (0.7-4.9); Hematocrit 33.3 % (36.0-45.0); Lymphocytes % 35.3 % (15.3-44.8); MCV 95.3 fL (80-100); MPV 7.7 fL (7.6-11.3); RBC Red Blood Cell Count 3.49 M/uL (3.86-4.86)
[2022-11-01 07:25] LABS: Magnesium 2.1 mg/dL (1.6-2.4); Potassium 3.4 mmol/L (3.5-5.1)
[2022-11-01] MEDS: NA CHLORIDE 0.9% 1,000 ML IV SCH ×2 (08:00→21:20)
[2022-11-01] MEDS: ACARBOSE 100 MG PO SCH ×3 (09:00→20:33)
[2022-11-01] MEDS: methylPREDNISolone 4 MG TAB PO SCH (09:33)
[2022-11-01] MEDS: PANTOPRAZOLE 40MG TABLET PO SCH (09:33)
[2022-11-01] MEDS: FAMOTIDINE 20 MG TAB PO SCH ×2 (09:33→20:34)
[2022-11-01] MEDS: ASCORBIC ACID 500 MG TABLET PO SCH ×2 (09:33→20:34)
[2022-11-01] MEDS: CALCIUM CARB 500MG/VIT D 200 IU TAB PO SCH (09:33)
[2022-11-01] MEDS: POTASSIUM CL SA 10 MEQ TAB PO SCH (09:34)
[2022-11-01] MEDS: DIVALPROEX NA 125 MG CAP PO SCH ×2 (09:34→20:35)
[2022-11-01] MEDS: MULTIVITAMIN TAB PO SCH (09:34)
[2022-11-01] MEDS: ENSURE HIGH PROTEIN 237 ML CAN PO SCH ×3 (09:35→16:30)
[2022-11-01] MEDS: ATORVASTATIN 20 MG TAB PO SCH (20:34)
[2022-11-01] MEDS: RIVAROXABAN 15 MG TABLET PO SCH (20:34)
[2022-11-01] MEDS ORDERED: RISPERIDONE 0.25 MG TABLET PO SCH (21:00)
--- NOTE | 2022-11-02 00:41 | P.PN ---
Date of Service: 11/01/22 Subjective patient is doing well. We got her out of bed into a chair. She sat in the chair for quite a while. He did really want to get back in the bed but we were able to get her back in the bed and hopefully we can transfer her back to [facility] in the morning Review of Systems 10-point ROS is otherwise unremarkable Physical Examination - Vital Signs reviewed - Physical Exam General: Alert, In no apparent distress, Demented Respiratory: Clear to auscultation bilaterally, Normal air movement Cardiovascular: Regular rate/rhythm, Normal S1 S2 Gastrointestinal: Normal bowel sounds, No tenderness Neurological: no focal deficits - Studies Medications List Reviewed: Yes Assessment & Plan - Problems (Diagnosis) (1) Hydronephrosis, left Current Visit: Yes Status: Acute (2) Generalized weakness Current Visit: Yes Status: Acute (3) Dehydration Current Visit: Yes Status: Acute (4) Abnormal renal function Onset Date: 10/16/14 Current Visit: No Status: Acute (5) Diabetes mellitus Onset Date: 10/16/14 Current Visit: No Status: Acute (6) GERD (gastroesophageal reflux disease) Current Visit: No Status: Acute (7) Polymyalgia rheumatica Current Visit: No Status: Acute (8) Rheumatoid arthritis Current Visit: No Status: Acute (9) Dementia Current Visit: No Status: Chronic - Plan continue with plan of care as mentioned below: 1. Recheck renal function in the AM 2. Continue steroids as history of PMR 3. Monitor nutritional intake; protein shake for supplementation 4. Decrease namenda and risperdal 5. Spoke with Urology and no intervention at this time as recent Lasix tag scan did not reveal function of the left kidney which has hydronephrosis 6. Anticipate discharge in AM
[2022-11-02 06:57] LABS: Absolute Lymphocytes (CBC) 1.8 K/uL (0.7-4.9); Hematocrit 33.8 % (36.0-45.0); Lymphocytes % 31.5 % (15.3-44.8); MCV 94.9 fL (80-100); MPV 7.4 fL (7.6-11.3); RBC Red Blood Cell Count 3.56 M/uL (3.86-4.86)
[2022-11-02] MEDS: HYDROCORTISONE SUC 100 MG INJ IV SCH (07:00)
[2022-11-02 07:15] LABS: Magnesium 2.2 mg/dL (1.6-2.4); Potassium 3.2 mmol/L (3.5-5.1)
[2022-11-02] MEDS: ENSURE HIGH PROTEIN 237 ML CAN PO SCH (07:30)
[2022-11-02] MEDS: methylPREDNISolone 4 MG TAB PO SCH (08:00)
[2022-11-02] MEDS: POTASSIUM CL SA 10 MEQ TAB PO SCH (08:00)
[2022-11-02] MEDS: FAMOTIDINE 20 MG TAB PO SCH (08:00)
[2022-11-02] MEDS: MULTIVITAMIN TAB PO SCH (08:00)
[2022-11-02] MEDS: ASCORBIC ACID 500 MG TABLET PO SCH (08:00)
[2022-11-02] MEDS: DIVALPROEX NA 125 MG CAP PO SCH (08:00)
[2022-11-02] MEDS: CALCIUM CARB 500MG/VIT D 200 IU TAB PO SCH (08:00)
[2022-11-02] MEDS: PANTOPRAZOLE 40MG TABLET PO SCH (08:00)
[2022-11-02] MEDS: ACARBOSE 100 MG PO SCH (08:01)
[2022-11-02 08:44] VITALS: BP 128/61; TEMP 97.6
[2022-11-02 09:49] VITALS: O2SAT 98
[2022-11-02] MEDS: NA CHLORIDE 0.9% 1,000 ML IV SCH (10:40)
== END 2022-11-02 11:54 ==
LOC: ER 07:04 → ERHOLD 15:18 → 2ND 16:31
PROVIDERS: ADMIT Hospitalist; ATTEND Hospitalist
DX: R53.1 Weakness (principal); U07.1 COVID-19; N13.30 Unspecified hydronephrosis; E86.0 Dehydration; E11.9 Type 2 diabetes mellitus without complications; R05.9 Cough, unspecified; K21.9 Gastro-esophageal reflux disease without esophagitis; M06.9 Rheumatoid arthritis, unspecified; M35.3 Polymyalgia rheumatica; F03.90 Unspecified dementia, unspecified severity, without behavioral disturbance, psychotic disturbance, mood disturbance, and anxiety; R63.0 Anorexia; Z68.1 Body mass index [BMI] 19.9 or less, adult; N28.9 Disorder of kidney and ureter, unspecified
CPT/HCPCS: 96361; 93005; 85025 ×4; 81001; 80048 ×2; 36415 ×3; 83735 ×3; 82550; 82947 ×11; 85379; 83036; 84484; 80053 ×2; 83880; 0240U; 71275; 71045; 76770; 97112; 97161; 97530; 94640; 96360; 99285; Q9967; J7613; J7509 ×3; J7644; J7040 ×2; J7030 ×3; J1720 ×6; G0378

== ENCOUNTER 2022-11-09 20:55 | Inpatient (IN) | payer OTHER ==
[2022-11-09] MEDS ORDERED: NA CHLORIDE 0.9% 1,000 ML ONE (21:09)
--- NOTE | 2022-11-09 21:46 | RAD REPORT ---
EXAM DESCRIPTION: RAD - Hip Left 2 View - 11/09/2022 9:31 pm CLINICAL HISTORY: Left hip pain FINDINGS: No fracture or dislocation is seen. The bones are osteoporotic. If the patient continues to have symptoms to suggest an occult fracture t hen MRI would be recommended
--- NOTE | 2022-11-09 21:47 | RAD REPORT ---
EXAM DESCRIPTION: Imelda Single View11/09/2022 9:31 pm CLINICAL HISTORY: Hypertension COMPARISON: October 30, 2022 FINDINGS: The lungs appear clear of acute infiltrate. The heart is normal size IMPRESSION: No acute abnormalities displayed
[2022-11-09 21:50] LABS: Urine Blood Negative (Negative); Urine Glucose Negative (Negative); Urine Protein Trace (Negative); Urine Specific Gravity >=1.030 (1.005-1.030); Urine pH 5.5 (5.0-7.0)
--- NOTE | 2022-11-09 22:00 | RAD REPORT ---
EXAM DESCRIPTION: CT - Head Brain Wo Cont - 11/09/2022 9:52 pm CLINICAL HISTORY: Alteration of awareness/confusion COMPARISON: 2020 TECHNIQUE: Computed axial tomography of the head was obtained. IV contrast was not requested. All CT scans are performed using dose optimization technique as appropriate and may include automated exposure control or mA/KV adjustment according to patient size. FINDINGS: An intracranial bleed is not seen The ventricles are normal in caliber No extra-axial fluid collection is noted. Mild low-density areas within periventricular, deep and subcortical white matter likely represent isc hemic changes secondary to small vessel disease. Mild to moderate and cerebellar cerebral atrophy Fluid within the sinuses/ mastoids is not seen. Chronic opacification sphenoid sinus IMPRESSION: No acute intracranial abnormality is seen If patient's symptoms persist MRI of the brain would be recommended
[2022-11-09 22:02] LABS: Absolute Lymphocytes (CBC) 2.2 K/uL (0.7-4.9); Hematocrit 37.1 % (36.0-45.0); Lymphocytes % 29.8 % (15.3-44.8); MCV 95.9 fL (80-100); MPV 7.2 fL (7.6-11.3); RBC Red Blood Cell Count 3.87 M/uL (3.86-4.86)
[2022-11-09 22:11] LABS: Urine Bacteria None Seen /HPF (<20); Urine Mucus Slight /HPF (None Seen); Urine RBC <5 /HPF (None Seen)
[2022-11-09 22:27] LABS: Albumin 2.6 g/dL (3.4-5.0); Bilirubin Total 0.7 mg/dL (0.2-1.0); Magnesium 2.3 mg/dL (1.6-2.4); Potassium 4.5 mmol/L (3.5-5.1); Protein, Total 6.9 g/dL (6.4-8.2); Thyroid Stimulating Hormone 1.89 uIU/mL (0.358-3.740); Troponin High Sensitivity 32.7 pg/mL (<58.9)
--- NOTE | 2022-11-10 01:02 | EDPHYS ---
Physician Documentation [facility] Name: Judah Caceres Age: 82 yrs Sex: Female : 1940 Arrival Date: 11/09/2022 Time: 20:56 Bed 17 Private MD: ED Physician Jony Moura HPI: 11/10 01:02 This 82 yrs old Female presents to ER via EMS with complaints of Altered mental status, rt dehydration. 01:02 Unable to obtain HPI due to baseline dementia. Patient presents to the ED with an rt altered mental status from a longterm. She is not had good p.o. intake reportedly. The patient was recently admitted for an acute kidney injury. No further history could be obtained. Symptoms are moderate severity, no other aggravating alleviating factors.. Historical: - Allergies: 11/09 20:59 Cefaclor; jb4 20:59 Cephalexin; jb4 20:59 codeine sulfate; jb4 20:59 Keflex; jb4 20:59 meperidine; jb4 20:59 NSAIDS; jb4 20:59 Sulfa (Sulfonamide Antibiotics); jb4 - PMHx: 20:59 Anemia; diabetes mellitus; Hypertensive disorder; heart disease; Dementia; Atrial jb4 fibrillation; Hypercholesterolemia; osteoarthritis; Cerebrovascular accident; Rheumatoid Arthritis; Chronic obstructive lung disease; - Immunization history:: Adult Immunizations unknown. - Social history:: Smoking status: unknown. ROS: 11/10 01:02 Unable to obtain ROS due to baseline dementia. rt Exam: 01:02 Head/Face: Normocephalic, atraumatic. Chest/axilla: Normal chest wall appearance and rt motion. Nontender with no deformity. No lesions are appreciated. Cardiovascular: Regular rate and rhythm with a normal S1 and S2. No gallops, murmurs, or rubs. Normal PMI, no JVD. No pulse deficits. Respiratory: Lungs have equal breath sounds bilaterally, clear to auscultation and percussion. No rales, rhonchi or wheezes noted. No increased work of breathing, no retractions or nasal flaring. Abdomen/GI: Soft, non-tender, with normal bowel sounds. No distension or tympany. No guarding or rebound. No evidence of tenderness throughout. Skin: Warm, dry with normal turgor. Normal color with no rashes, no lesions, and no evidence of cellulitis. MS/ Extremity: Pulses equal, no cyanosis. Neurovascular intact. Full, normal range of motion. 01:02 Constitutional: The patient appears Frail, chronically ill-appearing 01:02 ENT: Dry mucous membranes. 01:02 Neuro: Confused, moves all 4 extremities equally. Vital Signs: 11/09 20:57 BP 126 / 66; Pulse 90; Resp 16; Temp 97.7(TE); Pulse Ox 95% on R/A; Pain 9/10; jb4 22:00 BP 123 / 56; Pulse 97; Resp 16; Pulse Ox 97% on R/A; jb4 23:01 BP 129 / 54; Pulse 82; Resp 18; Pulse Ox 97% on R/A; jb4 11/10 00:00 BP 106 / 54; Pulse 79; Resp 18; Pulse Ox 95% on R/A; jb4 01:00 BP 126 / 48; Pulse 82; Resp 16; Pulse Ox 95% on R/A; jb4 02:00 BP 128 / 60; Pulse 91; Resp 17; Pulse Ox 100% on 2 lpm NC; jb4 02:00 Pt placed on 2L NC due to desating while sleeping, provider notified. jb4 MDM: 11/09 20:56 Patient medically screened. rt 11/10 01:04 Differential Diagnosis Sepsis, dehydration, electrolyte disturbance, acute kidney rt injury. Data reviewed: vital signs, nurses notes, lab test result(s), radiologic studies. Consideration of Admission/Observation Patient was admitted/placed on observation. Management of patient was discussed with the following: Hospitalist: Agrees to admit. I considered the following discharge prescriptions or medication management in the emergency department Medications were administered in the Emergency Department. See MAR. Independent interpretation of the following test(s) in the Emergency Department X-Ray: My interpretation is No hip fracture identified on x-ray images. Test considered but Not performed:. External Records Reviewed: Inpatient record: Creatinine increasing from admission creatinine previously. Care significantly affected by the following chronic conditions: Diabetes. Counseling: I had a detailed discussion with the patient and/or guardian regarding: the historical points, exam findings, and any diagnostic results supporting the discharge/admit diagnosis, lab results, the need for further work-up and treatment in the hospital. 11/09 20:59 Order name: CBC with Diff rt 11/09 20:59 Order name: CMP rt 11/09 20:59 Order name: Magnesium rt 11/09 20:59 Order name: Urine Microscopic Only rt 11/09 20:59 Order name: Troponin High Sensitivity rt 11/09 20:59 Order name: TSH rt 11/09 21:50 Order name: Urine Dipstick-Ancillary; Complete Time: 23:40 EDMS 11/09 22:04 Order name: CBC with Automated Diff; Complete Time: 23:40 EDMS 11/09 22:11 Order name: Urine Microscopic Only; Complete Time: 23:40 EDMS 11/09 22:27 Order name: Comprehensive Metabolic Panel; Complete Time: 23:40 EDMS 11/09 22:27 Order name: Troponin High Sensitivity; Complete Time: 23:40 EDMS 11/09 22:27 Order name: Magnesium; Complete Time: 23:40 EDMS 11/09 22:27 Order name: Thyroid Stimulating Hormone; Complete Time: 23:40 EDMS 11/10 01:07 Order name: SARS RAPID rt 11/09 20:59 Order name: Urine Dipstick-Ancillary (obtain specimen); Complete Time: 22:28 rt 11/09 20:59 Order name: Chest Single View XRAY rt 11/09 20:59 Order name: CT Head Brain wo Cont rt 11/09 20:59 Order name: Hip Left 2 View XRAY rt 11/09 21:47 Order name: RAD; Complete Time: 23:40 EDMS 11/09 21:48 Order name: RAD; Complete Time: 23:40 EDMS 11/09 22:01 Order name: CT; Complete Time: 23:40 EDMS 11/10 01:45 Order name: SARS-COV-2 Antigen Rapid EDMS 11/10 02:09 Order name: Prince; Complete Time: 02:09 jb4 Administered Medications: 11/09 21:50 Drug: NS 0.9% 1000 ml Route: IV; Rate: 1 bolus; Site: right antecubital; jb4 Disposition Summary: 11/10/22 01:01 Hospitalization Ordered Hospitalization Status: Observation [facility] Condition: Stable rt Problem: an ongoing problem rt Symptoms: have improved rt Bed/Room Type: Standard rt Provider: Viridiana Akins(11/10/22 01:20) socrates Room Assignment: 229(11/10/22 01:57) cg Diagnosis - Acute kidney failure, unspecified rt Forms: - Medication Reconciliation Form rt - SBAR form rt Signatures: Dispatcher [employer] Baldemar Mazariegos, CAIN-C RENAL MEDICINE PHYSICIAN-Cla1 Mariajose Silverio, RN RN cg Ahsan Austin RN RN jb4 Jony Moura MD MD rt Corrections: (The following items were deleted from the chart) 11/10 01:20 01:01 David Jorge rt la1 01:57 01:01 rt cg
--- NOTE | 2022-11-10 01:02 | ER ---
Nurse's Notes [facility] Name: Judah Caceres Age: 82 yrs Sex: Female : 1940 Arrival Date: 11/09/2022 Time: 20:56 Bed 17 Private MD: Diagnosis: Acute kidney failure, unspecified Presentation: 11/09 20:57 Chief complaint: EMS states: We were called out for the Pt being altered. Pt is A\T\O x jb4 3, bgl was 237, temp was 98.0. Coronavirus screen: At this time, the client does not indicate any symptoms associated with coronavirus-19. Ebola Screen: No symptoms or risks identified at this time. Initial Sepsis Screen: Does the patient meet any 2 criteria? No. Patient's initial sepsis screen is negative. Does the patient have a suspected source of infection? No. Patient's initial sepsis screen is negative. Risk Assessment: Do you want to hurt yourself or someone else? Patient reports no desire to harm self or others. Onset of symptoms was November 09, 2022. Transition of care: patient was not received from another setting of care. 20:57 Method Of Arrival: EMS: [facility] jb4 20:57 Acuity: AMY 2 jb4 Historical: - Allergies: 20:59 Cefaclor; jb4 20:59 Cephalexin; jb4 20:59 codeine sulfate; jb4 20:59 Keflex; jb4 20:59 meperidine; jb4 20:59 NSAIDS; jb4 20:59 Sulfa (Sulfonamide Antibiotics); jb4 - PMHx: 20:59 Anemia; diabetes mellitus; Hypertensive disorder; heart disease; Dementia; Atrial jb4 fibrillation; Hypercholesterolemia; osteoarthritis; Cerebrovascular accident; Rheumatoid Arthritis; Chronic obstructive lung disease; - Immunization history:: Adult Immunizations unknown. - Social history:: Smoking status: unknown. Screenin:00 [facility] ED Fall Risk Assessment (Adult) History of falling in the last 3 months, jb4 including since admission No falls in past 3 months (0 pts) Confusion or Disorientation Yes (5 pts) Score/Fall Risk Level 3 or more points = High Risk Oriented to surroundings, Maintained a safe environment, Educated pt \T\ family on fall prevention, incl call for assistance when getting out of bed, Assessed \T\ reinforced patient's understanding of fall precautions, Provided non-skid footwear, Hourly rounding (assess needs \T\ fall precautionary measures) done, Used ambulatory aids as needed (educated on \T\ assisted with), Used gait belt as appropriate Implemented a Fall Risk Plan of Care, Apply high fall risk patient identification: yellow non skid footwear/ fall signage, Remained with patient while ambulating, Utilized family, sitter, or virtual auto rental supervisor as indicated. Abuse screen: Denies threats or abuse. Nutritional screening: No deficits noted. Tuberculosis screening: No symptoms or risk factors identified. Assessment: 21:00 General: Appears in no apparent distress. uncomfortable, Behavior is cooperative. Pain: jb4 Complains of pain in right arm, left arm and left leg Pain does not radiate. Unable to use pain scale. FLACC scale score is 9 out of 10. Neuro: Level of Consciousness is awake, alert, obeys commands, Oriented to person, place. Cardiovascular: Patient's skin is warm and dry. Respiratory: Airway is patent Respiratory effort is even, unlabored, Respiratory pattern is regular, symmetrical. GI: No signs and/or symptoms were reported involving the gastrointestinal system. : No signs and/or symptoms were reported regarding the genitourinary system. EENT: No signs and/or symptoms were reported regarding the EENT system. Derm: Skin is intact, Skin is pink, warm \T\ dry. Bruising that is dark purple, on right arm and left arm. Musculoskeletal: Circulation, motion, and sensation intact. 22:00 Reassessment: Patient appears in no apparent distress at this time. Patient and/or jb4 family updated on plan of care and expected duration. Pain level reassessed. Pt remains A\T\O 1-2, respirations are even and unlabored, with no s/s of pain or distress noted. 23:00 Reassessment: Patient appears in no apparent distress at this time. No changes from [facility] previously documented assessment. Patient and/or family updated on plan of care and expected duration. Pain level reassessed. 11/10 00:00 Reassessment: Patient appears in no apparent distress at this time. Patient and/or jb4 family updated on plan of care and expected duration. Pain level reassessed. Pt is resting in bed with eyes closed, respirations are even and unlabored with no s/s of pain or distress noted. 01:00 Reassessment: Patient appears in no apparent distress at this time. No changes from jb4 previously documented assessment. Patient and/or family updated on plan of care and expected duration. Pain level reassessed. 02:00 Reassessment: Patient appears in no apparent distress at this time. No changes from jb4 previously documented assessment. Patient and/or family updated on plan of care and expected duration. Pain level reassessed. Vital Signs: 11/09 20:57 BP 126 / 66; Pulse 90; Resp 16; Temp 97.7(TE); Pulse Ox 95% on R/A; Pain 9/10; jb4 22:00 BP 123 / 56; Pulse 97; Resp 16; Pulse Ox 97% on R/A; jb4 23:01 BP 129 / 54; Pulse 82; Resp 18; Pulse Ox 97% on R/A; jb4 11/10 00:00 BP 106 / 54; Pulse 79; Resp 18; Pulse Ox 95% on R/A; jb4 01:00 BP 126 / 48; Pulse 82; Resp 16; Pulse Ox 95% on R/A; jb4 02:00 BP 128 / 60; Pulse 91; Resp 17; Pulse Ox 100% on 2 lpm NC; jb4 02:00 Pt placed on 2L NC due to desating while sleeping, provider notified. 4 ED Course: 11/09 20:56 Patient arrived in ED. la1 20:56 Jony Moura MD is Attending Physician. rt 20:57 Ahsan Austin, RN is Primary Nurse. jb4 20:59 Triage completed. jb4 20:59 Arm band placed on right wrist. jb4 21:30 Initial lab(s) drawn, by nj, sent to lab. Inserted saline lock: 22 gauge in right jb4 antecubital area, using aseptic technique. Blood collected. 21:30 Prince cath inserted, using sterile technique, 16 Fr., by nj, balloon inflated, to jb4 gravity drainage, urine specimen collected. 11/10 01:01 David Jorge MD is Hospitalizing Provider. rt 01:20 Viridiana Akins MD is Hospitalizing Provider. la1 02:08 No provider procedures requiring assistance completed. Patient admitted, IV remains in jb4 place. Administered Medications: 11/09 21:50 Drug: NS 0.9% 1000 ml Route: IV; Rate: 1 bolus; Site: right antecubital; jb4 Outcome: 11/10 01:01 Decision to Hospitalize by Provider. rt 03:02 Patient left the ED. mw2 Signatures: Baldemar Rivero, CHARGE MASTER SPECIALIST-C CHARGE MASTER SPECIALIST-Cla1 Ahsan Austin, RN RN jb4 Stewart Logan mw2 Jony Moura MD MD rt
--- NOTE | 2022-11-10 01:35 | P.HP ---
Certification for Inpatient Patient admitted to: Observation With expected LOS: <2 Midnights Patient will require the following post-hospital care: None Practitioner: I am a practitioner with admitting privileges, knowledge of patient current condition, hospital course, and medical plan of care. Services: Services provided to patient in accordance with Admission requirements found in Title 42 Section 412.3 of the Code of Federal Regulations Patient History Date of Service: 11/10/22 Reason for admission: AMS, LAITH History of Present Illness: 82-year-old female with history of rne-ntlrnik-ysgoagqhu diabetes, atrial fibrillation on chronic anticoagulation, chronic systolic congestive heart failure, previous CVA, COPD, rheumatoid arthritis on chronic steroids presents to the emergency department from [facility] for worsening confusion, dehydration. She was recently admitted here on 10/30/2022 and subsequently discharged on 11/02/2022 for similar complaint. At that time her initial creatinine was 1.3, it improved with IV fluids back to her baseline of around 0.9 prior to her discharge. Her son reports that when she left the hospital she was back to her normal self but when he went to see her today she was significantly more confused than her baseline. She was evaluated here in the emergency department she is afebrile without signs of infection urinalysis was negative CT of the head without acute findings, chest x-ray unremarkable she was complaining of left hip pain, x-ray was performed which was negative for any fractures. Her creatinine did elevate once again is currently 1.4 GFR 38 BUN 33. Her son is also concerned because she is unable to participate in her care and at the facility she is currently at she has to be able to perform transfers from bed to wheelchair with 1 person assist which she is not currently capable of doing. Reviewed residential medications which appear to include Lasix 20 mg p.o. daily, patient appears quite dry at this time certainly well compensated from CHF May need to hold this medication going forward. Continue IV fluids. Allergies cefaclor Allergy (Verified 03/06/22 14:39) Nausea/Vomiting cephalexin [From Keflex] Allergy (Verified 03/06/22 14:39) Nausea/Vomiting codeine Allergy (Verified 03/06/22 14:39) Nausea/Vomiting meperidine Allergy (Verified 03/06/22 14:39) Nausea/Vomiting NSAIDS (Non-Steroidal Anti-Inflamma Allergy (Verified 03/06/22 14:39) Nausea/Vomiting Sulfa (Sulfonamide Antibiotics) Allergy (Verified 03/06/22 14:39) Rash Home Medications: Acarbose [Precose] 100 mg PO TID 10/30/22 Acetaminophen 2 tab PO Q4H PRN 10/30/22 Ascorbic Acid [Vitamin C] 1 tab PO BID 10/30/22 Atorvastatin Calcium 20 mg PO BEDTIME 10/30/22 Calcium Carbonate/Vitamin D3 [Oscal 500 + Vit D 200 Iu Tab*] 1 tab PO DAILY 10/30/22 Divalproex Sodium [Depakote Sprinkle] 125 mg PO BID 10/30/22 Famotidine 20 mg PO BID 10/30/22 Furosemide [Lasix] 20 mg PO DAILY 10/30/22 Loratadine [Claritin*] 10 mg PO BEDTIME PRN 10/30/22 Memantine HCl 5 mg PO BID 10/30/22 Multivitamin 1 each PO DAILY 10/30/22 Omeprazole 20 mg PO DAILY 10/30/22 Ondansetron [Zofran (Odt)*] 1 tab PO Q4H PRN 10/30/22 Polyethylene Glycol 3350 [Miralax] 17 gm PO DAILY PRN 10/30/22 Potassium Chloride 1 tab PO DAILY 10/30/22 Risperidone [Risperdal] 0.25 mg PO BID 10/30/22 Rivaroxaban [Xarelto*] 15 mg PO BEDTIME 10/30/22 methylPREDNISolone [Medrol*] 4 mg PO DAILY 10/30/22 Ensure High Protein 273 ml PO AC #90 can 11/01/22 predniSONE [Deltasone] 20 mg PO BID #11 tab 11/01/22 - Past Medical/Surgical History Diabetic: Yes -: NIDDM -: HIGH CHOLESTEROL -: DVT -: ARTHRITIS -: HTN -: RA -: A-fib -: BACK SURGERY -: APPENDECTOMY -: TONSILLECTOMY -: FOOT SURGERY -: skin surgery-nose Psychosocial/ Personal History: Resident of [facility] - Family History Father -: Heart disease Brother -: Heart disease Mother -: Stroke - Social History Smoking Status: Never smoker Alcohol use: No CD- Drugs: No Caffeine use: No Review of Systems is unable to be obtained Physical Examination - Physical Exam General: Alert, In no apparent distress, Oriented x2 HEENT: Atraumatic, PERRLA, Other (Mucous membranes dry), EOMI, Sclerae nonicteric Neck: Supple, 2+ carotid pulse no bruit, No LAD, Without JVD or thyroid abnormality Respiratory: Clear to auscultation bilaterally, Normal air movement Cardiovascular: Regular rate/rhythm, Normal S1 S2 Capillary refill: <2 Seconds Gastrointestinal: Normal bowel sounds, No tenderness Musculoskeletal: No tenderness Integumentary: No rashes Neurological: Normal gait, Normal speech, Normal strength at 5/5 x4 extr, Normal tone, Normal affect - Studies Laboratory Data (last 24 hrs) 11/09/22 21:45: Sodium 138, Potassium 4.5, BUN 33 H, Creatinine 1.40 H, Glucose 195 H, Magnesium 2.3, Total Bilirubin 0.7, AST 76 H, ALT 29, Alkaline Phosphatase 62 11/09/22 21:45: WBC 7.50, Hgb 12.4, Hct 37.1, Plt Count 210 Assessment and Plan - Plan Assessment: Dehydration, LAITH AMS Diabetes mellitus type [id number] Atrial fibrillation on chronic anticoagulation Chronic systolic congestive heart failure COPD History of CVA RA on chronic steroids Plan: Dehydration, LAITH Continue gentle hydration, patient appears quite dry unsure of oral intake. Hold Lasix patient takes a residential at this time. May need to discontinue completely. AMS Son reports patient has been not been formally diagnosed with dementia but it has been suggested that her symptoms are related to worsening of her dementia by staff at residential. No signs of infectious process at this time, CT head negative for acute findings. No focal neurological deficits noted on exam. Will consult neurology given lack of formal dementia diagnosis and worsening mental status. If there are no reversible causes and she continues to have worsening may be appropriate for hospice, this was discussed with patient's son BALJEET [phone]. Diabetes mellitus type [id number] ACHS Accu-Chek, sliding scale insulin. Atrial fibrillation on chronic anticoagulation Continue Xarelto Chronic systolic congestive heart failure Well compensated for heart failure, hold Lasix. Continue other home medications. COPD As needed nebulizer treatments History of CVA Continue home meds RA on chronic steroids Continue methylprednisolone home med. DVT PPX: Continue Xarelto Code status: DNR Discharge Plan: Correction Plan to discharge in: 24 Hours - Advance Directives Does patient have a Living Will: No Does patient have a Durable POA for Healthcare: No - Code Status/Comfort Care Code Status Assessed: Yes (DNR) Critical Care: No Time Spent Managing Pts Care (In Minutes): 70
[2022-11-10 01:45] LABS: SARS-CoV-2 Antigen Rapid Res Negative (Negative)
[2022-11-10] MEDS ORDERED: ONDANSETRON 4 MG/2 ML VIAL IV PRN (03:20)
[2022-11-10] MEDS: NA CHLORIDE 0.9% 1,000 ML IV SCH ×2 (03:38→17:16)
[2022-11-10 04:25] LABS: Absolute Lymphocytes (CBC) 1.9 K/uL (0.7-4.9); Hematocrit 32.3 % (36.0-45.0); Lymphocytes % 26.3 % (15.3-44.8); MCV 95.2 fL (80-100); MPV 7.4 fL (7.6-11.3); RBC Red Blood Cell Count 3.39 M/uL (3.86-4.86)
[2022-11-10 04:35] LABS: Potassium 3.9 mmol/L (3.5-5.1)
[2022-11-10] MEDS: INSULIN -REGULAR HUMAN 50 UNIT/0.5 ML ML SQ SCH ×4 (07:30→21:00)
[2022-11-10] MEDS: methylPREDNISolone 4 MG TAB PO SCH (08:50)
[2022-11-10] MEDS: RIVAROXABAN 15 MG TABLET PO SCH (21:00)
[2022-11-10] MEDS: ATORVASTATIN 20 MG TAB PO SCH (21:00)
--- NOTE | 2022-11-11 00:29 | CON ---
Reason For Consultation: Consultation called because of altered mental status. History Of Present Illness: Ms. Caceres is an 82-year-old patient with dementia who resides at [facility]. In addition, she has atrial fibrillation and is on chronic anticoagulatio n, bbb-trcpqss-nrjspkwhk diabetes mellitus, systolic congestive heart failure, and COPD. She was fou nd reportedly, actually by her son, in the Care Unit to be more disoriented. She was initially admit arthur actually on the 30 of October with similar complaints, but then was discharged on the back to her care unit where she was reportedly back to baseline, interactive, and understanding her son. Note, that the patient's son was not at bedside. This is from chart review and the patient only gav e minimal verbal interactions, so again chart reviewed. In any event, she did come back to [facility] on the and was found to be somewhat more disoriented than baseline. She was afebrile . Head CT scan showed no acute changes. Her creatinine was elevated to 1.4 with an elevated BUN of 38. She did not have evidence of a systemic infection as white blood cell count was normal. Hemoglo bin was actually normal, before hydration at 12.5. Again, she was slightly dehydrated as on arrival creatinine was 1.4 and after hydration 1.08. Her blood sugars did range up to 195. Calcium and magn esium were normal. Liver function study did show slight elevation in AST of 76. TSH normal at 1.89. Urinalysis showed trace protein, 5 to 10 casts, and 2+ ketones, otherwise normal. COVID-19 test wa s negative and her chest x-ray showed no acute abnormalities. At the time of my evaluation, the patient was lying in bed, asleep with mouth open. She did arouse. She did actually follow instructions to identify a pen and glasses. She thought she was in the nurs ing home still. She did not follow instructions to move her arms and legs, but she did not have any abnormal tone. No shaking or tremors noted in the arms and legs. In terms of her neurological exami nation, no focal deficits identified immediately on evaluating the patient initially. Past Medical History: Puf-bganbgx-kprbpypyz diabetes mellitus, dyslipidemia, deep vein thrombosis, a rthritis, hypertension, rheumatoid arthritis, and atrial fibrillation. 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 Allergies: CEFACLOR CAUSES NAUSEA AND VOMITING. KEFLEX ALSO NAUSEA AND VOMITING. CODEINE CAUSED NA USEA AND VOMITING. MEPERIDINE CAUSED NAUSEA AND VOMITING. NSAIDS CAUSED NAUSEA AND VOMITING. SULFA CAUSES A RASH. Family History: Heart disease in father and brother. Stroke in mother. Medications: Precose 100 mg 3 times daily, Tylenol 500 mg every 4 hours as needed, vitamin C 500 mg daily, atorvastatin 20 mg at bedtime, Os-Marc plus D daily, Depakote Sprinkle 125 mg twice daily, ____ 20 mg twice daily, Lasix 20 mg daily, Claritin 10 mg at bedtime, memantine 5 mg twice daily, m ultivitamin daily, omeprazole 20 mg daily, Zofran daily as needed, potassium 10 mEq daily, risperidon e 0.25 mg twice daily, Xarelto 15 mg daily, Medrol 4 mg daily, Ensure High Protein 237 mL in the morn ing, and Deltasone 20 mg twice daily. Social History: She resides at [facility]. No alcohol, tobacco, or IV drug use. Review of Systems: The patient is not interactive enough to provide a review of systems. Physical Examination: Vital Signs: Blood pressure 110/53, pulse 73, respiratory rate 16, temperature 97.1, and oxygen satu ration 98% on 2 L. Weight 120 pounds, height 5 feet 5 inches, and BMI 20. General: Ms. Caceres is ly ing in bed. She was arousable and did identify pen and glasses. She did not follow instructions to either smile or move her arms and legs. She did not have any specific abnormalities aside from sligh tly decreased breath sounds bilaterally. Abdomen: Soft. Neurologic: She did alert to her name. She thought she was in fpc and did not follow comma nds to move her arms or legs. She had no obvious asymmetry of her face and she did answer again to q uestions correctly. She did have slightly increased tone in the extremities, but no focal findings t here. Assessment: Ms. Caceres is an 82-year-old patient with baseline dementia, likely worsened in the setti ng of dehydration with renal insufficiency. She is being hydrated and does not have any focal findin gs on exam and CT scan of her head is unremarkable. Chest x-ray unremarkable. Blood work showed no evidence of infection and kidney function has improved and liver function with no significant abnorma lities there that explained her worsening cognitive functioning. At this point, she should be able t o make a recovery towards her baseline to be able to go back to the assisted once she is hydrated. Plan: She should receive hydration as noted. Continue with Xarelto for atrial fibrillation and Lipi tor for dyslipidemia. Continue Zofran for nausea. No additional neurological workup is required. LB/MODL Voice ID: [id number] Report ID: [id number]
[2022-11-11 04:47] LABS: Hematocrit 28.1 % (36.0-45.0); MPV 7.3 fL (7.6-11.3); RBC Red Blood Cell Count 2.95 M/uL (3.86-4.86)
[2022-11-11] MEDS: NA CHLORIDE 0.9% 1,000 ML IV SCH ×2 (05:35→17:45)
[2022-11-11] MEDS: INSULIN -REGULAR HUMAN 50 UNIT/0.5 ML ML SQ SCH ×4 (07:30→21:40)
[2022-11-11] MEDS: methylPREDNISolone 4 MG TAB PO SCH (08:58)
[2022-11-11] MEDS: RIVAROXABAN 15 MG TABLET PO SCH (21:39)
[2022-11-11] MEDS: ATORVASTATIN 20 MG TAB PO SCH (21:39)
[2022-11-11] MEDS: GLUCERNA SHAKE 237 ML CAN PO SCH (21:40)
[2022-11-11] MEDS: JUVEN PACKET PO SCH (21:40)
--- NOTE | 2022-11-12 05:32 | P.PN ---
Date of Service: 11/11/22 Subjective Patient is clinically doing well. Patient denies any new complaints. Patient is eating fairly well. Spoke with family. And only want to proceed with palliative care at this time. It feels she is getting assistance with [facility] and she has been taking a diuretic for congestive heart failure. She has not had an echocardiogram and couple of years when her ejection fraction was 44%. Will continue to hold her diuretics. Will assess her ejection fraction to see if she needs diuresing any longer. Physical Examination - Physical Exam General: Alert, In no apparent distress, Oriented x2 Respiratory: Clear to auscultation bilaterally, Normal air movement Cardiovascular: Regular rate/rhythm, Normal S1 S2 Gastrointestinal: Normal bowel sounds, No tenderness Musculoskeletal: No tenderness Neurological: No focal deficits Assessment and Plan - Plan Assessment: Dehydration, LAITH AMS Diabetes mellitus type [id number] Atrial fibrillation on chronic anticoagulation Chronic systolic congestive heart failure COPD History of CVA RA on chronic steroids Plan: 1. Continue with IV hydration 2. patient with advanced dementia; baseline altered mentation 3. Strict blood sugar control 4. echocardiogram; hold Lasix 5. Questionable history of COPD. CT scan with no evidence of lung injury 6. continue with steroids for polymyalgia rheumatica.
[2022-11-12 06:28] LABS: Absolute Lymphocytes (CBC) 2.4 K/uL (0.7-4.9); Hematocrit 27.1 % (36.0-45.0); Lymphocytes % 34.8 % (15.3-44.8); MCV 95.3 fL (80-100); MPV 7.3 fL (7.6-11.3); RBC Red Blood Cell Count 2.85 M/uL (3.86-4.86)
[2022-11-12 06:39] LABS: Potassium 3.9 mmol/L (3.5-5.1)
[2022-11-12] MEDS: INSULIN -REGULAR HUMAN 50 UNIT/0.5 ML ML SQ SCH ×4 (07:30→20:39)
[2022-11-12 08:33] VITALS: O2SAT 94
[2022-11-12] MEDS: GLUCERNA SHAKE 237 ML CAN PO SCH ×2 (09:00→20:39)
[2022-11-12] MEDS: JUVEN PACKET PO SCH ×2 (09:00→20:39)
[2022-11-12] MEDS: methylPREDNISolone 4 MG TAB PO SCH (09:44)
[2022-11-12] MEDS: ATORVASTATIN 20 MG TAB PO SCH (20:38)
[2022-11-12] MEDS: RIVAROXABAN 15 MG TABLET PO SCH (20:38)
--- NOTE | 2022-11-13 06:25 | ECHO ---
HEIGHT: 5 ft 5 in WEIGHT: 120 lb 0 oz DATE OF STUDY: 11/12/[address]: Viridiana Akins MD 2-DIMENSIONAL: YES M.MODE: YES DOPPLER: YES COLOR FLOW: YES TDS: PORTABLE: YES DEFINITY: BUBBLE STUDY: DIAGNOSIS: CONGESTIVE HEART FAILURE CARDIAC HISTORY: CATHERIZATION: NO SURGERY: NO PROSTHETIC VALVE: NO PACEMAKER: NO MEASUREMENTS (cm) DIASTOLIC (NORMALS) SYSTOLIC (NORMALS) IVSd 0.9 (0.6-1.2) LA Diam 2.8 (1.9-4.0) LVEF 70% LVIDd 3.9 (3.5-5.7) LVIDs 2.4 (2.0-3.5) %FS 39% LVPWd 1.0 (0.6-1.2) Ao Diam 2.4 (2.0-3.7) 2 DIMENSIONAL ASSESSMENT: RIGHT ATRIUM: NORMAL LEFT ATRIUM: NORMAL RIGHT VENTRICLE: NORMAL LEFT VENTRICLE: NORMAL TRICUSPID VALVE: NORMAL MITRAL VALVE: MILD MITRAL ANNULAR CALCIFICATION PULMONIC VALVE: NORMAL AORTIC VALVE: NORMAL PERICARDIAL EFFUSION: NONE AORTIC ROOT: NORMAL LEFT VENTRICULAR WALL MOTION: NORMAL DOPPLER/COLOR FLOW: SEE BELOW COMMENTS: 1. NORMAL LEFT VENTRICULAR EJECTION FRACTION 60-65% 2. NORMAL WALL MOTION 3. GRADE I DIASTOLIC DYSFUNCTION 4. MILD MITRAL ANNULAR CALCIFICATION TECHNOLOGIST: RIKKI HERNANDEZ
[2022-11-13] MEDS: INSULIN -REGULAR HUMAN 50 UNIT/0.5 ML ML SQ SCH ×2 (07:30→11:30)
[2022-11-13 07:34] LABS: Absolute Lymphocytes (CBC) 2.3 K/uL (0.7-4.9); Hematocrit 27.9 % (36.0-45.0); Lymphocytes % 37.5 % (15.3-44.8); MCV 94.7 fL (80-100); MPV 7.3 fL (7.6-11.3); RBC Red Blood Cell Count 2.94 M/uL (3.86-4.86)
[2022-11-13 07:46] LABS: Albumin 2.1 g/dL (3.4-5.0); Bilirubin Total 0.5 mg/dL (0.2-1.0); Potassium 3.8 mmol/L (3.5-5.1); Protein, Total 5.5 g/dL (6.4-8.2)
[2022-11-13] MEDS ORDERED: methylPREDNISolone 4 MG TAB PO SCH (09:00)
[2022-11-13] MEDS: JUVEN PACKET PO SCH (09:12)
[2022-11-13] MEDS: GLUCERNA SHAKE 237 ML CAN PO SCH (09:12)
[2022-11-13 13:38] VITALS: BP 100/52; TEMP 97.6
== END 2022-11-13 14:06 | DRG 682 ==
LOC: ER 20:55 → 2ND 11-10 01:20 → OBSVTOIN 11-11 17:19
PROVIDERS: ADMIT Hospitalist; ATTEND Hospitalist
DX: N17.9 Acute kidney failure, unspecified (principal); U07.1 COVID-19; I50.22 Chronic systolic (congestive) heart failure; I11.0 Hypertensive heart disease with heart failure; J44.9 Chronic obstructive pulmonary disease, unspecified; E11.9 Type 2 diabetes mellitus without complications; E78.5 Hyperlipidemia, unspecified; I48.91 Unspecified atrial fibrillation; E86.0 Dehydration; M19.90 Unspecified osteoarthritis, unspecified site; M06.9 Rheumatoid arthritis, unspecified; F03.90 Unspecified dementia, unspecified severity, without behavioral disturbance, psychotic disturbance, mood disturbance, and anxiety; Z66 Do not resuscitate; Z88.1 Allergy status to other antibiotic agents; Z88.8 Allergy status to other drugs, medicaments and biological substances; Z88.5 Allergy status to narcotic agent; Z86.73 Personal history of transient ischemic attack (TIA), and cerebral infarction without residual deficits; Z90.49 Acquired absence of other specified parts of digestive tract; Z79.01 Long term (current) use of anticoagulants; Z79.52 Long term (current) use of systemic steroids; Z86.718 Personal history of other venous thrombosis and embolism
CPT/HCPCS: 36415; 51702; 70450; 71045; 80048; 80053; 81003; 81015; 82947; 83735; 84443; 84484; 85025; 87811; 93306; 97110; 97161; 97530; 99284; G0378; J1815; J7030; J7509; U0003

== ENCOUNTER 2023-02-06 12:46 | Inpatient (IN) | payer OTHER ==
[2023-02-06] MEDS ORDERED: NA CHLORIDE 0.9% 500 ML ONE (13:12)
[2023-02-06] MEDS ORDERED: CEFTRIAXONE 1000 MG/VIAL ONE (13:12)
[2023-02-06] MEDS ORDERED: NA CHLORIDE 0.9% 1,000 ML ONE (13:12)
[2023-02-06] MEDS ORDERED: NA CHLORIDE 0.9% 50 ML ONE (13:12)
[2023-02-06 13:20] LABS: Absolute Lymphocytes (CBC) 2.3 K/uL (0.7-4.9); Hematocrit 29.3 % (36.0-45.0); Lymphocytes % 45.8 % (15.3-44.8); MCV 97.1 fL (80-100); MPV 7.2 fL (7.6-11.3); RBC Red Blood Cell Count 3.01 M/uL (3.86-4.86)
[2023-02-06 13:21] LABS: Protime INR 1.29
[2023-02-06 13:28] LABS: SARS-CoV-2 Antigen Rapid Res Negative (Negative)
[2023-02-06 13:36] LABS: Albumin 2.3 g/dL (3.4-5.0); Bilirubin Direct 0.1 mg/dL (0-0.2); Bilirubin Indirect, Calculated 0.2 mg/dL (0.2-0.8); Bilirubin Total 0.3 mg/dL (0.2-1.0); Magnesium 1.9 mg/dL (1.6-2.4); Potassium 3.6 mEq/L (3.5-5.1); Protein, Total 5.2 g/dL (6.4-8.2); Troponin High Sensitivity 13.8 pg/mL (<58.9)
--- NOTE | 2023-02-06 14:04 | RAD REPORT ---
EXAM DESCRIPTION: RAD - Chest Single View - 02/06/2023 1:54 pm CLINICAL HISTORY: COUGH Chest pain. COMPARISON: Chest Single View dated 11/09/2022; Chest Single View dated 10/30/2022; Chest Pa And Lat (2 Views) dated 03/06/2022; Chest Single View dated 08/01/2021 FINDINGS: Portable technique limits examination quality. The lungs are grossly clear. The heart is normal in size. No displaced fractures. IMPRESSION: No acute intrathoracic process suspected.
--- NOTE | 2023-02-06 14:41 | ER ---
Nurse's Notes [facility] Name: Judah Caceres Age: 83 yrs Sex: Female : 1940 Arrival Date: 02/06/2023 Time: 12:46 Bed 3 Private MD: Diagnosis: Fever, unspecified;Altered mental status, unspecified;Weakness;Dysuria;Anemia, unspecified Presentation: 02/06 12:49 Chief complaint: EMS states: Pt from [facility], staff reports ph that pt has been running a high fever and has been lethargic for a few days, BGL 181, BP 125/, HR 94 sinus rhythm, 97% Spo2, axillary temp 101, 18 G to JAVED, 600 NS given, Pt alert and oriented to person and place, hx of dementia. Coronavirus screen: Vaccine status: Patient reports being unvaccinated. Ebola Screen: No symptoms or risks identified at this time. Initial Sepsis Screen: Does the patient meet any 2 criteria? Temp <36.0*C (96.8*F)) or > 38.3*C (100.9*F). HR > 90 bpm. Yes Does the patient have a suspected source of infection? Yes: Dysuria/Frequency/Urgency/UTI. Risk Assessment: Do you want to hurt yourself or someone else? Patient reports no desire to harm self or others. Onset of symptoms was February 06, 2023. 12:49 Method Of Arrival: EMS: [facility] 12:49 Acuity: AMY 2 ph Triage Assessment: 12:57 General: Appears in no apparent distress. Behavior is cooperative, fussy. Pain: Complains of pain in "all over". Neuro: Level of Consciousness is awake, alert, Oriented to person, place. Cardiovascular: Capillary refill < 3 seconds in bilateral fingers Patient's skin is warm and dry. Derm: Skin is fragile, is thin. Historical: - Allergies: 12:56 Cefaclor; ph 12:56 Cephalexin; ph 12:56 codeine sulfate; ph 12:56 Keflex; ph 12:56 meperidine; ph 12:56 NSAIDS; ph 12:56 Sulfa (Sulfonamide Antibiotics); ph - PMHx: 12:56 Anemia; Atrial fibrillation; Cerebrovascular accident; Chronic obstructive lung ph disease; Dementia; diabetes mellitus; heart disease; Hypercholesterolemia; Hypertensive disorder; osteoarthritis; Rheumatoid Arthritis; - Immunization history:: Adult Immunizations unknown. - Social history:: Smoking status: unknown. Screenin:32 [facility] ED Fall Risk Assessment (Adult) History of falling in the last 3 months, ph including since admission Yes- single mechanical fall (1 pt) Confusion or Disorientation Yes (5 pts) Intoxicated or Sedated No (0 pts) Impaired Gait Yes (1 pt) Mobility Assist Device Used Yes (1 pt) Altered Elimination Yes (1 pt) Score/Fall Risk Level 3 or more points = High Risk Oriented to surroundings, Maintained a safe environment, Hourly rounding (assess needs \\T\\ fall precautionary measures) done, Used ambulatory aids as needed (educated on \\T\\ assisted with). Abuse screen: Denies threats or abuse. Denies injuries from another. Nutritional screening: No deficits noted. Tuberculosis screening: No symptoms or risk factors identified. Assessment: 12:56 Reassessment: Code sepsis called overhead. ph 13:15 General: SEE TRIAGE ASSESSMENT. ph 14:30 Derm: Decubitus located on left heel(s) and lateral side of foot approximately 1.5 cm ph to 2.5 cm. Derm: wound noted to dorsum of L foot and L ankle, wound w/ dressing in place to L calve. Vital Signs: 12:49 BP 120 / 57; Pulse 90; Resp 14; Temp 97.8; Pulse Ox 98% on R/A; ph 13:33 BP 111 / 52; Pulse 95; Resp 18; Pulse Ox 97% on R/A; ph 14:30 BP 103 / 46; Pulse 89; Resp 18; Pulse Ox 94% on R/A; ph 15:30 BP 103 / 51; Pulse 86; Resp 16; Pulse Ox 96% on R/A; ph 16:30 BP 105 / 43; Pulse 80; Resp 18; Temp 98.1; Pulse Ox 99% on R/A; ph 17:16 BP 118 / 55; Pulse 84; Resp 18; Temp 98.1; Pulse Ox 96% on R/A; ph Vitals: 13:33 Cardiac Rhythm Assessment Sinus rhythm. ph NIH Stroke Scale Scores: 14:32 NIHSS Score: 0 [facility] ED Course: 12:49 Patient arrived in ED. ph 12:51 Adolph Wilkerson MD is Attending Physician. [facility] 12:55 Triage completed. ph 12:56 Arm band placed on Patient placed in an exam room, on a stretcher, on telemetry monitor, ph on pulse oximetry. 13:00 First set of blood cultures drawn. mb9 13:10 Basic Metabolic Panel Sent. mb9 13:10 CBC with Diff Sent. mb9 13:10 LFT's Sent. mb9 13:10 Magnesium Sent. mb9 13:10 NT PRO-BNP Sent. mb9 13:10 PT-INR Sent. mb9 13:10 Troponin HS Sent. mb9 13:10 Maintain EMS IV. Dressing intact. Good blood return noted. Site clean \\T\\ dry. Gauge \\T\\ mb 9 site: 18 g left upper arm. 13:33 Patient has correct armband on for positive identification. Placed in gown. Bed in low ph position. Call light in reach. Side rails up X2. Client placed on continuous cardiac and pulse oximetry monitoring. NIBP monitoring applied. Door closed. Noise minimized. Warm blanket given. 13:34 Dilma Nova RN is Primary Nurse. ph 13:56 XRAY Chest (1 view) In Process Unspecified. EDMS 14:39 Viridiana Akins MD is Hospitalizing Provider. mikey 14:48 CT Head Brain wo Cont In Process Unspecified. EDMS 18:17 No provider procedures requiring assistance completed. Patient admitted, IV remains in ph place. Administered Medications: 13:15 Drug: NS 0.9% IV 1000 ml Route: IV; Rate: 1 bolus; Site: left upper arm; ph 15:34 Follow up: Response: No adverse reaction; IV Status: Completed infusion; IV Intake: ph 1000ml 14:28 Not Given (Duplicate Order): Rocephin IV 1 grams IV at per protocol once; Given slow IV mikey push per pharmacy instructions 17:05 Drug: levofloxacin IVPB 500 mg Volume: 100 ml; Route: IVPB; Infused Over: 60 mins; ph Site: left upper arm; Medication: 13:33 VIS not applicable for this client. ph Intake: 15:34 IV: 1000ml; Total: 1000ml. ph Outcome: 14:40 Decision to Hospitalize by Provider. mikey 18:18 Admitted to Med/surg accompanied by tech, via stretcher, room 431, with chart, Report ph called to JEREMI Giraldo 18:18 Condition: good 18:18 Instructed on the need for admit. 18:18 Patient left the ED. NIH Stroke Scale - NIH Stroke Score Date: 02/06/2023 Time: 14:32 Total Score = 0 10. Dysarthria (speech clarity - read or repeat words) - 0(Normal) 11. Extinction and Inattention (visual/tactile/auditory/spatial/personal) - 0(No abnormality) 1a. Level of Consciousness (LOC) - 0(Alert) 1b. Level of Consciousness (LOC) (Month \\T\\ Age) - 0(Both) 1c. LOC Commands (Open \\T\\ Closes Eyes/Education And Training Manager) - 0(Both) 2. Best Gaze (Lateral Gaze Paresis) - 0(Normal) 3. Visual Field Loss - 0(No visual loss) 4. Facial Palsy - 0(Normal) 5a. Left Arm: Motor (10-second hold) - 0(No drift) 5b. Right Arm: Motor (10-second hold) - 0(No drift) 6a. Left Leg: Motor (5-second hold - always test supine) - 0(No drift) 6b. Right Leg: Motor (5-second hold - always test supine) - 0(No drift) 7. Limb Ataxia (finger/nose \\T\\ heel/coates - test with eyes open) - 0(Absent) 8. Sensory Loss (pinprick arms/legs/face) - 0(Normal) 9. Best Language: Aphasia (description/naming/reading) - 0(No aphasia) Initials: mikey Signatures: Dispatcher [employer] Adolph Fleming MD MD cha Hall, Patricia RN JEREMI Jasmyn Moody, RN RN mb9
--- NOTE | 2023-02-06 14:41 | EDPHYS ---
Physician Documentation [facility] Name: Judah Caceres Age: 83 yrs Sex: Female : 1940 Arrival Date: 02/06/2023 Time: 12:46 Bed 3 Private MD: ED Physician Adolph Wilkerson HPI: 02/06 14:30 This 83 yrs old Female presents to ER via EMS with complaints of Fever, mikey General Weakness. 14:30 The patient reports fever, not measured (subjective). Onset: The symptoms/episode mikey began/occurred 2 day(s) ago. Modifying factors: there are no obvious modifying factors. Associated signs and symptoms: Pertinent positives: nausea. Historical: - Allergies: 12:56 Cefaclor; ph 12:56 Cephalexin; ph 12:56 codeine sulfate; ph 12:56 Keflex; ph 12:56 meperidine; ph 12:56 NSAIDS; ph 12:56 Sulfa (Sulfonamide Antibiotics); ph - PMHx: 12:56 Anemia; Atrial fibrillation; Cerebrovascular accident; Chronic obstructive lung ph disease; Dementia; diabetes mellitus; heart disease; Hypercholesterolemia; Hypertensive disorder; osteoarthritis; Rheumatoid Arthritis; - Immunization history:: Adult Immunizations unknown. - Social history:: Smoking status: unknown. ROS: 14:32 Constitutional: Negative for fever, chills, and weight loss, Eyes: Negative for injury, mikey pain, redness, and discharge, ENT: Negative for injury, pain, and discharge, Neck: Negative for injury, pain, and swelling, Cardiovascular: Negative for chest pain, palpitations, and edema, Respiratory: Negative for shortness of breath, cough, wheezing, and pleuritic chest pain, Abdomen/GI: Negative for abdominal pain, nausea, vomiting, diarrhea, and constipation, Back: Negative for injury and pain, : Negative for injury, bleeding, discharge, and swelling, MS/Extremity: Negative for injury and deformity, Skin: Negative for injury, rash, and discoloration, Psych: Negative for depression, anxiety, suicide ideation, homicidal ideation, and hallucinations, Allergy/Immunology: Negative for hives, rash, and allergies, Endocrine: Negative for neck swelling, polydipsia, polyuria, polyphagia, and marked weight changes. 14:32 Neuro: Positive for altered mental status, weakness. Exam: 14:32 Constitutional: This is a well developed, well nourished patient who is awake, alert, mikey and in no acute distress. Head/Face: Normocephalic, atraumatic. Eyes: Pupils equal round and reactive to light, extra-ocular motions intact. Lids and lashes normal. Conjunctiva and sclera are non-icteric and not injected. Cornea within normal limits. Periorbital areas with no swelling, redness, or edema. ENT: Nares patent. No nasal discharge, no septal abnormalities noted. Tympanic membranes are normal and external auditory canals are clear. Oropharynx with no redness, swelling, or masses, exudates, or evidence of obstruction, uvula midline. Mucous membranes moist. Neck: Trachea midline, no thyromegaly or masses palpated, and no cervical lymphadenopathy. Supple, full range of motion without nuchal rigidity, or vertebral point tenderness. No Meningismus. Chest/axilla: Normal chest wall appearance and motion. Nontender with no deformity. No lesions are appreciated. Cardiovascular: Regular rate and rhythm with a normal S1 and S2. No gallops, murmurs, or rubs. Normal PMI, no JVD. No pulse deficits. Respiratory: Lungs have equal breath sounds bilaterally, clear to auscultation and percussion. No rales, rhonchi or wheezes noted. No increased work of breathing, no retractions or nasal flaring. Abdomen/GI: Soft, non-tender, with normal bowel sounds. No distension or tympany. No guarding or rebound. No evidence of tenderness throughout. Back: No spinal tenderness. No costovertebral tenderness. Full range of motion. Female : Normal external genitalia. Skin: Warm, dry with normal turgor. Normal color with no rashes, no lesions, and no evidence of cellulitis. MS/ Extremity: Pulses equal, no cyanosis. Neurovascular intact. Full, normal range of motion. Psych: Awake, alert, with orientation to person, place and time. Behavior, mood, and affect are within normal limits. 14:32 Neuro: Orientation: to person, Not oriented to place, time, situation, Mentation: appropriate for stated age, no acute changes, per family, Memory: immediate memory is impaired, remote memory is impaired, recent memory the patient can't recall what they had for dinner last night, Cranial nerves: is grossly normal based on the patient's age, no acute changes, Cerebellar function: is grossly normal based on the patient's age, no acute changes, Motor: moves all fours, strength is normal, strength is 5/5 in all extremities, Sensation: is normal, no obvious gross deficits, appropriate no acute changes, Gait: not tested. seizure activity, is not displayed by the patient. 14:40 ECG was reviewed by the Attending Physician. [facility] Vital Signs: 12:49 BP 120 / 57; Pulse 90; Resp 14; Temp 97.8; Pulse Ox 98% on R/A; ph 13:33 BP 111 / 52; Pulse 95; Resp 18; Pulse Ox 97% on R/A; ph 14:30 BP 103 / 46; Pulse 89; Resp 18; Pulse Ox 94% on R/A; ph 15:30 BP 103 / 51; Pulse 86; Resp 16; Pulse Ox 96% on R/A; ph 16:30 BP 105 / 43; Pulse 80; Resp 18; Temp 98.1; Pulse Ox 99% on R/A; ph 17:16 BP 118 / 55; Pulse 84; Resp 18; Temp 98.1; Pulse Ox 96% on R/A; ph NIH Stroke Scale Scores: 14:32 NIHSS Score: 0 mikey MDM: 12:52 Patient medically screened. [facility] 14:35 Differential diagnosis: viral Infection, bacterial infection, URI, bronchitis, UTI, mikey gastroenteritis. Differential Diagnosis altered mental status, sepsis, flu. Differential Diagnosis: CVA, electrolyte abnormality, hypoglycemia, intracranial bleed, overdose, TIA, UTI, volume depletion. Data reviewed: vital signs, nurses notes, lab test result(s), EKG, radiologic studies, CT scan, plain films. Consideration of Admission/Observation Patient was admitted/placed on observation. I considered the following discharge prescriptions or medication management in the emergency department Medications were administered in the Emergency Department. See MAR. Test considered but Not performed: MRI: no mri. Care significantly affected by the following chronic conditions: Hypertension, cva , a fib. Counseling: I had a detailed discussion with the patient and/or guardian regarding: the historical points, exam findings, and any diagnostic results supporting the discharge/admit diagnosis, lab results, radiology results, the need for further work-up and treatment in the hospital. 02/06 12:53 Order name: Basic Metabolic Panel; Complete Time: 14:12 mikey 02/06 12:53 Order name: CBC with Diff; Complete Time: 14:12 [facility] 02/06 12:53 Order name: LFT's; Complete Time: 14:12 [facility] 02/06 12:53 Order name: Magnesium; Complete Time: 14:12 [facility] 02/06 12:53 Order name: NT PRO-BNP; Complete Time: 14:12 [facility] 02/06 12:53 Order name: PT-INR; Complete Time: 14:12 [facility] 02/06 12:53 Order name: Troponin HS; Complete Time: 14:12 [facility] 02/06 12:53 Order name: Lipase; Complete Time: 14:12 [facility] 02/06 12:53 Order name: Blood Culture Adult (2) 02/06 12:53 Order name: Lactate w/ 2H reflex if indic.; Complete Time: 14:12 [facility] 02/06 12:53 Order name: Urinalysis w/ reflexes; Complete Time: 17:20 [facility] 02/06 12:53 Order name: Flu; Complete Time: 14:12 [facility] 02/06 12:53 Order name: SARS RAPID; Complete Time: 14:12 [facility] 02/06 16:38 Order name: CBC with Automated Diff EDMS 02/06 16:38 Order name: CBC with Automated Diff EDMS 02/06 16:38 Order name: Comprehensive Metabolic Panel EDMS 02/06 16:38 Order name: Comprehensive Metabolic Panel EDMS 02/06 16:38 Order name: Cortisol EDMS 02/06 16:38 Order name: Cortisol EDMS 02/06 16:38 Order name: Procalcitonin EDMS 02/06 16:38 Order name: Procalcitonin EDMS 02/06 16:38 Order name: T4 Free EDMS 02/06 16:38 Order name: T4 Free EDMS 02/06 16:38 Order name: Thyroid Stimulating Hormone EDMS 02/06 16:38 Order name: Thyroid Stimulating Hormone EDMS 02/06 12:53 Order name: XRAY Chest (1 view); Complete Time: 14:12 [facility] 02/06 14:30 Order name: CT Head Brain wo Cont; Complete Time: 17:20 [facility] 02/06 12:53 Order name: EKG; Complete Time: 12:54 [facility] 02/06 16:38 Order name: Regular EDMS 02/06 12:53 Order name: Cardiac monitoring; Complete Time: 12:55 [facility] 02/06 12:53 Order name: EKG - Nurse/Tech; Complete Time: 13:32 [facility] 02/06 12:53 Order name: IV Saline Lock; Complete Time: 12:55 [facility] 02/06 12:53 Order name: Labs collected and sent; Complete Time: 13:10 [facility] 02/06 12:53 Order name: O2 Per Protocol; Complete Time: 12:55 [facility] 02/06 12:53 Order name: O2 Sat Monitoring; Complete Time: 12:55 [facility] 02/06 14:30 Order name: [place]; Complete Time: 15:34 mikey EC:40 Rate is 92 beats/min. Rhythm is regular. QRS [place] is Normal. AL interval is normal. QRS mikey interval is normal. QT interval is normal. No Q waves. T waves are Normal. No ST changes noted. Clinical impression: NSR w/ Non-specific ST/T Changes and No evidence of ischemia. Interpreted by me. Reviewed by me. Administered Medications: 13:15 Drug: NS 0.9% IV 1000 ml Route: IV; Rate: 1 bolus; Site: left upper arm; ph 15:34 Follow up: Response: No adverse reaction; IV Status: Completed infusion; IV Intake: ph 1000ml 14:28 Not Given (Duplicate Order): Rocephin IV 1 grams IV at per protocol once; Given slow IV mikey push per pharmacy instructions 17:05 Drug: levofloxacin IVPB 500 mg Volume: 100 ml; Route: IVPB; Infused Over: 60 mins; ph Site: left upper arm; Disposition Summary: 02/06/23 14:40 Hospitalization Ordered Hospitalization Status: Inpatient Admission mikey Provider: Viridiana Akins cha Location: Telemetry/[facility] (Inpatient) mikey Condition: Fair mikey Problem: new mikey Symptoms: have improved mikey Bed/Room Type: Standard mikey Room Assignment: 431(02/06/23 16:58) eb Diagnosis - Fever, unspecified mikey - Altered mental status, unspecified mikey - Weakness mikey - Dysuria mikey - Anemia, unspecified mikey Forms: - Medication Reconciliation Form mikey - SBAR form mikey NIH Stroke Scale - NIH Stroke Score Date: 02/06/2023 Time: 14:32 Total Score = 0 10. Dysarthria (speech clarity - read or repeat words) - 0(Normal) 11. Extinction and Inattention (visual/tactile/auditory/spatial/personal) - 0(No abnormality) 1a. Level of Consciousness (LOC) - 0(Alert) 1b. Level of Consciousness (LOC) (Month \T\ Age) - 0(Both) 1c. LOC Commands (Open \T\ Closes Eyes/Medical Library Assistant) - 0(Both) 2. Best Gaze (Lateral Gaze Paresis) - 0(Normal) 3. Visual Field Loss - 0(No visual loss) 4. Facial Palsy - 0(Normal) 5a. Left Arm: Motor (10-second hold) - 0(No drift) 5b. Right Arm: Motor (10-second hold) - 0(No drift) 6a. Left Leg: Motor (5-second hold - always test supine) - 0(No drift) 6b. Right Leg: Motor (5-second hold - always test supine) - 0(No drift) 7. Limb Ataxia (finger/nose \T\ heel/coates - test with eyes open) - 0(Absent) 8. Sensory Loss (pinprick arms/legs/face) - 0(Normal) 9. Best Language: Aphasia (description/naming/reading) - 0(No aphasia) Initials: mikey Signatures: Dispatcher [employer] EDAdolph Rasheed MD MD cha Hall, Patricia, RN RN Candelaria Jeffers Corrections: (The following items were deleted from the chart) 16:58 14:40 mikey corcoran
--- NOTE | 2023-02-06 14:57 | RAD REPORT ---
EXAM DESCRIPTION: CT - Head Brain Wo Cont - 02/06/2023 2:47 pm CLINICAL HISTORY: DECLINING STATE Headache, drowsiness COMPARISON: Head Brain Wo Cont dated 11/09/2022; Head Brain Wo Cont dated 08/01/2021 TECHNIQUE: All CT scans are performed using dose optimization technique as appropriate and may inclu de automated exposure control or mA/KV adjustment according to patient size. FINDINGS: No intracranial hemorrhage, hydrocephalus or extra-axial fluid collection.Advanced general ized brain atrophy is present with advanced periventricular and deep white matter chronic microvascul ar ischemic changes.No areas of brain edema or evidence of midline shift. Chronic right sphenoid sinus opacification. The calvarium is intact. IMPRESSION: No acute intracranial abnormality.
[2023-02-06] MEDS ORDERED: Levofloxacin500mg IV 500 MG/100 ML BAG IV ONE (15:52)
[2023-02-06 15:53] LABS: Specific Gravity 1.009 (1.005-1.030); Urine Bilirubin NEGATIVE (Negative); Urine Blood Negative (Negative); Urine Clarity Clear (Clear); Urine Color Colorless (Yellow); Urine Glucose 1+ (Negative); Urine Protein NEGATIVE (Negative); Urine Urobilinogen Normal (Normal); Urine pH 7.5 (5.0-7.0)
[2023-02-06] MEDS ORDERED: ONDANSETRON 4 MG/2 ML VIAL IV PRN (16:29)
[2023-02-06] MEDS ORDERED: ACETAMINOPHEN 500 MG TAB PO PRN (16:29)
--- NOTE | 2023-02-06 16:45 | P.HP ---
Certification for Inpatient Patient admitted to: Inpatient With expected LOS: >2 Midnights Patient will require the following post-hospital care: None Practitioner: I am a practitioner with admitting privileges, knowledge of patient current condition, hospital course, and medical plan of care. Services: Services provided to patient in accordance with Admission requirements found in Title 42 Section 412.3 of the Code of Federal Regulations Patient History Date of Service: 02/06/23 Reason for admission: Altered mental status History of Present Illness: Fever, unspecified;Altered mental status, unspecified;Weakness;Dysuria Presentation: 02/06 12:49 Chief complaint: EMS states: Pt from [facility], staff reports ph that pt has been running a high fever and has been lethargic for a few days, BGL 181, BP 125/, HR 94 sinus rhythm, 97% Spo2, axillary temp 101, 18 G to JAVED, 600 NS given, Pt alert and oriented to person and place, hx of dementia. Allergies cefaclor Allergy (Verified 03/06/22 14:39) Nausea/Vomiting cephalexin [From Keflex] Allergy (Verified 03/06/22 14:39) Nausea/Vomiting codeine Allergy (Verified 03/06/22 14:39) Nausea/Vomiting meperidine Allergy (Verified 03/06/22 14:39) Nausea/Vomiting NSAIDS (Non-Steroidal Anti-Inflamma Allergy (Verified 03/06/22 14:39) Nausea/Vomiting Sulfa (Sulfonamide Antibiotics) Allergy (Verified 03/06/22 14:39) Rash Home Medications: Acetaminophen 2 tab PO Q4H PRN 10/30/22 Ascorbic Acid [Vitamin C] 1 tab PO BID 10/30/22 Atorvastatin Calcium 20 mg PO BEDTIME 10/30/22 Calcium Carbonate/Vitamin D3 [Oscal 500 + Vit D 200 Iu Tab*] 1 tab PO DAILY 10/30/22 Divalproex Sodium [Depakote Sprinkle] 125 mg PO BID 10/30/22 Omeprazole 20 mg PO DAILY 10/30/22 Ondansetron [Zofran (Odt)*] 1 tab PO Q4H PRN 10/30/22 Polyethylene Glycol 3350 [Miralax] 17 gm PO DAILY PRN 10/30/22 Rivaroxaban [Xarelto*] 15 mg PO BEDTIME 10/30/22 methylPREDNISolone [Medrol*] 4 mg PO DAILY 10/30/22 Glucerna Shake [Glucerna*] 237 ml PO BID #60 can 11/13/22 Dedrick [Dedrick*] 1 pkt PO BID #60 11/13/22 - Past Medical/Surgical History Diabetic: Yes -: NIDDM -: HIGH CHOLESTEROL -: DVT -: ARTHRITIS -: HTN -: RA -: A-fib -: Alzheimer's dementia -: BACK SURGERY -: APPENDECTOMY -: TONSILLECTOMY -: FOOT SURGERY -: skin surgery-nose Psychosocial/ Personal History: Resident of [facility] - Family History Father Medical History: Heart disease Brother Medical History: Heart disease Mother Medical History: Stroke - Social History Alcohol use: No CD- Drugs: No Caffeine use: No Review of Systems 10-point ROS is otherwise unremarkable Physical Examination - Vital Signs Temperature: 98 F Blood Pressure: 140/80 Pulse: 88 Respirations: 18 Pulse Ox (%): 98 - Physical Exam General: Alert, In no apparent distress, Oriented x1, Demented HEENT: Atraumatic, PERRLA, Mucous membr. moist/pink, EOMI, Sclerae nonicteric Neck: Supple, 2+ carotid pulse no bruit, No LAD, Without JVD or thyroid abnormality Respiratory: Clear to auscultation bilaterally, Normal air movement Cardiovascular: Regular rate/rhythm, Normal S1 S2 Gastrointestinal: Normal bowel sounds, No tenderness Musculoskeletal: No tenderness Integumentary: No rashes Neurological: Cranial nerves 3-12 intact, Abnormal gait, Abnormal speech, Abnormal strength, Abnormal affect, Dementia Lymphatics: No axilla or inguinal lymphadenopathy - Studies Laboratory Data (last 24 hrs) 02/06/23 13:05: PT 14.2 H, INR 1.29 02/06/23 13:05: WBC 5.10, Hgb 9.6 L, Hct 29.3 L, Plt Count 147 L 02/06/23 13:05: Sodium 141, Potassium 3.6, BUN 21 H, Creatinine 0.82, Glucose 142 H, Magnesium 1.9, Total Bilirubin 0.3, AST 12 L, ALT 13, Alkaline Phosphatase 56, Lipase 15 Microbiology Data (last 24 hrs): 02/06/23 13:00 Nasopharnyx Influenza Type A Antigen Screen - Final 02/06/23 13:00 Nasopharnyx Influenza Type B Antigen Screen - Final Assessment & Plan - Problems (Diagnosis) (1) Generalized weakness Current Visit: No Status: Acute (2) Diabetes mellitus Onset Date: 10/16/14 Current Visit: No Status: Acute (3) GERD (gastroesophageal reflux disease) Current Visit: No Status: Acute (4) Hydronephrosis, left Current Visit: No Status: Acute (5) Hyperlipidemia Current Visit: No Status: Acute (6) Obstructive lung disease (generalized) Current Visit: No Status: Acute (7) Osteoarthritis Current Visit: No Status: Acute (8) Polymyalgia rheumatica Current Visit: No Status: Acute (9) Restless leg syndrome Current Visit: No Status: Acute (10) Rheumatoid arthritis Current Visit: No Status: Acute (11) Alzheimer's dementia Current Visit: Yes Status: Acute - Advance Directives Does patient have a Living Will: No Does patient have a Durable POA for Healthcare: No
[2023-02-06] MEDS: NA CHLORIDE 0.9% 1,000 ML IV SCH ×2 (17:00→20:45)
[2023-02-06] MEDS: JUVEN PACKET PO SCH (21:00)
[2023-02-06] MEDS: ENSURE HIGH PROTEIN 237 ML CAN PO SCH (21:00)
[2023-02-07 04:49] LABS: Absolute Lymphocytes (CBC) 2.2 K/uL (0.7-4.9); Hematocrit 26.6 % (36.0-45.0); Lymphocytes % 48.2 % (15.3-44.8); MCV 96.2 fL (80-100); MPV 7.4 fL (7.6-11.3); RBC Red Blood Cell Count 2.77 M/uL (3.86-4.86)
[2023-02-07 05:08] LABS: Albumin 2.1 g/dL (3.4-5.0); Bilirubin Total 0.2 mg/dL (0.2-1.0); Protein, Total 4.9 g/dL (6.4-8.2); Thyroid Stimulating Hormone 2.42 uIU/mL (0.358-3.740)
[2023-02-07] MEDS: METHYLPREDNISOLONE 40 MG INJ IV SCH ×3 (05:55→16:53)
[2023-02-07] MEDS: NA CHLORIDE 0.9% 1,000 ML IV SCH ×3 (06:20→21:37)
[2023-02-07 07:28] VITALS: BMI 18.3
[2023-02-07] MEDS: ENSURE HIGH PROTEIN 237 ML CAN PO SCH ×3 (08:47→19:42)
[2023-02-07] MEDS: JUVEN PACKET PO SCH ×2 (08:47→20:11)
[2023-02-07] MEDS: DIVALPROEX NA 125 MG CAP PO SCH (19:30)
[2023-02-07] MEDS: predniSONE 20 MG TAB PO SCH (19:30)
[2023-02-07] MEDS: RISPERIDONE 0.25 MG TABLET PO SCH (19:31)
[2023-02-07 20:15] VITALS: O2SAT 92
[2023-02-07] MEDS ORDERED: RIVAROXABAN 15 MG TABLET PO SCH (21:00)
[2023-02-07] MEDS ORDERED: ATORVASTATIN 20 MG TAB PO SCH (21:00)
[2023-02-08] MEDS: predniSONE 20 MG TAB PO SCH (08:11)
[2023-02-08] MEDS: DIVALPROEX NA 125 MG CAP PO SCH (08:11)
[2023-02-08] MEDS: JUVEN PACKET PO SCH (08:12)
[2023-02-08] MEDS: ENSURE HIGH PROTEIN 237 ML CAN PO SCH ×2 (08:13→16:16)
[2023-02-08] MEDS: RISPERIDONE 0.25 MG TABLET PO SCH (08:15)
[2023-02-08] MEDS: NA CHLORIDE 0.9% 1,000 ML IV SCH (11:11)
[2023-02-08] MEDS ORDERED: METHYLPREDNISOLONE 125 MG INJ IV ONE (12:00)
[2023-02-08 16:06] VITALS: BP 121/66; TEMP 97.2
[2023-02-08 16:37] LABS: SARS-CoV-2 Antigen Rapid Res Negative (Negative)
--- NOTE | 2023-02-08 17:35 | EKG ---
Test Date: 2023-02-06 Test Time: 13:15:06 Marine Diver: PH MEASUREMENT RESULTS: Intervals: Rate: 92 MI: 188 QRSD: 84 QT: 348 QTc: 430 Conception: P: 41 MI: 188 QRS: 0 T: 73 INTERPRETIVE STATEMENTS: Normal sinus rhythm Low voltage QRS Borderline ECG Compared to ECG 10/30/2022 07:25:48 Low QRS voltage now present Myocardial infarct finding no longer present Electronically Signed On 02-08-23 17:34:05 CDT by Melo Tabor
--- NOTE | 2023-02-08 18:08 | CON ---
Date of Consultation: 02/08/2023 Reason For Consultation: AV node block. History Of Present Illness: This is an 83-year-old female, who [facility] due to altered mental status and high fever. On telemetry, she was doing a second-degree AV block ty pe 1, so I was consulted and saw her bedside. She has no symptoms and the patient has significant de mentia and she is a poor historian due to that. Past Medical History: Significant for diabetes, dyslipidemia, hypertension, atrial fibrillation, dem entia. Medications: Refer to reconciliation sheet for detailed list. Allergies: CEPHALOSPORINS, CODEINE, AND MEPERIDINE. Family History: No premature coronary artery disease or cancer. Social History: She does not smoke or drink. Does not use any drugs. Review of Systems: All systems reviewed and they were negative except what mentioned in HPI. Physical Examination: Vital Signs: Reviewed. Head and Neck: Pupils are equal, reactive to light. Intact eye movements. No JVD. No cervical lym phadenopathy. Neck is supple. Thyroid is not enlarged. Lungs: Clear to auscultation bilaterally. No rhonchi, wheezing, or crackles. No accessory muscle u se. Heart: Regular rate and rhythm. No extra sounds. Abdomen: Soft, nontender. Bowel sounds positive. No organomegaly. No masses or hernia. No rigidi ty or rebound. Extremities: No edema, clubbing, or cyanosis. Intact pulses. Skin: No rash. Neurologic: Alert, awake, oriented x3. No acute focal deficits appreciated. Investigation: Labs were reviewed. Assessment And Recommendations: Second-degree AV block type 1. This is benign. The patient is asym ptomatic. No significant dizziness or passing out spells. No further cardiac intervention is requir ed, just monitor, avoid AV node blocking agents on her regimen of therapy. SR/MODL Voice ID: [id number] Report ID: [id number]
== END 2023-02-08 17:00 | disposition home or self-care (01) | DRG 309 ==
LOC: ER 12:46 → ERHOLD 16:29 → 4TH 18:05
PROVIDERS: ADMIT Hospitalist; ATTEND Hospitalist
DX: I44.1 Atrioventricular block, second degree (principal); N13.30 Unspecified hydronephrosis; E11.9 Type 2 diabetes mellitus without complications; E78.00 Pure hypercholesterolemia, unspecified; M19.90 Unspecified osteoarthritis, unspecified site; J44.9 Chronic obstructive pulmonary disease, unspecified; I10 Essential (primary) hypertension; D64.9 Anemia, unspecified; I48.91 Unspecified atrial fibrillation; M06.9 Rheumatoid arthritis, unspecified; M35.3 Polymyalgia rheumatica; G25.81 Restless legs syndrome; J98.4 Other disorders of lung; K21.9 Gastro-esophageal reflux disease without esophagitis; G30.9 Alzheimer's disease, unspecified; F02.80 Dementia in other diseases classified elsewhere, unspecified severity, without behavioral disturbance, psychotic disturbance, mood disturbance, and anxiety; Z88.8 Allergy status to other drugs, medicaments and biological substances; Z88.1 Allergy status to other antibiotic agents; Z88.5 Allergy status to narcotic agent; Z86.73 Personal history of transient ischemic attack (TIA), and cerebral infarction without residual deficits; Z90.49 Acquired absence of other specified parts of digestive tract; Z79.01 Long term (current) use of anticoagulants; Z79.899 Other long term (current) drug therapy; Z86.718 Personal history of other venous thrombosis and embolism; Z20.822 Contact with and (suspected) exposure to COVID-19
CPT/HCPCS: 36415; 70450; 71045; 80048; 80053; 80076; 81003; 82533; 83605; 83690; 83735; 83880; 84145; 84439; 84443; 84484; 85025; 85610; 87040; 87804; 87811; 93005; J0696; J2920; J2930; J7030; J7040; J7512